=== PATIENT | male | born 1955 | race Caucasian/White ===

== ENCOUNTER 2021-03-01 14:49 | Inpatient (IN) | payer OTHER, SELFPAY ==
[2021-03-01] VITALS (26 sets, daily range): BP systolic 95–153; BP diastolic 60–108; PULSE 39–61; RESP 12–21; TEMP 36.4–37.1; O2SAT 93–100
--- NOTE | ~2021-03-01 | XR_ITS ---
EXAMINATION: XR chest 2V DATE: 03/05/2021 11:14 INDICATION: Pacemaker insertion TECHNIQUE: AP and lateral views of the chest are obtained. COMPARISON: 03/04/2021 FINDINGS: The lungs are free of acute opacities. There is no pleural effusion or pneumothorax. The ca rdiomediastinal silhouette is normal. There is exaggerated kyphosis of the lower thoracic spine. A du al-lead cardiac pacemaker of the left chest wall ends with leads in expected locations. Shunt cathete r tubing courses over the right hemithorax anteriorly and coils in the right upper quadrant. IMPRESSION: 1. No acute cardiopulmonary abnormality. Reviewed, dictated and finalized at location A.
--- NOTE | ~2021-03-01 | XR_ITS ---
EXAMINATION: XR ankle LT min 3V EXAM DATE: 03/01/2021 16:19 INDICATION: Initial encounter following injury, with pain of the left ankle. TECHNIQUE: Left ankle frontal, lateral and oblique projections obtained and reviewed. There is no pr ior study for comparison. FINDINGS: Acute closed posttraumatic transverse fracture through the lateral malleolus, about 2 cm from its tip. This potentially may require surgical fixation. There is overlying soft tissue swellin g. There is acute avulsion sliver-like fracture at the tip of the medial malleolus, which has about 5 mm of medial distraction. This has been indicated on the frontal examination. There is no other lucency overlying the talus, may or may not be a fracture (potentially could be shadow from os trigonum). Lateral projection also demonstrates suspicion of acute dorsal navicular fracture at its anterior asp ect. IMPRESSION: 1. Nondisplaced left lateral malleolar transverse fracture, may require orthopedic internal fixation . 2. Tiny medial malleolar avulsion fracture. 3. Probable tiny anterior talar process fracture dorsally. 4. Possible talar dome fracture or summation shadow. 5. Orthopedic consult recommended, further evaluation with MR or CT may be indicated if it would autumn nge management. Reviewed, dictated and finalized at location B. IMPRESSION: 1. Nondisplaced left lateral malleolar transverse fracture, may require orthop edic internal fixation. 2. Tiny medial malleolar avulsion fracture. 3. Probable tiny anterior talar process fracture dorsally. 4. Possible talar dome fracture or summation shadow. 5. Orthopedic consult recommended, further evaluation with MR or CT may be ind icated if it would change house attendant.
--- NOTE | ~2021-03-01 | XR_ITS ---
EXAMINATION: XR chest 1V portable 03/04/2021 11:24 INDICATION: Pacemaker insertion PROCEDURE: AP portable chest COMPARISON: 03/01/2021 FINDINGS: The lungs are clear. Interval placement of sequential pacemaker leads, tips in the right at rium and right ventricle respectively. There is a right-sided ventriculoperitoneal shunt. The cardiom ediastinal silhouette is within normal limits. There are no pleural effusions. There is no pneumoth orax suspected. IMPRESSION: 1: NO ACUTE CARDIOPULMONARY DISEASE. Reviewed, dictated and finalized at location A.
--- NOTE | ~2021-03-01 | XR_ITS ---
XR chest 1V portable DATE: 03/01/2021 18:36 INDICATION: Bradycardia TECHNIQUE: Portable upright AP views on 03/01/2021 at 1836 and 1837 hours COMPARISON: 04/08/2015 PA and lateral chest FINDINGS: Presumed right ventricular peritoneal shunt catheter overlying right neck and chest and abd omen. Mild elevation of the left leaf of diaphragm. The lungs appear clear of consolidation. No pleural effusion or pulmonary vascular congestion or pneumothorax. Heart size is likely within normal limits considering magnification associated with AP projection. Th ere is aortic ectasia and tortuosity. Diffuse osteopenia. Levoscoliosis of the thoracic spine. IMPRESSION: Right ventriculoperitoneal shunt catheter No active cardiopulmonary disease is evident Reviewed, dictated and finalized at location A.
--- NOTE | 2021-03-01 15:02 | ECG_ITS ---
Measurements Intervals [place] Rate: 41 P: [place]: 0 QRS: 82 QRSD: 135 T: -2 QT: 474 QTc: 396 Interpretive Statements JUNCTIONAL RHYTHM RIGHT BUNDLE BRANCH BLOCK BASELINE WANDER- V1-V2 ABNORMAL ECG Electronically Signed On 03-01-2021 17:07:20 CDT by Jl Kwan D.O.
--- NOTE | 2021-03-01 15:07 | PC.NURSE ---
Went to get pt a commode, pt had gotten up and self-ambulated to bathroom for BM. +bradycardic per EKG, pt denies hx same, denies CP/SOB, states only cardiac hx HTN.
[2021-03-01 16:00] LABS: Basophils Percent Auto 0.4 % (0.2-1.2); Eosinophils Absolute Auto 0.1 K/mm3 (0-0.3); Eosinophils Percent Auto 1.4 % (0-4.4); Hemoglobin 14.8 g/dL (14.0-18.0); Immature Granulocyte Absolute 0.04 K/mm3 (0.00-0.031); Immature Granulocyte Percent A 0.4 % (0-0.5); Lymphocytes Absolute Auto 1.12 K/mm3 (0.9-3.2); Lymphocytes Percent Auto 11.1 % (18.3-44.2); Mean Corpuscular HGB Conc 32.2 g/dl (32-36); Mean Corpuscular Volume 99.4 fl (80-100); Mean Platelet Volume 9.7 fl (7.4-10.4); Monocytes Absolute Auto 1.1 K/mm3 (0.1-0.6); Neutrophils Absolute Auto 7.7 K/mm3 (1.3-6.7); Neutrophils Percent Auto 75.7 % (45.5-73.1); Platelet Count Result 232 k/mm3 (150-375); Red Blood Count 4.63 M/mm3 (4.6-6.20); Red Cell Distribution Width 13.4 % (11.5-14.5); White Blood Count 10.1 K/mm3 (4.5-10.0)
[2021-03-01 16:03] LABS: Alanine Aminotransferase 13 U/L (4-50); Albumin Level 3.6 g/dL (3.5-5.1); Alkaline Phosphatase 106 U/L (38-126); Anion Gap 10 mmol/L (8-16); Aspartate Amino Transferase 29 U/L (17-59); Blood Urea Nitrogen 23 mg/dL (9-20); Calcium 8.9 mg/dL (8.4-10.2); Carbon Dioxide 27 mmol/L (22-30); Chloride 106 mmol/L (98-107); Estimated Glomerular Filt Rate 44; Glucose 89 mg/dL (75-110); Potassium 3.3 mmol/L (3.4-5.0); Sodium 143 mmol/L (137-145)
--- NOTE | 2021-03-01 16:05 | ED.GENADULT ---
HPI - General Adult General Chief complaint: Extremity Injury, Lower Stated complaint: FALL/FRACTURE Time Seen by Provider: 03/01/21 15:25 History of Present Illness HPI narrative: Patient is a 65 y/o male complaining of left ankle pain starting yesterday after a fall. He describes his pain as sharp and rates it as 3/10. He states that movement worsens his pain. There is no pain radiation. He did not hit his head or have any other injury. He has no headache, neck pain, back pain, chest pain or abdominal pain. He had xray done at [facility] and was sent here because xray showed a fracture. Related Data Home Medications Medication Instructions Recorded Confirmed acetaminophen 650 mg PO TID 03/01/21 03/01/21 amlodipine 10 mg PO DAILY 03/01/21 03/01/21 hydralazine 50 mg PO TID 03/01/21 03/01/21 hydrochlorothiazide 25 mg PO DAILY 03/01/21 03/01/21 metoprolol succinate 50 mg PO Q12H 03/01/21 03/01/21 polyethylene glycol 3350 17 g PO DAILY PRN 03/01/21 03/01/21 sertraline 50 mg PO DAILY 03/01/21 03/01/21 Allergies Allergy/AdvReac Type Severity Reaction Status Date / Time morphine AdvReac Hallucinati Verified 03/01/21 15:01 ng Review of Systems Constitutional: Constitutional: Denies chills, Denies fever(s), Denies headache(s) and Denies weakness Eyes: Eyes: Denies blurry vision ENT: Denies headache(s) and Denies neck pain Cardiovascular: Cardiovascular: Denies chest pain and Denies dyspnea Respiratory: Respiratory: Denies cough and Denies dyspnea Gastrointestinal: Gastrointestinal: Denies abdominal pain, Denies diarrhea, Denies nausea and Denies vomiting Genitourinary: Genitourinary: Denies hematuria and Denies dysuria Musculoskeletal: Musculoskeletal: Denies back pain, Reports arthralgias (left ankle pain) and Denies neck pain Neurologic: Denies headache(s) and Denies weakness [facility] Past Medical History Medical History Gastroesophageal reflux disease History of diverticulitis History of stroke Per patient he has a history of intracranial hemorrhage and ischemic stroke. Hypertension Nephrolithiasis Obstructive sleep apnea Intolerant to CPAP. Paroxysmal atrial fibrillation Short-term memory loss As result of previous intracranial hemorrhage. Surgical History Surgical History History of cholecystectomy History of colon resection Secondary to diverticulitis. History of gastric bypass Gastric sleeve procedure. History of ventriculoperitoneal shunting Family History Family History Other Cerebrovascular accident Hypertension Social History Social History Social History: Surrogate decision maker: Bhavani Holley, friend. Code status: Full code. He would not want to be on life support for any length of time, however. Smoking status: Never smoker Alcohol intake: current Drinks per week: 3 Substance use: never Additional living arrangements comments: Resides at [facility]. 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 Spiritual care concerns: No Exam Const: General: no acute distress and well developed Orientation/consciousness: oriented to person, oriented to place, oriented to time and patient oriented x3 HENMT: Head: normocephalic Ears: external ears normal General nose exam: Normal external nose present Eyes: General: appearance normal, both eyes and all related structures Conjunctivae: conjunctivae normal Neck: Neck: normal visual inspection and full ROM Chest: Chest palpation & inspection: normal inspection of the chest and no tenderness Resp: Effort & Inspection: normal respiratory effort Auscultation: clear to auscultation bilaterally Cardio: Rate: bradycardic Rhythm: regular rhythm GI: GI Palp: No abdominal ten
[2021-03-01 17:40] LABS: Troponin I 0.042 ng/mL (0.000-0.034)
[2021-03-01 18:30] LABS: Add Urine Microscopic? YES; Appearance Urine Clear (Clear); Bacteria Urine Trace /hpf; Bilirubin Urine Negative (Negative); Blood Urine Negative (Negative); Color Urine Yellow (Yellow); Glucose Urine UA Negative (Negative); Ketones Urine Negative (Negative); Leukocyte Esterase Ur Negative LEU/UL (Negative); Mucus Urine Rare /lpf; Nitrate Urine Negative (Negative); Protein Urine 1+ mg/dL (Negative); RBC Urine 0-2 /hpf (0-2); Specific Grav Ur 1.017 (1.001-1.035); Urobilinogen Urine Negative mg/dL (<2.0); WBC Urine 0-3 /hpf
[2021-03-01] MEDS: POTASSIUM CHLORIDE 20 MEQ TABLET PO (19:08)
[2021-03-01 19:59] LABS: Troponin I 0.043 ng/mL (0.000-0.034)
--- NOTE | 2021-03-01 21:17 | PC.NURSE ---
This patient, Fabio Nesbitt, was admitted to IMU Room 202-. Patient/family oriented to hospital policies and general routines including ID bracelet, bed and alarms, visiting hours, pain management, procedures, bathroom and other care routines, personal items, smoking policy, room service/diet, and visiting hours. Information on how to activate the Rapid Response Team has been discussed. Patient/Family are encouraged to report perceived risks to care and to ask questions if they do not understand what they are told or what they should do.
--- NOTE | 2021-03-01 21:50 | ECG_ITS ---
Measurements Intervals [place] Rate: 39 P: [place]: 0 QRS: 57 QRSD: 174 T: -4 QT: 491 QTc: 399 Interpretive Statements SLOW JUNCTIONAL RHYTHM RIGHT BUNDLE BRANCH BLOCK ABNORMAL ECG Electronically Signed On 03-02-2021 5:51:34 CDT by Jl Kwan D.O.
--- NOTE | 2021-03-01 22:00 | PM.IMHP ---
H&P: HPI History of Present Illness Date/Time: 03/01/21 22:00 Chief Complaint: Left ankle fracture after fall yesterday. Narrative: This is a 65-year-old male with history of stroke and left hemiplegia, paroxysmal atrial fibrillation, and hypertension who presented to the emergency department earlier today via EMS from [facility] for evaluation after he was found to have an ankle fracture on imaging done today. He is a pretty good historian however suffers from short-term memory loss due to previous intracranial hemorrhage. He believes it was either yesterday or the day before that he sustained a fall after stepping out of the car. He was on a car ride with his niece and when he got of the car his leg was weak like it had fallen asleep and it caused him to fall. He is not able to tell me exactly how he fell, if he rolled his ankle, or exactly how he landed. Per the patient he was able to get up with the help of his niece and a friend and spent the rest of the day limping on that left foot. He denies head trauma and loss of consciousness in the fall. Today he had an x-ray done at [facility] which showed an ankle fracture and he was sent here for further evaluation. In the emergency department he was found to be bradycardic with EKG showing a junctional rhythm although on a couple of telemetry strips it looks like he may have intermittently gone into third-degree heart block. He is asymptomatic with regards to the bradycardia and he specifically denies lightheadedness, syncope, near syncope, palpitations, nausea, vomiting, sweats, and shortness of breath. He does not believe that he was dizzy prior to the fall in which he broke his ankle. He has no known history of coronary artery disease he, sick sinus syndrome, or thyroid disease. Review of Systems Review of Systems: Narrative: Twelve systems were reviewed with pertinent positives and negatives as per HPI. He denies headache. No sinus congestion, rhinorrhea, otalgia, or odynophagia. No recent cold or flu symptoms. He received both shots in the COVID vaccination series. Denies orthopnea, PND, and significant lower extremity edema. No nausea, vomiting, or diarrhea. No dysuria. Except as documented, all other systems were reviewed and are negative. [facility] Past Medical History Medical History (Updated 03/01/21 @ 23:42 by Radha Funes PA-C) Gastroesophageal reflux disease History of diverticulitis History of stroke Per patient he has a history of intracranial hemorrhage and ischemic stroke. Hypertension Nephrolithiasis Obstructive sleep apnea Intolerant to CPAP. Paroxysmal atrial fibrillation Short-term memory loss As result of previous intracranial hemorrhage. Surgical History Surgical History (Updated 03/01/21 @ 23:38 by Radha Funes PA-C) History of cholecystectomy History of colon resection Secondary to diverticulitis. History of gastric bypass Gastric sleeve procedure. History of ventriculoperitoneal shunting Family History Family History (Updated 03/01/21 @ 23:38 by Radha Funes PA-C) Other Cerebrovascular accident Hypertension Social History Social History (Updated 03/01/21 @ 23:40 by Radha Funes PA-C) Social History: Surrogate decision maker: Bhavani Holley, friend. Code status: Full code. He would not want to be on life support for any length of time, however. Smoking status: Never smoker Alcohol intake: current Drinks per week: 3 Substance use: never Additional living arrangements comments: Resides at [facility]. 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 Spiritual care concerns: No Meds Home Medications and Allergies Home Medications Medication Instructions Recorded Confirmed Type acetaminophen 650 mg PO TID 03/01/21 03/01/21 History amlodipine 10 mg PO DAILY 03/01/21 03/01/21 History hydralazine 50 mg PO TID 03/01/21 03/01/21 History hydrochlorothiazide 25 mg
[2021-03-01 23:54] LABS: Troponin I 0.042 ng/mL (0.000-0.034)
[2021-03-02] VITALS (13 sets, daily range): BP systolic 120–151; BP diastolic 61–85; PULSE 45–94; RESP 16–20; TEMP 36–37.2; O2SAT 91–98
[2021-03-02] MEDS: SODIUM CHLORIDE 0.9% IV 1,000 ML 999 ML IV CONT (04:51)
[2021-03-02 05:08] LABS: Hematocrit 46.8 % (42.0-52.0); Hemoglobin 14.8 g/dL (14.0-18.0); Mean Corpuscular HGB Conc 31.6 g/dl (32-36); Mean Corpuscular Hemoglobin 32.2 pg (26-34); Mean Platelet Volume 9.8 fl (7.4-10.4); Platelet Count Result 209 k/mm3 (150-375); Red Blood Count 4.59 M/mm3 (4.6-6.20); Red Cell Distribution Width 13.3 % (11.5-14.5); White Blood Count 8.8 K/mm3 (4.5-10.0)
[2021-03-02 05:36] LABS: Anion Gap 9 mmol/L (8-16); Blood Urea Nitrogen 21 mg/dL (9-20); Calcium 8.8 mg/dL (8.4-10.2); Carbon Dioxide 30 mmol/L (22-30); Chloride 106 mmol/L (98-107); Estimated CRCL calculation 66 ml/min; Estimated Glomerular Filt Rate 51; Glucose 79 mg/dL (75-110); Potassium 3.3 mmol/L (3.4-5.0); Sodium 145 mmol/L (137-145)
--- NOTE | 2021-03-02 07:39 | PM.CNOR ---
Assessment and Plan Assessment and plan (1) Closed left ankle fracture: Qualifiers: Encounter type: initial encounter Qualified Code(s): S82.892A - Other fracture of left lower leg, initial encounter for closed fracture Code(s): S82.892A - Other fracture of left lower leg, initial encounter for closed fracture Status: Acute Assessment and Plan: 65-year-old male with left ankle fractures. He is fracture of the talar body as well as the lateral malleolus. These will be treated nonsurgically as they are nondisplaced. He will not be able to put any weight on this however for 6-8 weeks, depending on the healing. Like to get him into a removable cast boot in about 2-3 weeks. Thank you for the consultation. I will follow while he is in the hospital. History of Present Illness HPI Consult date: 03/02/21 Consult reason: fracture ( Left ankle fracture) Chief complaint: bradycardia, elevated troponin Narrative: 65-year-old male who slipped and fell while stepping out of a car in the last day or two. Was brought to the emergency room from [facility] where he resides. He was x-rayed and found to have a nondisplaced left ankle fracture. He was admitted because of need for a cardiac workup. [facility] Past Medical History Medical History Gastroesophageal reflux disease History of diverticulitis History of stroke Per patient he has a history of intracranial hemorrhage and ischemic stroke. Hypertension Nephrolithiasis Obstructive sleep apnea Intolerant to CPAP. Paroxysmal atrial fibrillation Short-term memory loss As result of previous intracranial hemorrhage. Surgical History Surgical History History of cholecystectomy History of colon resection Secondary to diverticulitis. History of gastric bypass Gastric sleeve procedure. History of ventriculoperitoneal shunting Family History Family History Other Cerebrovascular accident Hypertension Social History Social History Social History: Surrogate decision maker: Bhavani Holley, friend. Code status: Full code. He would not want to be on life support for any length of time, however. Smoking status: Never smoker Alcohol intake: current Drinks per week: 3 Substance use: never Additional living arrangements comments: Resides at [facility]. 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 Spiritual care concerns: No Meds Home Medications and Allergies Home Medications Medication Instructions Recorded Confirmed Type acetaminophen 650 mg PO TID 03/01/21 03/01/21 History amlodipine 10 mg PO DAILY 03/01/21 03/01/21 History hydralazine 50 mg PO TID 03/01/21 03/01/21 History hydrochlorothiazide 25 mg PO DAILY 03/01/21 03/01/21 History metoprolol succinate 50 mg PO Q12H 03/01/21 03/01/21 History polyethylene glycol 3350 17 g PO DAILY PRN 03/01/21 03/01/21 History sertraline 50 mg PO DAILY 03/01/21 03/01/21 History Allergies Allergy/AdvReac Type Severity Reaction Status Date / Time morphine AdvReac Hallucinati Verified 03/01/21 15:01 ng Vital Signs Vital Signs - 24 hr 03/01/21 14:54 03/01/21 15:32 03/01/21 15:33 Temperature 98.8 F Pulse Rate 41 L 40 L 41 L Respiratory Rate 20 12 13 Blood Pressure 105/74 97/60 L Pulse Oximetry 98 95 96 03/01/21 15:45 03/01/21 15:47 03/01/21 16:04 Temperature Pulse Rate 39 L 39 L 48 L Respiratory Rate 15 17 17 Blood Pressure 95/64 L Pulse Oximetry 95 96 96 03/01/21 16:15 03/01/21 16:17 03/01/21 16:30 Temperature Pulse Rate 55 L Respiratory Rate Blood Pressure 130/70 Pulse Oximetry 95 93 94 03/01/21 16:32 03/01/21 16:45 03/01/21 16:47 Temperature Pulse Rate Respiratory Rate Blood Pressu
--- NOTE | 2021-03-02 08:31 | PM.CNCAR ---
Assessment and Plan Assessment and plan (1) Bradycardia: Code(s): R00.1 - Bradycardia, unspecified Status: Acute Assessment and Plan: He has evidence of both sick sinus syndrome (suggested by junctional rhythm) as well as sick conduction system (suggested by marked first degree AV block and mobitz I second degree block). No third degree block noted on tele He has no acute indication for permanent pacemaker at this point although he may need one in the future As for now will d/c Metoprolol and follow HR off BB. Also need to correct hypokalemia TSH is normal Will check 2D echocardiogram to rule out structural heart disease Will continue to monitor on tele (2) Elevated troponin: Code(s): R77.8 - Other specified abnormalities of plasma proteins Status: Acute Assessment and Plan: peaked at 0.04 No chest pain. EKG with RBBB and no ischemic changes Check 2D echo as above Will need ischemic evaluation that can be arranged in outpatient settings History of Present Illness History of Present Illness Consult date/time: 03/02/21 08:31 65 y/o male with non known cardiac history, h/o HTN and intracranial hemorrhage s/p ventriculoperitoneal shunt in 2018 who [facility] who presented with fall and is seen in cardiac consultation for bradycardia He states that he went out with his niece yesterday and his leg fall asleep while in the car and he fell when he tried to step out of the car. He sustained ankle fracture. In ER he was noted to be bradycardiac hence cardiology consult was requested. Careful review of tele monitor reveals: Sinus bradycardia with marked first degree AV block, Episodes of second degree Mobitz I heart block Junctional rhythm with HR lowest of 39 He denies dizziness, lightheadedness or syncope. He was never told he had slow heart rate before. He is on metoprolol 25 mg BID at the [facility] Never smoker. Admits to prior heavy alcohol use but non in the last 3-4 years Reason For Visit: bradycardia, elevated troponin Review of Systems Review of Systems: All systems reviewed & are unremarkable except as noted in HPI and below Constitutional: Constitutional: Denies fatigue and Denies headache(s) Eyes: Eyes: Denies blurry vision ENT: Reports Normal hearing present and Denies headache(s) Cardiovascular: Cardiovascular: Denies chest pain, Denies diaphoresis, Denies pedal edema, Denies leg edema, Denies lightheadedness, Denies palpitations and Denies dyspnea Respiratory: Respiratory: Denies cough and Denies dyspnea Gastrointestinal: Gastrointestinal: Denies abdominal pain Musculoskeletal: Musculoskeletal: Denies back pain Neurologic: Reports Normal hearing present and Denies headache(s) Psychiatric: Psychiatric: Denies anxiety Endocrine: Endocrine: Denies fatigue and Denies palpitations PMFSH Past Medical History Medical History Gastroesophageal reflux disease History of diverticulitis History of stroke Per patient he has a history of intracranial hemorrhage and ischemic stroke. Hypertension Nephrolithiasis Obstructive sleep apnea Intolerant to CPAP. Paroxysmal atrial fibrillation Short-term memory loss As result of previous intracranial hemorrhage. Surgical History Surgical History History of cholecystectomy History of colon resection Secondary to diverticulitis. History of gastric bypass Gastric sleeve procedure. History of ventriculoperitoneal shunting Family History Family History Other Cerebrovascular accident Hypertension Social History Social History Social History: Surrogate decision maker: Bhavani Holley, friend. Code status: Full code. He would not want to be on life support for any length of
--- NOTE | 2021-03-02 08:34 | ECHO_ITS ---
Patient Info Name: Fabio Nesbitt Age: 65 years : 1955 Gender: Male Ht: 71 in Wt: 279 lbs BSA: 2.57 m2 HR: 65 bpm BP: 151 / 81 mmHg Technical Quality: Fair Exam Date: 03/02/2021 3:18 PM Exam Location: [facility] Exam Room: [facility] Patient Status: Outpatient Admit Date: 03/01/2021 Staff Ordering Physician: Taz Samano MD ([email or web address]/[email or web address]) Hammerer Helper: Nimisha Marshall RDCS Attending Provider: Елена Diaz MD Exam Type: CA echo doppler color flow Study Info Indications - bradycardia sss Complete two-dimensional, color flow and Doppler transthoracic echocardiogram is performed. Summary 1. Complete two-dimensional, color flow and Doppler transthoracic echocardiogram is performed. 2. There is mildly increased left ventricular wall thickness. 3. Left ventricular systolic function is normal to hyperdynamic, estimated EF 65-70%. 4. Left atrial chamber dimension is mildly enlarged. 5. Right atrial chamber dimension is mildly enlarged. 6. There is no aortic valve sclerosis. 7. There is trace mitral valve regurgitation. 8. There is trace tricuspid valve regurgitation. 9. No pulmonary hypertension, estimated pulmonary arterial systolic pressure is 30 mmHg. 10. There is no pericardial effusion. Left Ventricle Left ventricular chamber dimension is normal. Left ventricular systolic function is normal to hyperdynamic, estimated EF 65-70%. There is mildly increased left ventricular wall thickness. Left ventricular septal wall motion is normal. The left ventricular diastolic function is grade I diastolic dysfunction. Right Ventricle Right ventricular chamber dimension is normal. Right ventricular systolic function is normal. Left Atria Left atrial chamber dimension is mildly enlarged. Right Atria Right atrial chamber dimension is mildly enlarged. Aortic Valve The aortic valve is trileaflet. There is no aortic valve sclerosis. There is no aortic valve stenosis. There is no aortic valve regurgitation. Pulmonic Valve The pulmonic valve is normal. There is no pulmonic valve stenosis. There is no pulmonic regurgitation. Mitral Valve The mitral valve has normal leaflets. There is no mitral valve stenosis. There is trace mitral valve regurgitation. Tricuspid Valve The tricuspid valve leaflets are normal. There is no significant tricuspid valve stenosis. There is trace tricuspid valve regurgitation. No pulmonary hypertension, estimated pulmonary arterial systolic pressure is 30 mmHg. Pericardium/Pleural The pericardium appears normal. There is no pericardial effusion. Inferior Vena Cava IVC is not well visualized . Aorta The aortic root size at the sinus of Valsalva is normal. The prox ascending aorta size is normal. Left Ventricular Outflow Tract Name Value Normal LVOT 2D LVOT Diameter 2.2 cm LVOT Doppler LVOT Peak Gradient 4 mmHg LVOT Mean Gradient 2 mmHg LVOT VTI 24 cm LVOT VTI/AV VTI Ratio 0.7 LVOT Stroke Volum
[2021-03-02] MEDS: amLODIPine BESYLATE 5 MG TABLET 10 MG PO (09:20)
[2021-03-02] MEDS: SERTRALINE HCL 50 MG TABLET PO (09:21)
[2021-03-02] MEDS: ACETAMINOPHEN 325 MG TABLET 650 MG PO ×3 (09:21→17:27)
--- NOTE | 2021-03-02 12:26 | PM.IMPN ---
Progress Note: A&P Assessment and Plan (1) Bradycardia: Code(s): R00.1 - Bradycardia, unspecified Status: Acute (2) Elevated troponin: Code(s): R77.8 - Other specified abnormalities of plasma proteins Status: Acute (3) Closed left ankle fracture: Qualifiers: Encounter type: initial encounter Qualified Code(s): S82.892A - Other fracture of left lower leg, initial encounter for closed fracture Code(s): S82.892A - Other fracture of left lower leg, initial encounter for closed fracture Status: Acute (4) History of colon resection: Code(s): Z90.49 - Acquired absence of other specified parts of digestive tract Status: Chronic (5) Short-term memory loss: Code(s): R41.3 - Other amnesia Status: Acute (6) Renal failure: Code(s): N19 - Unspecified kidney failure Status: Acute (7) Hypokalemia: Code(s): E87.6 - Hypokalemia Status: Acute (8) Hypertension: Code(s): I10 - Essential (primary) hypertension Status: Acute (9) Paroxysmal atrial fibrillation: Code(s): I48.0 - Paroxysmal atrial fibrillation Status: Acute (10) History of ventriculoperitoneal shunting: Code(s): Z92.89 - Personal history of other medical treatment Status: Inactive (11) History of stroke: Code(s): Z86.73 - Personal history of transient ischemic attack (TIA), and cerebral infarction without residual deficits Status: Inactive (12) Gastroesophageal reflux disease: Code(s): K21.9 - Gastro-esophageal reflux disease without esophagitis Status: Inactive (13) History of diverticulitis: Code(s): Z87.19 - Personal history of other diseases of the digestive system Status: Inactive (14) Nephrolithiasis: Code(s): N20.0 - Calculus of kidney Status: Inactive (15) Obstructive sleep apnea: Code(s): G47.33 - Obstructive sleep apnea (adult) (pediatric) Status: Inactive (16) History of gastric bypass: Code(s): Z98.84 - Bariatric surgery status Status: Inactive Additional Plan This is a 65-year-old male with history of stroke and left hemiplegia, paroxysmal atrial fibrillation, and hypertension who presented to the emergency department via EMS from [facility] for evaluation after he was found to have an ankle fracture on imaging done today. He is a pretty good historian however suffers from short-term memory loss due to previous intracranial hemorrhage. He believes it was either yesterday or the day before that he sustained a fall after stepping out of the car. He was on a car ride with his niece and when he got of the car his leg was weak like it had fallen asleep and it caused him to fall. He is not able to tell me exactly how he fell, if he rolled his ankle, or exactly how he landed. Per the patient he was able to get up with the help of his niece and a friend and spent the rest of the day limping on that left foot. He denies head trauma and loss of consciousness in the fall. Today he had an x-ray done at [facility] which showed an ankle fracture and he was sent here for further evaluation. In the emergency department he was found to be bradycardic with EKG showing a junctional rhythm although on a couple of telemetry strips it looks like he may have intermittently gone into third-degree heart block. He is asymptomatic with regards to the bradycardia and he specifically denies lightheadedness, syncope, near syncope, palpitations, nausea, vomiting, sweats, and shortness of breath. He does not believe that he was dizzy prior to the fall in which he broke his ankle. He has no known history of coronary artery disease he, sick sinus syndrome, or thyroid disease. admitted 03/01/2021 # left ankle closed fracture: ortho consulted. on cast. planned for non operative mgmt 65-year-old male with left ankle fractures. He is fracture of the talar body as well as the lateral malleolus. T
[2021-03-02] MEDS: POTASSIUM CHLORIDE 20 MEQ TABLET 40 MEQ PO (12:51)
[2021-03-03] VITALS (15 sets, daily range): BP systolic 118–151; BP diastolic 50–88; PULSE 54–73; RESP 12–22; TEMP 36.7–37.2; O2SAT 64–99
[2021-03-03 05:11] LABS: Basophils Absolute Auto 0.1 K/mm3 (0.0-0.1); Basophils Percent Auto 0.5 % (0.2-1.2); Eosinophils Absolute Auto 0.1 K/mm3 (0-0.3); Eosinophils Percent Auto 1.5 % (0-4.4); Hematocrit 43.8 % (42.0-52.0); Hemoglobin 14.3 g/dL (14.0-18.0); Immature Granulocyte Absolute 0.03 K/mm3 (0.00-0.031); Immature Granulocyte Percent A 0.3 % (0-0.5); Lymphocytes Absolute Auto 1.37 K/mm3 (0.9-3.2); Lymphocytes Percent Auto 14.3 % (18.3-44.2); Mean Corpuscular HGB Conc 32.6 g/dl (32-36); Mean Corpuscular Hemoglobin 32.3 pg (26-34); Mean Corpuscular Volume 98.9 fl (80-100); Mean Platelet Volume 9.9 fl (7.4-10.4); Monocytes Percent Auto 10.2 % (2.6-8.5); Neutrophils Percent Auto 73.2 % (45.5-73.1); Platelet Count Result 215 k/mm3 (150-375); Red Blood Count 4.43 M/mm3 (4.6-6.20); Red Cell Distribution Width 13.2 % (11.5-14.5); White Blood Count 9.6 K/mm3 (4.5-10.0)
[2021-03-03 05:27] LABS: Anion Gap 7 mmol/L (8-16); Blood Urea Nitrogen 29 mg/dL (9-20); Calcium 8.7 mg/dL (8.4-10.2); Carbon Dioxide 28 mmol/L (22-30); Chloride 108 mmol/L (98-107); Estimated CRCL calculation 66 ml/min; Estimated Glomerular Filt Rate 51; Glucose 86 mg/dL (75-110); Magnesium 1.9 mg/dL (1.6-2.3); Potassium 4.1 mmol/L (3.4-5.0); Sodium 143 mmol/L (137-145)
[2021-03-03] MEDS: SERTRALINE HCL 50 MG TABLET PO (08:30)
[2021-03-03] MEDS: amLODIPine BESYLATE 5 MG TABLET 10 MG PO (08:30)
[2021-03-03] MEDS: ACETAMINOPHEN 325 MG TABLET 650 MG PO ×3 (08:30→17:00)
--- NOTE | 2021-03-03 08:46 | PM.PNCARD ---
Progress Note: A&P Assessment and Plan (1) Bradycardia: Code(s): R00.1 - Bradycardia, unspecified Status: Acute Assessment and Plan: He has evidence of sick sinus syndrome (suggested by junctional rhythm) as well as sick conduction system Heart rate somewhat better since Metoprolol stopped however he was noted to have Mobitz II Second degree heart block on tele overnight which is an indication for permanent pacemaker insertion TSH is normal. K was 3.3 but has been corrected today to 4.1 2D echo with normal LV function and no significant valve disease I contacted Dr Fernandez for pacemaker insertion I had long discussion with patient's niece (POA) over the phone. She would like to discuss that further with family and with Dr Abdi before consenting to procedure (2) Elevated troponin: Code(s): R77.8 - Other specified abnormalities of plasma proteins Status: Acute Assessment and Plan: Borderline elevation, peaked at 0.04 No chest pain. EKG with RBBB and no ischemic changes 2D echo with normal LV function Consider ischemic evaluation with stress test in outpatient settings Subjective Date/time seen: 03/03/21 08:46 He denies dizziness, lightheadedness or dyspnea. tele reviewed. HR better compared to yesterday but there is evidence of second degree heart block Mobitz II Review of Systems Review of Systems: All systems reviewed & are unremarkable except as noted in HPI and below Constitutional: Constitutional: Denies fatigue and Denies headache(s) Eyes: Eyes: Denies blurry vision ENT: Reports Normal hearing present and Denies headache(s) Cardiovascular: Cardiovascular: Denies chest pain, Denies diaphoresis, Denies pedal edema, Denies leg edema, Denies lightheadedness, Denies palpitations and Denies dyspnea Respiratory: Respiratory: Denies cough and Denies dyspnea Gastrointestinal: Gastrointestinal: Denies abdominal pain Musculoskeletal: Musculoskeletal: Denies back pain Neurologic: Reports Normal hearing present and Denies headache(s) Psychiatric: Psychiatric: Denies anxiety Endocrine: Endocrine: Denies fatigue and Denies palpitations Exam Const: General: no acute distress Eyes: Sclera: sclerae normal Neck: Neck: no JVD Carotids: no bruits Resp: Effort & Inspection: normal respiratory effort Auscultation: clear to auscultation bilaterally Cardio: Rate: regular rate and not tachycardic Rhythm: regular rhythm Heart sounds: no gallops, no murmurs and no rubs Skin: General skin exam: normal color Neuro: Cranial nerves: Yes Normal hearing present Speech: normal speech Extrem: General: normal to inspection and no edema Psych: Affect: normal affect Objective Data Vital Signs Vital Signs: Vital Signs - 24 hr 03/02/21 10:00 03/02/21 10:21 03/02/21 12:00 Temperature 36.6 C Pulse Rate 52 L 62 Respiratory Rate 20 Blood Pressure 131/81 Pulse Oximetry 91 92 03/02/21 14:00 03/02/21 16:00 03/02/21 18:00 Temperature 36.0 C L Pulse Rate 67 56 L 65 Respiratory Rate 18 Blood Pressure 138/85 Pulse Oximetry 98 03/02/21 20:00 03/02/21 22:00 03/03/21 00:00 Temperature 37.1 C 37.1 C Pulse Rate 56 L 45 L 73 Respiratory Rate 18 22 H Blood Pressure 120/61 148/85 H Pulse Oximetry 96 95 03/03/21 02:00 03/03/21 04:00 03/03/21 06:00 Temperature 36.9 C Pulse Rate 73 67 69 Respiratory Rate 16 Blood Pressure 126/81 Pulse Oximetry 98 03/03/21 08:00 Temperature 37.1 C Pulse Rate 72 Respiratory Rate 12 Blood Pressure 143/88 H Pulse Oximetry 97 Intake/Output Intake/Output: Intake & Output 02/28/21 03/01/21 03/02/21 03/03/21 23:59 23:59 23:59 23:59 Intake Total 1460 400 Output Total 1850 200 Balance -390 200 Meds/Results Medications: Active Medications Generic Name Dose Route Start Last Admin Trade Name Freq PRN Reason Stop Dose Admin Acetaminophen 650 mg 03/02/21 09:00 03/03/21 08:30 A
--- NOTE | 2021-03-03 10:42 | PM.CNCAR ---
Assessment and Plan Assessment and plan (1) Second degree AV block, Mobitz type II: Code(s): I44.1 - Atrioventricular block, second degree Status: Acute Assessment and Plan: Pleasant middle-age male with first-degree view block and underlying RBBB and intermittent second-degree AV block type 2, which persists even after being off metoprolol, suggestive of significant advanced conduction system disease. He has a class 1 indication for permanent pacemaker. I have discussed this with him and his fiancee Lorre ([phone]). I recommend permanent pacer implant. Since he has normal LV function, a dual-chamber pacemaker should be adequate. Without it he is at risk of progressive AV block which may be resultant dizziness, syncope, falls, etc.. I have reviewed the risks and benefits of permanent pacemaker implant (These include breathing problems, allergic reactions, bleeding, infection, pneumothorax, cardiac puncture, need for unanticipated surgery, lead dislodgement among others.). The family will discuss whether not to proceed with permanent pacer implant and let us know. (2) Bradycardia: Code(s): R00.1 - Bradycardia, unspecified Status: Acute Assessment and Plan: Junctional rhythm has resolved but patient still has intermittent second-degree AV block type 2. (3) Paroxysmal atrial fibrillation: Code(s): I48.0 - Paroxysmal atrial fibrillation Status: Acute Assessment and Plan: He carries a history of paroxysmal atrial fibrillation as well. Not noted on this stay. Off anticoagulation, I presume because of his history of intraparenchymal hemorrhage. (4) RBBB: Code(s): I45.10 - Unspecified right bundle-branch block Status: Acute Assessment and Plan: RBBB consistent with of infranodal disease Additional Plan Thank you for this consult. History of Present Illness History of Present Illness Consult date/time: 03/03/21 10:42 Requesting physician: Taz Samano MD Consult reason: Other (Second degree AV block type 2) Reason For Visit: bradycardia, elevated troponin Narrative: Pacemaker Service Fabio Nesbitt is a 65-year-old male we are asked to see at the request of Dr. Samano for our advice and opinion regarding advanced AV block and possible pacemaker implant. Patient has a history of paroxysmal atrial fibrillation previously on apixaban, hypertension, and intraparenchymal hemorrhage status post left craniotomy and TRUCKER shunt in 2017 with resultant short-term memory loss. He now resides in a [facility] due to his memory loss. The patient was admitted yesterday for ankle fracture which occurred when he got out of a car on a leg that had fallen sleep and fell. There is no dizziness per pt (who has some memory loss). On arrival he was found to have a junctional rhythm with a heart rate in the upper 30s-40 BPM. His metoprolol has been held and sinus rhythm has been restored but he has episodes of type 2 second-degree AV block with underlying RBBB./first degree AV block. Echo today shows normal LV function EF 60%. The patient has no history of dizziness syncope or falls. No chest pain shortness of breath or edema (other than the fractured left lower extremity). Not on anticoagulation. Right-handed, no history of clavicular fracture. Review of Systems Constitutional: Constitutional: Reports no additional constitutional complaints Eyes: Eyes: Reports no additional eye complaints ENT: Denies epistaxis Cardiovascular: Cardiovascular: Denies chest pain, Reports pedal edema (LLE swellign 2nd fx) and Denies palpitations Respiratory: Respiratory: Denies dyspnea and Denies dyspnea on exertion Gastrointestinal: Gastrointestinal: Denies abdominal pain Genitourinary: Genitourinary: Denies dysuria Musculoskeletal: Musculoskeletal:
[2021-03-03] MEDS: traMADol HCL (*CRX) 50 MG TABLET PO (12:08)
[2021-03-04] VITALS (21 sets, daily range): BP systolic 111–156; BP diastolic 61–90; PULSE 48–85; RESP 18–20; TEMP 36.2–37.1; O2SAT 90–97
[2021-03-04] MEDS: traMADol HCL (*CRX) 50 MG TABLET PO (05:48)
[2021-03-04 07:01] LABS: Basophils Absolute Auto 0.1 K/mm3 (0.0-0.1); Basophils Percent Auto 0.5 % (0.2-1.2); Eosinophils Absolute Auto 0.2 K/mm3 (0-0.3); Eosinophils Percent Auto 1.5 % (0-4.4); Hematocrit 45.1 % (42.0-52.0); Hemoglobin 14.4 g/dL (14.0-18.0); Immature Granulocyte Absolute 0.03 K/mm3 (0.00-0.031); Immature Granulocyte Percent A 0.3 % (0-0.5); Lymphocytes Absolute Auto 1.06 K/mm3 (0.9-3.2); Lymphocytes Percent Auto 9.7 % (18.3-44.2); Mean Corpuscular HGB Conc 31.9 g/dl (32-36); Mean Corpuscular Hemoglobin 32.1 pg (26-34); Mean Corpuscular Volume 100.7 fl (80-100); Mean Platelet Volume 9.8 fl (7.4-10.4); Monocytes Absolute Auto 1.1 K/mm3 (0.1-0.6); Monocytes Percent Auto 9.8 % (2.6-8.5); Neutrophils Absolute Auto 8.6 K/mm3 (1.3-6.7); Neutrophils Percent Auto 78.2 % (45.5-73.1); Platelet Count Result 200 k/mm3 (150-375); Red Blood Count 4.48 M/mm3 (4.6-6.20); Red Cell Distribution Width 13.4 % (11.5-14.5)
[2021-03-04 07:04] LABS: Prothrombin Time 14.2 Seconds (11.1-14.7)
[2021-03-04 07:11] LABS: Anion Gap 8 mmol/L (8-16); Blood Urea Nitrogen 19 mg/dL (9-20); Calcium 8.8 mg/dL (8.4-10.2); Carbon Dioxide 27 mmol/L (22-30); Chloride 107 mmol/L (98-107); Estimated CRCL calculation 86 ml/min; Estimated Glomerular Filt Rate > 60; Glucose 90 mg/dL (75-110); Potassium 3.4 mmol/L (3.4-5.0); Sodium 142 mmol/L (137-145)
--- NOTE | 2021-03-04 08:27 | WPDMODSED ---
Moderate Sedation Note-Pt Data Patient Data Diagnosis: Mobitz 2 second-degree AV block Present Complaint: No complaints Procedure to be performed/Plan: Permanent dual-chamber pacemaker implantation Allergies Allergy/AdvReac Type Severity Reaction Status Date / Time morphine AdvReac Hallucinati Verified 03/01/21 15:01 ng Home Medications Medication Instructions Recorded Confirmed Type acetaminophen 650 mg PO TID 03/01/21 03/01/21 History amlodipine 10 mg PO DAILY 03/01/21 03/01/21 History hydralazine 50 mg PO TID 03/01/21 03/01/21 History hydrochlorothiazide 25 mg PO DAILY 03/01/21 03/01/21 History metoprolol succinate 50 mg PO Q12H 03/01/21 03/01/21 History polyethylene glycol 3350 17 g PO DAILY PRN 03/01/21 03/01/21 History sertraline 50 mg PO DAILY 03/01/21 03/01/21 History Current Medications: Active Medications Acetaminophen (Acetaminophen 325 Mg Tablet) 650 mg PO TID [facility] Last Admin: 03/03/21 17:00 Dose: 650 mg Documented by: Amlodipine Besylate (Amlodipine Besylate 5 Mg Tablet) 10 mg PO DAILY [facility] Last Admin: 03/03/21 08:30 Dose: 10 mg Documented by: Polyethylene Glycol (Polyethylene Glycol 3350 17 Gm Powd.Pack) 17 gm PO DAILY PRN PRN Reason: Constipation Potassium Chloride (Potassium Chloride 20 Meq Packet (For Liquid)) 20 meq PO DAILY [facility] Sertraline HCl (Sertraline Hcl 50 Mg Tablet) 50 mg PO DAILY [facility] Last Admin: 03/03/21 08:30 Dose: 50 mg Documented by: Tramadol HCl (Tramadol Hcl (*Crx) 50 Mg Tablet) 50 mg PO Q6H PRN PRN Reason: Pain Rated 4-6 Last Admin: 03/04/21 05:48 Dose: 50 mg Documented by: Sedation/Anesthesia: No previous sedation/anesthesia problems (including family history). 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 Paroxysmal atrial fibrillation Previously on apixaban Short-term memory loss As result of previous intracranial hemorrhage. Surgical History Surgical History History of cholecystectomy History of colon resection Secondary to diverticulitis. History of gastric bypass Gastric sleeve procedure. History of ventriculoperitoneal shunting Family History Family History Other Cerebrovascular accident Hypertension Social History Social History (Updated 03/03/21 @ 11:18 by Beulah Murphy MD) Social History: Surrogate decision maker: Bhavani Holley, friend. Code status: Full code. He would not want to be on life support for any length of time, however. 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 Spiritual care concerns: No Mod Sed Physical Exam Physical Exam Pre Procedural Exam: Normal: Throat, Airway, Lungs, Heart Size, Heart Rate, Heart Rhythm, Neuro Exam and Extremities and Variation: Appearance (Obese white male otherwise no distress) Hours since solid foods: 12 Hours since liquid intake: 12 Internal Medicine - PN: Obj Da Vital Signs Vital Signs: Vital Signs - 24 hr 03/03/21 09:00 03/03/21 10:00 03/03/21 12:00 Temperature 36.9 C Pulse Rate 63 59 L Respiratory Rate 12 Blood Pressure 132/86 129/73 Pulse Oximetry 97 03/03/21 12:30 03/03/21 14:00 03/03/21 16:00 Temperature 37.1 C Pulse Rate 61 66 Respiratory Rate 12 Blood Pressure 122/50 L 134/75 Pulse Oximetry 99
--- NOTE | 2021-03-04 08:39 | PM.PNCARD ---
Progress Note: A&P Assessment and Plan (1) Bradycardia: Code(s): R00.1 - Bradycardia, unspecified Status: Acute Assessment and Plan: He has evidence of sick sinus syndrome (suggested by junctional rhythm) as well as sick conduction system marked first degree block, RBBB and also intermittent second degree Mobitz II Heart rate somewhat better since Metoprolol stopped however he was noted to have Mobitz II Second degree heart block on tele overnight TSH is normal. K was 3.3 but has been corrected today to 4.1 2D echo with normal LV function and no significant valve disease He is scheduled for pacemaker insertion later this morning with Dr Fernandez (2) Elevated troponin: Code(s): R77.8 - Other specified abnormalities of plasma proteins Status: Acute Assessment and Plan: Borderline elevation, peaked at 0.04 No chest pain. EKG with RBBB and no ischemic changes 2D echo with normal LV function Consider ischemic evaluation with stress test in outpatient settings Subjective Date/time seen: 03/04/21 08:39 He denies chest pain or dyspnea. Was in 2 to 1 block overnight. He is scheduled for pacemaker insertion later this morning Review of Systems Review of Systems: All systems reviewed & are unremarkable except as noted in HPI and below Constitutional: Constitutional: Denies fatigue and Denies headache(s) Eyes: Eyes: Denies blurry vision ENT: Reports Normal hearing present and Denies headache(s) Cardiovascular: Cardiovascular: Denies chest pain, Denies diaphoresis, Denies pedal edema, Denies leg edema, Denies lightheadedness, Denies palpitations and Denies dyspnea Respiratory: Respiratory: Denies cough and Denies dyspnea Gastrointestinal: Gastrointestinal: Denies abdominal pain Musculoskeletal: Musculoskeletal: Denies back pain Neurologic: Reports Normal hearing present and Denies headache(s) Psychiatric: Psychiatric: Denies anxiety Endocrine: Endocrine: Denies fatigue and Denies palpitations Exam Const: General: no acute distress Eyes: Sclera: sclerae normal Neck: Neck: no JVD Carotids: no bruits Resp: Effort & Inspection: normal respiratory effort Auscultation: clear to auscultation bilaterally Cardio: Rate: regular rate and not tachycardic Rhythm: regular rhythm Heart sounds: no gallops, no murmurs and no rubs Skin: General skin exam: normal color Neuro: Cranial nerves: Yes Normal hearing present Speech: normal speech Extrem: General: normal to inspection and no edema Psych: Affect: normal affect Objective Data Vital Signs Vital Signs: Vital Signs - 24 hr 03/03/21 09:00 03/03/21 10:00 03/03/21 12:00 Temperature 36.9 C Pulse Rate 63 59 L Respiratory Rate 12 Blood Pressure 132/86 129/73 Pulse Oximetry 97 03/03/21 12:30 03/03/21 14:00 03/03/21 16:00 Temperature 37.1 C Pulse Rate 61 66 Respiratory Rate 12 Blood Pressure 122/50 L 134/75 Pulse Oximetry 99 03/03/21 18:00 03/03/21 20:00 03/03/21 22:00 Temperature 36.7 C Pulse Rate 65 55 L 60 Respiratory Rate 20 Blood Pressure 118/71 Pulse Oximetry 96 03/03/21 23:51 03/04/21 00:00 03/04/21 02:00 Temperature 37.2 C Pulse Rate 54 L 48 L 64 Respiratory Rate 16 Blood Pressure 151/80 H Pulse Oximetry 64 L 03/04/21 04:00 03/04/21 06:00 03/04/21 08:00 Temperature 36.8 C Pulse Rate 52 L 55 L 66 Respiratory Rate 20 Blood Pressure 134/61 Pulse Oximetry 95 Intake/Output Intake/Output: Intake & Output 03/01/21 03/02/21 03/03/21 03/04/21 23:59 23:59 23:59 23:59 Intake Total 1460 880 250 Output Total 1850 500 800 Balance -390 380 -550 Meds/Results Medications: Active Medications Generic Name Dose Route Start Last Admin Trade Name Simón PRN Reason Stop Dose Admin Acetaminophen 650 mg 03/02/21 09:00 03/03/21 17:00 Acetaminophen 325 Mg Tablet PO 650 mg TID ROCHELLE Administration Amlodipine Besylate 10 mg
[2021-03-04] MEDS: ACETAMINOPHEN 325 MG TABLET 650 MG PO ×2 (08:56→17:42)
[2021-03-04] MEDS: POTASSIUM CHLORIDE 20 MEQ PACKET (FOR LIQUID) PO (08:56)
[2021-03-04] MEDS: amLODIPine BESYLATE 5 MG TABLET 10 MG PO (08:56)
[2021-03-04] MEDS: SERTRALINE HCL 50 MG TABLET PO (08:56)
--- NOTE | 2021-03-04 10:48 | ECG_ITS ---
Measurements Intervals [place] Rate: 73 P: 23 MN: 160 QRS: -70 QRSD: 174 T: 91 QT: 465 QTc: 516 Interpretive Statements ATRIAL SENSE- ELECTRONIC VENTRICULAR PACEMAKER NO FURTHER INTERPRETATION IS POSSIBLE ATYPICAL ECG Electronically Signed On 03-04-2021 11:13:16 CDT by Jl Kwan D.O.
--- NOTE | 2021-03-04 10:51 | WPDCARDPROC ---
Cardiac Cath Procedure Note Date of procedure:: 03/04/21 Performing physician:: Edgar Fountain MD Indication:: symptomatic bradycardia with Mobitz 2 second-degree AV block Brief clinical history:: this is a 65-year-old man hospitalized after a fall. He was significantly bradycardic on admission and a junctional rhythm. Following withdrawal of the beta-ignacio treatment he remains in sinus rhythm with Mobitz 2 second-degree AV block Procedure Procedure performed:: implantation of permanent dual-chamber pacemaker Sedation/Medication given:: fentanyl 50 mg Versed 2 mg case start time 10:04 a.m. case end time 10:45 a.m. sedation provided by Kasia Nguyen RN, trained observer Access site:: left subclavian vein Estimated blood loss:: 10-15 cc Procedure note:: patient was brought to the cardiac catheterization lab in the postabsorptive state. The left anterior chest wall was prepped and draped in the usual sterile fashion. Anesthesia was provided with 1% lidocaine infiltrated locally. An incision was then made about 1 in below the clavicle from the midclavicular line to the deltopectoral groove. Sharp and blunt dissection was used to separate the subcutaneous tissue to the level of the prepectoral fascia. Electrocautery was used to provide cutaneous hemostasis. Following this blunt dissection was used to create a pacemaker pocket along the fascial plane inferior to the incision. Following this a antibiotic soaked 4 x 4 was placed into the pocket. Attention was then turned to venous access. Using the 2 pacemaker safe sheath kit provided the subclavian vein was punctured twice and the J tipped guidewires were placed into the venous circulation under fluoroscopic visualization to the level of the right atrium. Using the 2 6 Italian SafeSheath introducers the pacemaker leads detailed below were placed into the venous circulation and and to the level of the right atrium. Attention was then turned to the ventricular lead. I withdrew the stylet and used a 3 cc syringe to form a J-tip stylet which was used to negotiate the lead across the tricuspid valve through the RV and out into the pulmonary artery. the stylet was then changed for a straight stylet. This was then withdrawn carefully and placed into the right ventricular apical position. The fixation screw was deployed and appropriate pacing and sensing performance was demonstrated using the analyzer. A 10 volt stimulation showed no evidence of extracardiac stimulation. Following this attention was turned to the atrial lead this test insertions stylet was withdrawn and a preformed J stylet was placed the lead was easily positioned into the right atrial appendage. The fixation screw was deployed upon withdrawal of the stylet the lead tip was fixed into position. The lead was tested using the analyzer with good pacing and sensing performance. Once again a 10 volts stimulation shows no evidence of extracardiac stimulation. After this the leads were secured to the base of the pocket using the suture sleeves and 2 0 silk ties. The retained sponge was removed from the pocket and the pocket was irrigated with antibiotic infused saline. The pacemaker device detailed below was then connected to the leads and secured using the torque wrench. The entire assembly was placed into the newly created pocket uneventfully which was then closed in layers using 3-0 Vicryl in interrupted fashion for the subcutaneous tissue in 4 0 Vicryl in a running subcuticular fashion for the skin. The wound was cleaned and dressed with an Aquacel dressing. The left arm was placed in an immobilizer patient was taken to the holding area for post pacemaker implant recovery. There was no evidence of any complication procedure was well tolerated. Postop antibiotics were ordered. Postop chest x-ray and ECGs were ordered. Findings:: The patient received a [employer] dual-chamber pacemaker model Edora DR-T serial number [id number].
--- NOTE | 2021-03-04 11:45 | SUR.PHASEII ---
S/P INSERTION OF BIOTRONIK A/V PPM L. UPPER CHEST. EKG AND PCXR COMPLETED. ARM IMMOBILIZER IN PLACE SUPPORTING L. ARM. REVIEWED ACTIVITY RESTRICTIONS POST PROCEDURE W/ PT. VOICED UNDERSTANDING. RENEE FROM BIOTRONIK TO BEDSIDE TO REVIEW BEDSIDE MONITOR W/ PT. VSS.
--- NOTE | 2021-03-04 12:20 | SUR.PHASEII ---
REPORT HAS BEEN CALLED TO LYLA DON IN IMU. PT. TRANSFERRED BACK TO IMU 202 VIA BED ON TELE MONITOR W/ L. ARM IMMOBILIZER IN PLACE. DRESSING TO L. UPPER CHEST C/D/I. NO REDNESS OR SWELLING TO AREA NOTED. NO DRAINAGE PRESENT. L. RADIAL PULSE STRONG. CAP REFILL WNL L. NAILBEDS. BEDREST AND IMMOBILIZER ON X 24 HOURS. PT. AWARE. VOICES NO C/O.
[2021-03-04] MEDS: SODIUM CHLORIDE 0.9% IV 1,000 ML 50 ML IV CONT (12:50)
[2021-03-05] VITALS (13 sets, daily range): BP systolic 126–157; BP diastolic 81–100; PULSE 68–99; RESP 15–20; TEMP 36.1–36.7; O2SAT 92–97
[2021-03-05 05:27] LABS: Basophils Percent Auto 0.3 % (0.2-1.2); Eosinophils Absolute Auto 0.1 K/mm3 (0-0.3); Eosinophils Percent Auto 1.4 % (0-4.4); Hematocrit 47.3 % (42.0-52.0); Hemoglobin 15.2 g/dL (14.0-18.0); Immature Granulocyte Absolute 0.04 K/mm3 (0.00-0.031); Immature Granulocyte Percent A 0.4 % (0-0.5); Lymphocytes Percent Auto 9.2 % (18.3-44.2); Mean Corpuscular HGB Conc 32.1 g/dl (32-36); Mean Corpuscular Hemoglobin 32.2 pg (26-34); Mean Corpuscular Volume 100.2 fl (80-100); Mean Platelet Volume 9.8 fl (7.4-10.4); Monocytes Absolute Auto 0.9 K/mm3 (0.1-0.6); Monocytes Percent Auto 9.2 % (2.6-8.5); Neutrophils Absolute Auto 7.8 K/mm3 (1.3-6.7); Neutrophils Percent Auto 79.5 % (45.5-73.1); Platelet Count Result 208 k/mm3 (150-375); Red Blood Count 4.72 M/mm3 (4.6-6.20); Red Cell Distribution Width 13.2 % (11.5-14.5); White Blood Count 9.8 K/mm3 (4.5-10.0)
[2021-03-05 05:40] LABS: Anion Gap 8 mmol/L (8-16); Blood Urea Nitrogen 16 mg/dL (9-20); Calcium 8.8 mg/dL (8.4-10.2); Carbon Dioxide 28 mmol/L (22-30); Chloride 106 mmol/L (98-107); Estimated CRCL calculation 91 ml/min; Estimated Glomerular Filt Rate > 60; Glucose 85 mg/dL (75-110); Potassium 3.7 mmol/L (3.4-5.0); Sodium 142 mmol/L (137-145)
[2021-03-05] MEDS: amLODIPine BESYLATE 5 MG TABLET 10 MG PO (09:16)
[2021-03-05] MEDS: ACETAMINOPHEN 325 MG TABLET 650 MG PO ×2 (09:16→16:31)
[2021-03-05] MEDS: POTASSIUM CHLORIDE 20 MEQ PACKET (FOR LIQUID) PO (09:16)
[2021-03-05] MEDS: SERTRALINE HCL 50 MG TABLET PO (09:16)
--- NOTE | 2021-03-05 10:38 | PM.PNCARD ---
Progress Note: A&P Additional Plan 65-year-old man with acquired high-grade AV block doing well following implantation of to permanent dual-chamber pacing system yesterday. From this perspective he can be discharged today. He was instructed not to lift his left arm above 90? for the next month. He will be given appointment to come to my office on Sunday for a wound check/dressing removal appointment. Between now and then he is to keep the dressing clean and dry and undisturbed. Long-[facility] with [facility]TI[facility] Subjective Date/time seen: Date of service: 03/05/21 10:38 Interval history: 65-year-old man with: Acquired high-grade AV block implantation of permanent dual-chamber pacing system yesterday. Follow-up visit in the room today. Patient has no cardiovascular complaints. Pacemaker device was checked by the [employer] rep earlier this morning and is functioning normally. Exam Const: General: comfortable and no acute distress Other: Obese white male no distress HENMT: Mouth: Yes moist mucous membranes Eyes: Sclera: sclerae normal Pupils: Equal, round and reactive pupils present Neck: Neck: supple and no JVD Resp: Effort & Inspection: normal respiratory effort Auscultation: clear to auscultation bilaterally Cardio: Rate: regular rate Rhythm: regular rhythm Other: Pacemaker dressing is clean and dry GI: GI Palp: Yes Soft to palpation Auscultation: normal bowel sounds Neuro: Cognition (Neuro): normal cognition Objective Data Vital Signs Vital Signs: Vital Signs - 24 hr 03/04/21 11:10 03/04/21 11:25 03/04/21 11:40 Temperature 36.4 C Pulse Rate 74 69 69 Respiratory Rate 18 20 18 Blood Pressure 139/86 141/85 H 137/89 Pulse Oximetry 93 93 92 03/04/21 11:55 03/04/21 12:25 03/04/21 12:30 Temperature 36.3 C L Pulse Rate 69 69 68 Respiratory Rate 18 18 Blood Pressure 124/79 140/85 Pulse Oximetry 92 96 03/04/21 12:55 03/04/21 13:55 03/04/21 14:00 Temperature 36.8 C 36.9 C Pulse Rate 65 65 65 Respiratory Rate 18 20 Blood Pressure 138/83 131/81 Pulse Oximetry 93 95 03/04/21 16:00 03/04/21 16:33 03/04/21 18:00 Temperature 36.2 C L Pulse Rate 66 77 64 Respiratory Rate 20 Blood Pressure 156/88 H Pulse Oximetry 96 03/04/21 20:00 03/04/21 20:08 03/04/21 22:00 Temperature 36.5 C Pulse Rate 83 85 78 Respiratory Rate 18 Blood Pressure 132/79 132/79 Pulse Oximetry 96 96 90 03/04/21 23:34 03/05/21 00:00 03/05/21 02:00 Temperature 36.5 C Pulse Rate 78 71 68 Respiratory Rate 18 Blood Pressure 155/90 H Pulse Oximetry 97 97 03/05/21 04:00 03/05/21 05:58 03/05/21 06:00 Temperature 36.5 C Pulse Rate 86 78 Respiratory Rate 20 Blood Pressure 152/97 H Pulse Oximetry 92 94 03/05/21 07:52 Temperature 36.6 C Pulse Rate 90 Respiratory Rate 17 Blood Pressure 154/100 H Pulse Oximetry 96 Intake/Output Intake/Output: Intake & Output 03/02/21 03/03/21 03/04/21 03/05/21 23:59 23:59 23:59 23:59 Intake Total 0849 141 8477 240 Output Total 9531 075 7000 900 Balance -390 380 490 -660 Meds/Results Medications: Active Medications Generic Name Dose Route Start Last Admin Trade Name Freq PRN Reason Stop Dose Admin Acetaminophen 650 mg 03/02/21 09:00 03/05/21 09:16 Acetaminophen 325 Mg Tablet PO 650 mg TID ROCHELLE Administration Amlodipine Besylate 10 mg 03/02/21 09:00 03/05/21 09:16 Amlodipine Besylate 5 Mg Tablet PO 10 mg DAILY ROCHELLE Administration Polyethylene Glycol 17 gm 03/01/21 23:44 Polyethylene Glycol 3350 17 Gm Powd.Pack PO DAILY PRN Constipation Potassium Chloride 20 meq 03/04/21 09:00 03/05/21 09:16 Potassium Chloride 20 Meq Packet (For Liquid) PO 20 meq DAILY ROCHELLE Administration Sertraline HCl 50 mg 03/02/21 09:00 03/05/21 09:16 Sertraline Hcl 50 Mg Tablet PO 50 mg DAILY ROCHELLE Administration Tramadol HCl 50 mg 03/03/21 11:5
--- NOTE | 2021-03-05 11:57 | PCPTNOTE ---
per nurseMasood, pacemaker precautions of no lifting, pulling, or pushing > 5# from left UE. No left shoulder flex over 90 dg.
--- NOTE | 2021-03-05 13:20 | PM.PNCARD ---
Progress Note: A&P Assessment and Plan (1) Bradycardia: Code(s): R00.1 - Bradycardia, unspecified Status: Acute Assessment and Plan: He has evidence of sick sinus syndrome (suggested by junctional rhythm) as well as sick conduction system marked first degree block, RBBB and also intermittent second degree Mobitz II. Heart rate somewhat better since Metoprolol stopped however he was noted to have Mobitz II Second degree heart block on tele overnight. He is status post permanent pacemaker on 03/04/2021 with [facility]. TSH is normal. K was 3.3 but has been corrected. Continue to monitor potassium and magnesium. 2D echo with normal LV function and no significant valve disease (2) Elevated troponin: Code(s): R77.8 - Other specified abnormalities of plasma proteins Status: Acute Assessment and Plan: Borderline elevation, peaked at 0.04 No chest pain. EKG with RBBB and no ischemic changes 2D echo with normal LV function Consider ischemic evaluation with stress test in outpatient settings Subjective Date/time seen: 03/05/21 13:20 Interval history: 65-year-old man with: Acquired high-grade AV block implantation of permanent dual-chamber pacing system 03/04/2021. Follow-up visit in the room today. Patient has no cardiovascular complaints. Pacemaker device was checked by the [employer] rep 03/05/2021 and is functioning normally. Patient denies chest pain, dyspnea, or dizziness. Patient was seen and examined, chart reviewed, and case discussed with nurse. Exam Const: General: no acute distress Eyes: Sclera: sclerae normal Neck: Neck: no JVD Carotids: no bruits Resp: Effort & Inspection: normal respiratory effort Auscultation: clear to auscultation bilaterally Cardio: Rate: regular rate and not tachycardic Rhythm: regular rhythm Heart sounds: no gallops, no murmurs and no rubs Other: Left chest permanent pacemaker site dressing intact. Skin: General skin exam: normal color Neuro: Cranial nerves: Yes Normal hearing present Speech: normal speech Extrem: General: normal to inspection and no edema Psych: Affect: normal affect Objective Data Vital Signs Vital Signs: Vital Signs - 24 hr 03/04/21 13:55 03/04/21 14:00 03/04/21 16:00 Temperature 36.9 C Pulse Rate 65 65 66 Respiratory Rate 20 Blood Pressure 131/81 Pulse Oximetry 95 03/04/21 16:33 03/04/21 18:00 03/04/21 20:00 Temperature 36.2 C L Pulse Rate 77 64 83 Respiratory Rate 20 Blood Pressure 156/88 H 132/79 Pulse Oximetry 96 96 03/04/21 20:08 03/04/21 22:00 03/04/21 23:34 Temperature 36.5 C 36.5 C Pulse Rate 85 78 78 Respiratory Rate 18 18 Blood Pressure 132/79 155/90 H Pulse Oximetry 96 90 97 03/05/21 00:00 03/05/21 02:00 03/05/21 04:00 Temperature 36.5 C Pulse Rate 71 68 86 Respiratory Rate 20 Blood Pressure 152/97 H Pulse Oximetry 97 92 03/05/21 05:58 03/05/21 06:00 03/05/21 07:52 Temperature 36.6 C Pulse Rate 78 90 Respiratory Rate 17 Blood Pressure 154/100 H Pulse Oximetry 94 96 03/05/21 08:00 03/05/21 10:00 03/05/21 11:47 Temperature 36.4 C Pulse Rate 99 77 77 Respiratory Rate 15 Blood Pressure 150/89 H Pulse Oximetry 97 Intake/Output Intake/Output: Intake & Output 03/02/21 03/03/21 03/04/21 03/05/21 23:59 23:59 23:59 23:59 Intake Total 0529 135 9707 480 Output Total 6672 376 0375 1250 Balance -390 380 490 -770 Meds/Results Medications: Active Medications Generic Name Dose Route Start Last Admin Trade Name Justoq PRN Reason Stop Dose Admin Acetaminophen 650 mg 03/02/21 09:00 03/05/21 09:16 Acetaminophen 325 Mg Tablet PO 650 mg TID ROCHELLE Administration Amlodipine Besylate 10 mg 03/02/21 09:00 03/05/21 09:16 Amlodipine Besylate 5 Mg Tablet PO 10 mg DAILY ROCHELLE Administration Polyethylene Glycol 17 gm 03/01/21 23:44 Polyethylene Glycol 3350 17 Gm Powd.Pack PO
--- NOTE | 2021-03-05 14:26 | P.PNIM_ITS ---
Progress Note: A&P Assessment and Plan (1) Bradycardia: Code(s): R00.1 - Bradycardia, unspecified Status: Acute (2) Elevated troponin: Code(s): R77.8 - Other specified abnormalities of plasma proteins Status: Acute (3) Closed left ankle fracture: Qualifiers: Encounter type: initial encounter Qualified Code(s): S82.892A - Other fracture of left lower leg, initial encounter for closed fracture Code(s): S82.892A - Other fracture of left lower leg, initial encounter for closed fracture Status: Acute (4) History of colon resection: Code(s): Z90.49 - Acquired absence of other specified parts of digestive tract Status: Chronic (5) Short-term memory loss: Code(s): R41.3 - Other amnesia Status: Acute (6) Renal failure: Code(s): N19 - Unspecified kidney failure Status: Acute (7) Hypokalemia: Code(s): E87.6 - Hypokalemia Status: Acute (8) Hypertension: Code(s): I10 - Essential (primary) hypertension Status: Acute (9) Paroxysmal atrial fibrillation: Code(s): I48.0 - Paroxysmal atrial fibrillation Status: Acute (10) History of ventriculoperitoneal shunting: Code(s): Z92.89 - Personal history of other medical treatment Status: Inactive (11) History of stroke: Code(s): Z86.73 - Personal history of transient ischemic attack (TIA), and cerebral infarction without residual deficits Status: Inactive (12) Gastroesophageal reflux disease: Code(s): K21.9 - Gastro-esophageal reflux disease without esophagitis Status: Inactive (13) History of diverticulitis: Code(s): Z87.19 - Personal history of other diseases of the digestive system Status: Inactive (14) Nephrolithiasis: Code(s): N20.0 - Calculus of kidney Status: Inactive (15) Obstructive sleep apnea: Code(s): G47.33 - Obstructive sleep apnea (adult) (pediatric) Status: Inactive (16) History of gastric bypass: Code(s): Z98.84 - Bariatric surgery status Status: Inactive Additional Plan This is a 65-year-old male with history of stroke and left hemiplegia, paroxysmal atrial fibrillation, and hypertension who presented to the emergency department via EMS from [facility] for evaluation after he was found to have an ankle fracture on imaging done today. He is a pretty good historian however suffers from short-term memory loss due to previous intracranial hemorrhage. He believes it was either yesterday or the day before that he sustained a fall after stepping out of the car. He was on a car ride with his niece and when he got of the car his leg was weak like it had fallen asleep and it caused him to fall. He is not able to tell me exactly how he fell, if he rolled his ankle, or exactly how he landed. Per the patient he was able to get up with the help of his niece and a friend and spent the rest of the day limping on that left foot. He denies head trauma and loss of consciousness in the fall. Today he had an x- ray done at [facility] which showed an ankle fracture and he was sent here for further evaluation. In the emergency department he was found to be bradycardic with EKG showing a junctional rhythm although on a couple of telemetry strips it looks like he may have intermittently gone into third-degree heart block. He is asymptomatic with regards to the bradycardia and he specifically denies lightheadedness, syncope, near syncope, palpitations, nausea, vomiting, sweats, and shortness of breath. He does not believe that he was dizzy prior to the fall in
[2021-03-05] MEDS: hydrALAZINE HCL 50 MG TABLET PO (16:31)
--- NOTE | 2021-03-05 18:29 | PC.NURSE ---
This patient, Fabio Nesbitt, was transferred to [facility] on 03/05/21 at 1825. Personal belongings sent with patient. Report given to ARIAN Caal. Appropriate documentation sent with patient.
--- NOTE | 2021-03-05 18:52 | PC.NURSE ---
This patient, Fabio Nesbitt, was received from [ imu] on 03/05/21 at 1830. Patient/family oriented to unit policies and routines
[2021-03-06] VITALS (9 sets, daily range): BP systolic 119–157; BP diastolic 70–92; PULSE 74–106; RESP 16–18; TEMP 35.9–36.3; O2SAT 93–99
[2021-03-06 06:02] LABS: Magnesium 1.8 mg/dL (1.6-2.3)
[2021-03-06 06:03] LABS: Anion Gap 9 mmol/L (8-16); Blood Urea Nitrogen 18 mg/dL (9-20); Calcium 8.7 mg/dL (8.4-10.2); Carbon Dioxide 26 mmol/L (22-30); Chloride 106 mmol/L (98-107); Estimated CRCL calculation 91 ml/min; Estimated Glomerular Filt Rate > 60; Glucose 85 mg/dL (75-110); Potassium 3.8 mmol/L (3.4-5.0); Sodium 141 mmol/L (137-145)
[2021-03-06] MEDS: hydrALAZINE HCL 50 MG TABLET PO ×3 (09:47→17:34)
[2021-03-06] MEDS: POTASSIUM CHLORIDE 20 MEQ PACKET (FOR LIQUID) PO (09:47)
[2021-03-06] MEDS: SERTRALINE HCL 50 MG TABLET PO (09:47)
[2021-03-06] MEDS: amLODIPine BESYLATE 5 MG TABLET 10 MG PO (09:47)
[2021-03-06] MEDS: ACETAMINOPHEN 325 MG TABLET 650 MG PO ×3 (09:47→17:33)
--- NOTE | 2021-03-06 11:42 | PM.PNCARD ---
Progress Note: A&P Assessment and Plan (1) Bradycardia: Code(s): R00.1 - Bradycardia, unspecified Status: Acute Assessment and Plan: He has evidence of sick sinus syndrome (suggested by junctional rhythm) as well as sick conduction system marked first degree block, RBBB and also intermittent second degree Mobitz II. Heart rate somewhat better since Metoprolol stopped however he was noted to have Mobitz II Second degree heart block on tele overnight. He is status post permanent pacemaker on 03/04/2021 with [facility]. TSH is normal. K was 3.3 but has been corrected. Continue to monitor potassium and magnesium. 2D echo with normal LV function and no significant valve disease Patient appears stable for transfer to rehab for his traumatic left leg injury, from a cardiac perspective, with follow-up with [facility] in the Cardiology Clinic in 1 week. He also needs [facility] with [facility] later this month for his postoperative permanent pacemaker assessment. (2) Elevated troponin: Code(s): R77.8 - Other specified abnormalities of plasma proteins Status: Acute Assessment and Plan: Borderline elevation, peaked at 0.04 No chest pain. EKG with RBBB and no ischemic changes 2D echo with normal LV function Consider ischemic evaluation with stress test in outpatient settings Subjective Date/time seen: 03/06/21 11:42 Interval history: 65-year-old man with: Acquired high-grade AV block implantation of permanent dual-chamber pacing system 03/04/2021. Follow-up visit in the room today. Patient has no cardiovascular complaints. Pacemaker device was checked by the [employer] rep 03/05/2021 and is functioning normally. Patient denies chest pain, dyspnea, or dizziness. Patient was seen and examined, chart reviewed, and case discussed with nurse. Exam Const: General: no acute distress Eyes: Sclera: sclerae normal Neck: Neck: no JVD Carotids: no bruits Resp: Effort & Inspection: normal respiratory effort Auscultation: clear to auscultation bilaterally Cardio: Rate: regular rate and not tachycardic Rhythm: regular rhythm Heart sounds: no gallops, no murmurs and no rubs Other: Left chest permanent pacemaker site dressing intact. Skin: General skin exam: normal color Neuro: Cranial nerves: Yes Normal hearing present Speech: normal speech Extrem: General: normal to inspection and no edema Psych: Affect: normal affect Objective Data Vital Signs Vital Signs: Vital Signs - 24 hr 03/05/21 11:47 03/05/21 15:50 03/05/21 18:30 Temperature 36.4 C 36.6 C 36.1 C L Pulse Rate 77 79 72 Respiratory Rate 15 15 18 Blood Pressure 150/89 H 137/81 126/81 Pulse Oximetry 97 97 96 03/05/21 19:39 03/05/21 20:00 03/06/21 00:00 Temperature 36.7 C 36.1 C L Pulse Rate 75 75 80 Respiratory Rate 18 18 16 Blood Pressure 157/93 H 157/92 H Pulse Oximetry 97 97 96 03/06/21 04:00 03/06/21 07:17 03/06/21 08:00 Temperature 35.9 C L 36.1 C L Pulse Rate 77 106 H Respiratory Rate 16 16 Blood Pressure 152/90 H 139/87 Pulse Oximetry 94 97 95 Intake/Output Intake/Output: Intake & Output 03/03/21 03/04/21 03/05/21 03/06/21 23:59 23:59 23:59 23:59 Intake Total 880 2190 1270 640 Output Total 500 1700 1850 750 Balance 380 490 -580 -110 Meds/Results Medications: Active Medications Generic Name Dose Route Start Last Admin Trade Name Simón PRN Reason Stop Dose Admin Acetaminophen 650 mg 03/02/21 09:00 03/06/21 09:47 Acetaminophen 325 Mg Tablet PO 650 mg TID ROCHELLE Administration Amlodipine Besylate 10 mg 03/02/21 09:00 03/06/21 09:47 Amlodipine Besylate 5 Mg Tablet PO 10 mg DAILY ROCHELLE Administration Hydralazine HCl 50 mg 03/05/21 17:00 03/06/21 09:47 Hydralazine Hcl 50 Mg Tablet PO 50 mg TID ROCHELLE Administration Polyethylene Glycol 17 gm 03/01/21 23:44 Polyethylene Glycol 3350 17 Gm Powd.Pack PO DAILY PRN
--- NOTE | 2021-03-06 11:45 | PM.IMPN ---
Progress Note: A&P Assessment and Plan (1) Bradycardia: Code(s): R00.1 - Bradycardia, unspecified Status: Acute Assessment and Plan: Stable at present (2) Elevated troponin: Code(s): R77.8 - Other specified abnormalities of plasma proteins Status: Acute Assessment and Plan: No shortness of breath or chest pain, stable at present. (3) Closed left ankle fracture: Qualifiers: Encounter type: initial encounter Qualified Code(s): S82.892A - Other fracture of left lower leg, initial encounter for closed fracture Code(s): S82.892A - Other fracture of left lower leg, initial encounter for closed fracture Status: Acute Assessment and Plan: Getting physical therapy. (4) History of colon resection: Code(s): Z90.49 - Acquired absence of other specified parts of digestive tract Status: Chronic Assessment and Plan: Stable (5) Short-term memory loss: Code(s): R41.3 - Other amnesia Status: Acute Assessment and Plan: Stable at present (6) Renal failure: Code(s): N19 - Unspecified kidney failure Status: Acute Assessment and Plan: Monitor closely. (7) Hypokalemia: Code(s): E87.6 - Hypokalemia Status: Acute Assessment and Plan: Resolved (8) Hypertension: Code(s): I10 - Essential (primary) hypertension Status: Acute Assessment and Plan: Stable medical (9) Paroxysmal atrial fibrillation: Code(s): I48.0 - Paroxysmal atrial fibrillation Status: Acute (10) History of ventriculoperitoneal shunting: Code(s): Z92.89 - Personal history of other medical treatment Status: Inactive Assessment and Plan: Stable on med (11) History of stroke: Code(s): Z86.73 - Personal history of transient ischemic attack (TIA), and cerebral infarction without residual deficits Status: Inactive Assessment and Plan: Stable at (12) Gastroesophageal reflux disease: Code(s): K21.9 - Gastro-esophageal reflux disease without esophagitis Status: Inactive Assessment and Plan: Stable on meds (13) History of diverticulitis: Code(s): Z87.19 - Personal history of other diseases of the digestive system Status: Inactive Assessment and Plan: Stable (14) Nephrolithiasis: Code(s): N20.0 - Calculus of kidney Status: Inactive (15) Obstructive sleep apnea: Code(s): G47.33 - Obstructive sleep apnea (adult) (pediatric) Status: Inactive Assessment and Plan: Stable at present (16) History of gastric bypass: Code(s): Z98.84 - Bariatric surgery status Status: Inactive Assessment and Plan: No acute issues will continue current treatment Additional Plan This is a 65-year-old male with history of stroke and left hemiplegia, paroxysmal atrial fibrillation, and hypertension who presented to the emergency department via EMS from [facility] for evaluation after he was found to have an ankle fracture on imaging done today. He is a pretty good historian however suffers from short-term memory loss due to previous intracranial hemorrhage. He believes it was either yesterday or the day before that he sustained a fall after stepping out of the car. He was on a car ride with his niece and when he got of the car his leg was weak like it had fallen asleep and it caused him to fall. He is not able to tell me exactly how he fell, if he rolled his ankle, or exactly how he landed. Per the patient he was able to get up with the help of his niece and a friend and spent the rest of the day limping on that left foot. He denies head trauma and loss of consciousness in the fall. Today he had an x-ray done at [facility] which showed an ankle fracture and he was sent here for further evaluation. In the emergency department he was found to be bradycardic with EKG showing a junctional rhythm although on a c
[2021-03-06] MEDS: HEPARIN SODIUM 5,000 UNITS/ML VIAL 5000 UNITS SUB-Q (20:57)
[2021-03-07] VITALS: BP 143/81; PULSE 79; RESP 16; TEMP 35.8; O2SAT 94
[2021-03-07 03:50] VITALS: BP 151/88; PULSE 80; RESP 16; TEMP 36.1; O2SAT 97
[2021-03-07 08:00] VITALS: BP 152/89; PULSE 74; RESP 16; TEMP 35.8; O2SAT 94
--- NOTE | 2021-03-07 08:41 | PM.PNCARD ---
Progress Note: A&P Assessment and Plan (1) Bradycardia: Code(s): R00.1 - Bradycardia, unspecified Status: Acute Assessment and Plan: He is status post permanent pacemaker on 03/04/2021 with the [facility] for SSS and Mobitz II second degree heart block TSH is normal. K was 3.3 but has been corrected. 2D echo with normal LV function and no significant valve disease Patient appears stable for transfer to rehab for his traumatic left leg injury, from a cardiac perspective, with follow-up with [facility] in the Cardiology Clinic in 1 week. He also needs [facility]-up with [facility] later this month for his postoperative permanent pacemaker assessment. (2) Elevated troponin: Code(s): R77.8 - Other specified abnormalities of plasma proteins Status: Acute Assessment and Plan: Borderline elevation, peaked at 0.04 No chest pain. EKG with RBBB and no ischemic changes 2D echo with normal LV function Consider ischemic evaluation with stress test in outpatient settings Subjective Date/time seen: 03/07/21 08:41 No events over the weekend. He tolerated Pacemaker insertion with no complications. Waiting rehab Review of Systems Review of Systems: All systems reviewed & are unremarkable except as noted in HPI and below Constitutional: Constitutional: Denies fatigue and Denies headache(s) Eyes: Eyes: Denies blurry vision ENT: Reports Normal hearing present and Denies headache(s) Cardiovascular: Cardiovascular: Denies chest pain, Denies diaphoresis, Denies pedal edema, Denies leg edema, Denies lightheadedness, Denies palpitations and Denies dyspnea Respiratory: Respiratory: Denies cough and Denies dyspnea Gastrointestinal: Gastrointestinal: Denies abdominal pain Musculoskeletal: Musculoskeletal: Denies back pain Neurologic: Reports Normal hearing present and Denies headache(s) Psychiatric: Psychiatric: Denies anxiety Endocrine: Endocrine: Denies fatigue and Denies palpitations Exam Const: General: no acute distress Eyes: Sclera: sclerae normal Neck: Neck: no JVD Carotids: no bruits Resp: Effort & Inspection: normal respiratory effort Auscultation: clear to auscultation bilaterally Cardio: Rate: regular rate and not tachycardic Rhythm: regular rhythm Heart sounds: no gallops, no murmurs and no rubs Other: Left chest permanent pacemaker site dressing intact. Skin: General skin exam: normal color Neuro: Cranial nerves: Yes Normal hearing present Speech: normal speech Extrem: General: normal to inspection and no edema Psych: Affect: normal affect Objective Data Vital Signs Vital Signs: Vital Signs - 24 hr 03/06/21 12:00 03/06/21 12:26 03/06/21 16:00 Temperature 36.3 C L 36.3 C L Pulse Rate 93 74 Respiratory Rate 18 17 Blood Pressure 123/83 119/70 132/71 Pulse Oximetry 94 99 03/06/21 17:36 03/06/21 20:00 03/07/21 00:00 Temperature 35.9 C L 35.8 C L Pulse Rate 90 79 Respiratory Rate 16 16 Blood Pressure 138/84 129/84 143/81 H Pulse Oximetry 93 94 03/07/21 03:50 03/07/21 08:00 Temperature 36.1 C L 35.8 C L Pulse Rate 80 74 Respiratory Rate 16 16 Blood Pressure 151/88 H 152/89 H Pulse Oximetry 97 94 Intake/Output Intake/Output: Intake & Output 03/04/21 03/05/21 03/06/21 03/07/21 23:59 23:59 23:59 23:59 Intake Total 2190 1270 1600 400 Output Total 1700 1850 1150 750 Balance 490 -580 450 -350 Meds/Results Medications: Active Medications Generic Name Dose Route Start Last Admin Trade Name Simón PRN Reason Stop Dose Admin Acetaminophen 650 mg 03/02/21 09:00 03/06/21 17:33 Acetaminophen 325 Mg Tablet PO 650 mg TID ROCHELLE Administration Amlodipine Besylate 10 mg 03/02/21 09:00 03/06/21 09:47 Amlodipine Besylate 5 Mg Tablet PO 10 mg DAILY ROCHELLE Administration Heparin Sodium (Porcine) 5,000 units 03/06/21 21:00 03/06/21 20:57 Heparin Sodium 5,000 Units/Ml Vial SUB-Q 5,000 units
[2021-03-07] MEDS: amLODIPine BESYLATE 5 MG TABLET 10 MG PO (08:49)
[2021-03-07] MEDS: POTASSIUM CHLORIDE 20 MEQ PACKET (FOR LIQUID) PO (08:50)
[2021-03-07] MEDS: SERTRALINE HCL 50 MG TABLET PO (08:50)
[2021-03-07] MEDS: HEPARIN SODIUM 5,000 UNITS/ML VIAL 5000 UNITS SUB-Q ×2 (08:50→20:53)
[2021-03-07] MEDS: hydrALAZINE HCL 50 MG TABLET PO ×3 (08:50→16:53)
[2021-03-07] MEDS: ACETAMINOPHEN 325 MG TABLET 650 MG PO ×3 (08:56→16:52)
--- NOTE | 2021-03-07 11:48 | PCOTNOTE ---
Attempted to see Patient for A.M. treatment session. Patient was unavailable had just received lunch. Will try back at a later time.
[2021-03-07 12:00] VITALS: BP 135/85; PULSE 89; RESP 18; TEMP 36.5; O2SAT 97
--- NOTE | 2021-03-07 12:02 | P.PNIM_ITS ---
Progress Note: A&P Assessment and Plan (1) Bradycardia: Code(s): R00.1 - Bradycardia, unspecified Status: Acute Assessment and Plan: Stable at present (2) Elevated troponin: Code(s): R77.8 - Other specified abnormalities of plasma proteins Status: Acute Assessment and Plan: No shortness of breath or chest pain, stable at present. (3) Closed left ankle fracture: Qualifiers: Encounter type: initial encounter Qualified Code(s): S82.892A - Other fracture of left lower leg, initial encounter for closed fracture Code(s): S82.892A - Other fracture of left lower leg, initial encounter for closed fracture Status: Acute Assessment and Plan: Getting physical therapy. (4) History of colon resection: Code(s): Z90.49 - Acquired absence of other specified parts of digestive tract Status: Chronic Assessment and Plan: Stable (5) Short-term memory loss: Code(s): R41.3 - Other amnesia Status: Acute Assessment and Plan: Stable at present (6) Renal failure: Code(s): N19 - Unspecified kidney failure Status: Acute Assessment and Plan: Monitor closely. (7) Hypokalemia: Code(s): E87.6 - Hypokalemia Status: Acute Assessment and Plan: Resolved (8) Hypertension: Code(s): I10 - Essential (primary) hypertension Status: Acute Assessment and Plan: Stable medical (9) Paroxysmal atrial fibrillation: Code(s): I48.0 - Paroxysmal atrial fibrillation Status: Acute (10) History of ventriculoperitoneal shunting: Code(s): Z92.89 - Personal history of other medical treatment Status: Inactive Assessment and Plan: Stable on med (11) History of stroke: Code(s): Z86.73 - Personal history of transient ischemic attack (TIA), and cerebral infarction without residual deficits Status: Inactive Assessment and Plan: Stable at (12) Gastroesophageal reflux disease: Code(s): K21.9 - Gastro-esophageal reflux disease without esophagitis Status: Inactive Assessment and Plan: Stable on meds (13) History of diverticulitis: Code(s): Z87.19 - Personal history of other diseases of the digestive system Status: Inactive Assessment and Plan: Stable (14) Nephrolithiasis: Code(s): N20.0 - Calculus of kidney Status: Inactive (15) Obstructive sleep apnea: Code(s): G47.33 - Obstructive sleep apnea (adult) (pediatric) Status: Inactive Assessment and Plan: Stable at present (16) History of gastric bypass: Code(s): Z98.84 - Bariatric surgery status Status: Inactive Assessment and Plan: No acute issues will continue current treatment Additional Plan This is a 65-year-old male with history of stroke and left hemiplegia, paroxysmal atrial fibrillation, and hypertension who presented to the emergency department via EMS from [facility] for evaluation after he was found to have an ankle fracture on imaging done today. He is a pretty good historian however suffers from short-term memory loss due to previous intracranial hemorrhage. He believes it was either yesterday or the day before that he sustained a fall after stepping out of the car. He was on a car ride with his niece and when he got of the car his leg was weak like it had fallen asleep and it caused him to fall. He is not able to tell me exactly how he fell, if he rolled his ankle, or exactly how he landed. Pe
[2021-03-07 16:00] VITALS: BP 133/83; PULSE 70; RESP 16; TEMP 36.3; O2SAT 95
[2021-03-07 20:45] VITALS: BP 155/88; PULSE 72; RESP 18; TEMP 36.7; O2SAT 94
[2021-03-08 01:25] VITALS: BP 158/78; PULSE 87; RESP 18; TEMP 36.7; O2SAT 98
[2021-03-08 07:55] VITALS: BP 123/68; PULSE 67; RESP 18; TEMP 36.4; O2SAT 99
[2021-03-08] MEDS: SERTRALINE HCL 50 MG TABLET PO (09:50)
[2021-03-08] MEDS: hydrALAZINE HCL 50 MG TABLET PO ×3 (09:51→17:05)
[2021-03-08] MEDS: POTASSIUM CHLORIDE 20 MEQ PACKET (FOR LIQUID) PO (09:51)
[2021-03-08] MEDS: HEPARIN SODIUM 5,000 UNITS/ML VIAL 5000 UNITS SUB-Q ×2 (09:51→20:25)
[2021-03-08] MEDS: amLODIPine BESYLATE 5 MG TABLET 10 MG PO (09:51)
[2021-03-08] MEDS: ACETAMINOPHEN 325 MG TABLET 650 MG PO ×3 (09:54→17:07)
[2021-03-08 11:25] VITALS: BP 135/72; PULSE 93; RESP 18; TEMP 36.3; O2SAT 97
--- NOTE | 2021-03-08 12:40 | PM.IMPN ---
Progress Note: A&P Assessment and Plan (1) RBBB (right bundle branch block with left anterior fascicular block): Code(s): I45.2 - Bifascicular block Status: Acute Assessment and Plan: Monitor clinically (2) Second degree AV block, Mobitz type II: Code(s): I44.1 - Atrioventricular block, second degree Status: Acute Assessment and Plan: Status post pacemaker placement in March 03, 2021 (3) Bradycardia: Code(s): R00.1 - Bradycardia, unspecified Status: Acute (4) Elevated troponin: Code(s): R77.8 - Other specified abnormalities of plasma proteins Status: Acute Assessment and Plan: No chest pain Monitor clinical improvement (5) Renal failure: Code(s): N19 - Unspecified kidney failure Status: Acute Assessment and Plan: Monitor renal function and electrolytes (6) Hypertension: Code(s): I10 - Essential (primary) hypertension Status: Acute Assessment and Plan: Monitor vital signs (7) Closed left ankle fracture: Qualifiers: Encounter type: initial encounter Qualified Code(s): S82.892A - Other fracture of left lower leg, initial encounter for closed fracture Code(s): S82.892A - Other fracture of left lower leg, initial encounter for closed fracture Status: Acute Assessment and Plan: Patient will be discharged to [facility] (8) Paroxysmal atrial fibrillation: Code(s): I48.0 - Paroxysmal atrial fibrillation Status: Acute Assessment and Plan: Rate control, cardiology are following, will discuss the cardiology team about the need for anticoagulation, patient obviously high risk for falls. Additional Plan Plan to discharge patient to [facility] when bed is available Subjective Date/time seen: 03/08/21 12:40 Patient is resting comfortably no active complaints at this time. Exam Const: General: cooperative and no acute distress HENMT: Head: normal to inspection Eyes: General: appearance normal, both eyes and all related structures Neck: Neck: normal visual inspection Chest: Chest palpation & inspection: normal inspection of the chest Resp: Effort & Inspection: normal respiratory effort Cardio: Jugular venous distension: no JVD Rate: regular rate GI: Inspection: normal to inspection and non-distended Objective Data Vital Signs Vital Signs: Vital Signs - 24 hr 03/07/21 16:00 03/07/21 20:45 03/08/21 01:25 Temperature 97.4 F L 98.1 F 98.1 F Pulse Rate 70 72 87 Respiratory Rate 16 18 18 Blood Pressure 133/83 155/88 H 158/78 H Pulse Oximetry 95 94 98 03/08/21 07:55 03/08/21 11:25 Temperature 97.6 F 97.4 F L Pulse Rate 67 93 Respiratory Rate 18 18 Blood Pressure 123/68 135/72 Pulse Oximetry 99 97 Intake/Output Intake/Output: Intake & Output 03/05/21 03/06/21 03/07/21 03/08/21 23:59 23:59 23:59 23:59 Intake Total 1270 1600 1360 640 Output Total 1850 1150 1400 900 Balance -580 450 -40 -260 Meds/Results Medications: Active Medications Generic Name Dose Route Start Last Admin Trade Name Freq PRN Reason Stop Dose Admin Acetaminophen 650 mg 03/02/21 09:00 03/08/21 09:54 Acetaminophen 325 Mg Tablet PO 650 mg TID ROCHELLE Administration Amlodipine Besylate 10 mg 03/02/21 09:00 03/08/21 09:51 Amlodipine Besylate 5 Mg Tablet PO 10 mg DAILY ROCHELLE Administration Heparin Sodium (Porcine) 5,000 units 03/06/21 21:00 03/08/21 09:51 Heparin Sodium 5,000 Units/Ml Vial SUB-Q 5,000 units Q12HR ROCHELLE Administration Hydralazine HCl 50 mg 03/05/21 17:00 03/08/21 09:51 Hydralazine Hcl 50 Mg Tablet PO 50 mg TID ROCHELLE Administration Polyethylene Glycol 17 gm 03/01/21 23:44 Polyethylene Glycol 3350 17 Gm Powd.Pack PO DAILY PRN Constipation Potassium Chloride 20 meq 03/04/21 09:00 03/08/21 09:51 Potassium Chloride 20 Meq Packet (For Liquid) PO 2
--- NOTE | 2021-03-08 14:49 | PM.PNCARD ---
Progress Note: A&P Assessment and Plan (1) Bradycardia: Code(s): R00.1 - Bradycardia, unspecified Status: Acute Assessment and Plan: He is status post permanent pacemaker on 03/04/2021 with the [facility] for SSS and Mobitz II second degree heart block 2D echo with normal LV function and no significant valve disease Patient appears stable for transfer to rehab for his traumatic left leg injury There is no evidence of A fib on tele. Also pt denies history of A fib. No indication for AC from cardiac standpoint although may consider short term AC given leg fracture and immobility with cast. Will defer that decision to orthopedic team and internal medicine (2) Elevated troponin: Code(s): R77.8 - Other specified abnormalities of plasma proteins Status: Acute Assessment and Plan: Borderline elevation, peaked at 0.04 No chest pain. EKG with RBBB and no ischemic changes 2D echo with normal LV function Consider ischemic evaluation with stress test in outpatient settings Subjective Date/time seen: 03/08/21 14:49 No overnight events. Pacemaker insertion site still little sore but is getting better. Denied dyspnea Review of Systems Review of Systems: All systems reviewed & are unremarkable except as noted in HPI and below Constitutional: Constitutional: Denies fatigue and Denies headache(s) Eyes: Eyes: Denies blurry vision ENT: Reports Normal hearing present and Denies headache(s) Cardiovascular: Cardiovascular: Denies chest pain, Denies diaphoresis, Denies pedal edema, Denies leg edema, Denies lightheadedness, Denies palpitations and Denies dyspnea Respiratory: Respiratory: Denies cough and Denies dyspnea Gastrointestinal: Gastrointestinal: Denies abdominal pain Musculoskeletal: Musculoskeletal: Denies back pain Neurologic: Reports Normal hearing present and Denies headache(s) Psychiatric: Psychiatric: Denies anxiety Endocrine: Endocrine: Denies fatigue and Denies palpitations Exam Const: General: no acute distress Eyes: Sclera: sclerae normal Neck: Neck: no JVD Carotids: no bruits Resp: Effort & Inspection: normal respiratory effort Auscultation: clear to auscultation bilaterally Cardio: Rate: regular rate and not tachycardic Rhythm: regular rhythm Heart sounds: no gallops, no murmurs and no rubs Other: Left chest permanent pacemaker site dressing intact. Skin: General skin exam: normal color Neuro: Cranial nerves: Yes Normal hearing present Speech: normal speech Extrem: General: normal to inspection and no edema Psych: Affect: normal affect Objective Data Vital Signs Vital Signs: Vital Signs - 24 hr 03/07/21 16:00 03/07/21 20:45 03/08/21 01:25 Temperature 36.3 C L 36.7 C 36.7 C Pulse Rate 70 72 87 Respiratory Rate 16 18 18 Blood Pressure 133/83 155/88 H 158/78 H Pulse Oximetry 95 94 98 03/08/21 07:55 03/08/21 11:25 Temperature 36.4 C 36.3 C L Pulse Rate 67 93 Respiratory Rate 18 18 Blood Pressure 123/68 135/72 Pulse Oximetry 99 97 Intake/Output Intake/Output: Intake & Output 03/05/21 03/06/21 03/07/21 03/08/21 23:59 23:59 23:59 23:59 Intake Total 1270 1600 1360 1000 Output Total 1850 1150 1400 900 Balance -580 450 -40 100 Meds/Results Medications: Active Medications Generic Name Dose Route Start Last Admin Trade Name Simón PRN Reason Stop Dose Admin Acetaminophen 650 mg 03/02/21 09:00 03/08/21 13:28 Acetaminophen 325 Mg Tablet PO 650 mg TID ROCHELLE Administration Amlodipine Besylate 10 mg 03/02/21 09:00 03/08/21 09:51 Amlodipine Besylate 5 Mg Tablet PO 10 mg DAILY ROCHELLE Administration Heparin Sodium (Porcine) 5,000 units 03/06/21 21:00 03/08/21 09:51 Heparin Sodium 5,000 Units/Ml Vial SUB-Q 5,000 units Q12HR ROCHELLE Administration Hydralazine HCl 50 mg 03/05/21 17:00 03/08/21 13:29 Hydralazine Hcl 50 Mg Tablet PO 50 mg TID ROCHELLE Administration Polyethylene Glycol 17 gm
[2021-03-08 15:26] VITALS: BP 108/72; PULSE 66; RESP 20; TEMP 36; O2SAT 97
[2021-03-08 20:29] VITALS: BP 149/89; PULSE 76; RESP 18; TEMP 36.4; O2SAT 98
[2021-03-09 04:00] VITALS: BP 145/84; PULSE 72; RESP 18; TEMP 35.7; O2SAT 97
[2021-03-09 05:49] LABS: Basophils Percent Auto 0.5 % (0.2-1.2); Eosinophils Absolute Auto 0.2 K/mm3 (0-0.3); Eosinophils Percent Auto 2.7 % (0-4.4); Hematocrit 45.3 % (42.0-52.0); Hemoglobin 14.7 g/dL (14.0-18.0); Immature Granulocyte Absolute 0.03 K/mm3 (0.00-0.031); Immature Granulocyte Percent A 0.4 % (0-0.5); Lymphocytes Absolute Auto 1.03 K/mm3 (0.9-3.2); Lymphocytes Percent Auto 13.3 % (18.3-44.2); Mean Corpuscular HGB Conc 32.5 g/dl (32-36); Mean Corpuscular Hemoglobin 32.1 pg (26-34); Mean Corpuscular Volume 98.9 fl (80-100); Mean Platelet Volume 9.4 fl (7.4-10.4); Monocytes Absolute Auto 0.8 K/mm3 (0.1-0.6); Monocytes Percent Auto 9.9 % (2.6-8.5); Neutrophils Absolute Auto 5.7 K/mm3 (1.3-6.7); Neutrophils Percent Auto 73.2 % (45.5-73.1); Platelet Count Result 217 k/mm3 (150-375); Red Blood Count 4.58 M/mm3 (4.6-6.20); Red Cell Distribution Width 13.4 % (11.5-14.5); White Blood Count 7.7 K/mm3 (4.5-10.0)
[2021-03-09 06:05] LABS: Anion Gap 8 mmol/L (8-16); Blood Urea Nitrogen 19 mg/dL (9-20); Calcium 8.9 mg/dL (8.4-10.2); Carbon Dioxide 24 mmol/L (22-30); Chloride 109 mmol/L (98-107); Estimated CRCL calculation 91 ml/min; Estimated Glomerular Filt Rate > 60; Glucose 92 mg/dL (75-110); Potassium 4.2 mmol/L (3.4-5.0); Sodium 141 mmol/L (137-145)
[2021-03-09 09:07] VITALS: BP 151/93; PULSE 71; RESP 18; TEMP 36.3; O2SAT 97
[2021-03-09] MEDS: hydrALAZINE HCL 50 MG TABLET PO ×2 (09:18→12:18)
[2021-03-09] MEDS: SERTRALINE HCL 50 MG TABLET PO (09:18)
[2021-03-09] MEDS: amLODIPine BESYLATE 5 MG TABLET 10 MG PO (09:18)
[2021-03-09] MEDS: HEPARIN SODIUM 5,000 UNITS/ML VIAL 5000 UNITS SUB-Q (09:18)
[2021-03-09] MEDS: POTASSIUM CHLORIDE 20 MEQ PACKET (FOR LIQUID) PO (09:19)
[2021-03-09] MEDS: ACETAMINOPHEN 325 MG TABLET 650 MG PO ×2 (09:25→12:19)
--- NOTE | 2021-03-09 10:49 | PCNWS ---
Weekly nutritional screen. Patient is tolerating current diet with adequate intake. No weight loss reported. No nutritional needs at this time.
--- NOTE | 2021-03-09 11:34 | PM.DS ---
DS: Admitting Diagnosis Admitting Diagnosis Admitting Diagnosis: Left ankle fracture Bradycardia DS: Discharge Diagnosis Discharge Diagnosis (1) Second degree AV block, Mobitz type II: Code(s): I44.1 - Atrioventricular block, second degree Status: Acute (2) Bradycardia: Code(s): R00.1 - Bradycardia, unspecified Status: Acute (3) Closed left ankle fracture: Qualifiers: Encounter type: initial encounter Qualified Code(s): S82.892A - Other fracture of left lower leg, initial encounter for closed fracture Code(s): S82.892A - Other fracture of left lower leg, initial encounter for closed fracture Status: Acute DS: Summary Hospital Course Reason for hospitalization: Left ankle fracture Bradycardia Hospital Course: Chief Complaint: Left ankle fracture after fall yesterday. Narrative: This is a 65-year-old male with history of stroke, questionable paroxysmal atrial fibrillation that was excluded by the cardiology team, and hypertension who presented to the emergency department earlier today via EMS from [facility] for evaluation after he was found to have an ankle fracture on imaging done today. He is a pretty good historian however suffers from short-term memory loss due to previous intracranial hemorrhage. He believes it was either yesterday or the day before that he sustained a fall after stepping out of the car. He was on a car ride with his niece and when he got of the car his leg was weak like it had fallen asleep and it caused him to fall. He is not able to tell me exactly how he fell, if he rolled his ankle, or exactly how he landed. Per the patient he was able to get up with the help of his niece and a friend and spent the rest of the day limping on that left foot. He denies head trauma and loss of consciousness in the fall. x-ray done at [facility] which showed an ankle fracture and he was sent here for further evaluation. In the emergency department he was found to be bradycardic with EKG showing a junctional rhythm although on a couple of telemetry strips it looks like he may have intermittently gone into third-degree heart block. He is asymptomatic with regards to the bradycardia and he specifically denies lightheadedness, syncope, near syncope, palpitations, nausea, vomiting, sweats, and shortness of breath. Orthopedic consulted They recommended conservative management with cast Not weight-bearing for 6 weeks Followed up with them as an outpatient Okay for prophylactic antibiotics Cardiology saw the patient Pacemaker was placed No confirmed evidence of AFib No commitment with long-term anticoagulation Okay for prophylactic DVT anticoagulation Patient will be discharged in stable condition to alf facility Time Spent with Patient Time attestation: Total time spent providing and/or coordinating discharge services: Time spent: Greater than 30 minutes Exam Const: General: cooperative and no acute distress HENMT: Head: normal to inspection Eyes: General: appearance normal, both eyes and all related structures Neck: Neck: normal visual inspection Chest: Chest palpation & inspection: normal inspection of the chest Resp: Effort & Inspection: normal respiratory effort Cardio: Jugular venous distension: no JVD Rate: regular rate GI: Inspection: normal to inspection and non-distended Extrem: Other: Left lower extremity is cervical cast, normal color and sensation, no swelling DS: Data Data Completed and Pending Labs on day of discharge: Labs from last 24 hours 03/09/21 03/09/21 05:40 05:40 WBC 7.7 RBC 4.58 L Hgb 14.7 Hct 45.3 MCV 98.9 MCH 32.1 MCHC 32.5 RDW 13.4 Plt Count 217 MPV 9.4 Immature Gran % (Auto) 0.4 Neut % (Auto) 73.2 H Lymph % (Auto) 13.3 L [place] % (Auto) 9.9 H Eos % (Auto) 2.7 Baso % (Auto) 0.5 Lymph # (Auto) 1.03 [place] # (Auto) 0.8 H Eos # (Auto) 0.2 Baso # (Auto) 0.0 Abs Imm
== END 2021-03-09 12:50 | DRG 243 ==
LOC: ANHED 15:30 → ANHIMU 20:03 → ANH3MED 03-07 01:07 → ANHIMU 03-10 10:03
PROVIDERS: Emergency Medicine; Internal Medicine; Internal Medicine Cardiovascular Disease; Nurse Practitioner; Specialist; Admitting Provider Family Medicine; Emergency Provider Emergency Medicine; PCP Internal Medicine; Visit Provider Physician Assistant
PROC: 0JH606Z Insertion of Pacemaker, Dual Chamber into Chest Subcutaneous Tissue and Fascia, Open Approach (ICD-10-PCS; CPT 33208; principal; 2021-03-04 09:30)
DX: I44.1 Atrioventricular block, second degree (principal); I69.354 Hemiplegia and hemiparesis following cerebral infarction affecting left non-dominant side; S82.62XA Displaced fracture of lateral malleolus of left fibula, initial encounter for closed fracture; W19.XXXA Unspecified fall, initial encounter; I48.0 Paroxysmal atrial fibrillation; I10 Essential (primary) hypertension; G47.33 Obstructive sleep apnea (adult) (pediatric); K21.9 Gastro-esophageal reflux disease without esophagitis; E87.6 Hypokalemia; I12.9 Hypertensive chronic kidney disease with stage 1 through stage 4 chronic kidney disease, or unspecified chronic kidney disease; N18.30 Chronic kidney disease, stage 3 unspecified; I45.10 Unspecified right bundle-branch block; F03.90 Unspecified dementia, unspecified severity, without behavioral disturbance, psychotic disturbance, mood disturbance, and anxiety; Z98.84 Bariatric surgery status
CPT/HCPCS: 33208; 36415; 71045; 71046; 73610; 80048; 80053; 81001; 83735; 84443; 84484; 85025; 85027; 85610; 93005; 93306; 97110; 97116; 97161; 97165; 97530; 97535; 99285; A9270; C1779; C1785; G0378; J0690; J1644; J2250; J3010; J7030; J7040

== ENCOUNTER 2024-10-19 08:32 | Inpatient (IN) | payer MEDICARE, SELFPAY ==
[2024-10-19] VITALS (61 sets, daily range): BP systolic 80–128; BP diastolic 34–83; PULSE 50–58; RESP 12–34; TEMP 36.7–37.3; O2SAT 78–98; BMI 40.7
--- NOTE | ~2024-10-19 | XR_ITS ---
EXAMINATION: XR chest 1V portable DATE: 10/22/2024 14:01 INDICATION: Shortness of breath with new oxygen requirement. TECHNIQUE: A single frontal view of the chest was obtained. COMPARISON: Chest single view 10/19/2024, CT abdomen and pelvis 10/19/2024 FINDINGS: There are airspace opacities in right perihilar region. No pleural effusion or pneumothorax . Cardiomegaly is noted. Calcified left hilar lymph nodes are consistent with old granulomatous disea se. There is a left chest wall pacer with leads in the right atrium and right ventricle. A right-side d ventriculoperitoneal shunt is noted. IMPRESSION: 1. Airspace opacities in right perihilar region, consistent with atelectasis versus pneumonia. 2. Cardiomegaly. Reviewed, dictated and finalized at location A. LOADER IMPRESSION: 1. Airspace opacities in right perihilar region, consistent with atelectasis ve rsus pneumonia. 2. Cardiomegaly.
--- NOTE | ~2024-10-19 | CT_ITS ---
EXAMINATION: CT abdomen pelvis w con DATE: 10/19/2024 11:58 INDICATION: Right lower quadrant firmness/mass. TECHNIQUE: Computed tomography (CT) of the abdomen and pelvis was performed with 100 mL Omnipaque-350 intravenous contrast. Automated exposure control and iterative reconstruction technique were employe d. The dose-length product was 1519.38 mGy-cm. COMPARISON: 02/15/2019 FINDINGS: Mild discoid atelectasis in the left lower lobe. Calcified bilateral lower lobe nodules consistent wi th old granulomatous disease. Heart size is normal. Atherosclerotic coronary artery catheter is fusio n. No pericardial effusion. Cardiac pacemaker lead tips at the right atrial appendage and near the ap ex of the right ventricle. Small sliding-type hiatal hernia. Likely ventriculoperitoneal shunt catheter extends caudally along the anterior right chest wall and c oils within the peritoneal cavity with distal tip posterior to the right hepatic lobe. Cholecystectom y clips the gallbladder fossa. Liver, pancreas and bilateral adrenal glands are normal. Multiple sple idania calcific lesions consistent with old granulomatous disease. There is mild bilateral renal atrophy along with low-attenuation bilateral renal cysts measuring up to 1.7 cm in the right kidney. Bilater al nonobstructing nephrolithiasis with 7 mm stone at the lower pole the left kidney and 4 mm stone at the lower pole the right kidney. Postoperative changes of the bowels with masslike suture line at the sigmoid colon. There is some flu id in the colon consistent with nonspecific diarrhea. No bowel obstruction. The appendix is not visua lized and likely surgically absent. There is midline scarring along the anterior lower abdominal and pelvic wall with associated ventral diastases and widemouthed infraumbilical ventral hernia. There is 11.6 x 8.0 cm x 13.0 ovoid cystic lesion in the subcutaneous fat of the right lower quadrant pannus which is without significant interval change since the prior study most likely a seroma relat ed to either prior trauma or surgery. Tiny focus of gas within the partially decompressed bladder. No free intraperitoneal gas or fluid. No pathologically enlarged abdominal or pelvic lymphadenopathy. C hronic 2.2 x 1.4 cm partially calcified nodule in the anterior pelvis likely sequela of chronic fat n ecrosis. Lower thoracic kyphosis with severe thoracic and upper lumbar spondylosis. 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 IMPRESSION: 1. Chronic 13 cm ovoid cystic lesion in the subcutaneous fat at the right lower quadrant pannus most likely related to prior trauma or surgery. 2. Nonobstructing bilateral nephrolithiasis. 3. Fluid in the colon consistent with nonspecific diarrhea. No other acute intra-abdominal/pelvic pro cess. Reviewed, dictated and finalized at location A. HER WHITENER IMPRESSION: 1. Chronic 13 cm ovoid cystic lesion in the subcutaneous fat at the right lower quadrant pannus most likely related to prior trauma or surgery. 2. Nonobstructing bilateral nephrolithiasis. 3. Fluid in the colon consistent with nonspecific diarrhea. No other acute intr a-abdominal/pelvic process.
--- NOTE | ~2024-10-19 | XR_ITS ---
EXAMINATION: XR chest 1V DATE: 10/19/2024 09:38 INDICATION: Generalized weakness TECHNIQUE: frontal view of the chest was obtained. COMPARISON: Chest radiograph dated 03/05/2021 FINDINGS: Mild linear discoid atelectasis at the medial left lung base. No other airspace opacities, pulmonary edema, pleural effusion or pneumothorax. The cardiomediastinal silhouette is normal. Dual lead pacema ker seen with leads projecting over the expected locations of the right atrium and right ventricle. Calcified left hilar lymph nodes consistent with old granulomatous disease. Ventriculoperitoneal sh unt coursing base of the right neck across the right chest and coiled in the right abdomen. Cholecyst ectomy clips in right upper quadrant. IMPRESSION: 1. Mild discoid atelectasis at the left lung base. No other acute cardiopulmonary disease. Reviewed, dictated and finalized at location A. PRESIDENT QUALITY ASSURANCE IMPRESSION: 1. Mild discoid atelectasis at the left lung base. No other acute cardiopulmona ry disease.
--- NOTE | 2024-10-19 08:42 | ECG_ITS ---
Test Date: 2024-10-19 08:45:10 Measurements Intervals [place] Rate: 49 P: 180 NE: 132 QRS: -66 QRSD: 185 T: 102 QT: 462 QTc: 421 Interpretive Statements ELECTRONIC ATRIAL PACEMAKER ELECTRONIC VENTRICULAR PACEMAKER NO FURTHER INTERPRETATION IS POSSIBLE ATYPICAL ECG No previous ECG available for comparison Electronically Signed On 10-19-2024 15:06:59 [employer] by Jl Kwan D.O.
[2024-10-19 08:53] LABS: Hematocrit 47.5 % (42.0-52.0); Hemoglobin 14.7 g/dL (14.0-18.0); Mean Corpuscular HGB Conc 30.9 g/dl (32-36); Mean Corpuscular Volume 103.3 fl (80-100); Mean Platelet Volume 10.1 fl (7.4-10.4); Platelet Count Result 187 k/mm3 (150-375); White Blood Count 26.2 K/mm3 (4.5-10.0)
--- NOTE | 2024-10-19 09:01 | ED_ITS ---
HPI - Weakness General Chief complaint: Weakness Stated complaint: weakness Time Seen by Provider: 10/19/24 08:42 Source: patient and RN notes reviewed Mode of arrival: EMS Limitations: no limitations History of Present Illness HPI Narrative: Patient presents with generalized weakness and AR staff had concerns for UTI based on this and reported malodorous urine. No unilateral symptoms. AR staff had reported that he had a hard time sitting up and standing today which he can normally do. He is A&O x4 at baseline and today. He states he normally uses a walking stick cane but even that has been more difficult. He denies any pain including no headache, chest pain, abdominal pain, extremity pain. Denies myalgias, shortness of breath, cough, nausea/vomiting or fever. Related Data Home Medications ?Medication ?Instructions ?Recorded ?Confirmed ?Last Taken ?Type acetaminophen 325 mg tablet 650 mg PO TID PRN fever or pain 03/01/21 10/19/24 Unknown History amlodipine 10 mg tablet 10 mg PO DAILY 03/01/21 10/19/24 Unknown History hydralazine 50 mg tablet 50 mg PO TID 03/01/21 10/19/24 Unknown History polyethylene glycol 3350 17 gram 17 g PO DAILY PRN Constipation 03/01/21 10/19/24 Unknown History oral powder packet sertraline 50 mg tablet 50 mg PO DAILY 03/01/21 10/19/24 Unknown History metoprolol succinate 50 mg 50 mg PO Q12H 10/19/24 10/19/24 Unknown History tablet,extended release 24 hr Allergies Allergy/AdvReac Type Severity Reaction Status Date / Time morphine AdvReac Hallucinati Verified 10/19/24 15:39 ng [facility] Past Medical History Medical History Dementia Short-term memory loss As result of previous intracranial hemorrhage. Heart block Depression History of diverticulitis Gastroesophageal reflux disease Obstructive sleep apnea Intolerant to CPAP. 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 History of cholecystectomy History of gastric bypass Gastric sleeve procedure. History of ventriculoperitoneal shunting Family History Family History Other Cerebrovascular accident Hypertension Social History Social History Social History: Surrogate decision maker: Bhavani Holley, friend. Ambulates with cane/ walking stick Code status: Full code per AR documentation. He would not want to be on life support for any length of time, however. Smoking status: Never smoker Second hand tobacco smoke exposure: No Alcohol intake: former Drinks per week: 3 Substance use: never Substance use type: does not use Do You Feel Safe in your Home?: Yes Lack of Transportation: No Lack of Food: Never True Current Housing: I Have Housing Concerned About Future Housing: No Difficulty Paying Gas/Electric Bills: No Difficulty Paying for Meds: No Currently Unemployed: No Education: High School Diploma/GED Difficulty w/ Childcare or Family Care: No Living arrangements: [facility]p Additional living arrangements comments: Resides at [facility] 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 HEAD: Normocephalic, atraumatic. EYES: Non injected, non icteric ENT: Nares clear, no rhinorrhea or epistaxis. NECK: Supple. CHEST: Speaking in full sentences. No respiratory distress. HEART: Regular rate and rhythm. . ABDOMEN: Obese. Nondistended. Generally soft throughout with the exception of a firm mass in the RLQ. Non tender to palpation throughout. No rigidity/guarding. Not peritoneal. EXTREMITIES: Normal range of motion. No lower extremity edema. SKIN: Warm, dry. Very erythematous ulcerated rash along pannus, particularly on the right. NEURO: No focal deficits. Alert and oriented ; able to answer questions. PSYCH: Congruent mood and affect. Pleasant Course Vital Signs Vital signs: Vital Signs Temperature 98.0 F 10/19/24 08:36 Pulse Rate 55 L 10/19/24 08:36 Respiratory Rate 16 10/19/24 08:36 Blood Pressure 104/52 L 10/19/24 08:36 Pulse Oximetry 94 10/19/24 08:36 Oxygen Delivery Room Air 10/19/24 08:36 Temperature 99.1 F 10/19/24 19:29 Pulse Rate 50 L 10/19/24 22:00 Respiratory Rate 14 10/19/24 19:29 Blood Pressure 88/53 L 10/19/24 19:29 Pulse Oximetry 97 10/19/24 19:29 Oxygen Delivery Room Air 10/19/24 20:00 Oxygen Flow Rate 2 10/19/24 16:00 MDM - Weakness MDM Narrative Medical decision making narrative: Patient presents with generalized weakness and NH staff had concerns for UTI based on this and reported malodorous urine. In the emergency department he is afebrile with vital signs notable for bradycardia as well as hypotension; MAP 69mmHg. 1L IV fluids ordered. Baseline creatinine is 1.0-1.4 per review of the EMR but it is greater than 2.2 today, reflecting an KERI. Patient will receive the IV fluids that have been ordered as above but will also require additional fluids/continued hydration. Another 1L ordered. He has a significant leukocytosis of greater than 26. Elevated CPK, not enough to suggest rhabdomyolysis. He does have evidence of urinary tract infection. No prior culture for review but no allergies to any antibiotics. Will give 1st dose of ceftriaxone. Patient has an elevated troponin but without ST segment elevation, consistent with an NSTEMI. Per review of the EMR, his troponin is always slightly elevated like this. Patient denies any chest pain or shortness of breath. Aspirin as well as 3 hour troponin is ordered. Patient has significant skin breakdown along the pannus particularly along the right. His right lower quadrant there is also an appreciable lump/palpable mass that is firm. Will proceed with CT imaging for this even despite creatinine/renal function. Patient is receiving his 2 L IV fluid bolus at that time and has received about 200 cc of this. His blood pressure is somewhat low at that time but with a mean arterial pressure of 74mmHg. Nystatin cream for the rash ordered. Second troponin flat/stable. Imaging as below. Differential Diagnosis Differential diagnosis: Likely acute myocardial infarction, anemia, hypoglycemia, hypothyroidism, rhabdomyolysis, sepsis, dehydration and other (acute viral syndrome, UTI, pneumonia, cellulitis) Lab Data Attestation: I reviewed the patient's lab results. Lab results narrative: Viral swab and TSH are negative/normal 10/19/24 08:45 10/19/24 08:45 Labs: Lab Results 10/19/24 10/19/24 10/19/24 Range/Units 08:45 09:56 10:15 WBC 26.2 H (4.5-10.0) K/mm3 RBC 4.60 (4.6-6.20) M/mm3 Hgb 14.7 (14.0-18.0) g/dL Hct 47.5 (42.0-52.0) % MCV 103.3 H (80-100) fl MCH 32.0 (26-34) pg MCHC 30.9 L (32-36) g/dl RDW 14.0 (11.5-14.5) % Plt Count 187 (150-375) k/mm3 MPV 10.1 (7.4-10.4) fl Immature Gran % (Auto) Not Reportable Neut % (Auto) Not Reportable Lymph % (Auto) Not Reportable [place] % (Auto) Not Reportable Eos % (Auto) Not Reportable Baso % (Auto) Not Reportable Lymph # (Auto) Not Reportable [place] # (Auto) Not Reportable Eos # (Auto) Not Reportable Baso # (Auto) Not Reportable Abs Immat Gran (auto) Not Reportable Absolute Neuts (auto) Not Reportable Absolute Nucleated RBC Not Reportable Total Counted 100 Neutrophils % (Manual) 83 H (46-73) % Band Neutrophils % 16 H (0-6) % Lymphocytes % (Manual) 0 L (18-44) % Monocytes % (Manual) 1 L (3-9) % Nucleated RBC % Not Reportable Abs Neuts (Manual) 25.93 H (1.3-6.7) K/mm3 Abs Lymphs (Manual) 0.00 L (1.1-4.5) K/mm3 Abs Monocytes (Manual) 0.26 (0.1-0.90) K/mm3 Platelet Estimate Adequate (Adequate) Schistocytes None seen Sodium 143 (137-145) mmol/L Potassium 4.1 (3.4-5.0) mmol/L Chloride 107 (98-107) mmol/L Carbon Dioxide 24 (22-30) mmol/L Anion Gap 12 (4-12) mmol/L BUN 32 H D (9-20) mg/dL Creatinine 2.23 H (0.7-1.3) mg/dL Estim Creat Clear Calc 41 ml/min Estimated GFR 30 L (59 - ) Glucose 77 (65-110) mg/dL Calcium 9.1 (8.4-10.2) mg/dL Magnesium 1.9 (1.6-2.3) mg/dL Total Bilirubin 1.4 H (0.2-1.3) mg/dL AST 64 H (17-59) U/L ALT 41 (6-50) U/L Alkaline Phosphatase 164 H (38-126) U/L Total Creatine Kinase 323 H (55-170) U/L Troponin I 0.058 H* (0.000-0.034) ng/mL Total Protein 6.0 L (6.3-8.2) g/dL Albumin 3.6 (3.5-5.1) g/dL TSH 2.330 (0.465-4.680) uIU/mL Urine Color Dark yellow (Yellow) Urine Appearance Cloudy H (Clear) Urine pH 8.5 (5.0-9.0) Ur Specific [place] 1.016 (1.001-1.035) Urine Protein 2+ H (Negative) mg/dL Urine Glucose (UA) Negative (Negative) mg/dL Urine Ketones Trace H (Negative) mg/dL Ur Blood (Man) Trace (Negative) Urine Nitrate Negative (Negative) Urine Bilirubin Negative (Negative) Urine Urobilinogen 1.0 (<2.0) mg/dL Add Ur Microanalysis Reviewed Leukocyte Esterase Rfl 3+ H (Negative) JANIYA/UL Urine RBC 21-50 H (0-2) /hpf Urine WBC 6-10 H (0-3) /hpf Ur Squamous Epith Cells Occasional (Few) /hpf Urine Bacteria 4+ H /hpf Urine Casts >20 U Random Total Protein 68 mg/dL Ur Random Sodium 28 meq/L Ur Random Urea 339 MG/DL Urine Creatinine 176.7 mg/dL Protein/Creat Ratio 2 0.38 H (0-0.20) mg/mg Influenza A (RT-PCR) Negative (Negative) Influenza B (RT-PCR) Negative (Negative) RSV (RT-PCR) Negative (Negative) SARS-CoV-2 RNA (RT-PCR) Negative (Negative) 10/19/24 Range/Units 11:33 WBC (4.5-10.0) K/mm3 RBC (4.6-6.20) M/mm3 Hgb (14.0-18.0) g/dL Hct (42.0-52.0) % MCV (80-100) fl MCH (26-34) pg MCHC (32-36) g/dl RDW (11.5-14.5) % Plt Count (150-375) k/mm3 MPV (7.4-10.4) fl Immature Gran % (Auto) Neut % (Auto) Lymph % (Auto) [place] % (Auto) Eos % (Auto) Baso % (Auto) Lymph # (Auto) [place] # (Auto) Eos # (Auto) Baso # (Auto) Abs Immat Gran (auto) Absolute Neuts (auto) Absolute Nucleated RBC Total Counted Neutrophils % (Manual) (46-73) % Band Neutrophils % (0-6) % Lymphocytes % (Manual) (18-44) % Monocytes % (Manual) (3-9) % Nucleated RBC % Abs Neuts (Manual) (1.3-6.7) K/mm3 Abs Lymphs (Manual) (1.1-4.5) K/mm3 Abs Monocytes (Manual) (0.1-0.90) K/mm3 Platelet Estimate (Adequate) Schistocytes Sodium (137-145) mmol/L Potassium (3.4-5.0) mmol/L Chloride (98-107) mmol/L Carbon Dioxide (22-30) mmol/L Anion Gap (4-12) mmol/L BUN (9-20) mg/dL Creatinine (0.7-1.3) mg/dL Estim Creat Clear Calc ml/min Estimated GFR (59 - ) Glucose (65-110) mg/dL Calcium (8.4-10.2) mg/dL Magnesium (1.6-2.3) mg/dL Total Bilirubin (0.2-1.3) mg/dL AST (17-59) U/L ALT (6-50) U/L Alkaline Phosphatase (38-126) U/L Total Creatine Kinase (55-170) U/L Troponin I 0.056 H* (0.000-0.034) ng/mL Total Protein (6.3-8.2) g/dL Albumin (3.5-5.1) g/dL TSH (0.465-4.680) uIU/mL Urine Color (Yellow) Urine Appearance (Clear) Urine pH (5.0-9.0) Ur Specific [place] (1.001-1.035) Urine Protein (Negative) mg/dL Urine Glucose (UA) (Negative) mg/dL Urine Ketones (Negative) mg/dL Ur Blood (Man) (Negative) Urine Nitrate (Negative) Urine Bilirubin (Negative) Urine Urobilinogen (<2.0) mg/dL Add Ur Microanalysis Leukocyte Esterase Rfl (Negative) JANIYA/UL Urine RBC (0-2) /hpf Urine WBC (0-3) /hpf Ur Squamous Epith Cells (Few) /hpf Urine Bacteria /hpf Urine Casts U Random Total Protein mg/dL Ur Random Sodium meq/L Ur Random Urea MG/DL Urine Creatinine mg/dL Protein/Creat Ratio 2 (0-0.20) mg/mg Influenza A (RT-PCR) (Negative) Influenza B (RT-PCR) (Negative) RSV (RT-PCR) (Negative) SARS-CoV-2 RNA (RT-PCR) (Negative) Imaging Data Radiologist's impression: Impressions Chest X-Ray 10/19/24 10:15 IMPRESSION: 1. Mild discoid atelectasis at the left lung base. No other acute cardiopulmonary disease. Abdomen/Pelvis CT 10/19/24 12:07 IMPRESSION: 1. Chronic 13 cm ovoid cystic lesion in the subcutaneous fat at the right lower quadrant pannus most likely related to prior trauma or surgery. 2. Nonobstructing bilateral nephrolithiasis. 3. Fluid in the colon consistent with nonspecific diarrhea. No other acute intra-abdominal/pelvic process. ECG Data EKG #1: Attestation: I personally reviewed and interpreted this ECG as follows: ECG completion date: 10/19/24 ECG completion time: 08:45 Interpretation: Electronic atrial and ventricular pacemaker rhythm at a rate of 49 beats per minute, bradycardic. HI interval 132. QRS 185. QT/QTC 462/434. Poor R-wave progression across the precordial leads. No T-wave inversions. Discharge Plan Discharge Clinical Impression: KERI (acute kidney injury), Leukocytosis, Generalized weakness, Elevated CPK, Non-ST elevation CA (NSTEMI), Abdominal pannus, Cystic lesion of abdominal viscera, Bilateral nephrolithiasis UTI (urinary tract infection) Qualifiers: Urinary tract infection type: acute cystitis Hematuria presence: without hematuria Qualified Code(s): N30.00 - Acute cystitis without hematuria Patient Disposition: Still a Patient Condition: Stable
[2024-10-19 09:09] LABS: Albumin Level 3.6 g/dL (3.5-5.1); Alkaline Phosphatase 164 U/L (38-126); Anion Gap 12 mmol/L (4-12); Aspartate Amino Transferase 64 U/L (17-59); Bilirubin,Total 1.4 mg/dL (0.2-1.3); Blood Urea Nitrogen 32 mg/dL (9-20); Calcium 9.1 mg/dL (8.4-10.2); Carbon Dioxide 24 mmol/L (22-30); Chloride 107 mmol/L (98-107); Estimated CRCL calculation 41 ml/min; Estimated Glomerular Filt Rate 30; Glucose 77 mg/dL (65-110); Potassium 4.1 mmol/L (3.4-5.0); Sodium 143 mmol/L (137-145)
--- OUTSIDE RECORDS SUMMARY | 2024-10-19 09:11 | XMS_ITS | Encounter Summary ---
Author Organization 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 Gender Identity Not on file Sexual Orientation Not on file documented as of this encounter Plan of Treatment Scheduled Procedures Name Priority Associated Diagnoses Date/Ti me COLONOSCOPY Open Access Screening for colon cancer COLONOSCOPY Encounter for screening colonoscopy COLONOSCOPY Encounter for screening colonoscopy COLONOSCOPY Encounter for screening colonoscopy documented as of this encounter Procedures Procedure Name Priority Date/Time Associated Diagnosis Comments SCAN - RADIOLOGY/IMAGING 11/20/2017 documented in this encounter Results * SCAN - RADIOLOGY/IMAGING (11/20/2017) Anatomical Region Laterality Modality Other us Provider Scanning Final Result documented in this encounter Visit Diagnoses Not on filedocumented in this encounter Additional Health Concerns Infection Onset Date Last Indicated Resolved 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
--- OUTSIDE RECORDS SUMMARY | 2024-10-19 09:11 | XMS_ITS | Encounter Summary ---
Author Organization [facility] Address [address] [place] [address] Phone Care Team Providers Care Clinical Nurse Specialist Name Role Phone Chris Perez PhD Primary Care Provider Vern Dover MD Primary Care Provider Encounter Details Date Type Department Care Team (Latest Contact Info) Description 11/01/2017 Orders Only [facility] CONVERSION Scanning, Provider Social History Tobacco Use Types Packs/Day Years Used Date Smoking Tobacco: Never Sex and Gender Information Value Date Recorded Sex Assigned at Not on file Legal 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 Gender Identity Not on file Sexual Orientation Not on file documented as of this encounter Plan of Treatment Scheduled Procedures Name Priority Associated Diagnoses Date/Ti me COLONOSCOPY Open Access Screening for colon cancer COLONOSCOPY Encounter for screening colonoscopy COLONOSCOPY Encounter for screening colonoscopy COLONOSCOPY Encounter for screening colonoscopy documented as of this encounter Procedures Procedure Name Priority Date/Time Associated Diagnosis Comments VASCULAR LABORATORY REPORT 11/01/2017 2:47 PM OPTICAL EFFECTS CAMERA OPERATOR documented in this encounter Results * VASCULAR LABORATORY REPORT (11/01/2017 2:47 PM OPTICAL EFFECTS CAMERA OPERATOR) Anatomical Region Laterality Modality Ultrasound us Provider Scanning CV VASCULAR PROCEDURES Final R esult documented in this encounter Visit Diagnoses Not on filedocumented in this encounter Additional Health Concerns Infection Onset Date Last Indicated Resolved Time 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
--- OUTSIDE RECORDS SUMMARY | 2024-10-19 09:11 | XMS_ITS | Encounter Summary ---
Author Organization [facility] Address [address] [place] [address] Care Team Providers Care Licensed Loan Officer Assistant Name Role Phone Vern Adams MD Primary Care Provider [phone] Reason for Visit * Reason Onset Date Comments lab test 10/17/2024 Encounter Details Date Type Department Care Team (Late st Contact Info) Description 10/17/2024 [facility] [address] [facility] [address] [facility] [place] [address] Vern Adams MD [address] [facility] [address] [place], [place] [id number] lab test Social History Tobacco Use Types Packs/Day Years Used Date Smoking Tobacco: Never Smokeless Tobacco: Never Alcohol Use Standard Drinks/Week Comments Yes 0 (1 standard drink = 0.6 oz pur e alcohol) Sex and Gender Information Value Date Recorded Sex Assigned at Not on file Legal Sex Male 10:45 PM WASTE OIL PUMPER Gender Identity Not on file Sexual Orientation Not on file 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 lab calling on a lab they were unable to perform. UA reflex to culture due to quantity insufficient. Said they did not have enough to perform test. Order is being cancelled. If need completed will need to reorder. Unable to tell me dx that was used for test. CB [phone] E OIL PUMPER documented in this encounter Plan of Treatment Scheduled Procedures Name Priority Associated Diagnoses Date/Ti me COLONOSCOPY Open Access Screening for colon cancer COLONOSCOPY Encounter for screening colonoscopy COLONOSCOPY Encounter for screening colonoscopy COLONOSCOPY Encounter for screening colonoscopy documented as of this encounter Visit Diagnoses Not on filedocumented in this encounter Care Teams Licensed Loan Officer Assistant Relationship Specialty Start Date End Date Vern Adams MD [address] [address] PCP - General Internal Medicine 12/02/18 documented as of this encounter
--- OUTSIDE RECORDS SUMMARY | 2024-10-19 09:12 | XMS_ITS | Encounter Summary ---
Author Organization [facility] Address [address] [place] [address] Care Team Providers Care Experimental Plastics Fabricator Name Role Phone Vern Adams MD Primary Care Provider [phone] Encounter Details Date Type Department Care Team (Late st Contact Info) Description 11/17/2019 Telephone [facility] Radiology [address] [place] [address] Percy Jefferson RN Social History Tobacco Use Types Packs/Day Years Used Date Smoking Tobacco: Never Smokeless Tobacco: Never Alcohol Use Standard Drinks/Week Comments Yes 0 (1 standard drink = 0.6 oz pur e alcohol) Sex and Gender Information Value Date Recorded Sex Assigned at Not on file Legal Sex Male 10:45 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
--- OUTSIDE RECORDS SUMMARY | 2024-10-19 09:12 | XMS_ITS | Clinical Summary ---
Author Organization [facility] Building B Address [address] [facility] [address] [place] [address] Care Team Providers Care Bilingual Speech Language Pathologist Name Role Phone Vern Adams MD Primary Care Provider [phone] Allergies Active Allergy Reactions Criticality Noted Date Comments Morphine Hallucinations Medium 12/02/2018 Medications acetaminophen (TYLENOL) 325 mg tablet Take 1 tablet (325 mg total) by mouth every 6 (six) hours as needed for pain 168 tablet 10 3 Active amLODIPine (NORVASC) 10 mg tablet TAKE 1 TABLET BY MOUTH DAILY 28 tablet 10 3 Active hydrALAZINE (APRESOLINE) 50 mg tablet TAKE ONE TABLET BY MOUTH THREE TIMES A DAY. 84 tablet 10 3 Active sertraline (ZOLOFT) 50 mg tablet TAKE 1 TABLET BY MOUTH DAILY 28 tablet 10 3 Active ampicillin (PRINCIPEN) 500 mg capsule TAKE 4 CAPSULES BY MOUTH 1 HOUR PRIOR TO APPOINTMENT 4 Active metoprolol XL (TOPROL-XL) 50 mg extended release tablet 4 Active polyethylene glycol 3350,bulk, powder 10/16/19 25 Discontin ued(Thera py completed ) traMADoL (ULTRAM) 50 mg tablet Take 1 tablet (50 mg total) by mouth every 6 (six) hours 10/16/19 25 Discontin ued(Thera py completed ) hydroCHLOROthi azide (HYDRODIURIL) 25 mg tablet TAKE 1 TABLET BY MOUTH EVERY DAY 28 tablet 10 3 10/16/19 25 Discontin ued(Thera py completed ) Active Problems Problem Noted Date Diagnosed Date Screening for colon cancer 04/09/2024 Chronic kidney disease (CKD) stage G3a/A1, moderately decreased glomerular filtration rate (GFR) between 45-59 mL/min/1.73 square meter and albuminuria creatinine ratio less than 30 mg/g 11/18/2022 Essential hypertension 11/15/2022 Memory loss 11/15/2022 Complete heart block (CMS/HCC) 05/30/2022 Cardiac pacemaker in situ 03/10/2021 Overview (03/17/2021): Biotronik Edora Dual Pacemaker. DX: Second Degree AVB Mobitz II, Junctional, Afib. DOI: 03-04-2021-Essie. Biotronik Remote monitoring. Abdominal wall fluid collections 06/27/2019 Lack of motivation 06/04/2019 Living in assisted living 06/04/2019 Vascular dementia without behavioral disturbance 12/02/2018 Assessment & Plan (12/02/2018 1:58 PM CDT): Need to review Head CT done in 05/2018 Consider decreasing metoprolol to allow for Aricept that is a josh ignacio and can reduce HR. Recommend Memory Care unit or else modifications to ASL to provide safe environment to pt. Starting Zoloft for mood, sleep. Encounters Date Type Department Care Team Description 10/17/2024 [facility] [address] [facility] [address] [facility] [place] [address] Vern Adams MD lab test 10/16/2024 4:30 PM HEALTH SCIENCE WRITER Lab [facility] [address] [place] [id number] Chronic kidney disease (CKD) stage G3a/A1, moderately decreased glomerular filtration rate (GFR) between 45-59 mL/min/1.73 square meter and albuminuria creatinine ratio less than 30 mg/g (HCC); Essential hypertension; Vascular dementia without behavioral disturbance (HCC) 10/16/2024 11:30 AM HEALTH SCIENCE WRITER Office Visit [facility] [address] [place] [address] Vern Adams MD Screening for colon cancer (Primary Dx); Chronic kidney disease (CKD) stage G3a/A1, moderately decreased glomerular filtration rate (GFR) between 45-59 mL/min/1.73 square meter and albuminuria creatinine ratio less than 30 mg/g (HCC); Essential hypertension; Vascular dementia without behavioral disturbance (HCC) 10/07/2024 Telephone [facility] [address] [phone] Vern Adams MD DME ORDER 09/23/2024 Telephone [facility] [address] [place] [phone] Edgar Fountain MD 08/12/2024 7:30 AM HEALTH SCIENCE WRITER Ancillary Procedure [facility] [address] [place] [phone] Cardiac pacemaker in situ [Z95.0] (Primary Dx); Second degree AV block; Paroxysmal atrial fibrillation (CMS/HCC) ([facility]) 08/12/2024 Orders Only [facility] [address] [place] [phone] Edgar Fountain MD Second degree AV block (Primary Dx); Paroxysmal atrial fibrillation (CMS/HCC) ([facility]) 07/29/2024 Telephone [facility] Services [address] [place] [phone] Carolina Enrique, RN 07/29/2024 Telephone [facility] [address] [place] [phone] Vern Adams MD paperwork from Last 3 Months Immunizations Name Administration Dates Next Due Influenza, Quadrivalent, Split, Intramuscular Influenza, Quadrivalent, Spl it, Preservative Free, Intramuscular 06/05/2019,07/13/2015 Influenza, Trivalent, Preservative Free, Intramu scular 08/10/2014 TD Preservative Free 11/17/2017 Surgical History Surgery Date Site/Laterality Comments GALLBLADDER SURGERY Gallbladder Surgery - (Added by TW Conv) HAND SURGERY Hand Surgery - Left thumb (Added by TW Conv) CRANIOTOMY Left TRADING MANAGER SHUNT INSERTION BARIATRIC SURGERY CHOLECYSTECTOMY HERNIA REPAIR US GUIDED ASPIRATION ABSCESS HEMATOMA CYST SOFT TISSUE 07/11/2019 N/A IR G TUBE PLACEMENT PERCUTANEOUS 03/26/2017 N/A Medical History Medical History Date Comments Personal history of other in fectious and parasitic diseases History of herpes zoster - ( Added by TW Conv) Personal history of urinary calculi History of urinary stone - (Added by TW Conv) Hypertension HLD (hyperlipidemia) Intraparenchymal hemorrhage of brain (CMS/HCC) (HCC) A-fib (CMS/HCC) (HCC) Chronic kidney disease (CKD) stage G3a/A1, moderately decreased glomerular filtration rate (GFR) between 45-59 mL/min/1.73 square meter and albuminuria creatinine ratio less than 30 mg/g (HCC) 11/18/2022 Family History Medical History Relation Name Comments Diabetes Brother Hypertension Father Family history of hypertension - (Added by TW Conv) Diabetes Mother Stroke Mother FHx: stroke - ( Added by TW Conv) Hypertension Other 1 Family history of hypertension - (Added by TW Conv) Obesity Other 2 Family history of obesity - (Added by TW Conv) Diabetes Other 3 Family history of diabetes mellitus - (Added by TW Conv) Diabetes Sister 1 Hypertension Sister 1 Diabetes Sister 2 Stroke Sister 2 Relation Name Status Comments Brother Father Mother Other 1 Other 2 Other 3 Sister 1 Sister 2 Social History Tobacco Use Types Packs/Day Years Used Date Smoking Tobacco: Never Smokeless Tobacco: Never Tobacco Cessation:Counseling Given: Not Answered Alcohol Use Standard Drinks/Week Comments Yes 0 (1 standard drink = 0.6 oz pur e alcohol) Sex and Gender Information Value Date Recorded Sex Assigned at Not on file Legal Sex Male 10:45 PM HEALTH SCIENCE WRITER Gender Identity Not on file Sexual Orientation Not on file 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 End Date 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 Not on file Not on file Not on f ile Obstetrics History Last Filed Vital Signs Vital Sign Reading Time Taken Comments Blood Pressure 103/66 10/16/2024 11:35 AM HEALTH SCIENCE WRITER Pulse 50 10/16/2024 11:35 AM HEALTH SCIENCE WRITER Temperature 36.5 ??C (97.7 ??F) 06/27/2019 10:28 AM C DT Respiratory Rate - - Oxygen Saturation 99% 10/11/2023 2:40 PM HEALTH SCIENCE WRITER Inhaled Oxygen Concentration - - Weight 132.5 kg (292 lb) 10/16/2024 11:35 AM HEALTH SCIENCE WRITER Height 180.3 cm (5' 11 ) 10/16/2024 11:35 AM HEALTH SCIENCE WRITER Body Mass Index 40.73 10/16/2024 11:35 AM HEALTH SCIENCE WRITER Plan of Treatment Scheduled Procedures Name Priority Associated Diagnoses Date/Ti me COLONOSCOPY Open Access Screening for colon cancer COLONOSCOPY Encounter for screening colonoscopy COLONOSCOPY Encounter for screening colonoscopy COLONOSCOPY Encounter for screening colonoscopy Health Maintenance Due Date Last Done Comments Colon Cancer Screening-Colonoscopy 1955 Depression Screening 1957 Fall Risk Assessment 1955 Hepatitis B Screening 1975 Zoster Vaccine (1 of 2) 2007 DTaP/Tdap/Td Vaccine (1 - Tdap) 11/18/2017 8 Pneumococcal vaccine 65+ (1 of 1 - PCV) 2022 Well Visit 65+ 11/09/2022 11/09/2021 Covid-19 Vaccine (4 - 2023-2 5 season) 2024 07/29/2021, 11/08/2020, 10/18/2020 Influenza Vaccine (#1) 2024 9, 06/05/2019, 07/13/2015, Additional history exists Prostate Cancer Screening-PSA 04/09/2026, 11/15/2022, 11/09/2021 Hepatitis C Screening Completed 04/09/2024 Procedures Procedure Name Priority Date/Time Associated Diagnosis Comments EGFR Routine 10/16/2024 1:11 PM HEALTH SCIENCE WRITER Chronic kidney disease (CKD) stage G3a/A1, moderately decreased glomerular filtration rate (GFR) between 45-59 mL/min/1.73 square meter and albuminuria creatinine ratio less than 30 mg/g (HCC) Essential hypertension Vascular dementia without behavioral disturbance (HCC) BASIC METABOLIC PANEL Routine 10/16/2024 1:11 PM HEALTH SCIENCE WRITER Chronic kidney disease (CKD) stage G3a/A1, moderately decreased glomerular filtration rate (GFR) between 45-59 mL/min/1.73 square meter and albuminuria creatinine ratio less than 30 mg/g (HCC) Essential hypertension Vascular dementia without behavioral disturbance (HCC) DEVICE CHECK - REMOTE Routine 08/12/2024 1:49 PM HEALTH SCIENCE WRITER Second degree AV block Paroxysmal atrial fibrillation (CMS/HCC) (HCC) HEPATITIS C ANTIBODY Routine 04/09/2024 12:41 PM CDT Vascular dementia without behavioral disturbance (HCC) Cardiac pacemaker in situ Essential hypertension Screening for prostate cancer Encounter for hepatitis C screening test for low risk patient PSA SCREEN Routine 04/09/2024 12:40 PM CDT Vascular dementia without behavioral disturbance (HCC) Cardiac pacemaker in situ Essential hypertension Screening for prostate cancer Encounter for hepatitis C screening test for low risk patient from Last 3 Months or Most Recently Relevant to Health Maintenance Results * (ABNORMAL) eGFR (10/16/2024 1:11 PM HEALTH SCIENCE WRITER) eGFR 46(L) >=60 mL/min/1. 73 m2 Comment: Interpretive Data Reference Interval Normal ?>/= 90 mL/min/1.73m2 Mildly decreased* ? 60 - 89 mL/min/1.73m2 Mildly to moderately decreased ?45 - 59 mL/min/1.73m2 Moderately to severely decreased ??30 - 44 mL/min/1.73m2 Severely decreased ?15 - 29 mL/min/1.73m2 Kidney Failure ?< 15 ??mL/min/1.73m2 *Relative to young adult level Estimated glomerular filtration rate is determined by the 2020 CKD-EPI equation recommended by the National Kidney Foundation (A Unifying Approach to GFR Estimation: Recommendations of the NKF-ASK Task Force on Reassessing the Inclusion of Race in Diagnosing Kidney Disease, JASN 2020). The CKD-EPI equation should not be used for patients with unstable renal function and has not been validated in children and those over 70. Current interpretive data was last reviewed 2021. Blood 10/16/2024 1:11 PM HEALTH SCIENCE WRITER 10/16/2024 1:33 PM HEALTH SCIENCE WRITER Vern Adams MD LAB BLOOD ORDERABLES Final Re sult Performing Organization Address [facility]/ZIP Co de Phone Number [facility] [place] [address] * (ABNORMAL) Basic metabolic panel (10/16/2024 1:11 PM HEALTH SCIENCE WRITER) Sodium 146(H) 135 - 145 mmol/L Potassium, pl 5.3(H) 3.3 - 4.9 mmol/L [facility] Chloride 108 97 - 110 mmol/L [facility] CO2 28 22 - 32 mmol/L [facility] Anion gap 10 2 - 15 mmol/L [facility] BUN 22 6 - 25 mg/dL [facility] Creatinine 1.62(H) 0.80 - 1.30 mg/dL [facility] Glucose 94 70 - 199 mg/dL [facility] Comment: Interpretive Data Fasting glucose >/= 126 mg/dl is diagnostic for diabetes. ?? Fasting is defined as no caloric intake for at least 8 hours. Fasting glucose between 100 mg/dl to 125 mg/dl is diagnostic of prediabetes. In a patient with classic symptoms of hyperglycemia or hyperglycemic crisis, a random glucose >/= 200 mg/dl is diagnostic for diabetes. In the absence of unequivocal hyperglycemia, results should be confirmed by repeat testing. The classification and Diagnosis of Diabetes Diabetes Care 202; 46: S19-S40. Current interpretive data was last revised 2022. Calcium 9.3 8.5 - 10.3 mg/dL [facility] Blood 10/16/2024 1:11 PM HEALTH SCIENCE WRITER 10/16/2024 1:27 PM HEALTH SCIENCE WRITER Vern Adams MD LAB BLOOD ORDERABLES Final Re sult Performing Organization Address [facility]/ZIP Co de Phone Number [facility] [place] [address] * DEVICE CHECK - REMOTE (08/12/2024 1:49 PM HEALTH SCIENCE WRITER) Anatomical Region Laterality Modality Other Narrative 10/09/2024 2:42 PM HEALTH SCIENCE WRITER Biotronik Edora Dual Pacemaker. ??DX: Second Degree AVB Mobitz II, Junctional, Afib. DOI: 03-04-2021-Essie. Biotronik Remote monitoring. 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 Routine DDD Pacemaker Remote. Transmission attached. Battery status: Ok, 70% remaining battery life to CHLOE. Stable lead impedances, pacing and sensing thresholds. Presenting rhythm: AT/AF Vpaced. AP- 1%, TRADING MANAGER- 100%. AT/AF episodes noted. AF [place] 100% since 06/2023. Average ventricular rate during AT/AF is 62 bpm. No Ventricular high rate episodes detected. ?? Medications: Toprol XL. See scanned report. Office pacemaker follow up: 10/22/2024. BioTronik remote f/u due in 6 months. Shannan Reardon, RN us Edgar Fountain MD CV CARDIAC SERVICES PROC EDURES Final Result * Hepatitis C antibody Blood (04/09/2024 12:41 PM CDT) Hep C Ab Non Reactive Non Reactive [facility] - 01 Comment: HCV antibody alone does not differentiate between previously resolved infection and active infection. Equivocal and Reactive HCV antibody results should be followed up with an HCV RNA test to support the diagnosis of active HCV infection. Blood 04/09/2024 12:4 1 PM CDT 04/09/2024 Narrative [facility] - 04/10/2024 8:19 AM CDT Performed at: ??01 - [facility] [address] ??[id number] Back Shoe Worker: Wolfgang Hallman PhD, Phone: ??[phone] us Vern Adams MD LAB MICROBIOLOGY - GENERAL OR DERABLES Final Result [facility] - 01 * PSA screen (04/09/2024 12:40 PM CDT) PSA 0.3 0.0 - 4.0 ng/mL [facility] - Comment: Felix ECLIA methodology. According to the [employer], Serum PSA should decrease and remain at undetectable levels after radical prostatectomy. The AUA defines biochemical recurrence as an initial PSA value 0.2 ng/mL or greater followed by a subsequent confirmatory PSA value 0.2 ng/mL or greater. Values obtained with different assay methods or kits cannot be used interchangeably. Results cannot be interpreted as absolute evidence of the presence or absence of malignant disease. Blood 04/09/2024 12:4 0 PM CDT 04/09/2024 Narrative [facility] - 04/10/2024 10:12 AM CDT Performed at: ??01 - [facility] ??[id number] Back Shoe Worker: Wolfgang Hallman PhD, Phone: ??[phone] Vern Adams MD LAB BLOOD ORDERABLES Final Re sult Performing Organization Address [facility] Co de Phone Number [facility] - 01 from Last 3 Months or Most Recently Relevant to Health Maintenance Insurance tado [facility] [place] [id number] [employer] MEDICARE Advance Directives For more information, please contact: [phone] Documents on File Type Date Recorded Patient Record Label Intern Expl anation ADVANCE DIRECTIVE 01/06/2013 12:00 AM BERNABE Dunlap OF [employer]AL[employer] INSPECTOR FINANCIAL/MEDICAL Care Teams Bilingual Speech Language Pathologist Relationship Specialty Start Date End Date Vern Adams MD [address] [facility] [address] [place] [address] PCP - General Internal Medicine 12/02/18
--- OUTSIDE RECORDS SUMMARY | 2024-10-19 09:12 | XMS_ITS | Referral Summary ---
[facility] Address [address] [place] [address] Care Team Providers Care Sawmill Moulder Operator Name Role Phone Vern Adams MD Primary Care Provider [phone] Encounters Date Type Department Care Team Description 10/17/2024 Telephone [facility] [address] [place] [phone] Vern Adams MD lab test 10/16/2024 4:30 PM AMMONIA NITRATE OPERATOR Lab [facility] [address] [place] [phone] Chronic kidney disease (CKD) stage G3a/A1, moderately decreased glomerular filtration rate (GFR) between 45-59 mL/min/1.73 square meter and albuminuria creatinine ratio less than 30 mg/g (HCC); Essential hypertension; Vascular dementia without behavioral disturbance (HCC) 10/16/2024 11:30 AM AMMONIA NITRATE OPERATOR Office Visit [facility] [address] [place] [phone] Vern Adams MD Screening for colon cancer (Primary Dx); Chronic kidney disease (CKD) stage G3a/A1, moderately decreased glomerular filtration rate (GFR) between 45-59 mL/min/1.73 square meter and albuminuria creatinine ratio less than 30 mg/g (HCC); Essential hypertension; Vascular dementia without behavioral disturbance ([facility]) 10/07/2024 Telephone [facility] [address] [phone] Vern Adams MD DME ORDER 09/23/2024 Telephone [facility] [address] [place] [phone] Edgar Fountain MD 08/12/2024 Orders Only [facility] [address] [place] [phone] Edgar Fountain MD Second degree AV block (Primary Dx); Paroxysmal atrial fibrillation (CMS/HCC) ([facility]) 08/12/2024 7:30 AM AMMONIA NITRATE OPERATOR Ancillary Procedure [facility] [address] [place] [phone] Cardiac pacemaker in situ [Z95.0] (Primary Dx); Second degree AV block; Paroxysmal atrial fibrillation (CMS/HCC) ([facility]) 07/29/2024 Telephone [facility] Specialty Services [address] [place] [phone] Carolina Enrique, RN 07/29/2024 Telephone [facility] [address] [place] [phone] Vern Adams MD paperwork from Last 3 Months Allergies Active Allergy Reactions Criticality Noted Date Comments Morphine Hallucinations Medium 12/02/2018 Medications acetaminophen (TYLENOL) 325 mg tablet Take 1 tablet (325 mg total) by mouth every 6 (six) hours as needed for pain 168 tablet 10 3 Active amLODIPine (NORVASC) 10 mg tablet TAKE 1 TABLET BY MOUTH DAILY 28 tablet 3 Active hydrALAZINE (APRESOLINE) 50 mg tablet TAKE ONE TABLET BY MOUTH THREE TIMES A DAY. 84 tablet 10 3 Active sertraline (ZOLOFT) 50 mg tablet TAKE 1 TABLET BY MOUTH DAILY 28 tablet 3 Active ampicillin (PRINCIPEN) 500 mg capsule [...] to pt. Starting Zoloft for mood, sleep. Immunizations Name Administration Dates Next Due Influenza, Quadrivalent, Split, Intramuscular Influenza, Quadrivalent, Spl it, Preservative Free, Intramuscular 06/05/2019,07/13/2015 Influenza, Trivalent, Preservative Free, Intramu scular 08/10/2014 TD Preservative Free 11/17/2017 Social History Tobacco Use Types Packs/Day Years Used Date Smoking Tobacco: Never Smokeless Tobacco: Never Tobacco Cessation:Counseling Given: Not Answered Alcohol Use Standard Drinks/Week Comments Yes 0 (1 standard drink = 0.6 oz pur e alcohol) Sex and Gender Information Value Date Recorded Sex Assigned at Not on file Legal Sex Male 10:45 PM AMMONIA NITRATE OPERATOR Gender Identity Not on file Sexual Orientation Not on file 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 Not on file Not on file Not on f ile Last Filed Vital Signs Vital Sign Reading Time Taken Comments Blood Pressure 103/66 10/16/2024 11:35 AM AMMONIA NITRATE OPERATOR Pulse 50 10/16/2024 11:35 AM AMMONIA NITRATE OPERATOR Temperature 36.5 ??C (97.7 ??F) 06/27/2019 10:28 AM C DT Respiratory Rate - - Oxygen Saturation 99% 10/11/2023 2:40 PM AMMONIA NITRATE OPERATOR Inhaled Oxygen Concentration - - Weight 132.5 kg (292 lb) 10/16/2024 11:35 AM AMMONIA NITRATE OPERATOR Height 180.3 cm (5' 11 ) 10/16/2024 11:35 AM AMMONIA NITRATE OPERATOR Body Mass Index 40.73 10/16/2024 11:35 AM AMMONIA NITRATE OPERATOR Plan of Treatment Scheduled Procedures Name Priority Associated Diagnoses Date/Ti me COLONOSCOPY Open Access Screening for colon cancer COLONOSCOPY Encounter for screening colonoscopy COLONOSCOPY Encounter for screening colonoscopy COLONOSCOPY Encounter for screening colonoscopy Procedures Procedure Name Priority Date/Time Associated Diagnosis Comments EGFR Routine 10/16/2024 1:11 PM AMMONIA NITRATE OPERATOR Chronic kidney disease (CKD) stage G3a/A1, moderately decreased glomerular filtration rate (GFR) between 45-59 mL/min/1.73 square meter and albuminuria creatinine ratio less than 30 mg/g (HCC) Essential hypertension Vascular dementia without behavioral disturbance (HCC) BASIC METABOLIC PANEL Routine 10/16/2024 1:11 PM AMMONIA NITRATE OPERATOR Chronic kidney disease (CKD) stage G3a/A1, moderately decreased glomerular filtration rate (GFR) between 45-59 mL/min/1.73 square meter and albuminuria creatinine ratio less than 30 mg/g (HCC) Essential hypertension Vascular dementia without behavioral disturbance (HCC) DEVICE CHECK - REMOTE Routine 08/12/2024 1:49 PM AMMONIA NITRATE OPERATOR Second degree AV block Paroxysmal atrial fibrillation [...] Results * (ABNORMAL) eGFR (10/16/2024 1:11 PM AMMONIA NITRATE OPERATOR) eGFR 46(L) >=60 mL/min/1. 73 m2 Comment: [...] last reviewed 2021. Blood 10/16/2024 1:11 PM AMMONIA NITRATE OPERATOR 10/16/2024 1:33 PM AMMONIA NITRATE OPERATOR Vern Adams MD LAB BLOOD ORDERABLES Final Re sult Performing Organization Address City/[facility]/ZIP Co de Phone Number [facility] [place] [facility] [place] [address] * (ABNORMAL) Basic metabolic panel (10/16/2024 1:11 PM AMMONIA NITRATE OPERATOR) [facility] Sodium 146(H) 135 - 145 mmol/L Potassium, pl 5.3(H) 3.3 - 4.9 mmol/L [facility] Chloride 108 97 - 110 mmol/L [facility] CO2 28 22 - 32 mmol/L [facility] Anion gap 10 2 - 15 mmol/L [facility] BUN 22 6 - 25 mg/dL [facility] Creatinine 1.62(H) 0.80 - 1.30 mg/dL [facility] Glucose 94 70 - 199 mg/dL [facility] Comment: Interpretive Data Fasting glucose >/= 126 [...] classification and Diagnosis of Diabetes Diabetes Care 2021; 46: S19-S40. Current interpretive data was last revised 2022. Calcium 9.3 8.5 - 10.3 mg/dL [facility] Blood 10/16/2024 1:11 PM AMMONIA NITRATE OPERATOR 10/16/2024 1:27 PM AMMONIA NITRATE OPERATOR Vern Adams MD LAB BLOOD ORDERABLES Final Re sult Performing Organization Address [facility] Co de Phone Number [facility] [place] [facility] [place] [address] * DEVICE CHECK - REMOTE (08/12/2024 1:49 PM AMMONIA NITRATE OPERATOR) Anatomical Region Laterality Modality Other Narrative 10/09/2024 2:42 PM AMMONIA NITRATE OPERATOR Biotronik Edora Dual Pacemaker. ??DX: Second Degree AVB Mobitz II, Junctional, Afib. DOI: 03-04-2021-Essie. Biotronik Remote monitoring. 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 Routine DDD Pacemaker Remote. Transmission attached. Battery status: Ok, 70% remaining battery life to CHLOE. Stable lead impedances, pacing and sensing thresholds. Presenting rhythm: AT/AF Vpaced. AP- 1%, IT SENIOR SOFTWARE ENGINEER JAVA- 100%. AT/AF episodes noted. AF Durand 100% since 06/2023. Average ventricular rate during AT/AF is 62 bpm. No Ventricular high rate episodes detected. ?? Medications: Toprol XL. See scanned report. Office pacemaker follow up: 10/22/2024. BioTronik remote f/u due in 6 months. Shannan Reardon RN us Edgar Fountain MD CV CARDIAC [...] AM CDT Performed at: ??01 - [facility] [address], [place], [place] ??[id number] Solutions Developer: Wolfgang Hallman PhD, Phone: ??[phone] us Vern Adams MD LAB MICROBIOLOGY - GENERAL OR DERABLES Final Result [facility] * PSA screen (04/09/2024 12:40 PM CDT) PSA 0.3 0.0 - 4.0 ng/mL [facility] 01 Comment: Felix ECLIA methodology. According to the [place] [employer], Serum PSA should decrease and [...] 10:12 AM CDT Performed at: ??01 - [facility] ??[id number] Solutions Developer: Wolfgang Hallman PhD, Phone: ??[phone] us Vern Adams MD LAB BLOOD ORDERABLES Final Re sult [facility] - 01 from Last 3 Months or Most Recently Relevant to Health Maintenance Insurance [employer] [facility] Member Subscriber Plan / Payer (Ef fective 2019-Present) Name:Fabio Nesbitt Member ID:[id number] Relation to Subscriber:Self Name:Fabio Nesbitt Subscriber ID:[id number] Payer ID:[id number] Type:[employer] HMO/PPO Address: [facility] [id number] [place] [id number] [employer] MEDICARE T MEDICARE Advance Directives For more information, please contact: [phone] Documents on File Type Date Recorded Patient Motor Transport Inspector Expl anation ADVANCE DIRECTIVE 01/06/2013 12:00 AM BERNABE Dunlap OF WASHING MACHINE INSTALLER FINANCIAL/MEDICAL Care Teams Sawmill Moulder Operator Relationship Specialty Start Date End Date Vern Adams MD [address] [facility] [address] [place] [address] PCP - General Internal Medicine 12/02/18
--- OUTSIDE RECORDS SUMMARY | 2024-10-19 09:12 | XMS_ITS | Encounter Summary ---
Author Organization [facility] Address [address] [facility] [address] Phone Care Team Providers Care Range Conservationist Name Role Phone Chris Perez PhD Primary Care Provider Vern Dover MD Primary Care Provider [phone] Encounter Details Date Type Department Care Team (Latest Contact Info) Description 05/28/2018 Orders Only [facility] Scanning, Provider Social History Tobacco Use Types Packs/Day Years Used Date Smoking Tobacco: Never Sex and Gender Information Value Date Recorded Sex Assigned at Not on file 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 Gender Identity Not on file Sexual Orientation [...] Date/Time Associated Diagnosis Comments SCAN - RADIOLOGY/IMAGING 05/28/2018 documented in this encounter Results * SCAN - RADIOLOGY/IMAGING (05/28/2018) Anatomical Region Laterality Modality Other us Provider Scanning Final Result documented in this encounter Visit Diagnoses Not on filedocumented in this encounter Additional Health Concerns 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
--- OUTSIDE RECORDS SUMMARY | 2024-10-19 09:12 | XMS_ITS | Referral Summary ---
Author Organization [facility] Address [address] [facility] [place] [address] Care Team Providers Care Hoof Trimmer Name Role Phone Vern Adams MD Primary Care Provider Source Comments [facility],non-owned Affiliates and Associated Physician Practices is amultiple site organization consisting of ambulatory clinics and hospital sitesin [place], [place], [place] and [place]. This disclosure is being madepursuant to the Care Everywhere program and may not contain all information available regarding this patient. Last updated 18.[email or web address] Allergies Active Allergy Reactions Criticality Noted Date Comments Morphine Headache 02/17/2019 Medications * Be aware that medications may not be up to date on this document. Alwaysverify current medications with the patient. Medication Sig Dispensed Refills Start Date End Date Status lansoprazole (PREVACID) 30 MG capsule Take 30 mg by mouth DAILY. 11/18/2017 Active aspirin (ASPIRIN) 81 MG chew tablet Take 81 mg by mouth once daily Active sertraline (ZOLOFT) 50 MG tablet Take 50 mg by mouth once daily Active hydrALAZINE (APRESOLINE) 50 MG tablet Take 1 tablet by mouth 3 times daily 90 tablet 02/25/2019 Active amLODIPine (NORVASC) 10 MG tablet Take 1 tablet by mouth once daily 30 tablet 02/25/2019 Active Additional Information Patient not taking.Reported on 03/27/2019 lidocaine (LIDODERM) 5 % patch Apply 1 patch to skin once daily 02/26/2019 Active metoprolol tartrate (LOPRESSOR) 50 MG tablet Take 25 mg by mouth 2 times daily Active Acetaminophen (TYLENOL 8 HOUR PO) Activ e Sennosides-Docusate Sodium (SENNA PLUS PO) Active POLYETHYLENE GLYCOL 3350 PO Active Active Problems Problem Noted Date Diagnosed Date Proximal muscle weakness 02/18/2019 COMMUNICATIONS COORDINATOR (ventriculoperitoneal) shunt status 8 Overview (05/28/2018): 05/28/18 @ 0.5 jw Chronic atrial fibrillation 11/18/2017 Weakness 11/18/2017 Other specified disorders of brain 11/18/2017 Tachycardia 04/01/2017 Hypoxemia 04/01/2017 Dysphagia 03/23/2017 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 (12/17/2017): 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/10/2017 Encephalopathy 03/08/2017 Feeding difficulties 03/04/2017 Obstructive hydrocephalus 02/23/2017 Essential (primary) hypertension 02/23/2017 Resolved Problems Problem Noted Date Diagnosed Date Resolved Date Urinary tract infection 11/18/201712/16 Immunizations Name Administration Dates Next Due TD (ADULT), 5 LF TETANUS TOXOID, ADSORBED, PF Social History Tobacco Use Types Packs/Day Years Used Date Smoking Tobacco: Never Smokeless Tobacco: Never Alcohol Use Standard Drinks/Week Comments Yes 0 (1 standard drink = 0.6 oz pur e alcohol) Sex and Gender Information Value Date Recorded Sex Assigned at Not on file Gender Identity Not on file Sexual Orientation Not on file Last Filed Vital Signs Vital Sign Reading Time Taken Comments Blood Pressure 131/78 02/25/2019 12:30 PM CDT Pulse 82 02/25/2019 12:30 PM CDT Temperature 37 ??C (98.6 ??F) 02/25/2019 12:30 PM CDT Respiratory Rate 18 02/25/2019 12:30 PM CDT Oxygen Saturation 98% 02/25/2019 12:30 PM CDT Inhaled Oxygen Concentration - - Weight 105.7 kg (233 lb) 03/27/2019 11:40 AM CDT Height 180.3 cm (5' 11 ) 03/27/2019 11:40 AM CDT Body Mass Index 32.5 03/27/2019 11:40 AM CDT Functional Status Functional Status Response Date of Assess ment Is person deaf or have serious hearing difficult y? No 02/25/2019 Is person blind or have serious difficulty seein g? No 02/25/2019 Does person have serious dif ficulty walking/climbing stairs? Yes 02/25/2019 Does person have difficulty dressing/bathing? Ye s 02/25/2019 Does person have difficulty doing errands alone? No 02/25/2019 Cognitive Status Response Date of Assessm ent Does person have difficulty concentrating/remembering/making decisions? No 02/25/2019 Plan of Treatment Not on file Medical Devices Implanted Type Area Personal Support Worker Device Identifier Shelf Expiration Date Model / Serial / Lot Shunt Description:STRATTA SHUNT [employer] L[employer] Procedures Procedure Name Priority Date/Time Associated Diagnosis Comments BASIC METABOLIC PANEL (CALCIUM TOTAL) AM Draw 02/23/2019 5:38 AM CDT from Last 3 Months or Most Recently Relevant to Health Maintenance Results * BASIC METABOLIC PANEL (CALCIUM TOTAL) (02/23/2019 5:38 AM CDT) BUN 18 7 - 26 mg/dL 02/23/2019 6:10 AM [facility] Creatinine 1.2 0.6 - 1.2 mg/dL 02/23/2019 6:10 AM [facility] Sodium 141 136 - 145 mmol/L 02/23/2019 6:10 AM [facility] Potassium 4.1 3.5 - 4.5 mmol/L 02/23/2019 6:10 AM [facility] Chloride 104 98 - 107 mmol/L 02/23/2019 6:10 AM [facility] CO2 28 22 - 29 mmol/L 02/23/2019 6:10 AM [facility] Glucose 84 70 - 115 mg/dL 02/23/2019 6:10 AM [facility] Calcium 9.6 8.4 - 10.2 mg/dL 02/23/2019 6:10 AM [facility] Anion Gap 13 8 - 18 02/23/2019 6:10 AM [facility] BUN/Creatinine Ratio 15 7 - 23 02/23/2019 6:10 AM [facility] Osmolality Calculated 293 270 - 300 mOsm/kg 02/23/2019 6:10 AM CDT [facility] eGFR >60 >60 mL/min/1.7 3 m2 02/23/2019 6:10 AM CDT [facility] Blood BLOOD SPECIMEN / Unknown 02/23/2019 5:38 AM CDT 02/23/2019 5:44 AM CDT Anam Mccord MD LAB - CHEMISTRY OR DERABLES [facility] [address] [phone] from Last 3 Months or Most Recently Relevant to Health Maintenance Advance Directives * Full Code (Latest Code Status on File) Date Activated Date Inactivated Comments 02/18/2019 8:17 PM 02/25/2019 3:51 PM * Full Code Date Activated Date Inactivated Comments 02/18/2019 7:02 AM 02/18/2019 8:17 PM Care Teams Hoof Trimmer Relationship Specialty Start Date End Date Vern Adams MD PCP - General 05/28/18
--- OUTSIDE RECORDS SUMMARY | 2024-10-19 09:12 | XMS_ITS | Clinical Summary ---
Author Organization [facility] Address [address] [facility] [place] [address] Care Team Providers Care Corporate Investigator Name Role Phone Vern Adams MD Primary Care Provider [phone] Source Comments [facility],non-owned Affiliates and Associated Physician Practices is amultiple site organization consisting of ambulatory clinics and hospital sitesin [place], [place], [place] and [place]. This disclosure is being madepursuant to the Care Everywhere program and may not contain all information available regarding this patient. 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) shunt status 8 Overview (05/28/2018): 05/28/18 [...] (ADULT), 5 LF TETANUS TOXOID, ADSORBED, PF Family History Medical History Relation Name Comments Diabetes - Type 2 Brother CVA Mother Diabetes - Type 2 Mother Hypertension Mother CVA Other Grandmother (unspecifie) CVA Sister 1 Hypertension Sister 2 Relation Name Status Comments Brother Mother Other Grandmother (unspecifie) Sister 1 Sister 2 Social History Tobacco [...] Mass Index 32.5 03/27/2019 11:40 AM CDT Plan of Treatment Health Maintenance Due Date Last Done Comments COLOGUARD (AGES 45-75) - COLON CA SCREENING 1957 COLON MONITORING 1957 COLONOSCOPY - COLON CA SCREENING 1957 CT COLONOGRAPHY - COLON CA SCREENING 1957 Colorectal Cancer Screening 1957 FIT - COLON CA SCREENING 1957 FLEX SIG - COLON CA SCREENING 1957 LIPID TESTING 1957 HEPATITIS C SCREENING 05/18/1975 PNEUMOCOCCAL VACCINE 50+ (1 of 2 - PCV) 1976 ZOSTER VACCINE (1 of 2) 2007 Respiratory Syncytial Virus (RSV) Vaccine Pt: or over 60 yrs (1 - Risk 60-74 years 1-dose series) 2017 SCREENING FOR DIABETES 02/23/2022 9, 02/22/2019, 02/19/2019, Additional history exists COVID-19 VACCINE ( - 2023- season) 2024 INFLUENZA VACCINE (#1) 2024 DEPRESSION SCREENING 09/17/2024 DTAP/TDAP/TD VACCINES (2 - Td or Tdap) 11/18/2027 11/17/2017 HEPATITIS B VACCINE Aged Out No longe r eligible based on patient's age to complete this topic HIB VACCINE Aged Out No longer eligi ble based on patient's age to complete this topic HPV VACCINE Aged Out No longer eligi ble based on patient's age to complete this topic MENINGOCOCCAL (Group B) VACCINE Aged Out No longer eligible based on patient's age to complete this topic MENINGOCOCCAL VACCINE Aged Out No huy marcela eligible based on patient's age to complete this topic Medical Devices Implanted Type Area Director Of Revenue Device Identifier Shelf Expiration Date Model / [...] 7 - 26 mg/dL 02/23/2019 6:10 AM [facility] Creatinine 1.2 0.6 - 1.2 mg/dL 02/23/2019 6:10 AM [facility] Sodium 141 136 - 145 mmol/L 02/23/2019 6:10 AM [facility] Potassium 4.1 3.5 - 4.5 mmol/L 02/23/2019 6:10 AM [facility] Chloride 104 98 - 107 mmol/L 02/23/2019 6:10 AM [facility] CO2 28 22 - 29 mmol/L 02/23/2019 6:10 AM [facility] Glucose 84 70 - 115 mg/dL 02/23/2019 6:10 AM [facility] Calcium 9.6 8.4 - 10.2 mg/dL 02/23/2019 6:10 AM [facility] Anion Gap 13 8 - 18 02/23/2019 6:10 AM [facility] BUN/Creatinine Ratio 15 7 - 23 02/23/2019 6:10 AM [facility] Osmolality Calculated 293 270 - 300 mOsm/kg 02/23/2019 6:10 AM [facility] eGFR >60 >60 mL/min/1.7 3 m2 02/23/2019 6:10 AM [facility] Blood BLOOD SPECIMEN / Unknown 02/23/2019 5:38 AM CDT 02/23/2019 5:44 AM T Anam Mccord MD LAB - CHEMISTRY OR DERABLES [facility] [address] [place], [place] [id number] [place] [address] from Last 3 Months or Most Recently Relevant to Health Maintenance Advance Directives * Full Code (Latest Code Status on File) Date Activated Date Inactivated Comments 02/18/2019 8:17 PM 02/25/2019 3:51 PM * Full Code Date Activated Date Inactivated Comments 02/18/2019 7:02 AM 02/18/2019 8:17 PM Care Teams Corporate Investigator Relationship Specialty Start Date End Date Vern Adams MD PCP - General 05/28/18
--- OUTSIDE RECORDS SUMMARY | 2024-10-19 09:12 | XMS_ITS | Encounter Summary ---
Author Organization [facility] Address [address] [place] [address] Care Team Providers Care Bed Setter Name Role Phone Vern Adams MD Primary Care Provider [phone] Encounter Details Date Type Department Care Team (Late st Contact Info) Description 11/13/2019 Telephone [facility] Radiology [address] [place] [address] Rocio Dumont RN Social History Tobacco Use Types Packs/Day Years Used Date Smoking Tobacco: Never Smokeless Tobacco: Never Alcohol Use Standard Drinks/Week Comments Yes 0 (1 standard drink = 0.6 oz pur e alcohol) Sex and Gender Information Value Date Recorded Sex Assigned at Not on file 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
--- OUTSIDE RECORDS SUMMARY | 2024-10-19 09:12 | XMS_ITS | CONTINUITY OF CARE DOCUMENT ---
Author Name gordon leyva Address Unknown Organization [facility] Address [address] [facility] [address] [place] [address] Phone [phone] Care Team Providers Care Clearing Hand Name Role Phone Flakita ORTIZ, Slim Unavailable [phone] ROEL SWEENEY MD Unavailable [phone] ROEL SWEENEY MD Unavailable [phone] INSURANCE PROVIDERS Payer name Policy type / Coverage type [place] red democrat ID [id number] OPEN ACCESS Other [id number]
--- OUTSIDE RECORDS SUMMARY | 2024-10-19 09:12 | XMS_ITS | Clinical Summary ---
Author Organization [facility] Address [address] [place] [address]. [place], [place] [id number] [place] [id number] Care Team Providers Care Guest Experience Manager Name Role Phone Unavailable Primary Care Provider Unavailabl e Social History Tobacco Use Types Packs/Day Years Used Date Smoking Tobacco: Never Assessed Sex and Gender Information Value Date Recorded Sex Assigned at Not on file Legal Sex Male 5:41 PM CDT Gender Identity Not on file Sexual Orientation Not on file Plan of Treatment Health Maintenance Due Date Last Done Comments Colorectal Cancer Screening Colonoscopy (10 Years) 1957 Hepatitis C 1975 DTaP, Tdap and Td Vaccines ( 1 - Tdap) 1976 Zoster Vaccines (1 of 2) 2007 Pneumococcal Vaccine: 65+ Ye ars (1 of 1 - PCV) 2022 COVID-19 Vaccine ( - 2023-2 5 season) 2024 Influenza Adult (#1) 2024 RSV Immunization or 60+ Years (1 - 1-dose 75+ series) 2032 Meningococcal B Vaccine Aged Out No l onger eligible based on patient's age to complete this topic Meningococcal Vaccine Aged Out No huy marcela eligible based on patient's age to complete this topic RSV Immunizations Under 20 Months Aged Out No longer eligible based on patient's age to complete this topic
[2024-10-19 09:13] LABS: Alanine Aminotransferase 41 U/L (6-50)
--- OUTSIDE RECORDS SUMMARY | 2024-10-19 09:13 | XMS_ITS | Patient Health Summary ---
Author Organization [facility] Address [address] [place] [address] Care Team Providers Care Drum Stock Clerk Name Role Phone Vern Adams MD Primary Care Provider [phone] Note from [facility],non-owned Affiliates and Associated Physician Practices is amultiple site organization consisting of ambulatory clinics and hospital sitesin [place], [place], [place] and [place]. This disclosure is being madepursuant to the Care Everywhere program and may not contain all information available regarding this patient. Last updated 18.[facility] Allergies * Morphine(Headache) Medications * Be aware that medications may not be up to date on this document. Alwaysverify current medications with the patient. * lansoprazole (PREVACID) 30 MG capsule(Started 11/18/2017) Take 30 mg by mouth DAILY. * aspirin (ASPIRIN) 81 MG chew tablet Take 81 mg by mouth once daily * sertraline (ZOLOFT) 50 MG tablet Take 50 mg by mouth once daily * hydrALAZINE (APRESOLINE) 50 MG tablet(Started 02/25/2019) Take 1 tablet by mouth 3 times daily * amLODIPine (NORVASC) 10 MG tablet(Started 02/25/2019) Take 1 tablet by mouth once daily * lidocaine (LIDODERM) 5 % patch(Started 02/26/2019) Apply 1 patch to skin once daily * metoprolol tartrate (LOPRESSOR) 50 MG tablet Take 25 mg by mouth 2 times daily * Acetaminophen (TYLENOL 8 HOUR PO) * Sennosides-Docusate Sodium (SENNA PLUS PO) * POLYETHYLENE GLYCOL 3350 PO Active Problems Problem Noted Date Diagnosed Date Proximal muscle weakness 02/18/2019 MOLD STRIPPER (ventriculoperitoneal) shunt status 8 Chronic atrial fibrillation 11/18/2017 Weakness 11/18/2017 Other specified disorders of brain 11/18/2017 Tachycardia 04/01/2017 Hypoxemia 04/01/2017 Dysphagia 03/23/2017 Presence of cerebrospinal fluid drainage device 03/19/2017 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/10/2017 Encephalopathy 03/08/2017 Feeding difficulties 03/04/2017 Obstructive hydrocephalus 02/23/2017 Essential (primary) hypertension 02/23/2017 Resolved Problems Problem Noted Date Diagnosed Date Resolved Date Urinary tract infection 11/18/201712/16 Immunizations * TD (ADULT), 5 LF TETANUS TOXOID, ADSORBED, PF(Given 11/17/2017) Social History Tobacco Use Types Packs/Day Years [...] Mass Index 32.5 03/27/2019 11:40 AM CDT Medical Devices Implanted Type Area History Instructor Device Identifier Shelf Expiration Date Model / Serial / Lot Shunt Description:STRATTA SHUNT [employer] LVE Procedures * XR LUMBAR SPINE 2 OR 3VW(Performed 03/27/2019) Performed for Low back pain, unspecified back pain laterality, unspecified chronicity, with sciatica presence unspecified * XR CERVICAL SPINE 2 OR 3VW(Performed 03/27/2019) Performed for Neck pain * MAGNESIUM BLOOD(Performed 02/23/2019) * BASIC METABOLIC PANEL (CALCIUM TOTAL)(Performed 02/23/2019) * MAGNESIUM BLOOD(Performed 02/22/2019) Performed for Proximal muscle weakness * RENAL FUNCTION PANEL(Performed 02/22/2019) Performed for Proximal muscle weakness * CBC W/O DIFFERENTIAL(Performed 02/22/2019) Performed for Proximal muscle weakness * BASIC METABOLIC PANEL (CALCIUM TOTAL)(Performed 02/19/2019) * CBC W AUTO DIFFERENTIAL(Performed 02/19/2019) * CULTURE BLOOD(Performed 02/18/2019) * CULTURE BLOOD(Performed 02/18/2019) * VITAMIN B12(Performed 02/18/2019) * CORTISOL BLOOD AM(Performed 02/18/2019) * MRI LUMBAR SPINE WO CONTRAST(Performed 02/18/2019) Performed for Proximal muscle weakness * MRI THORACIC SPINE WO CONTRAST(Performed 02/18/2019) Performed for Proximal muscle weakness * MRI CERVICAL SPINE WO CONTRAST(Performed 02/18/2019) Performed for Proximal muscle weakness * XR THORACIC SPINE 2VW(Performed 02/18/2019) Performed for Proximal muscle weakness * XR LUMBAR SPINE 2 OR 3VW(Performed 02/18/2019) Performed for Proximal muscle weakness * BASIC METABOLIC PANEL (CALCIUM TOTAL)(Performed 02/18/2019) Performed for Acute kidney injury (HCC) * URINALYSIS W/MICROSCOPIC NO CULTURE(Performed 02/18/2019) * CARROL BLOOD SCREEN W/REFLEX TITER(Performed 02/18/2019) * T4 FREE(Performed 02/18/2019) * C-REACTIVE PROTEIN(Performed 02/18/2019) Performed for Proximal muscle weakness * ERYTHROCYTE SEDIMENTATION RATE(Performed 02/18/2019) Performed for Proximal muscle weakness * CT HEAD WO CONTRAST(Performed 02/18/2019) Performed for Confusion * CK BLOOD(Performed 02/17/2019) * TSH(Performed 02/17/2019) * COMPREHENSIVE METABOLIC PANEL(Performed 02/17/2019) * XR SHUNT SERIES(Performed 02/17/2019) Performed for Confusion * COMPREHENSIVE METABOLIC PANEL(Performed 02/17/2019) * CBC W AUTO DIFFERENTIAL(Performed 02/17/2019) * CT HEAD WO CONTRAST(Performed 05/28/2018) Performed for MOLD STRIPPER (ventriculoperitoneal) shunt status * CT HEAD WO CONTRAST(Performed 11/20/2017) * CBC W/O DIFFERENTIAL(Performed 11/18/2017) * BASIC METABOLIC PANEL (CALCIUM TOTAL)(Performed 11/18/2017) * PTT SLH(Performed 11/18/2017) * PT-INR SLH(Performed 11/18/2017) * CT CERVICAL SPINE WO CONTRAST(Performed 11/17/2017) * CULTURE URINE(Performed 11/17/2017) * URINALYSIS W/MICROSCOPIC NO CULTURE(Performed 11/17/2017) * PT-INR SLH(Performed 11/17/2017) * XR FEMUR LEFT 2VW(Performed 11/17/2017) * XR SHUNT SERIES(Performed 11/17/2017) * XR KNEE LEFT 3VW(Performed 11/17/2017) * CULTURE CSF+GRAM STAIN(Performed 11/17/2017) * DIFFERENTIAL MANUAL FLUID(Performed 11/17/2017) * CELL COUNT CSF(Performed 11/17/2017) * GLUCOSE CSF(Performed 11/17/2017) * PROTEIN CSF(Performed 11/17/2017) * CELL COUNT W DIFF CSF(Performed 11/17/2017) * CBC W AUTO DIFFERENTIAL(Performed 11/17/2017) * CK + CKMB PANEL(Performed 11/17/2017) * TROPONIN I(Performed 11/17/2017) * COMPREHENSIVE METABOLIC PANEL(Performed 11/17/2017) * CBC W AUTO DIFFERENTIAL(Performed 11/17/2017) * EKG 12-LEAD(Performed 11/16/2017) * CBC W AUTO DIFFERENTIAL(Performed 04/09/2017) * BASIC METABOLIC PANEL (CALCIUM TOTAL)(Performed 04/09/2017) * PHOSPHORUS BLOOD(Performed 04/09/2017) * MAGNESIUM BLOOD(Performed 04/09/2017) * CBC W AUTO DIFFERENTIAL(Performed 04/09/2017) * GLUCOSE ACCUCHECK(Performed 04/08/2017) * DIFFERENTIAL MANUAL(Performed 04/08/2017) * BASIC METABOLIC PANEL (CALCIUM TOTAL)(Performed 04/08/2017) * PHOSPHORUS BLOOD(Performed 04/08/2017) * MAGNESIUM BLOOD(Performed 04/08/2017) * CBC W AUTO DIFFERENTIAL(Performed 04/08/2017) * CBC W AUTO DIFFERENTIAL(Performed 04/08/2017) * DIFFERENTIAL MANUAL(Performed 04/07/2017) * BASIC METABOLIC PANEL (CALCIUM TOTAL)(Performed 04/07/2017) * PHOSPHORUS BLOOD(Performed 04/07/2017) * MAGNESIUM BLOOD(Performed 04/07/2017) * CBC W AUTO DIFFERENTIAL(Performed 04/07/2017) * CBC W AUTO DIFFERENTIAL(Performed 04/07/2017) * CBC W AUTO DIFFERENTIAL(Performed 04/06/2017) * BASIC METABOLIC PANEL (CALCIUM TOTAL)(Performed 04/06/2017) * PHOSPHORUS BLOOD(Performed 04/06/2017) * MAGNESIUM BLOOD(Performed 04/06/2017) * CBC W AUTO DIFFERENTIAL(Performed 04/06/2017) * XR THORACIC SPINE 1VW(Performed 04/05/2017) * XR CERVICAL SPINE 2 OR 3VW(Performed 04/05/2017) * DIFFERENTIAL MANUAL(Performed 04/05/2017) * BASIC METABOLIC PANEL (CALCIUM TOTAL)(Performed 04/05/2017) * PHOSPHORUS BLOOD(Performed 04/05/2017) * MAGNESIUM BLOOD(Performed 04/05/2017) * CBC W AUTO DIFFERENTIAL(Performed 04/05/2017) * CBC W AUTO DIFFERENTIAL(Performed 04/05/2017) * PHOSPHORUS BLOOD(Performed 04/04/2017) * MAGNESIUM BLOOD(Performed 04/04/2017) * DIFFERENTIAL MANUAL(Performed 04/04/2017) * CBC W AUTO DIFFERENTIAL(Performed 04/04/2017) * CBC W AUTO DIFFERENTIAL(Performed 04/04/2017) * BASIC METABOLIC PANEL (CALCIUM TOTAL)(Performed 04/03/2017) * CT HEAD WO CONTRAST(Performed 04/03/2017) * FL SWALLOWING FUNCTION STUDY(Performed 04/03/2017) * BASIC METABOLIC PANEL (CALCIUM TOTAL)(Performed 04/03/2017) * ALBUMIN BLOOD(Performed 04/03/2017) * MAGNESIUM BLOOD(Performed 04/03/2017) * PHOSPHORUS BLOOD(Performed 04/03/2017) * CBC W AUTO DIFFERENTIAL(Performed 04/03/2017) * CBC W AUTO DIFFERENTIAL(Performed 04/03/2017) * BASIC METABOLIC PANEL (CALCIUM TOTAL)(Performed 04/02/2017) * BASIC METABOLIC PANEL (CALCIUM TOTAL)(Performed 04/02/2017) * PHOSPHORUS BLOOD(Performed 04/02/2017) * MAGNESIUM BLOOD(Performed 04/02/2017) * CBC W AUTO DIFFERENTIAL(Performed 04/02/2017) * CBC W AUTO DIFFERENTIAL(Performed 04/02/2017) * T3 TOTAL(Performed 04/01/2017) * BASIC METABOLIC PANEL (CALCIUM TOTAL)(Performed 04/01/2017) * T4 TOTAL(Performed 04/01/2017) * TSH(Performed 04/01/2017) * BASIC METABOLIC PANEL (CALCIUM TOTAL)(Performed 04/01/2017) * PHOSPHORUS BLOOD(Performed 04/01/2017) * MAGNESIUM BLOOD(Performed 04/01/2017) * CBC W AUTO DIFFERENTIAL(Performed 04/01/2017) * CBC W AUTO DIFFERENTIAL(Performed 04/01/2017) * TROPONIN I(Performed 03/31/2017) * BASIC METABOLIC PANEL (CALCIUM TOTAL)(Performed 03/31/2017) * DIFFERENTIAL MANUAL(Performed 03/31/2017) * CBC W AUTO DIFFERENTIAL(Performed 03/31/2017) * CBC W AUTO DIFFERENTIAL(Performed 03/31/2017) * BASIC METABOLIC PANEL (CALCIUM TOTAL)(Performed 03/31/2017) * BLOOD GASES ARTERIAL(Performed 03/31/2017) * XR CHEST 1VW PORTABLE(Performed 03/31/2017) * GLUCOSE ACCUCHECK(Performed 03/31/2017) * DIFFERENTIAL MANUAL(Performed 03/31/2017) * CBC W AUTO DIFFERENTIAL(Performed 03/31/2017) * PHOSPHORUS BLOOD(Performed 03/31/2017) * MAGNESIUM BLOOD(Performed 03/31/2017) * CBC W AUTO DIFFERENTIAL(Performed 03/31/2017) * VANCOMYCIN LEVEL TROUGH(Performed 03/31/2017) * BASIC METABOLIC PANEL (CALCIUM TOTAL)(Performed 03/31/2017) * EKG 12-LEAD(Performed 03/31/2017) * EKG 12-LEAD(Performed 03/31/2017) * PTT SLH(Performed 03/30/2017) * PT-INR SLH(Performed 03/30/2017) * VANCOMYCIN LEVEL TROUGH(Performed 03/30/2017) * BASIC METABOLIC PANEL (CALCIUM TOTAL)(Performed 03/30/2017) * PHOSPHORUS BLOOD(Performed 03/30/2017) * MAGNESIUM BLOOD(Performed 03/30/2017) * CBC W AUTO DIFFERENTIAL(Performed 03/30/2017) * CBC W AUTO DIFFERENTIAL(Performed 03/30/2017) * TYPE + SCREEN PANEL(Performed 03/30/2017) * EKG 12-LEAD(Performed 03/30/2017) * TROPONIN I(Performed 03/29/2017) * BASIC METABOLIC PANEL (CALCIUM TOTAL)(Performed 03/29/2017) * ALBUMIN BLOOD(Performed 03/29/2017) * MAGNESIUM BLOOD(Performed 03/29/2017) * BASIC METABOLIC PANEL (CALCIUM TOTAL)(Performed 03/29/2017) * BASIC METABOLIC PANEL (CALCIUM TOTAL)(Performed 03/29/2017) * VANCOMYCIN LEVEL RANDOM(Performed 03/29/2017) * BASIC METABOLIC PANEL (CALCIUM TOTAL)(Performed 03/29/2017) * DIFFERENTIAL MANUAL(Performed 03/29/2017) * MAGNESIUM BLOOD(Performed 03/29/2017) * PHOSPHORUS BLOOD(Performed 03/29/2017) * CBC W AUTO DIFFERENTIAL(Performed 03/29/2017) * CBC W AUTO DIFFERENTIAL(Performed 03/29/2017) * EKG 12-LEAD(Performed 03/29/2017) * EKG 12-LEAD(Performed 03/29/2017) * BASIC METABOLIC PANEL (CALCIUM TOTAL)(Performed 03/28/2017) * BASIC METABOLIC PANEL (CALCIUM TOTAL)(Performed 03/28/2017) * CBC W AUTO DIFFERENTIAL(Performed 03/28/2017) * BASIC METABOLIC PANEL (CALCIUM TOTAL)(Performed 03/28/2017) * PHOSPHORUS BLOOD(Performed 03/28/2017) * MAGNESIUM BLOOD(Performed 03/28/2017) * CBC W AUTO DIFFERENTIAL(Performed 03/28/2017) * GLUCOSE ACCUCHECK(Performed 03/28/2017) * VANCOMYCIN LEVEL TROUGH(Performed 03/27/2017) * OSMOLALITY BLOOD(Performed 03/27/2017) * BASIC METABOLIC PANEL (CALCIUM TOTAL)(Performed 03/27/2017) * OSMOLALITY URINE(Performed 03/27/2017) * SODIUM URINE RANDOM(Performed 03/27/2017) * GLUCOSE ACCUCHECK(Performed 03/27/2017) * BASIC METABOLIC PANEL (CALCIUM TOTAL)(Performed 03/27/2017) * GLUCOSE ACCUCHECK(Performed 03/27/2017) * GLUCOSE ACCUCHECK(Performed 03/27/2017) * GLUCOSE ACCUCHECK(Performed 03/27/2017) * PT-INR SLH(Performed 03/27/2017) * DIFFERENTIAL MANUAL(Performed 03/27/2017) * CBC W AUTO DIFFERENTIAL(Performed 03/27/2017) * BASIC METABOLIC PANEL (CALCIUM TOTAL)(Performed 03/27/2017) * PHOSPHORUS BLOOD(Performed 03/27/2017) * MAGNESIUM BLOOD(Performed 03/27/2017) * CBC W AUTO DIFFERENTIAL(Performed 03/27/2017) * XR ABDOMEN KUB PORTABLE(Performed 03/27/2017) * CULTURE SPUTUM+GRAM STAIN(Performed 03/26/2017) * IR PERC G TUBE PLACEMENT(Performed 03/26/2017) * BASIC METABOLIC PANEL (CALCIUM TOTAL)(Performed 03/26/2017) * PHOSPHORUS BLOOD(Performed 03/26/2017) * MAGNESIUM BLOOD(Performed 03/26/2017) * DIFFERENTIAL MANUAL(Performed 03/26/2017) * CBC W AUTO DIFFERENTIAL(Performed 03/26/2017) * CULTURE BLOOD(Performed 03/26/2017) * CBC W AUTO DIFFERENTIAL(Performed 03/26/2017) * EKG 12-LEAD(Performed 03/26/2017) * CULTURE SPUTUM+GRAM STAIN(Performed 03/25/2017) * URINALYSIS W/MICROSCOPIC NO CULTURE(Performed 03/25/2017) * CULTURE URINE(Performed 03/25/2017) * DIFFERENTIAL MANUAL(Performed 03/25/2017) * BASIC METABOLIC PANEL (CALCIUM TOTAL)(Performed 03/25/2017) * CBC W AUTO DIFFERENTIAL(Performed 03/25/2017) * PHOSPHORUS BLOOD(Performed 03/25/2017) * MAGNESIUM BLOOD(Performed 03/25/2017) * CULTURE BLOOD(Performed 03/25/2017) * CBC W AUTO DIFFERENTIAL(Performed 03/25/2017) * XR CHEST 1VW PORTABLE(Performed 03/25/2017) * DIFFERENTIAL MANUAL(Performed 03/24/2017) * CBC W AUTO DIFFERENTIAL(Performed 03/24/2017) * FOLATE(Performed 03/24/2017) * VITAMIN B12(Performed 03/24/2017) * BASIC METABOLIC PANEL (CALCIUM TOTAL)(Performed 03/24/2017) * MAGNESIUM BLOOD(Performed 03/24/2017) * CBC W AUTO DIFFERENTIAL(Performed 03/24/2017) * PHOSPHORUS BLOOD(Performed 03/24/2017) * XR ABDOMEN KUB PORTABLE(Performed 03/23/2017) * PATHOLOGY TISSUE(Performed 03/23/2017) * XR ABDOMEN KUB PORTABLE(Performed 03/23/2017) * PT-INR SLH(Performed 03/23/2017) * XR ABDOMEN KUB PORTABLE(Performed 03/23/2017) * PHOSPHORUS BLOOD(Performed 03/23/2017) * MAGNESIUM BLOOD(Performed 03/23/2017) * BASIC METABOLIC PANEL (CALCIUM TOTAL)(Performed 03/23/2017) * CBC W AUTO DIFFERENTIAL(Performed 03/23/2017) * CBC W AUTO DIFFERENTIAL(Performed 03/23/2017) * BASIC METABOLIC PANEL (CALCIUM TOTAL)(Performed 03/21/2017) * PHOSPHORUS BLOOD(Performed 03/21/2017) * MAGNESIUM BLOOD(Performed 03/21/2017) * CBC W AUTO DIFFERENTIAL(Performed 03/21/2017) * CBC W AUTO DIFFERENTIAL(Performed 03/21/2017) * XR ABDOMEN KUB PORTABLE(Performed 03/21/2017) * BASIC METABOLIC PANEL (CALCIUM TOTAL)(Performed 03/20/2017) * PHOSPHORUS BLOOD(Performed 03/20/2017) * MAGNESIUM BLOOD(Performed 03/20/2017) * DIFFERENTIAL MANUAL(Performed 03/20/2017) * CBC W AUTO DIFFERENTIAL(Performed 03/20/2017) * CBC W AUTO DIFFERENTIAL(Performed 03/20/2017) * CT HEAD WO CONTRAST(Performed 03/20/2017) * CBC W AUTO DIFFERENTIAL(Performed 03/20/2017) * BASIC METABOLIC PANEL (CALCIUM TOTAL)(Performed 03/20/2017) * PHOSPHORUS BLOOD(Performed 03/20/2017) * MAGNESIUM BLOOD(Performed 03/20/2017) * CBC W AUTO DIFFERENTIAL(Performed 03/20/2017) * XR SHUNT SERIES(Performed 03/19/2017) * CULTURE CSF+GRAM STAIN(Performed 03/19/2017) * DIFFERENTIAL MANUAL FLUID(Performed 03/19/2017) * CELL COUNT CSF(Performed 03/19/2017) * PROTEIN CSF(Performed 03/19/2017) * GLUCOSE CSF(Performed 03/19/2017) * CELL COUNT W DIFF CSF(Performed 03/19/2017) * CT GUIDED STEREO LOCALIZATION(Performed 03/19/2017) * BASIC METABOLIC PANEL (CALCIUM TOTAL)(Performed 03/18/2017) * PHOSPHORUS BLOOD(Performed 03/18/2017) * MAGNESIUM BLOOD(Performed 03/18/2017) * DIFFERENTIAL MANUAL(Performed 03/18/2017) * CBC W AUTO DIFFERENTIAL(Performed 03/18/2017) * CBC W AUTO DIFFERENTIAL(Performed 03/18/2017) * DIFFERENTIAL MANUAL FLUID(Performed 03/18/2017) * CELL COUNT CSF(Performed 03/18/2017) * CELL COUNT W DIFF CSF(Performed 03/18/2017) * GLUCOSE CSF(Performed 03/18/2017) * PROTEIN CSF(Performed 03/18/2017) * CULTURE CSF+GRAM STAIN(Performed 03/18/2017) * BASIC METABOLIC PANEL (CALCIUM TOTAL)(Performed 03/17/2017) * PHOSPHORUS BLOOD(Performed 03/17/2017) * MAGNESIUM BLOOD(Performed 03/17/2017) * DIFFERENTIAL MANUAL(Performed 03/17/2017) * CBC W AUTO DIFFERENTIAL(Performed 03/17/2017) * CBC W AUTO DIFFERENTIAL(Performed 03/17/2017) * DIFFERENTIAL MANUAL FLUID(Performed 03/17/2017) * CELL COUNT CSF(Performed 03/17/2017) * CULTURE CSF+GRAM STAIN(Performed 03/17/2017) * CELL COUNT W DIFF CSF(Performed 03/17/2017) * GLUCOSE CSF(Performed 03/17/2017) * PROTEIN CSF(Performed 03/17/2017) * CT HEAD WO CONTRAST(Performed 03/17/2017) * CBC W AUTO DIFFERENTIAL(Performed 03/16/2017) * BASIC METABOLIC PANEL (CALCIUM TOTAL)(Performed 03/16/2017) * PHOSPHORUS BLOOD(Performed 03/16/2017) * MAGNESIUM BLOOD(Performed 03/16/2017) * CBC W AUTO DIFFERENTIAL(Performed 03/16/2017) * CULTURE CSF+GRAM STAIN(Performed 03/16/2017) * POTASSIUM WHOLE BLD(Performed 03/16/2017) * PT-INR SLH(Performed 03/16/2017) * DIFFERENTIAL MANUAL FLUID(Performed 03/16/2017) * CELL COUNT CSF(Performed 03/16/2017) * CELL COUNT W DIFF CSF(Performed 03/16/2017) * GLUCOSE CSF(Performed 03/16/2017) * PROTEIN CSF(Performed 03/16/2017) * BASIC METABOLIC PANEL (CALCIUM TOTAL)(Performed 03/15/2017) * PHOSPHORUS BLOOD(Performed 03/15/2017) * MAGNESIUM BLOOD(Performed 03/15/2017) * DIFFERENTIAL MANUAL(Performed 03/15/2017) * CBC W AUTO DIFFERENTIAL(Performed 03/15/2017) * CBC W AUTO DIFFERENTIAL(Performed 03/15/2017) * DIFFERENTIAL MANUAL FLUID(Performed 03/15/2017) * CELL COUNT W DIFF CSF(Performed 03/15/2017) * CELL COUNT CSF(Performed 03/15/2017) * GLUCOSE CSF(Performed 03/15/2017) * PROTEIN CSF(Performed 03/15/2017) * CULTURE CSF+GRAM STAIN(Performed 03/15/2017) * BASIC METABOLIC PANEL (CALCIUM TOTAL)(Performed 03/15/2017) * PHOSPHORUS BLOOD(Performed 03/15/2017) * MAGNESIUM BLOOD(Performed 03/15/2017) * DIFFERENTIAL MANUAL(Performed 03/15/2017) * CBC W AUTO DIFFERENTIAL(Performed 03/15/2017) * CBC W AUTO DIFFERENTIAL(Performed 03/15/2017) * DIFFERENTIAL MANUAL FLUID(Performed 03/14/2017) * CELL COUNT CSF(Performed 03/14/2017) * CULTURE CSF+GRAM STAIN(Performed 03/14/2017) * GLUCOSE CSF(Performed 03/14/2017) * PROTEIN CSF(Performed 03/14/2017) * CELL COUNT W DIFF CSF(Performed 03/14/2017) * BASIC METABOLIC PANEL (CALCIUM TOTAL)(Performed 03/14/2017) * PHOSPHORUS BLOOD(Performed 03/14/2017) * MAGNESIUM BLOOD(Performed 03/14/2017) * CBC W AUTO DIFFERENTIAL(Performed 03/14/2017) * CBC W AUTO DIFFERENTIAL(Performed 03/14/2017) * DIFFERENTIAL MANUAL FLUID(Performed 03/13/2017) * CELL COUNT CSF(Performed 03/13/2017) * CULTURE CSF+GRAM STAIN(Performed 03/13/2017) * GLUCOSE CSF(Performed 03/13/2017) * PROTEIN CSF(Performed 03/13/2017) * CELL COUNT W DIFF CSF(Performed 03/13/2017) * BASIC METABOLIC PANEL (CALCIUM TOTAL)(Performed 03/13/2017) * PHOSPHORUS BLOOD(Performed 03/13/2017) * MAGNESIUM BLOOD(Performed 03/13/2017) * CBC W AUTO DIFFERENTIAL(Performed 03/13/2017) * CBC W AUTO DIFFERENTIAL(Performed 03/13/2017) * DIFFERENTIAL MANUAL FLUID(Performed 03/12/2017) * CELL COUNT CSF(Performed 03/12/2017) * CULTURE CSF+GRAM STAIN(Performed 03/12/2017) * GLUCOSE CSF(Performed 03/12/2017) * PROTEIN CSF(Performed 03/12/2017) * CELL COUNT W DIFF CSF(Performed 03/12/2017) * BASIC METABOLIC PANEL (CALCIUM TOTAL)(Performed 03/12/2017) * PHOSPHORUS BLOOD(Performed 03/12/2017) * MAGNESIUM BLOOD(Performed 03/12/2017) * CBC W AUTO DIFFERENTIAL(Performed 03/12/2017) * VANCOMYCIN LEVEL TROUGH(Performed 03/12/2017) * CBC W AUTO DIFFERENTIAL(Performed 03/12/2017) * CULTURE CSF+GRAM STAIN(Performed 03/11/2017) * DIFFERENTIAL MANUAL FLUID(Performed 03/11/2017) * CELL COUNT CSF(Performed 03/11/2017) * CELL COUNT W DIFF CSF(Performed 03/11/2017) * GLUCOSE CSF(Performed 03/11/2017) * PROTEIN CSF(Performed 03/11/2017) * XR CHEST 1VW PORTABLE(Performed 03/11/2017) * BASIC METABOLIC PANEL (CALCIUM TOTAL)(Performed 03/11/2017) * PHOSPHORUS BLOOD(Performed 03/11/2017) * MAGNESIUM BLOOD(Performed 03/11/2017) * CBC W AUTO DIFFERENTIAL(Performed 03/11/2017) * CBC W AUTO DIFFERENTIAL(Performed 03/11/2017) * VANCOMYCIN LEVEL TROUGH(Performed 03/10/2017) * CULTURE CSF+GRAM STAIN(Performed 03/10/2017) * DIFFERENTIAL MANUAL FLUID(Performed 03/10/2017) * CELL COUNT CSF(Performed 03/10/2017) * PROTEIN CSF(Performed 03/10/2017) * GLUCOSE CSF(Performed 03/10/2017) * CELL COUNT W DIFF CSF(Performed 03/10/2017) * DIFFERENTIAL MANUAL(Performed 03/09/2017) * CBC W AUTO DIFFERENTIAL(Performed 03/09/2017) * VANCOMYCIN LEVEL TROUGH(Performed 03/09/2017) * BASIC METABOLIC PANEL (CALCIUM TOTAL)(Performed 03/09/2017) * PHOSPHORUS BLOOD(Performed 03/09/2017) * MAGNESIUM BLOOD(Performed 03/09/2017) * CBC W AUTO DIFFERENTIAL(Performed 03/09/2017) * BASIC METABOLIC PANEL (CALCIUM TOTAL)(Performed 03/09/2017) * CT CHEST ABDOMEN PELVIS W CONT(Performed 03/09/2017) * EKG 12-LEAD(Performed 03/09/2017) * DIFFERENTIAL MANUAL FLUID(Performed 03/09/2017) * CELL COUNT CSF(Performed 03/09/2017) * CELL COUNT W DIFF CSF(Performed 03/09/2017) * GLUCOSE CSF(Performed 03/09/2017) * PROTEIN CSF(Performed 03/09/2017) * CULTURE CSF+GRAM STAIN(Performed 03/09/2017) * BLOOD GASES ARTERIAL(Performed 03/09/2017) * VANCOMYCIN LEVEL TROUGH(Performed 03/09/2017) * TROPONIN I(Performed 03/09/2017) * BASIC METABOLIC PANEL (CALCIUM TOTAL)(Performed 03/09/2017) * CULTURE SPUTUM+GRAM STAIN(Performed 03/09/2017) * CULTURE URINE(Performed 03/09/2017) * URINALYSIS W/MICROSCOPIC NO CULTURE(Performed 03/09/2017) * DIFFERENTIAL MANUAL(Performed 03/09/2017) * CBC W AUTO DIFFERENTIAL(Performed 03/09/2017) * BASIC METABOLIC PANEL (CALCIUM TOTAL)(Performed 03/09/2017) * PHOSPHORUS BLOOD(Performed 03/09/2017) * MAGNESIUM BLOOD(Performed 03/09/2017) * CBC W AUTO DIFFERENTIAL(Performed 03/09/2017) * ECHO COMPLETE(Performed 03/09/2017) * XR CHEST 1VW PORTABLE(Performed 03/08/2017) * BLOOD GASES ARTERIAL(Performed 03/08/2017) * TROPONIN I(Performed 03/08/2017) * CK + CKMB PANEL(Performed 03/08/2017) * BASIC METABOLIC PANEL (CALCIUM TOTAL)(Performed 03/08/2017) * XR CHEST 1VW PORTABLE(Performed 03/08/2017) * CULTURE CSF+GRAM STAIN(Performed 03/08/2017) * DIFFERENTIAL MANUAL FLUID(Performed 03/08/2017) * CELL COUNT CSF(Performed 03/08/2017) * GLUCOSE CSF(Performed 03/08/2017) * PROTEIN CSF(Performed 03/08/2017) * CELL COUNT W DIFF CSF(Performed 03/08/2017) * CT HEAD WO CONTRAST(Performed 03/08/2017) * TROPONIN I(Performed 03/08/2017) * CK + CKMB PANEL(Performed 03/08/2017) * CULTURE BLOOD(Performed 03/08/2017) * CULTURE BLOOD(Performed 03/08/2017) * BLOOD GASES ARTERIAL(Performed 03/08/2017) * CT HEAD WO CONTRAST(Performed 03/08/2017) * DIFFERENTIAL MANUAL(Performed 03/08/2017) * BASIC METABOLIC PANEL (CALCIUM TOTAL)(Performed 03/08/2017) * PHOSPHORUS BLOOD(Performed 03/08/2017) * MAGNESIUM BLOOD(Performed 03/08/2017) * CBC W AUTO DIFFERENTIAL(Performed 03/08/2017) * CBC W AUTO DIFFERENTIAL(Performed 03/08/2017) * XR CHEST 1VW PORTABLE(Performed 03/07/2017) * BASIC METABOLIC PANEL (CALCIUM TOTAL)(Performed 03/07/2017) * CULTURE CSF+GRAM STAIN(Performed 03/07/2017) * GLUCOSE CSF(Performed 03/07/2017) * PROTEIN CSF(Performed 03/07/2017) * DIFFERENTIAL MANUAL FLUID(Performed 03/07/2017) * CELL COUNT CSF(Performed 03/07/2017) * CELL COUNT W DIFF CSF(Performed 03/07/2017) * BASIC METABOLIC PANEL (CALCIUM TOTAL)(Performed 03/07/2017) * DIFFERENTIAL MANUAL(Performed 03/06/2017) * CBC W AUTO DIFFERENTIAL(Performed 03/06/2017) * BASIC METABOLIC PANEL (CALCIUM TOTAL)(Performed 03/06/2017) * PHOSPHORUS BLOOD(Performed 03/06/2017) * MAGNESIUM BLOOD(Performed 03/06/2017) * CBC W AUTO DIFFERENTIAL(Performed 03/06/2017) * BASIC METABOLIC PANEL (CALCIUM TOTAL)(Performed 03/06/2017) * DIFFERENTIAL MANUAL FLUID(Performed 03/06/2017) * CELL COUNT CSF(Performed 03/06/2017) * CULTURE CSF+GRAM STAIN(Performed 03/06/2017) * GLUCOSE CSF(Performed 03/06/2017) * PROTEIN CSF(Performed 03/06/2017) * CELL COUNT W DIFF CSF(Performed 03/06/2017) * BASIC METABOLIC PANEL (CALCIUM TOTAL)(Performed 03/06/2017) * CT HEAD WO CONTRAST(Performed 03/06/2017) * DIFFERENTIAL MANUAL(Performed 03/05/2017) * CBC W AUTO DIFFERENTIAL(Performed 03/05/2017) * BASIC METABOLIC PANEL (CALCIUM TOTAL)(Performed 03/05/2017) * PHOSPHORUS BLOOD(Performed 03/05/2017) * MAGNESIUM BLOOD(Performed 03/05/2017) * CBC W AUTO DIFFERENTIAL(Performed 03/05/2017) * SODIUM BLOOD(Performed 03/05/2017) * XR ABDOMEN KUB PORTABLE(Performed 03/05/2017) * CULTURE CSF+GRAM STAIN(Performed 03/05/2017) * DIFFERENTIAL MANUAL FLUID(Performed 03/05/2017) * CELL COUNT CSF(Performed 03/05/2017) * CELL COUNT W DIFF CSF(Performed 03/05/2017) * GLUCOSE CSF(Performed 03/05/2017) * PROTEIN CSF(Performed 03/05/2017) * BASIC METABOLIC PANEL (CALCIUM TOTAL)(Performed 03/05/2017) * PHOSPHORUS BLOOD(Performed 03/05/2017) * MAGNESIUM BLOOD(Performed 03/05/2017) * DIFFERENTIAL MANUAL(Performed 03/05/2017) * CBC W AUTO DIFFERENTIAL(Performed 03/05/2017) * CULTURE BLOOD(Performed 03/05/2017) * CULTURE BLOOD(Performed 03/05/2017) * CBC W AUTO DIFFERENTIAL(Performed 03/05/2017) * XR CHEST 1VW PORTABLE(Performed 03/04/2017) * DIFFERENTIAL MANUAL FLUID(Performed 03/04/2017) * CELL COUNT CSF(Performed 03/04/2017) * CULTURE CSF+GRAM STAIN(Performed 03/04/2017) * PROTEIN CSF(Performed 03/04/2017) * GLUCOSE CSF(Performed 03/04/2017) * CELL COUNT W DIFF CSF(Performed 03/04/2017) * OSMOLALITY BLOOD(Performed 03/04/2017) * BASIC METABOLIC PANEL (CALCIUM TOTAL)(Performed 03/04/2017) * OSMOLALITY URINE(Performed 03/04/2017) * URINALYSIS W/MICROSCOPIC NO CULTURE(Performed 03/04/2017) * DIFFERENTIAL MANUAL(Performed 03/03/2017) * CBC W AUTO DIFFERENTIAL(Performed 03/03/2017) * BASIC METABOLIC PANEL (CALCIUM TOTAL)(Performed 03/03/2017) * PHOSPHORUS BLOOD(Performed 03/03/2017) * MAGNESIUM BLOOD(Performed 03/03/2017) * CBC W AUTO DIFFERENTIAL(Performed 03/03/2017) * DIFFERENTIAL MANUAL FLUID(Performed 03/03/2017) * CELL COUNT CSF(Performed 03/03/2017) * CULTURE CSF+GRAM STAIN(Performed 03/03/2017) * GLUCOSE CSF(Performed 03/03/2017) * PROTEIN CSF(Performed 03/03/2017) * CELL COUNT W DIFF CSF(Performed 03/03/2017) * DIFFERENTIAL MANUAL(Performed 03/02/2017) * CBC W AUTO DIFFERENTIAL(Performed 03/02/2017) * BASIC METABOLIC PANEL (CALCIUM TOTAL)(Performed 03/02/2017) * PHOSPHORUS BLOOD(Performed 03/02/2017) * MAGNESIUM BLOOD(Performed 03/02/2017) * CBC W AUTO DIFFERENTIAL(Performed 03/02/2017) * XR CHEST 1VW PORTABLE(Performed 03/02/2017) * XR CHEST 1VW PORTABLE(Performed 03/02/2017) * XR ABDOMEN KUB PORTABLE(Performed 03/02/2017) * DIFFERENTIAL MANUAL FLUID(Performed 03/02/2017) * CELL COUNT CSF(Performed 03/02/2017) * CULTURE CSF+GRAM STAIN(Performed 03/02/2017) * GLUCOSE CSF(Performed 03/02/2017) * PROTEIN CSF(Performed 03/02/2017) * CELL COUNT W DIFF CSF(Performed 03/02/2017) * BASIC METABOLIC PANEL (CALCIUM TOTAL)(Performed 03/01/2017) * PHOSPHORUS BLOOD(Performed 03/01/2017) * MAGNESIUM BLOOD(Performed 03/01/2017) * CBC W AUTO DIFFERENTIAL(Performed 03/01/2017) * CBC W AUTO DIFFERENTIAL(Performed 03/01/2017) * VANCOMYCIN LEVEL TROUGH(Performed 03/01/2017) * DIFFERENTIAL MANUAL FLUID(Performed 03/01/2017) * CELL COUNT CSF(Performed 03/01/2017) * CULTURE CSF+GRAM STAIN(Performed 03/01/2017) * GLUCOSE CSF(Performed 03/01/2017) * PROTEIN CSF(Performed 03/01/2017) * CELL COUNT W DIFF CSF(Performed 03/01/2017) * CBC W AUTO DIFFERENTIAL(Performed 03/01/2017) * PHOSPHORUS BLOOD(Performed 03/01/2017) * BASIC METABOLIC PANEL (CALCIUM TOTAL)(Performed 03/01/2017) * MAGNESIUM BLOOD(Performed 03/01/2017) * CBC W AUTO DIFFERENTIAL(Performed 03/01/2017) * DIFFERENTIAL MANUAL FLUID(Performed 02/28/2017) * CELL COUNT CSF(Performed 02/28/2017) * CULTURE CSF+GRAM STAIN(Performed 02/28/2017) * GLUCOSE CSF(Performed 02/28/2017) * PROTEIN CSF(Performed 02/28/2017) * CELL COUNT W DIFF CSF(Performed 02/28/2017) * BASIC METABOLIC PANEL (CALCIUM TOTAL)(Performed 02/27/2017) * HEPATIC FUNCTION PANEL(Performed 02/27/2017) * PHOSPHORUS BLOOD(Performed 02/27/2017) * MAGNESIUM BLOOD(Performed 02/27/2017) * CBC W AUTO DIFFERENTIAL(Performed 02/27/2017) * CBC W AUTO DIFFERENTIAL(Performed 02/27/2017) * CELL COUNT CSF(Performed 02/27/2017) * DIFFERENTIAL MANUAL FLUID(Performed 02/27/2017) * CULTURE CSF+GRAM STAIN(Performed 02/27/2017) * CELL COUNT W DIFF CSF(Performed 02/27/2017) * GLUCOSE CSF(Performed 02/27/2017) * PROTEIN CSF(Performed 02/27/2017) * XR CHEST 1VW PORTABLE(Performed 02/27/2017) * CULTURE SPUTUM+GRAM STAIN(Performed 02/27/2017) * CULTURE BLOOD(Performed 02/27/2017) * CULTURE BLOOD(Performed 02/27/2017) * URINALYSIS W/MICROSCOPIC NO CULTURE(Performed 02/27/2017) * DIFFERENTIAL MANUAL(Performed 02/27/2017) * CBC W AUTO DIFFERENTIAL(Performed 02/27/2017) * BASIC METABOLIC PANEL (CALCIUM TOTAL)(Performed 02/27/2017) * PHOSPHORUS BLOOD(Performed 02/27/2017) * MAGNESIUM BLOOD(Performed 02/27/2017) * CBC W AUTO DIFFERENTIAL(Performed 02/27/2017) * CT HEAD WO CONTRAST(Performed 02/26/2017) * CT HEAD WO CONTRAST(Performed 02/26/2017) * DIFFERENTIAL MANUAL FLUID(Performed 02/26/2017) * CELL COUNT CSF(Performed 02/26/2017) * CULTURE CSF+GRAM STAIN(Performed 02/26/2017) * GLUCOSE CSF(Performed 02/26/2017) * PROTEIN CSF(Performed 02/26/2017) * CELL COUNT W DIFF CSF(Performed 02/26/2017) * BASIC METABOLIC PANEL (CALCIUM TOTAL)(Performed 02/25/2017) * PHOSPHORUS BLOOD(Performed 02/25/2017) * MAGNESIUM BLOOD(Performed 02/25/2017) * CBC W AUTO DIFFERENTIAL(Performed 02/25/2017) * BLOOD GASES ARTERIAL(Performed 02/25/2017) * CBC W AUTO DIFFERENTIAL(Performed 02/25/2017) * CT HEAD WO CONTRAST(Performed 02/25/2017) * BLOOD GASES ART COMPLETE [facility] OR(Performed 02/25/2017) * CT GUIDED STEREO LOCALIZATION(Performed 02/25/2017) * TYPE + SCREEN PANEL(Performed 02/25/2017) * OSMOLALITY BLOOD(Performed 02/25/2017) * BASIC METABOLIC PANEL (CALCIUM TOTAL)(Performed 02/25/2017) * BLOOD GASES ARTERIAL(Performed 02/25/2017) * CT HEAD WO CONTRAST(Performed 02/25/2017) * CK + CKMB PANEL(Performed 02/25/2017) * TROPONIN I(Performed 02/25/2017) * PT-INR [facility](Performed 02/25/2017) * CT HEAD WO CONTRAST(Performed 02/25/2017) * CBC W/O DIFFERENTIAL(Performed 02/25/2017) * MAGNESIUM BLOOD(Performed 02/25/2017) * PHOSPHORUS BLOOD(Performed 02/25/2017) * BASIC METABOLIC PANEL (CALCIUM TOTAL)(Performed 02/25/2017) * EKG 12-LEAD(Performed 02/25/2017) * GLUCOSE ACCUCHECK(Performed 02/24/2017) * CULTURE CSF+GRAM STAIN(Performed 02/24/2017) * GLUCOSE CSF(Performed 02/24/2017) * PROTEIN CSF(Performed 02/24/2017) * DIFFERENTIAL MANUAL FLUID(Performed 02/24/2017) * CELL COUNT CSF(Performed 02/24/2017) * CELL COUNT W DIFF CSF(Performed 02/24/2017) * GLUCOSE ACCUCHECK(Performed 02/24/2017) * XR ABDOMEN KUB PORTABLE(Performed 02/24/2017) * XR ABDOMEN KUB PORTABLE(Performed 02/24/2017) * GLUCOSE ACCUCHECK(Performed 02/24/2017) * TROPONIN I(Performed 02/24/2017) * CK + CKMB PANEL(Performed 02/24/2017) * BASIC METABOLIC PANEL (CALCIUM TOTAL)(Performed 02/24/2017) * CBC W/O DIFFERENTIAL(Performed 02/24/2017) * GLUCOSE ACCUCHECK(Performed 02/23/2017) * GLUCOSE ACCUCHECK(Performed 02/23/2017) * CULTURE CSF+GRAM STAIN(Performed 02/23/2017) * MANUAL DIFFERENTIAL REVIEWED(Performed 02/23/2017) * DIFFERENTIAL MANUAL FLUID(Performed 02/23/2017) * CELL COUNT CSF(Performed 02/23/2017) * CELL COUNT W DIFF CSF(Performed 02/23/2017) * GLUCOSE CSF(Performed 02/23/2017) * PROTEIN CSF(Performed 02/23/2017) * TROPONIN I(Performed 02/23/2017) * CK + CKMB PANEL(Performed 02/23/2017) * XR ABDOMEN KUB PORTABLE(Performed 02/23/2017) * GLUCOSE ACCUCHECK(Performed 02/23/2017) * CT ANGIO BRAIN(Performed 02/23/2017) * CULTURE URINE(Performed 02/23/2017) * TROPONIN I(Performed 02/23/2017) * CK + CKMB PANEL(Performed 02/23/2017) * GLUCOSE ACCUCHECK(Performed 02/23/2017) * CT HEAD WO CONTRAST(Performed 02/23/2017) * TEG PLATELET MAPPING(Performed 02/23/2017) * HEMOGLOBIN A1C(Performed 02/23/2017) * BASIC METABOLIC PANEL (CALCIUM TOTAL)(Performed 02/23/2017) * CBC W/O DIFFERENTIAL(Performed 02/23/2017) * EKG 12-LEAD(Performed 02/23/2017) * URINALYSIS REFLEX TO MICROSCOPIC NO CULTURE(Performed 02/22/2017) * DRUG ABUSE PANEL 10-20+ETHANOL URINE NO CONFIRM(Performed 02/22/2017) * BLOOD GASES ARTERIAL(Performed 02/22/2017) * PHOSPHORUS BLOOD(Performed 02/22/2017) * MAGNESIUM BLOOD(Performed 02/22/2017) * DIFFERENTIAL MANUAL(Performed 02/22/2017) * TROPONIN I(Performed 02/22/2017) * COMPREHENSIVE METABOLIC PANEL(Performed 02/22/2017) * ALCOHOL ETHYL BLOOD(Performed 02/22/2017) * CBC W AUTO DIFFERENTIAL(Performed 02/22/2017) * PT-INR [facility](Performed 02/22/2017) * CBC W AUTO DIFFERENTIAL(Performed 02/22/2017) Results * XR LUMBAR SPINE 2 OR 3VW (03/27/2019 1:00 PM CDT) Only the most recent of2 resultswithin the time period is included. Anatomical Region Laterality Modality Spine Radiographic Destiney ging 03/27/2019 2:26 PM CDT Impressions 03/27/2019 2:30 PM CDT IMPRESSION: Moderate spondylosis. This report was electronically signed by RYAN HEREDIA MD ??on 03/27/2019 2:30 PM . Narrative 03/27/2019 2:30 PM CDT Exam: ??XR LUMBAR SPINE 2 view History: ??pain Comparison: 02/18/2019. Findings: There is grade 1 retrolisthesis at L1-2 and L2-3. There is grade 1 anterolisthesis at L5-S1 with L5 pars defects. There is chronic deformity of the anterior inferior endplate of L1. No acute fracture is seen. There is [id number] degenerative disc and joint disease, with the greatest disc space narrowing at L5-S1. Right upper quadrant clips and right abdominal catheter are visible. Procedure Note Ryan Heredia MD - 03/27/2019 Exam: XR LUMBAR SPINE 2 view History: pain Comparison: 02/18/2019. Findings: There is grade 1 retrolisthesis at L1-2 and L2-3. There is grade 1 anterolisthesis at L5-S1 with L5 pars defects. There is chronicdeformity of the anterior inferior endplate of L1. No acute fracture is seen.There is [id number] degenerative disc and joint disease, with thegreatest disc space narrowing at L5-S1. Right upper quadrant clips and right abdominal catheter are visible. IMPRESSION: Moderate spondylosis. This report was electronically signed by RYAN HEREDIA MD on03/27/2019 2:30 PM . Bulmaro Gomes MD DIAGNOSTIC IMAGING O RDERABLES * XR CERVICAL SPINE 2 OR 3VW (03/27/2019 11:01 AM CDT) Only the most recent of2 resultswithin the time period is included. Anatomical Region Laterality Modality Spine Radiographic Destiney ging 03/27/2019 1:38 PM CDT Impressions 03/27/2019 1:39 PM CDT IMPRESSION: Moderate spondylosis. This report was electronically signed by RYAN HEREDIA MD ??on 03/27/2019 1:39 PM . Narrative 03/27/2019 1:39 PM CDT Exam: ??XR CERVICAL SPINE 2 view History: ??neck pain Comparison: 04/05/2017. Findings: C7 is partly obscured by the shoulders on the lateral projection. There is moderate multilevel degenerative disc and joint disease. No fracture or subluxation is seen. A shunt catheter is seen in the right side of the neck. Procedure Note Ryan Heredia MD - 03/27/2019 Exam: XR CERVICAL SPINE 2 view History: neck pain Comparison: 04/05/2017. Findings: C7 is partly obscured by the shoulders on the lateral projection. Thereis moderate multilevel degenerative disc and joint disease. No fracture or subluxation is seen. A shunt catheter is seen in the right side of the neck. IMPRESSION: Moderate spondylosis. This report was electronically signed by RYAN HEREDIA MD on03/27/2019 1:39 PM . Javier Hunter MD DIAGNOSTIC IMAGING O RDERABLES * BASIC METABOLIC PANEL (CALCIUM TOTAL) (02/23/2019 5:38 AM CDT) Only the most recent of70 resultswithin the time period is included. BUN 18 7 - 26 mg/dL 02/23/2019 6:10 AM CDT [facility] Creatinine 1.2 0.6 - 1.2 mg/dL 02/23/2019 6:10 AM CDT [facility] Sodium 141 136 - 145 mmol/L 02/23/2019 6:10 AM CDT [facility] Potassium 4.1 3.5 - 4.5 mmol/L 02/23/2019 6:10 AM [facility] Chloride 104 98 - 107 mmol/L 02/23/2019 6:10 AM [facility] CO2 28 22 - 29 mmol/L 02/23/2019 6:10 AM [facility] Glucose 84 70 - 115 mg/dL 02/23/2019 6:10 AM [facility] Calcium 9.6 8.4 - 10.2 mg/dL 02/23/2019 6:10 AM [facility] Anion Gap 13 8 - 18 02/23/2019 6:10 AM [facility] BUN/Creatinine Ratio 15 7 - 23 02/23/2019 6:10 AM [facility] Osmolality Calculated 293 270 - 300 mOsm/kg 02/23/2019 6:10 AM [facility] eGFR >60 >60 mL/min/1.7 3 m2 02/23/2019 6:10 AM [facility] Blood BLOOD SPECIMEN / Unknown 02/23/2019 5:38 AM CDT 02/23/2019 5:44 AM CDT Anam Mccord MD LAB - CHEMISTRY OR DERABLES [address] [phone] * MAGNESIUM BLOOD (02/23/2019 5:38 AM CDT) Only the most recent of48 resultswithin the time period is included. Magnesium 2.0 1.6 - 2.6 mg/dL 02/23/2019 6:10 AM [facility] Blood BLOOD SPECIMEN / Unknown 02/23/2019 5:38 AM CDT 02/23/2019 5:44 AM CDT Anam Mccord MD LAB - CHEMISTRY OR DERABLES [address] [phone] * CBC W/O DIFFERENTIAL (02/22/2019 4:15 AM CDT) Only the most recent of5 resultswithin the time period is included. WBC 7.2 3.5 - 10.5 10? 3 /uL 02/22/2019 5:04 AM [facility] RBC 4.62 4.30 - 5.70 10? 6 /uL 02/22/2019 5:04 AM [facility] Hemoglobin 14.3 13.5 - 17.5 g/dL 02/22/2019 5:04 AM [facility] Hematocrit 43.9 39.0 - 50.0 % 02/22/2019 5:04 AM [facility] MCV 95.0 81.0 - 97.0 fL 02/22/2019 5:04 AM [facility] MCH 31.0 28.0 - 34.0 pg 02/22/2019 5:04 AM [facility] MCHC 32.6 32.0 - 36.0 g/dL 02/22/2019 5:04 AM [facility] Platelet Count 254 150 - 400 10? 3 /uL 02/22/2019 5:04 AM [facility] RDW-SD 47.0 36.0 - 50.0 fL 02/22/2019 5:04 AM [facility] RDW-CV 13.4 11.2 - 14.8 % 02/22/2019 5:04 AM [facility] MPV 9.9 9.3 - 12.8 fL 02/22/2019 5:04 AM [facility] nRBC Absolute 0.00 0 10? 3 /uL 02/22/2019 5:04 AM [facility] nRBC Auto 0.0 0 /100 WBC 02/22/2019 5:04 AM [facility] Blood BLOOD SPECIMEN / Unknown Lab Venipuncture / Unknown 02/22/2019 4:15 AM CDT 02/22/2019 4:58 AM CDT Anam Mccord MD LAB - HEMATOLOGY O RDERABLES [address] [phone] * (ABNORMAL) RENAL FUNCTION PANEL (02/22/2019 4:15 AM CDT) BUN 19 7 - 26 mg/dL 02/22/2019 5:20 AM [facility] Creatinine 1.3(H) 0.6 - 1.2 mg/dL 02/22/2019 5:20 AM [facility] Sodium 140 136 - 145 mmol/L 02/22/2019 5:20 AM [facility] Potassium 3.7 3.5 - 4.5 mmol/L 02/22/2019 5:20 AM [facility] Chloride 104 98 - 107 mmol/L 02/22/2019 5:20 AM [facility] CO2 29 22 - 29 mmol/L 02/22/2019 5:20 AM [facility] Glucose 78 70 - 115 mg/dL 02/22/2019 5:20 AM [facility] Albumin 3.0(L) 3.4 - 5.0 g/dL 02/22/2019 5:20 AM [facility] Calcium 9.1 8.4 - 10.2 mg/dL 02/22/2019 5:20 AM [facility] Phosphorus 2.8 2.3 - 4.7 mg/dL 02/22/2019 5:20 AM [facility] Anion Gap 11 8 - 18 02/22/2019 5:20 AM [facility] BUN/Creatinine Ratio 15 7 - 23 02/22/2019 5:20 AM [facility] Osmolality Calculated 291 270 - 300 mOsm/kg 02/22/2019 5:20 AM [facility] eGFR 56(L) >60 mL/min/1.7 3 m2 02/22/2019 5:20 AM [facility] Blood BLOOD SPECIMEN / Unknown Lab Venipuncture / Unknown 02/22/2019 4:15 AM CDT 02/22/2019 4:58 AM CDT Anam Mccord MD LAB - CHEMISTRY OR DERABLES [address] [phone] * (ABNORMAL) CBC W AUTO DIFFERENTIAL (02/19/2019 3:06 AM CDT) Only the most recent of94 resultswithin the time period is included. WBC 10.3 3.5 - 10.5 10? 3 /uL 02/19/2019 3:17 AM [facility] RBC 5.06 4.30 - 5.70 10? 6 /uL 02/19/2019 3:17 AM [facility] Hemoglobin 15.4 13.5 - 17.5 g/dL 02/19/2019 3:17 AM [facility] Hematocrit 47.0 39.0 - 50.0 % 02/19/2019 3:17 AM [facility] MCV 92.9 81.0 - 97.0 fL 02/19/2019 3:17 AM [facility] MCH 30.4 28.0 - 34.0 pg 02/19/2019 3:17 AM [facility] MCHC 32.8 32.0 - 36.0 g/dL 02/19/2019 3:17 AM [facility] Platelet Count 245 150 - 400 10? 3 /uL 02/19/2019 3:17 AM [facility] RDW-SD 44.2 36.0 - 50.0 fL 02/19/2019 3:17 AM [facility] RDW-CV 13.0 11.2 - 14.8 % 02/19/2019 3:17 AM [facility] MPV 9.4 9.3 - 12.8 fL 02/19/2019 3:17 AM [facility] nRBC Absolute 0.00 0 10? 3 /uL 02/19/2019 3:17 AM [facility] nRBC Auto 0.0 0 /100 WBC 02/19/2019 3:17 AM [facility] Neutrophils % 78.3(H) 35.0 - 70.0 % 02/19/2019 3:17 AM [facility] Lymphocytes % 10.4(L) 19.7 - 55.1 % 02/19/2019 3:17 AM [facility] Monocytes % 9.4 3.0 - 15.0 % 02/19/2019 3:17 AM [facility] Eosinophils % 1.2 0.0 - 6.0 % 02/19/2019 3:17 AM CDT [facility] Basophil % 0.3 0.0 - 1.5 % 02/19/2019 3:17 AM [facility] Neutrophils Absolute 8.1(H) 1.6 - 7.0 10? 3 /uL 02/19/2019 3:17 AM [facility] Lymphocyte Absolute 1.1 0.8 - 2.9 10? 3 /uL 02/19/2019 3:17 AM [facility] Monocytes Absolute 0.97(H) 0.14 - 0.66 10? 3 /uL 02/19/2019 3:17 AM T [facility] Eosinophils Absolute 0.12 0.00 - 0.45 10? 3 /uL 02/19/2019 3:17 AM [facility] Basophils Absolute 0.03 0.00 - 0.06 10? 3 /uL 02/19/2019 3:17 AM [facility] Immature Granulocytes % 0.4 0.0 - 1.0 % 02/19/2019 3:17 AM [facility] Blood BLOOD SPECIMEN / Unknown Lab Venipuncture / Unknown 02/19/2019 3:06 AM CDT 02/19/2019 3:11 AM CDT Francois Mckinnon MD LAB - HEMATOLOGY OR DERABLES [facility] [address] [phone] * CULTURE BLOOD (02/18/2019 8:54 PM CDT) Only the most recent of10 resultswithin the time period is included. Culture No growth day 5 AMINATA 02/23/2019 11:30 PM CDT [facility] MICROBIOLOGY Blood PERIPHERAL BLOOD / Unknown Lab Venipuncture / Unknown 02/18/2019 8:54 PM CDT 02/18/2019 8:57 PM CDT Francois Mckinnon MD LAB - MICROBIOLOGY ORDERABLES [facility] MICROBIOLOGY [address] [phone] * VITAMIN B12 (02/18/2019 5:02 PM CDT) Only the most recent of2 resultswithin the time period is included. Vitamin B12 408 213 - 816 pg/mL 02/18/2019 7:29 PM CDT [facility] Blood BLOOD SPECIMEN / Unknown Venipuncture / Unknown 02/18/2019 5:02 PM CDT 02/18/2019 5:03 PM CDT Edgar Valdez MD LAB - CHEMISTRY ORDE KIMBERLEE Performing Organization Address City/[facility]/ZIP Co de Phone Number [address] [phone] * CORTISOL BLOOD AM (02/18/2019 10:02 AM CDT) Cortisol AM 16.5 3.7 - 19.4 mcg/dL 02/18/2019 10:49 AM CDT [facility] Blood BLOOD SPECIMEN / Unknown Venipuncture / Unknown 02/18/2019 10:02 AM CDT 02/18/2019 10:10 AM CDT Enrico Tony MD LAB - CHEMISTRY ORD CHANDRA Performing Organization Address City/[facility]/ZIP Co de Phone Number [address] [phone] * MRI LUMBAR SPINE WO CONTRAST (02/18/2019 8:57 AM CDT) Anatomical Region Laterality Modality Spine Magnetic Resonan ce 02/18/2019 9:00 AM CDT Impressions 02/18/2019 10:03 AM CDT IMPRESSION: Spinal cord: No cord compression or cord edema. Cord impingement at C3-4 due to degenerative changes. Cervical spine - Degenerative changes. Moderate spinal canal stenosis at C3-4. Varying degrees of neural foraminal stenosis, moderate to severe at right C5-6 level. Thoracic spine: Exaggerated kyphosis and S-shaped scoliosis. Disc and endplate degenerative changes without spinal canal or foraminal stenosis. Lumbar spine: Diffuse disc edema at L5-S1 with edema in the adjacent endplates and prevertebral soft tissues. The findings are likely due to degenerative changes. However, osteomyelitis/discitis cannot be excluded and clinical correlation is recommended.. No spinal canal or significant foraminal stenosis. I, Dr. MARY HUANG have personally reviewed and interpreted this examination/study. This report was electronically signed by MARY HUANG ??on 02/18/2019 10:03 AM . Narrative 02/18/2019 10:03 AM CDT EXAMINATION: Magnetic resonance imaging (MRI) of the cervical, thoracic, and lumbar spine without contrast HISTORY: Proximal LE weakness TECHNIQUE: MRI of the cervical, thoracic, and lumbar spine was performed without contrast according to standard protocol. FINDINGS: Correlation is made with spine radiographs dated 02/18/2019. Cervical spine: The alignment is normal. Vertebral bodies are normal in height without evidence of compression fractures.The craniocervical junction and visualized portions of the posterior fossa appear normal. No aggressive appearing osseous lesions are seen. The spinal cord signal appears normal.Normal flow voids are identified in the vertebral arteries. Multilevel degenerative changes of the discs and endplates, uncovertebral joints and facet joints are seen, as described below: C2-3: There is no disc bulge. There is no central canal stenosis. There is mild left facet osteoarthritis. There is no uncovertebral joint osteoarthritis. There is no neural foraminal stenosis. C3-4: There is mild broad-based posterior disc bulge with prominent bilateral uncovertebral hypertrophy. There is moderate spinal canal stenosis with spinal cord impingement. No cord edema is noted. There is moderate right neural foraminal stenosis. C4-5: Mild loss of disc space height and disc and endplate edema. There is minimal broad-based posterior disc bulge. Right greater than left uncovertebral hypertrophy. Mild bilateral facet hypertrophy. Mild spinal canal stenosis. Mild bilateral foraminal stenosis. C5-6: Moderate loss of disc space height. Circumferential disc bulge. Severe right and mild left uncovertebral hypertrophy. Mild bilateral facet hypertrophy. No spinal canal stenosis. Moderate to severe right and mild left foraminal stenosis. C6-7: Mild loss of disc space height. Disc ridge complex. Mild bilateral uncovertebral hypertrophy. No spinal canal stenosis. There is mild bilateral facet osteoarthritis. Moderate left foraminal stenosis. C7-T1: There is mild disc bulge. There is no central canal stenosis. There is no facet osteoarthritis. There is no uncovertebral joint osteoarthritis. There is no neural foraminal stenosis. Thoracic spine: Axial images are significantly limited due to motion artifact. There is levocurvature of the upper thoracic spine and dextrocurvature of the lower cervical spine. There is significantly exaggerated kyphosis, centered at kyphosis centered at T9-10. No AP or lateral listhesis is identified. Vertebral bodies are normal in height without evidence of compression fractures. No aggressive appearing osseous lesions are seen. The spinal cord appears normal. . There is no epidural fluid collection. There are multilevel degenerative disc and endplate changes. No central canal stenosis is seen. There is mild facet osteoarthritis at multiple levels. No neural foraminal stenosis is seen. No soft tissue abnormality is identified. Lumbar spine: There is exaggeration of the lumbar lordosis without significant subluxation. The bone marrow signal is heterogeneous with several focal hemangiomas. No aggressive appearing osseous lesions are seen. There is no epidural fluid collection. Multilevel degenerative changes are seen without disc desiccation and facet hypertrophy at all levels. L1-L2: There is no disc bulge. There is no central canal stenosis. There is mild bilateral facet osteoarthritis. There is no neural foraminal stenosis. L2-L3: There is no disc bulge. There is no central canal stenosis. There is mild bilateral facet osteoarthritis. There is no significant neural foraminal stenosis. L3-L4: There is no disc bulge. There is no central canal stenosis. There is mild bilateral facet osteoarthritis. There is no neural foraminal stenosis. L4-L5: There is no disc bulge. There is no central canal stenosis. There is mild bilateral facet osteoarthritis. There is no neural foraminal stenosis. L5-S1: Diffuse edema of the disc is noted with edema in the adjacent endplates with subchondral cystic changes. There is unroofing of the dorsal disc. There is mild infiltration of the prevertebral fat. There is no focal disc herniation, spinal canal stenosis. There is mild bilateral foraminal stenosis. Moderate presacral edema is noted. Procedure Note Mary Huang MD - 02/18/2019 EXAMINATION: Magnetic resonance imaging (MRI) of the cervical, thoracic, and lumbar spine without contrast HISTORY: Proximal LE weakness TECHNIQUE: MRI of the cervical, thoracic, and lumbar spine was performed without contrast according to standard protocol. FINDINGS: Correlation is made with spine radiographs dated 02/18/2019. Cervical spine: The alignment is normal. Vertebral bodies are normal in height without evidence of compression fractures.The craniocervical junction and visualized portions of the posterior fossa appear normal. No aggressive appearing osseous lesions are seen. The spinal cord signal appears normal.Normal flow voids are identified in the vertebral arteries. Multilevel degenerative changes of the discs and endplates,uncovertebral joints and facet joints are seen, as described below: C2-3: There is no disc bulge. There is no central canal stenosis. Thereis mild left facet osteoarthritis. There is no uncovertebral joint osteoarthritis. There is no neural foraminal stenosis. C3-4: There is mild broad-based posterior disc bulge with prominent bilateral uncovertebral hypertrophy. There is moderate spinal canal stenosis with spinal cord impingement. No cord edema is noted. There is moderate right neural foraminal stenosis. C4-5: Mild loss of disc space height and disc and endplate edema. Thereis minimal broad-based posterior disc bulge. Right greater than left uncovertebral hypertrophy. Mild bilateral facet hypertrophy. Mild spinal canal stenosis. Mild bilateral foraminal stenosis. C5-6: Moderate loss of disc space height. Circumferential disc bulge. Severe right and mild left uncovertebral hypertrophy. Mild bilateralfacet hypertrophy. No spinal canal stenosis. Moderate to severe right and mild left foraminal stenosis. C6-7: Mild loss of disc space height. Disc ridge complex. Mild bilateral uncovertebral hypertrophy. No spinal canal stenosis. There is mild bilateral facet osteoarthritis. Moderate left foraminal stenosis. C7-T1: There is mild disc bulge. There is no central canal stenosis.There is no facet osteoarthritis. There is no uncovertebral joint osteoarthritis. There is no neural foraminal stenosis. Thoracic spine: Axial images are significantly limited due to motion artifact. There is levocurvature of the upper thoracic spine and dextrocurvatureof the lower cervical spine. There is significantly exaggerated kyphosis, centered at kyphosis centered at T9-10. No AP or lateral listhesis is identified. Vertebral bodies are normal in height without evidence of compression fractures. No aggressive appearing osseous lesions are seen. The spinal cord appears normal. . There is no epidural fluid collection. There are multilevel degenerative disc and endplate changes. No central canal stenosis is seen. There is mild facet osteoarthritis at multiple levels. No neural foraminal stenosis is seen. No soft tissue abnormality is identified. Lumbar spine: There is exaggeration of the lumbar lordosis without significant subluxation. The bone marrow signal is heterogeneous with several focal hemangiomas. No aggressive appearing osseous lesions are seen. There is no epidural fluid collection. Multilevel degenerative changes are seen without disc desiccation and facet hypertrophy at all levels. L1-L2: There is no disc bulge. There is no central canal stenosis. There is mild bilateral facet osteoarthritis. There is no neural foraminal stenosis. L2-L3: There is no disc bulge. There is no central canal stenosis. There is mild bilateral facet osteoarthritis. There is no significant neural foraminal stenosis. L3-L4: There is no disc bulge. There is no central canal stenosis. There is mild bilateral facet osteoarthritis. There is no neural foraminal stenosis. L4-L5: There is no disc bulge. There is no central canal stenosis. There is mild bilateral facet osteoarthritis. There is no neural foraminal stenosis. L5-S1: Diffuse edema of the disc is noted with edema in the adjacent endplates with subchondral cystic changes. There is unroofing of the dorsal disc. There is mild infiltration of the prevertebral fat. Thereis no focal disc herniation, spinal canal stenosis. There is mild bilateral foraminal stenosis. Moderate presacral edema is noted. IMPRESSION: Spinal cord: No cord compression or cord edema. Cord impingement at C3-4 due to degenerative changes. Cervical spine - Degenerative changes. Moderate spinal canal stenosis at C3-4. Varying degrees of neural foraminal stenosis, moderate to severeat right C5-6 level. Thoracic spine: Exaggerated kyphosis and S-shaped scoliosis. Disc and endplate degenerative changes without spinal canal or foraminalstenosis. Lumbar spine: Diffuse disc edema at L5-S1 with edema in the adjacent endplates and prevertebral soft tissues. The findings are likely due to degenerative changes. However, osteomyelitis/discitis cannot be excluded and clinical correlation is recommended.. No spinal canal or significant foraminal stenosis. I, Dr. MARY HUANG have personally reviewed and interpreted this examination/study. This report was electronically signed by MARY HUANG on 02/18/2019 10:03AM . Lynne Felix MD MR ORDERABLES * MRI THORACIC SPINE WO CONTRAST (02/18/2019 8:57 AM CDT) Anatomical Region Laterality Modality Chest Magnetic Resonan ce 02/18/2019 9:00 AM CDT Impressions 02/18/2019 10:03 AM CDT IMPRESSION: Spinal cord: No cord compression or cord edema. Cord impingement at C3-4 due to degenerative changes. Cervical spine - Degenerative changes. Moderate spinal canal stenosis at C3-4. Varying degrees of neural foraminal stenosis, moderate to severe at right C5-6 level. Thoracic spine: Exaggerated kyphosis and S-shaped scoliosis. Disc and endplate degenerative changes without spinal canal or foraminal stenosis. Lumbar spine: Diffuse disc edema at L5-S1 with edema in the adjacent endplates and prevertebral soft tissues. The findings are likely due to degenerative changes. However, osteomyelitis/discitis cannot be excluded and clinical correlation is recommended.. No spinal canal or significant foraminal stenosis. I, Dr. MARY HUANG have personally reviewed and interpreted this examination/study. This report was electronically signed by MARY HUANG ??on 02/18/2019 10:03 AM . Narrative 02/18/2019 10:03 AM CDT EXAMINATION: Magnetic resonance imaging (MRI) of the cervical, thoracic, and lumbar spine without contrast HISTORY: Proximal LE weakness TECHNIQUE: MRI of the cervical, thoracic, and lumbar spine was performed without contrast according to standard protocol. FINDINGS: Correlation is made with spine radiographs dated 02/18/2019. Cervical spine: The alignment is normal. Vertebral bodies are normal in height without evidence of compression fractures.The craniocervical junction and visualized portions of the posterior fossa appear normal. No aggressive appearing osseous lesions are seen. The spinal cord signal appears normal.Normal flow voids are identified in the vertebral arteries. Multilevel degenerative changes of the discs and endplates, uncovertebral joints and facet joints are seen, as described below: C2-3: There is no disc bulge. There is no central canal stenosis. There is mild left facet osteoarthritis. There is no uncovertebral joint osteoarthritis. There is no neural foraminal stenosis. C3-4: There is mild broad-based posterior disc bulge with prominent bilateral uncovertebral hypertrophy. There is moderate spinal canal stenosis with spinal cord impingement. No cord edema is noted. There is moderate right neural foraminal stenosis. C4-5: Mild loss of disc space height and disc and endplate edema. There is minimal broad-based posterior disc bulge. Right greater than left uncovertebral hypertrophy. Mild bilateral facet hypertrophy. Mild spinal canal stenosis. Mild bilateral foraminal stenosis. C5-6: Moderate loss of disc space height. Circumferential disc bulge. Severe right and mild left uncovertebral hypertrophy. Mild bilateral facet hypertrophy. No spinal canal stenosis. Moderate to severe right and mild left foraminal stenosis. C6-7: Mild loss of disc space height. Disc ridge complex. Mild bilateral uncovertebral hypertrophy. No spinal canal stenosis. There is mild bilateral facet osteoarthritis. Moderate left foraminal stenosis. C7-T1: There is mild disc bulge. There is no central canal stenosis. There is no facet osteoarthritis. There is no uncovertebral joint osteoarthritis. There is no neural foraminal stenosis. Thoracic spine: Axial images are significantly limited due to motion artifact. There is levocurvature of the upper thoracic spine and dextrocurvature of the lower cervical spine. There is significantly exaggerated kyphosis, centered at kyphosis centered at T9-10. No AP or lateral listhesis is identified. Vertebral bodies are normal in height without evidence of compression fractures. No aggressive appearing osseous lesions are seen. The spinal cord appears normal. . There is no epidural fluid collection. There are multilevel degenerative disc and endplate changes. No central canal stenosis is seen. There is mild facet osteoarthritis at multiple levels. No neural foraminal stenosis is seen. No soft tissue abnormality is identified. Lumbar spine: There is exaggeration of the lumbar lordosis without significant subluxation. The bone marrow signal is heterogeneous with several focal hemangiomas. No aggressive appearing osseous lesions are seen. There is no epidural fluid collection. Multilevel degenerative changes are seen without disc desiccation and facet hypertrophy at all levels. L1-L2: There is no disc bulge. There is no central canal stenosis. There is mild bilateral facet osteoarthritis. There is no neural foraminal stenosis. L2-L3: There is no disc bulge. There is no central canal stenosis. There is mild bilateral facet osteoarthritis. There is no significant neural foraminal stenosis. L3-L4: There is no disc bulge. There is no central canal stenosis. There is mild bilateral facet osteoarthritis. There is no neural foraminal stenosis. L4-L5: There is no disc bulge. There is no central canal stenosis. There is mild bilateral facet osteoarthritis. There is no neural foraminal stenosis. L5-S1: Diffuse edema of the disc is noted with edema in the adjacent endplates with subchondral cystic changes. There is unroofing of the dorsal disc. There is mild infiltration of the prevertebral fat. There is no focal disc herniation, spinal canal stenosis. There is mild bilateral foraminal stenosis. Moderate presacral edema is noted. Procedure Note Mary Huang MD - 02/18/2019 EXAMINATION: Magnetic resonance imaging (MRI) of the cervical, thoracic, and lumbar spine without contrast HISTORY: Proximal LE weakness TECHNIQUE: MRI of the cervical, thoracic, and lumbar spine was performed without contrast according to standard protocol. FINDINGS: Correlation is made with spine radiographs dated 02/18/2019. Cervical spine: The alignment is normal. Vertebral bodies are normal in height without evidence of compression fractures.The craniocervical junction and visualized portions of the posterior fossa appear normal. No aggressive appearing osseous lesions are seen. The spinal cord signal appears normal.Normal flow voids are identified in the vertebral arteries. Multilevel degenerative changes of the discs and endplates,uncovertebral joints and facet joints are seen, as described below: C2-3: There is no disc bulge. There is no central canal stenosis. Thereis mild left facet osteoarthritis. There is no uncovertebral joint osteoarthritis. There is no neural foraminal stenosis. C3-4: There is mild broad-based posterior disc bulge with prominent bilateral uncovertebral hypertrophy. There is moderate spinal canal stenosis with spinal cord impingement. No cord edema is noted. There is moderate right neural foraminal stenosis. C4-5: Mild loss of disc space height and disc and endplate edema. Thereis minimal broad-based posterior disc bulge. Right greater than left uncovertebral hypertrophy. Mild bilateral facet hypertrophy. Mild spinal canal stenosis. Mild bilateral foraminal stenosis. C5-6: Moderate loss of disc space height. Circumferential disc bulge. Severe right and mild left uncovertebral hypertrophy. Mild bilateralfacet hypertrophy. No spinal canal stenosis. Moderate to severe right and mild left foraminal stenosis. C6-7: Mild loss of disc space height. Disc ridge complex. Mild bilateral uncovertebral hypertrophy. No spinal canal stenosis. There is mild bilateral facet osteoarthritis. Moderate left foraminal stenosis. C7-T1: There is mild disc bulge. There is no central canal stenosis.There is no facet osteoarthritis. There is no uncovertebral joint osteoarthritis. There is no neural foraminal stenosis. Thoracic spine: Axial images are significantly limited due to motion artifact. There is levocurvature of the upper thoracic spine and dextrocurvatureof the lower cervical spine. There is significantly exaggerated kyphosis, centered at kyphosis centered at T9-10. No AP or lateral listhesis is identified. Vertebral bodies are normal in height without evidence of compression fractures. No aggressive appearing osseous lesions are seen. The spinal cord appears normal. . There is no epidural fluid collection. There are multilevel degenerative disc and endplate changes. No central canal stenosis is seen. There is mild facet osteoarthritis at multiple levels. No neural foraminal stenosis is seen. No soft tissue abnormality is identified. Lumbar spine: There is exaggeration of the lumbar lordosis without significant subluxation. The bone marrow signal is heterogeneous with several focal hemangiomas. No aggressive appearing osseous lesions are seen. There is no epidural fluid collection. Multilevel degenerative changes are seen without disc desiccation and facet hypertrophy at all levels. L1-L2: There is no disc bulge. There is no central canal stenosis. There is mild bilateral facet osteoarthritis. There is no neural foraminal stenosis. L2-L3: There is no disc bulge. There is no central canal stenosis. There is mild bilateral facet osteoarthritis. There is no significant neural foraminal stenosis. L3-L4: There is no disc bulge. There is no central canal stenosis. There is mild bilateral facet osteoarthritis. There is no neural foraminal stenosis. L4-L5: There is no disc bulge. There is no central canal stenosis. There is mild bilateral facet osteoarthritis. There is no neural foraminal stenosis. L5-S1: Diffuse edema of the disc is noted with edema in the adjacent endplates with subchondral cystic changes. There is unroofing of the dorsal disc. There is mild infiltration of the prevertebral fat. Thereis no focal disc herniation, spinal canal stenosis. There is mild bilateral foraminal stenosis. Moderate presacral edema is noted. IMPRESSION: Spinal cord: No cord compression or cord edema. Cord impingement at C3-4 due to degenerative changes. Cervical spine - Degenerative changes. Moderate spinal canal stenosis at C3-4. Varying degrees of neural foraminal stenosis, moderate to severeat right C5-6 level. Thoracic spine: Exaggerated kyphosis and S-shaped scoliosis. Disc and endplate degenerative changes without spinal canal or foraminalstenosis. Lumbar spine: Diffuse disc edema at L5-S1 with edema in the adjacent endplates and prevertebral soft tissues. The findings are likely due to degenerative changes. However, osteomyelitis/discitis cannot be excluded and clinical correlation is recommended.. No spinal canal or significant foraminal stenosis. I, Dr. MARY HUANG have personally reviewed and interpreted this examination/study. This report was electronically signed by MARY HUANG on 02/18/2019 10:03AM . Lynne Felix MD MR ORDERABLES * MRI CERVICAL SPINE WO CONTRAST (02/18/2019 8:57 AM CDT) Anatomical Region Laterality Modality Pelvis Magnetic Resonan ce 02/18/2019 9:00 AM CDT Impressions 02/18/2019 10:03 AM CDT IMPRESSION: Spinal cord: No cord compression or cord edema. Cord impingement at C3-4 due to degenerative changes. Cervical spine - Degenerative changes. Moderate spinal canal stenosis at C3-4. Varying degrees of neural foraminal stenosis, moderate to severe at right C5-6 level. Thoracic spine: Exaggerated kyphosis and S-shaped scoliosis. Disc and endplate degenerative changes without spinal canal or foraminal stenosis. Lumbar spine: Diffuse disc edema at L5-S1 with edema in the adjacent endplates and prevertebral soft tissues. The findings are likely due to degenerative changes. However, osteomyelitis/discitis cannot be excluded and clinical correlation is recommended.. No spinal canal or significant foraminal stenosis. I, Dr. MARY HUANG have personally reviewed and interpreted this examination/study. This report was electronically signed by MARY HUANG ??on 02/18/2019 10:03 AM . Narrative 02/18/2019 10:03 AM CDT EXAMINATION: Magnetic resonance imaging (MRI) of the cervical, thoracic, and lumbar spine without contrast HISTORY: Proximal LE weakness TECHNIQUE: MRI of the cervical, thoracic, and lumbar spine was performed without contrast according to standard protocol. FINDINGS: Correlation is made with spine radiographs dated 02/18/2019. Cervical spine: The alignment is normal. Vertebral bodies are normal in height without evidence of compression fractures.The craniocervical junction and visualized portions of the posterior fossa appear normal. No aggressive appearing osseous lesions are seen. The spinal cord signal appears normal.Normal flow voids are identified in the vertebral arteries. Multilevel degenerative changes of the discs and endplates, uncovertebral joints and facet joints are seen, as described below: C2-3: There is no disc bulge. There is no central canal stenosis. There is mild left facet osteoarthritis. There is no uncovertebral joint osteoarthritis. There is no neural foraminal stenosis. C3-4: There is mild broad-based posterior disc bulge with prominent bilateral uncovertebral hypertrophy. There is moderate spinal canal stenosis with spinal cord impingement. No cord edema is noted. There is moderate right neural foraminal stenosis. C4-5: Mild loss of disc space height and disc and endplate edema. There is minimal broad-based posterior disc bulge. Right greater than left uncovertebral hypertrophy. Mild bilateral facet hypertrophy. Mild spinal canal stenosis. Mild bilateral foraminal stenosis. C5-6: Moderate loss of disc space height. Circumferential disc bulge. Severe right and mild left uncovertebral hypertrophy. Mild bilateral facet hypertrophy. No spinal canal stenosis. Moderate to severe right and mild left foraminal stenosis. C6-7: Mild loss of disc space height. Disc ridge complex. Mild bilateral uncovertebral hypertrophy. No spinal canal stenosis. There is mild bilateral facet osteoarthritis. Moderate left foraminal stenosis. C7-T1: There is mild disc bulge. There is no central canal stenosis. There is no facet osteoarthritis. There is no uncovertebral joint osteoarthritis. There is no neural foraminal stenosis. Thoracic spine: Axial images are significantly limited due to motion artifact. There is levocurvature of the upper thoracic spine and dextrocurvature of the lower cervical spine. There is significantly exaggerated kyphosis, centered at kyphosis centered at T9-10. No AP or lateral listhesis is identified. Vertebral bodies are normal in height without evidence of compression fractures. No aggressive appearing osseous lesions are seen. The spinal cord appears normal. . There is no epidural fluid collection. There are multilevel degenerative disc and endplate changes. No central canal stenosis is seen. There is mild facet osteoarthritis at multiple levels. No neural foraminal stenosis is seen. No soft tissue abnormality is identified. Lumbar spine: There is exaggeration of the lumbar lordosis without significant subluxation. The bone marrow signal is heterogeneous with several focal hemangiomas. No aggressive appearing osseous lesions are seen. There is no epidural fluid collection. Multilevel degenerative changes are seen without disc desiccation and facet hypertrophy at all levels. L1-L2: There is no disc bulge. There is no central canal stenosis. There is mild bilateral facet osteoarthritis. There is no neural foraminal stenosis. L2-L3: There is no disc bulge. There is no central canal stenosis. There is mild bilateral facet osteoarthritis. There is no significant neural foraminal stenosis. L3-L4: There is no disc bulge. There is no central canal stenosis. There is mild bilateral facet osteoarthritis. There is no neural foraminal stenosis. L4-L5: There is no disc bulge. There is no central canal stenosis. There is mild bilateral facet osteoarthritis. There is no neural foraminal stenosis. L5-S1: Diffuse edema of the disc is noted with edema in the adjacent endplates with subchondral cystic changes. There is unroofing of the dorsal disc. There is mild infiltration of the prevertebral fat. There is no focal disc herniation, spinal canal stenosis. There is mild bilateral foraminal stenosis. Moderate presacral edema is noted. Procedure Note Mary Huang MD - 02/18/2019 EXAMINATION: Magnetic resonance imaging (MRI) of the cervical, thoracic, and lumbar spine without contrast HISTORY: Proximal LE weakness TECHNIQUE: MRI of the cervical, thoracic, and lumbar spine was performed without contrast according to standard protocol. FINDINGS: Correlation is made with spine radiographs dated 02/18/2019. Cervical spine: The alignment is normal. Vertebral bodies are normal in height without evidence of compression fractures.The craniocervical junction and visualized portions of the posterior fossa appear normal. No aggressive appearing osseous lesions are seen. The spinal cord signal appears normal.Normal flow voids are identified in the vertebral arteries. Multilevel degenerative changes of the discs and endplates,uncovertebral joints and facet joints are seen, as described below: C2-3: There is no disc bulge. There is no central canal stenosis. Thereis mild left facet osteoarthritis. There is no uncovertebral joint osteoarthritis. There is no neural foraminal stenosis. C3-4: There is mild broad-based posterior disc bulge with prominent bilateral uncovertebral hypertrophy. There is moderate spinal canal stenosis with spinal cord impingement. No cord edema is noted. There is moderate right neural foraminal stenosis. C4-5: Mild loss of disc space height and disc and endplate edema. Thereis minimal broad-based posterior disc bulge. Right greater than left uncovertebral hypertrophy. Mild bilateral facet hypertrophy. Mild spinal canal stenosis. Mild bilateral foraminal stenosis. C5-6: Moderate loss of disc space height. Circumferential disc bulge. Severe right and mild left uncovertebral hypertrophy. Mild bilateralfacet hypertrophy. No spinal canal stenosis. Moderate to severe right and mild left foraminal stenosis. C6-7: Mild loss of disc space height. Disc ridge complex. Mild bilateral uncovertebral hypertrophy. No spinal canal stenosis. There is mild bilateral facet osteoarthritis. Moderate left foraminal stenosis. C7-T1: There is mild disc bulge. There is no central canal stenosis.There is no facet osteoarthritis. There is no uncovertebral joint osteoarthritis. There is no neural foraminal stenosis. Thoracic spine: Axial images are significantly limited due to motion artifact. There is levocurvature of the upper thoracic spine and dextrocurvatureof the lower cervical spine. There is significantly exaggerated kyphosis, centered at kyphosis centered at T9-10. No AP or lateral listhesis is identified. Vertebral bodies are normal in height without evidence of compression fractures. No aggressive appearing osseous lesions are seen. The spinal cord appears normal. . There is no epidural fluid collection. There are multilevel degenerative disc and endplate changes. No central canal stenosis is seen. There is mild facet osteoarthritis at multiple levels. No neural foraminal stenosis is seen. No soft tissue abnormality is identified. Lumbar spine: There is exaggeration of the lumbar lordosis without significant subluxation. The bone marrow signal is heterogeneous with several focal hemangiomas. No aggressive appearing osseous lesions are seen. There is no epidural fluid collection. Multilevel degenerative changes are seen without disc desiccation and facet hypertrophy at all levels. L1-L2: There is no disc bulge. There is no central canal stenosis. There is mild bilateral facet osteoarthritis. There is no neural foraminal stenosis. L2-L3: There is no disc bulge. There is no central canal stenosis. There is mild bilateral facet osteoarthritis. There is no significant neural foraminal stenosis. L3-L4: There is no disc bulge. There is no central canal stenosis. There is mild bilateral facet osteoarthritis. There is no neural foraminal stenosis. L4-L5: There is no disc bulge. There is no central canal stenosis. There is mild bilateral facet osteoarthritis. There is no neural foraminal stenosis. L5-S1: Diffuse edema of the disc is noted with edema in the adjacent endplates with subchondral cystic changes. There is unroofing of the dorsal disc. There is mild infiltration of the prevertebral fat. Thereis no focal disc herniation, spinal canal stenosis. There is mild bilateral foraminal stenosis. Moderate presacral edema is noted. IMPRESSION: Spinal cord: No cord compression or cord edema. Cord impingement at C3-4 due to degenerative changes. Cervical spine - Degenerative changes. Moderate spinal canal stenosis at C3-4. Varying degrees of neural foraminal stenosis, moderate to severeat right C5-6 level. Thoracic spine: Exaggerated kyphosis and S-shaped scoliosis. Disc and endplate degenerative changes without spinal canal or foraminalstenosis. Lumbar spine: Diffuse disc edema at L5-S1 with edema in the adjacent endplates and prevertebral soft tissues. The findings are likely due to degenerative changes. However, osteomyelitis/discitis cannot be excluded and clinical correlation is recommended.. No spinal canal or significant foraminal stenosis. Dr. MARY Reeves have personally reviewed and interpreted this examination/study. This report was electronically signed by MARY HUANG on 02/18/2019 10:03AM . Lynne Felix MD MR ORDERABLES * XR THORACIC SPINE 2VW (02/18/2019 6:06 AM CDT) Anatomical Region Laterality Modality Spine Radiographic Destiney ging 02/18/2019 7:29 AM CDT Impressions 02/18/2019 10:37 AM CDT IMPRESSION: Thoracic kyphosis with mild anterior wedging of mid to lower thoracic vertebral bodies. Multilevel degenerative changes with grade 1 retrolisthesis of L1 over L2 and grade 1 anterolisthesis of L5 over S1. Dictated by Ari Davis MD (radiology therapist). Dr. Hossein Reeves M.D. have personally reviewed and interpreted this examination/study. This report was electronically signed by Hossein SANDOVAL M.D. ??on 02/18/2019 10:37 AM . Narrative 02/18/2019 10:37 AM CDT EXAMINATION: XR THORACIC SPINE 2VW, XR LUMBAR SPINE 2 OR 3VW HISTORY: pain FINDINGS: Comparison is made with atherosclerotic radiograph from 04/05/2017 Thoracic spine: There is upper thoracic levocurvature with excessive thoracic kyphosis the lateral view. Mild anterior wedging of the mid to lower thoracic vertebral bodies is identified, likely degenerative in etiology, without evidence of acute fracture or traumatic compression deformities. There is mild multilevel degenerative disc disease. Lumbar spine: There is a 5 mm retrolisthesis of L1 over L2 and 5 mm anterolisthesis of L5 over S1. Multilevel degenerative changes of the vertebral bodies and intervertebral discs are identified. There is no acute fracture or compression deformity. The sacroiliac joints appear symmetric and normal. Procedure Note Tara Sandoval MD - 02/18/2019 EXAMINATION: XR THORACIC SPINE 2VW, XR LUMBAR SPINE 2 OR 3VW HISTORY: pain FINDINGS: Comparison is made with atherosclerotic radiograph from04/05/2017 Thoracic spine: There is upper thoracic levocurvature with excessive thoracic kyphosisthe lateral view. Mild anterior wedging of the mid to lower thoracicvertebral bodies is identified, likely degenerative in etiology, without evidenceof acute fracture or traumatic compression deformities. There is mild multilevel degenerative disc disease. Lumbar spine: There is a 5 mm retrolisthesis of L1 over L2 and 5 mm anterolisthesis of L5 over S1. Multilevel degenerative changes of the vertebral bodies and intervertebral discs are identified. There is no acute fracture or compression deformity. The sacroiliac joints appear symmetric andnormal. IMPRESSION: Thoracic kyphosis with mild anterior wedging of mid to lower thoracic vertebral bodies. Multilevel degenerative changes with grade 1 retrolisthesis of L1 overL2 and grade 1 anterolisthesis of L5 over S1. Dictated by Ari Davis MD (radiology therapist). Dr. Hossein Reeves M.D. have personally reviewed and interpretedthis examination/study. This report was electronically signed by Hossein SANDOVAL M.D. on 02/18/2019 10:37 AM . Noam Puri MD DIAGNOSTIC IMAGING O RDERABLES * (ABNORMAL) URINALYSIS W/MICROSCOPIC NO CULTURE (02/18/2019 3:11 AM CDT) Only the most recent of6 resultswithin the time period is included. Color UA Yellow Straw, Yellow, Colorless 02/18/2019 3:21 AM CDT [facility] Clarity UA Clear Clear, Slt Cloudy 02/18/2019 3:21 AM [facility] Specific Powers UA 1.011 1.005 - 1.030 02/18/2019 3:21 AM [facility] pH UA 6.0 5.0 - 8.0 pH 02/18/2019 3:21 AM [facility] Protein UA 1+(A) Negative mg/dL 02/18/2019 3:21 AM [facility] Glucose UA Negative Negative mg/dL 02/18/2019 3:21 AM [facility] Ketone UA Trace(A) Negative mg/dL 02/18/2019 3:21 AM [facility] Bilirubin UA Negative Negative mg/dL 02/18/2019 3:21 AM [facility] Blood UA Negative Negative 02/18/2019 3:21 AM [facility] Nitrite UA Negative Negative 02/18/2019 3:21 AM [facility] Leukocyte Esterase Negative Negative 02/18/2019 3:21 AM [facility] Urobilinogen UA Negative Negative mg/dL 02/18/2019 3:21 AM [facility] RBC UA 0-2 None Seen, 0-2, 3-5 /HPF 02/18/2019 3:21 AM [facility] WBC UA 0-5 None Seen, 0-5 /HPF 02/18/2019 3:21 AM [facility] Bacteria UA Trace None, Trace /HPF 02/18/2019 3:21 AM [facility] Squamous Epithelial Cells UA None Seen None Seen, 0-2 /HPF 02/18/2019 3:21 AM [facility] Mucus UA 1+ None, 1+ /LPF 02/18/2019 3:21 AM [facility] Urine URINE SPECIMEN OBTAINED BY CLEAN CATCH PROCEDURE / Unknown Collection / Unknown 02/18/2019 3:11 AM T 02/18/2019 3:11 AM [facility] Cinthia Meza PA-C LAB - URINALYSIS ORDERABLES [address] [phone] * [facility] BLOOD SCREEN W/REFLEX TITER (02/18/2019 2:59 AM CDT) [facility] Negative 02/19/2019 3:09 PM CDT [facility] ([facility]) Comment: ? Negative ?? <1:80 ? Borderline ??1:80 ? Positive ?? >1:80 Blood BLOOD SPECIMEN / Unknown Venipuncture / Unknown 02/18/2019 2:59 AM CDT 02/18/2019 2:59 AM CDT Narrative [facility] ([facility]) - 02/19/2019 3:09 PM CDT Performed at: ??[address] - [address] ??[id number] Concrete Building Assembler: Wolfgang Hallman PhD, Phone: ??[phone] Enrico Tony MD LAB - CHEMISTRY TIMOTHY ARTIS Performing Organization Address [facility] Co de Phone Number [facility] ([facility]) [address] [place] [address] * (ABNORMAL) C-REACTIVE PROTEIN (02/18/2019 2:36 AM CDT) Pathologist [facility] C-Reactive Protein 2.9(H) <=0.5 mg/dL 02/18/2019 2:56 AM CDT [facility] Blood BLOOD SPECIMEN / Unknown 02/18/2019 2:36 AM CDT 02/18/2019 2:39 AM CDT David Gonsalez MD LAB - CHEMISTRY RAMON MOHAN Performing Organization Address City/[facility]/ZIP Co de Phone Number [address] [phone] * (ABNORMAL) ERYTHROCYTE SEDIMENTATION RATE (02/18/2019 2:36 AM CDT) Erythrocyte Sedimentation Rate Westergren 21(H) 0 - 20 MM/HR 02/18/2019 2:46 AM CDT [facility] Blood BLOOD SPECIMEN / Unknown 02/18/2019 2:36 AM CDT 02/18/2019 2:39 AM CDT David Gonsalez MD LAB - HEMATOLOGY ORD ERABLES [address] [phone] * T4 FREE (02/18/2019 2:36 AM CDT) T4 Free 1.0 0.7 - 1.5 ng/dL 02/18/2019 3:55 AM CDT [facility] Blood BLOOD SPECIMEN / Unknown 02/18/2019 2:36 AM CDT 02/18/2019 2:39 AM CDT Enrico Tony MD LAB - CHEMISTRY ORD ERABLES Performing Organization Address [facility] Co de Phone Number [address] [phone] * CT HEAD WO CONTRAST (02/18/2019 12:05 AM CDT) Only the most recent of15 resultswithin the time period is included. Anatomical Region Laterality Modality Head Computed Tomogra phy 02/18/2019 8:47 AM CDT Impressions 02/18/2019 9:11 AM CDT IMPRESSION: 1. Stable position of the right posterior perirenal approach ventricular catheter unchanged in position. Interval decrease in the size of lateral ventricles which are small in size. Mild interval dilation of the third ventricle. 2. No acute intracranial abnormality. Report dictated by Fede Aguirre MD (radiology therapist). I, Dr. MARY HUANG have personally reviewed and interpreted this examination/study. This report was electronically signed by MARY HUANG ??on 02/18/2019 9:11 AM . Narrative 02/18/2019 9:11 AM CDT EXAMINATION: Computed tomography (CT) of the head without contrast HISTORY: confusion TECHNIQUE: CT of the head was performed without contrast according to standard protocol. COMPARISON: CT head dated 05/28/2018 FINDINGS: Right posterior parietal approach ventricular catheter traverses the right lateral ventricle and terminates in the region of left lateral ventricle. The lateral ventricles are small in size, decreased since the prior study. However, dilation of the third ventricle has mildly increased measuring 1.4 cm at the level of foramen of Monro, previously 1.2 cm. Linear encephalomalacia/gliosis is noted in the left frontal lobe subjacent to the left frontal craniotomy, from prior catheter placement. Otherwise the tarango-white matter differentiation is normal. Periventricular white matter hypoattenuation is indicative of chronic small vessel ischemic disease. There is vascular calcification of the carotid siphons. No acute intra- or extra-axial hemorrhage or fluid collections are identified. The basilar cisterns are patent. No mass effect or midline shift is seen. The visualized portions of the orbits, paranasal sinuses, and mastoids appear normal. No acute fracture is identified. Postoperative appearance of left frontal craniotomy is noted. Procedure Note Mary Huang MD - 02/18/2019 EXAMINATION: Computed tomography (CT) of the head without contrast HISTORY: confusion TECHNIQUE: CT of the head was performed without contrast according to standard protocol. COMPARISON: CT head dated 05/28/2018 FINDINGS: Right posterior parietal approach ventricular catheter traverses theright lateral ventricle and terminates in the region of left lateralventricle. The lateral ventricles are small in size, decreased since the priorstudy. However, dilation of the third ventricle has mildly increased measuring 1.4 cm at the level of foramen of Monro, previously 1.2 cm. Linear encephalomalacia/gliosis is noted in the left frontal lobe subjacent to the left frontal craniotomy, from prior catheter placement. Otherwise the tarango-white matter differentiation is normal.Periventricular white matter hypoattenuation is indicative of chronic small vessel ischemic disease. There is vascular calcification of the carotidsiphons. No acute intra- or extra-axial hemorrhage or fluid collections are identified. The basilar cisterns are patent. No mass effect or midline shift is seen. The visualized portions of the orbits, paranasal sinuses, and mastoids appear normal. No acute fracture is identified.Postoperative appearance of left frontal craniotomy is noted. IMPRESSION: 1. Stable position of the right posterior perirenal approach ventricular catheter unchanged in position. Interval decrease in the size of lateral ventricles which are small in size. Mild interval dilation of the third ventricle. 2. No acute intracranial abnormality. Report dictated by Fede Aguirre MD (radiology therapist). I, Dr. MARY HUANG have personally reviewed and interpreted this examination/study. This report was electronically signed by MARY HUANG on 02/18/2019 9:11 AM. Cinthia Meza PA-C CT ORDERABLES * CK BLOOD (02/17/2019 9:20 PM CDT) [facility] CK Total 70 30 - 200 Units/L 02/18/2019 3:08 AM T [facility] Blood BLOOD SPECIMEN / Unknown Venipuncture / Unknown 02/17/2019 9:20 PM CDT 02/18/2019 2:55 AM CDT Enrico Tony MD LAB - CHEMISTRY ORD ERABLES [address] [phone] * (ABNORMAL) COMPREHENSIVE METABOLIC PANEL (02/17/2019 9:15 PM CDT) Only the most recent of4 resultswithin the time period is included. [facility] BUN 29(H) 7 - 26 mg/dL 02/17/2019 9:43 PM [facility] Creatinine 1.5(H) 0.6 - 1.2 mg/dL 02/17/2019 9:43 PM [facility] Sodium 138 136 - 145 mmol/L 02/17/2019 9:43 PM [facility] Potassium 3.7 3.5 - 4.5 mmol/L 02/17/2019 9:43 PM [facility] Chloride 101 98 - 107 mmol/L 02/17/2019 9:43 PM [facility] CO2 24 22 - 29 mmol/L 02/17/2019 9:43 PM [facility] Glucose 84 70 - 115 mg/dL 02/17/2019 9:43 PM [facility] Calcium 8.8 8.4 - 10.2 mg/dL 02/17/2019 9:43 PM [facility] Protein Total 5.9(L) 6.0 - 8.3 g/dL 02/17/2019 9:43 PM [facility] Albumin 3.1(L) 3.4 - 5.0 g/dL 02/17/2019 9:43 PM [facility] Bilirubin Total 0.7 0.2 - 1.2 mg/dL 02/17/2019 9:43 PM [facility] Alkaline Phosphatase 158(H) 40 - 150 Units/L 02/17/2019 9:43 PM [facility] ALT 8 0 - 55 Units/L 02/17/2019 9:43 PM [facility] AST 12 5 - 34 Units/L 02/17/2019 9:43 PM [facility] Anion Gap 17 8 - 18 02/17/2019 9:43 PM [facility] BUN/Creatinine Ratio 19 7 - 23 02/17/2019 9:43 PM [facility] Osmolality Calculated 291 270 - 300 mOsm/kg 02/17/2019 9:43 PM [facility] Albumin/Globulin Ratio 1.1 1.1 - 2.3 02/17/2019 9:43 PM [facility] eGFR 48(L) >60 mL/min/1.7 3 m2 02/17/2019 9:43 PM [facility] Blood BLOOD SPECIMEN / Unknown 02/17/2019 9:15 PM CDT 02/17/2019 9:20 PM T Cinthia Meza PA-C LAB - CHEMISTRY ORDERABLES [facility] [address] [phone] * TSH (02/17/2019 9:15 PM CDT) Only the most recent of2 resultswithin the time period is included. Pathologist [facility] 1.661 0.350 - 4.940 uIU/mL 02/18/2019 3:36 AM CDT [facility] Blood BLOOD SPECIMEN / Unknown 02/17/2019 9:15 PM CDT 02/17/2019 9:20 PM CDT Enrico Tony MD LAB - CHEMISTRY ORD ERABLES [facility] [address] [place] [address] * XR SHUNT SERIES (02/17/2019 8:02 PM CDT) Only the most recent of3 resultswithin the time period is included. Anatomical Region Laterality Modality Radiographic Destiney ging 02/17/2019 8:03 PM CDT Impressions 02/18/2019 9:26 AM CDT IMPRESSION: Intact right parietal approach ventriculoperitoneal shunt. Dr. Hossein Reeves M.D. have personally reviewed and interpreted this examination/study. This report was electronically signed by Hossein SANDOVAL M.D. ??on 02/18/2019 9:26 AM . Narrative 02/18/2019 9:26 AM CDT Exam: XR SHUNT SERIES Date: 02/17/2019 8:03 PM History: ams COMPARISON: No prior Findings: A right parietal approach ventriculoperitoneal shunt has its intracranial tip terminating near the frontal horn of the right lateral ventricle. The shunt exits through a right parietal ghazal hole and courses through the right neck, right chest, right abdomen, and is coiled within the right upper quadrant. A radiolucent valve is noted at the proximal portion just external to the calvarium. There is no mass effect surrounding its termination. No shunt discontinuity is seen. A right upper quadrant surgical clips are noted. Procedure Note Tara Sandoval MD - 02/18/2019 Exam: XR SHUNT SERIES Date: 02/17/2019 8:03 PM History: ams COMPARISON: No prior Findings: A right parietal approach ventriculoperitoneal shunt has itsintracranial tip terminating near the frontal horn of the right lateral ventricle.The shunt exits through a right parietal ghazal hole and courses through the right neck, right chest, right abdomen, and is coiled within the right upper quadrant. A radiolucent valve is noted at the proximal portionjust external to the calvarium. There is no mass effect surrounding its termination. No shunt discontinuity is seen. A right upper quadrant surgical clips are noted. IMPRESSION: Intact right parietal approach ventriculoperitoneal shunt. I, Dr. Hossein SANDOVAL M.D. have personally reviewed and interpretedthis examination/study. This report was electronically signed by Hossein SANDOVAL M.D. on 02/18/2019 9:26 AM . Cinthia Meza PA-C DIAGNOSTIC IMAGI NG ORDERABLES * PTT [facility] (11/18/2017 5:16 AM SECURITY SYSTEM ANALYST) Only the most recent of2 resultswithin the time period is included. APTT 36.5 23.0 - 38.4 Seconds [facility] Comment:Suggested therapeuti c range for full dose I.V. heparin therapy for venous thromboembolism is 66.0-91.0 seconds. Blood specimen (specimen) BLOOD SPECIMEN / Unknown 11/18/2017 5:16 AM SECURITY SYSTEM ANALYST 11/18/2017 5:35 AM SECURITY SYSTEM ANALYST Narrative [facility] - 11/18/2017 5:48 AM SECURITY SYSTEM ANALYST Is patient on Heparin, Argatroban or Dabigatran?->N Jarad Gabriel MD LAB - COAGULATION ORDERABLES [address] [phone] * (ABNORMAL) PT-INR [facility] (11/18/2017 5:16 AM SECURITY SYSTEM ANALYST) Only the most recent of8 resultswithin the time period is included. PT 19.3(H) 12.1 - 14.8 Seconds [facility] INR 1.6 See Comment [facility] Comment: Suggested therapeutic range for low-intensity coumadin therapy for venous thromboembolism prophylaxis is an INR of 2.0-3.0. ??For high risk patients (Mitral Valve Prosthesis, Atrial Fibrillation, history of TIA/stroke), suggested prophylactic therapeutic range is an INR of 2.5-3.5. Blood specimen (specimen) BLOOD SPECIMEN / Unknown 11/18/2017 5:16 AM SECURITY SYSTEM ANALYST 11/18/2017 5:35 AM SECURITY SYSTEM ANALYST Narrative [facility] - 11/18/2017 5:48 AM SECURITY SYSTEM ANALYST Is patient on Heparin, Argatroban or Dabigatran?->N Jarad Gabriel MD LAB - COAGULATION ORDERABLES [address] [phone] * CT CERVICAL SPINE WO CONTRAST (11/17/2017 2:24 AM SECURITY SYSTEM ANALYST) Anatomical Region Laterality Modality Spine Other Impressions 11/17/2017 1:40 PM SECURITY SYSTEM ANALYST IMPRESSION: 1. No evidence of acute fracture in the cervical spine. I, Dr. HARSHIL VASQUES M.D. have personally reviewed and interpreted this examination/study. This report was electronically signed by HARSHIL VASQUES M.D. ??on 11/17/2017 1:40 PM . Narrative 11/17/2017 1:40 PM SECURITY SYSTEM ANALYST EXAMINATION: Computed tomography (CT) of the cervical spine without contrast HISTORY: Neck pain after injury TECHNIQUE: CT of the cervical spine was performed without contrast according to standard protocol. FINDINGS: No prior study is available for comparison at the time of this dictation. There is exaggerated lordosis. No listhesis is seen. The head is tilted to the left. Vertebral bodies are normal in height without evidence of acute fracture. Other than middle atlantoaxial joint osteoarthritis, the craniocervical junction appears normal. There is moderate degenerative disc disease at C5-6 and C6-7. Bnmy-bl-fesajmwb central canal stenosis is noted at these levels. There are varying degrees of mild facet osteoarthritis. There are varying degrees of advanced uncovertebral joint osteoarthritis with the same degree of neural foraminal stenosis at these levels. 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 There is a intraperitoneal shunt catheter combination on the right side of the neck to the anterior chest wall. No disruption is identified in the visualized portion of the tubing. Procedure Note Harshil Vasques MD - 12/19/2017 EXAMINATION: Computed tomography (CT) of the cervical spine withoutcontrast HISTORY: Neck pain after injury TECHNIQUE: CT of the cervical spine was performed without contrastaccording to standard protocol. FINDINGS: No prior study is available for comparison at the time of thisdictation. There is exaggerated lordosis. No listhesis is seen. The head is tilted tothe left. Vertebral bodies are normal in height without evidence of acutefracture. Other than middle atlantoaxial joint osteoarthritis, thecraniocervical junction appears normal. There is moderate degenerative disc disease at C5-6 and C6-7.Elor-eg-zzxiasyk central canal stenosis is noted at these levels. Thereare varying degrees of mild facet osteoarthritis. There are varyingdegrees of advanced uncovertebral joint osteoarthritis with the same degree of neural foraminal stenosis at theselevels. Partial visualization of the posterior fossa demonstrate moderateventricular megaly involving the occipital horns, incompletely imaged.There is a intraperitoneal shunt catheter combination on the right side ofthe neck to the anterior chest wall. No disruption is identified in the visualized portion of the tubing. IMPRESSION IMPRESSION: 1. No evidence of acute fracture in the cervical spine. I, Dr. HARSHIL VASQUES M.D. have personally reviewed and interpreted thisexamination/study. This report was electronically signed by HARSHIL VASQUES M.D. on 11/17/20171:40 PM . Lyssa Eckert MD CT ORDERABLES * CULTURE URINE (11/17/2017 1:58 AM SECURITY SYSTEM ANALYST) Only the most recent of4 resultswithin the time period is included. Culture Urine No growth (<1,000 CFU/mL) [facility] Urine specimen (specimen) URINE / Unknown 11/17/2017 1:58 AM SECURITY SYSTEM ANALYST 11/17/2017 2:04 AM SECURITY SYSTEM ANALYST Narrative [facility] - 11/18/2017 7:20 AM SECURITY SYSTEM ANALYST Specimen Type->Urine Resulting Lab: ?? [facility] [address] [place] [address] PH: [phone] Lyssa Eckert MD LAB - MICROBIOLOGY O RDERABLES [facility] [address] [place] [address] * XR FEMUR LEFT 2VW (11/17/2017 1:05 AM SECURITY SYSTEM ANALYST) Anatomical Region Laterality Modality Lower Extremity Other Impressions 11/17/2017 10:47 AM SECURITY SYSTEM ANALYST IMPRESSION: No acute femoral fracture identified. Dictated by Tg Hidalgo MD (radiology therapist). This report was approved ??by Tg Hidalgo M.D. ?? on 11/17/2017 9:[address] FABIOLA Reeves MD have personally reviewed and interpreted this examination/study. This report was electronically signed by Dr. FABIOLA WHITEHEAD MD ??on 11/17/2017 10:47 AM . Narrative 11/17/2017 10:47 AM SECURITY SYSTEM ANALYST EXAMINATION: XR FEMUR LEFT 2+ VW HISTORY: pain, fall COMPARISON: No prior study is available for comparison. FINDINGS: The femur is intact without acute fracture. The joint spaces are preserved. Bone density and texture are normal. Procedure Note Fabiola Whitehead MD - 12/19/2017 EXAMINATION: XR FEMUR LEFT 2+ VW HISTORY: pain, fall COMPARISON: No prior study is available for comparison. FINDINGS: The femur is intact without acute fracture. The joint spaces arepreserved. Bone density and texture are normal. IMPRESSION IMPRESSION: No acute femoral fracture identified. Dictated by Tg Hidalgo MD (radiology therapist). This report was approved by Tg Hidalgo M.D. on 11/17/2017 9:[address] FABIOLA Reeves MD have personally reviewed and interpreted thisexamination/study. This report was electronically signed by Dr. FABIOLA WHITEHEAD MD on 11/17/201710:47 AM . Lyssa Eckert MD DIAGNOSTIC IMAGING O RDERABLES * XR KNEE LEFT 3VW (11/17/2017 1:04 AM SECURITY SYSTEM ANALYST) Anatomical Region Laterality Modality Lower Extremity Other Impressions 11/17/2017 10:47 AM SECURITY SYSTEM ANALYST IMPRESSION: No acute fracture or dislocation identified. Joint effusion. Dictated by Tg Hidalgo MD (radiology therapist). This report was approved ??by Tg Hidalgo M.D. ?? on 11/17/2017 9:[address] FABIOLA Reeves MD have personally reviewed and interpreted this examination/study. This report was electronically signed by Dr. FABIOLA WHITEHEAD MD ??on 11/17/2017 10:47 AM . Narrative 11/17/2017 10:47 AM SECURITY SYSTEM ANALYST EXAMINATION: PX KNEE LEFT 3 VW HISTORY: pain COMPARISON: No prior study is available for comparison. FINDINGS: The osseous structures are intact and well aligned without acute fracture or dislocation. Medial joint space narrowing is present. A joint effusion is seen. Bone density and texture are normal. Procedure Note Fabiola Whitehead MD - 12/19/2017 EXAMINATION: PX KNEE LEFT 3 VW HISTORY: pain COMPARISON: No prior study is available for comparison. FINDINGS: The osseous structures are intact and well aligned without acute fractureor dislocation. Medial joint space narrowing is present. A joint effusionis seen. Bone density and texture are normal. IMPRESSION IMPRESSION: No acute fracture or dislocation identified. Joint effusion. Dictated by Tg Hidalgo MD (radiology therapist). This report was approved by Tg Hidalgo M.D. on 11/17/2017 9:[address] FABIOLA Reeves MD have personally reviewed and interpreted thisexamination/study. This report was electronically signed by Dr. FABIOLA WHITEHEAD MD on 11/17/201710:47 AM . Lyssa Eckert MD DIAGNOSTIC IMAGING O RDERABLES * CULTURE CSF+GRAM STAIN (11/17/2017 12:22 AM SECURITY SYSTEM ANALYST) Only the most recent of25 resultswithin the time period is included. Culture CSF No Growth [facility] Gram Stain No Organism Seen [facility] Spinal fluid (substance) CEREBROSPINAL FLUID SPECIMEN / Unknown 11/17/2017 12:22 AM SECURITY SYSTEM ANALYST 11/17/2017 12:36 AM SECURITY SYSTEM ANALYST Narrative [facility] - 11/24/2017 3:40 AM SECURITY SYSTEM ANALYST Specimen Type->Cerebrospinal Fluid Resulting Lab: ?? [facility] [address] [place] [address] PH: [phone] Lyssa Eckert MD LAB - MICROBIOLOGY O RDERABLES Performing Organization Address [facility]/[place] [address], [facility] [phone] * (ABNORMAL) CELL COUNT CSF (11/17/2017 12:21 AM SECURITY SYSTEM ANALYST) Only the most recent of25 resultswithin the time period is included. Color Fluid Colorless Colorless, Straw [facility] Clarity Fluid Clear Clear [facility] Volume Fluid 2.0 mL [facility] WBC Fluid 1 0 - 5 /uL [facility] RBC Fluid 1(H) 0 /uL [facility] Xanthochromia Fluid Negative Negative [facility] Differential Manual Differential to follow. [facility] Spinal fluid (substance) CEREBROSPINAL FLUID SPECIMEN / Unknown 11/17/2017 12:21 AM SECURITY SYSTEM ANALYST 11/17/2017 12:36 AM SECURITY SYSTEM ANALYST Lyssa Eckert MD LAB - BODY FLUID ORD ERABLES Performing Organization Address [facility] [place] [address], [facility] [phone] * DIFFERENTIAL MANUAL FLUID (11/17/2017 12:21 AM SECURITY SYSTEM ANALYST) Only the most recent of25 resultswithin the time period is included. Pathologist [facility] Lymphocytes % Fluid 40 - 80 % [facility] Comment:No cells seen Spinal fluid (substance) CEREBROSPINAL FLUID SPECIMEN / Unknown 11/17/2017 12:21 AM SECURITY SYSTEM ANALYST 11/17/2017 12:36 AM SECURITY SYSTEM ANALYST Narrative [facility] - 11/17/2017 2:51 AM SECURITY SYSTEM ANALYST No cells seen Lyssa Eckert MD LAB - BODY FLUID ORD ERABLES Performing Organization Address [facility] [place] [address], [facility] [phone] * (ABNORMAL) PROTEIN CSF (11/17/2017 12:21 AM SECURITY SYSTEM ANALYST) Only the most recent of25 resultswithin the time period is included. Protein CSF 10(L) 15 - 45 mg/dL [facility] Spinal fluid (substance) CEREBROSPINAL FLUID SPECIMEN / Unknown 11/17/2017 12:21 AM SECURITY SYSTEM ANALYST 11/17/2017 12:35 AM SECURITY SYSTEM ANALYST Lyssa Eckert MD LAB - BODY FLUID ORD ERABLES Performing Organization Address [facility] de Phone Number [address] [phone] * GLUCOSE CSF (11/17/2017 12:21 AM SECURITY SYSTEM ANALYST) Only the most recent of25 resultswithin the time period is included. Glucose CSF 66 40 - 70 mg/dL [facility] Spinal fluid (substance) CEREBROSPINAL FLUID SPECIMEN / Unknown 11/17/2017 12:21 AM SECURITY SYSTEM ANALYST 11/17/2017 12:35 AM SECURITY SYSTEM ANALYST Lyssa Eckert MD LAB - BODY FLUID ORD ERABLES Performing Organization Address [facility] de Phone Number [address] [phone] * CELL COUNT W DIFF CSF (11/17/2017 12:21 AM SECURITY SYSTEM ANALYST) Only the most recent of25 resultswithin the time period is included. Spinal fluid (substance) CEREBROSPINAL FLUID SPECIMEN / Unknown 11/17/2017 12:21 AM SECURITY SYSTEM ANALYST Narrative [facility] - 11/17/2017 2:51 AM SECURITY SYSTEM ANALYST The following orders were created for panel order Spinal fluid cell count. Procedure ? Abnormality ? Status ? --------- ? ------ ? SPINAL FLUID CELL COUNT[[id number]] ? Abnormal ?Final result ? MANUAL DIFFERENTIAL FLUID[[id number]] ? Final result ? Please view results for these tests on the individual orders. Lyssa Eckert MD LAB - BODY FLUID ORD ERAANNELISE Performing Organization Address [facility] Co de Phone Number [facility] [address] * TROPONIN I (11/17/2017 12:11 AM SECURITY SYSTEM ANALYST) Only the most recent of11 resultswithin the time period is included. Troponin I 0.029 <0.032 ng/mL [facility] Blood specimen (specimen) BLOOD SPECIMEN / Unknown 11/17/2017 12:11 AM SECURITY SYSTEM ANALYST 11/17/2017 12:15 AM SECURITY SYSTEM ANALYST Lyssa Eckert MD LAB - CHEMISTRY RAMON MOHAN Performing Organization Address [facility] de Phone Number [address] [phone] * CK + CKMB PANEL (11/17/2017 12:11 AM SECURITY SYSTEM ANALYST) Only the most recent of7 resultswithin the time period is included. CK Total 62 30 - 200 Units/L [facility] CK-MB 1.2 0.0 - 6.6 ng/mL [facility] Blood specimen (specimen) BLOOD SPECIMEN / Unknown 11/17/2017 12:11 AM SECURITY SYSTEM ANALYST 11/17/2017 12:15 AM SECURITY SYSTEM ANALYST Lyssa Eckert MD LAB - CHEMISTRY RAMON MOHAN Performing Organization Address [facility] de Phone Number [facility] [address] [phone] * EKG 12-LEAD (11/16/2017 12:00 AM SECURITY SYSTEM ANALYST) Only the most recent of10 resultswithin the time period is included. EKG [facility] Comment: Exam Date/Time: ?? Nov 16 2017 23:56:46 Test Reason : Blood Pressure : / mmHG Vent. Rate : 079 BPM ? Atrial Rate : 234 BPM ?? P-R Int : 000 ms ?QRS Dur : 132 ms ?QT Int : 422 ms ? P-R-T Axes : -57 001 010 degrees ?? QTc Int : 483 ms Atrial flutter with variable A-V block Right bundle branch block Abnormal ECG When compared with ECG of 31-MAR-2017 19:27, Minimal criteria for Inferior infarct are no longer Present , axis has changed Confirmed by MD Germain, Kendal ([id number]), newspaper photo editor Yaw Montoya ([id number]) on 11/21/2017 2:14:05 PM Referred By: REFERRING NO ? Confirmed By:Kendal Groves MD 11/16/2017 Lyssa Eckert MD ECG ORDERABLES Performing Organization Address City/[facility]/ZIP Co de Phone Number [facility] * PHOSPHORUS BLOOD (04/09/2017 4:06 AM CDT) Only the most recent of45 resultswithin the time period is included. Pathologist [facility] Phosphorus 3.1 2.3 - 4.7 mg/dL [facility] Blood specimen (specimen) BLOOD SPECIMEN / Unknown 04/09/2017 4:06 AM CDT 04/09/2017 4:18 AM CDT Chris Beauchamp MD LAB - CHEMISTRY RAMON MOHAN Performing Organization Address [facility]/[place] [address], [facility] [phone] * GLUCOSE ACCUCHECK (04/08/2017 4:14 PM CDT) Only the most recent of14 resultswithin the time period is included. Glucose, Fingerstick 110 70-115mg/d L mg/dL [facility] JORGE LUIS MCC[facility]END[facility]) Comment:Telephone Services Sales Representative: JJ MANCILLACHANELLMeredith 04/08/2017 4:14 PM CDT Chris Beauchamp MD LAB - CHEMISTRY ORDE [facility]) * (ABNORMAL) DIFFERENTIAL MANUAL (04/08/2017 3:34 AM CDT) Only the most recent of26 resultswithin the time period is included. WBC (corrected for NRBC) 11.5 10? 3 /uL [facility] Total Cell Count 100 [facility] Neutrophils Absolute Manual 9.89(H) 1.60 - 7.00 10? 3 /uL [facility] Comment:(BANDS+SEGS) x WBC = NEUT # (ANC) Lymphocyte Absolute Manual 1.15 0.80 - 2.90 10? 3 /uL [facility] Monocytes Absolute Manual 0.23 0.14 - 0.66 10? 3 /uL [facility] Eosinophils Absolute Manual 0.23(H) 0.00 - 0.22 10? 3 /uL [facility] Band % Manual 6 0 - 10 % [facility] Neutrophil % Manual 80(H) 30 - 60 % [facility] Lymphocyte % Manual 10(L) 20 - 45 % [facility] Monocytes % Manual 2 2 - 10 % [facility] Eosinophils % Manual 2 1 - 6 % [facility] Platelet Estimate Adequate Adequate [facility] Anisocytosis Few(A) None [facility] Poikilocytes Few(A) None [facility] Macrocytosis Rare(A) None [facility] Polychromasia Rare(A) None [facility] Blood specimen (specimen) BLOOD SPECIMEN / Unknown 04/08/2017 3:34 AM CDT 04/08/2017 3:55 AM CDT Chris Beauchamp MD LAB - HEMATOLOGY ORD ERABLES [address] [phone] * XR THORACIC SPINE 1VW (04/05/2017 9:31 PM CDT) Anatomical Region Laterality Modality Spine Other Impressions 04/06/2017 3:37 PM CDT IMPRESSION: Exam limited by lack of lateral view due to patient positioning Upper thoracic levoscoliosis. Dictated by Santi Tompkins DO (radiology therapist). Dr. FABIOLA Reeves M.D. have personally reviewed and interpreted this examination/study. This report was electronically signed by FABIOLA MOCTEZUMA M.D. ??on 04/06/2017 3:37 PM . Narrative 04/06/2017 3:37 PM CDT EXAMINATION: PX SPINE THORACIC 1 VIEW HISTORY: Torticollis COMPARISON: No prior study is available for comparison. FINDINGS: The examination is limited by AP only positioning. Upper thoracic levoscoliosis is noted. Evaluation for compression deformity is limited by lack of a lateral view. The intervertebral disc spaces are maintained. Previously administered contrast opacifies the transverse colon. Surgical clips are noted in the upper abdomen. Procedure Note Fabiola Moctezuma MD - 12/14/2017 EXAMINATION: PX SPINE THORACIC 1 VIEW HISTORY: Torticollis COMPARISON: No prior study is available for comparison. FINDINGS: The examination is limited by AP only positioning. Upper thoraciclevoscoliosis is noted. Evaluation for compression deformity is limited bylack of a lateral view. The intervertebral disc spaces are maintained.Previously administered contrast opacifies the transverse colon. Surgical clips are noted in the upper abdomen. IMPRESSION IMPRESSION: Exam limited by lack of lateral view due to patient positioning Upper thoracic levoscoliosis. Dictated by Santi Tompkins DO (radiology therapist). Dr. FABIOLA Reeves M.D. have personally reviewed and interpreted thisexamination/study. This report was electronically signed by FABIOLA MOCTEZUMA M.D. on04/06/2017 3:37 PM . Chris Beauchamp MD DIAGNOSTIC IMAGING O RDERABLES * FL SWALLOWING FUNCTION STUDY (04/03/2017 2:30 PM CDT) Anatomical Region Laterality Modality Chest Other Impressions 04/03/2017 3:54 PM CDT IMPRESSION: Fluoroscopic assistance was provided for a procedure performed by Speech Therapy. ??Please see the separate report by Speech Therapy for further details. Fluoroscopy Time: 260 seconds. Dictated by Wilfredo Stewart MD (Resident). This report was approved ??by Wilfredo Stewart Dr ?? on 04/03/2017 3:[address] GLO Reeves M.D. have personally reviewed and interpreted this examination/study. This report was electronically signed by GLO OSEGUERA M.D. ??on 04/03/2017 3:54 PM . Narrative 04/03/2017 3:54 PM CDT EXAMINATION: FL BARIUM SWALLOW MOD W SPEECH HISTORY: evaluate dysphagia COMPARISON: No prior study is available for comparison. FINDINGS/ Procedure Note Glo Oseguera MD - 12/14/2017 EXAMINATION: FL BARIUM SWALLOW MOD W SPEECH HISTORY: evaluate dysphagia COMPARISON: No prior study is available for comparison. FINDINGS/ IMPRESSION IMPRESSION: Fluoroscopic assistance was provided for a procedure performed by SpeechTherapy. Please see the separate report by Speech Therapy for furtherdetails. Fluoroscopy Time: 260 seconds. Dictated by Wilfredo Stewart MD (Resident). This report was approved by Wilfredo Stewart Dr on 04/03/2017 3:[address] GLO Reeves M.D. have personally reviewed and interpreted thisexamination/study. This report was electronically signed by GLO OSEGUERA M.D. on 04/03/20173:54 PM . Chris Beauchamp MD FLUOROSCOPY ORDERABL ES * (ABNORMAL) ALBUMIN BLOOD (04/03/2017 8:01 AM CDT) Only the most recent of2 resultswithin the time period is included. Albumin 1.8(L) 3.4 - 5.0 g/dL [facility] Blood specimen (specimen) BLOOD SPECIMEN / Unknown 04/03/2017 8:01 AM CDT 04/03/2017 8:16 AM CDT Chris Beauchamp MD LAB - CHEMISTRY RAMON MOHAN [address] [phone] * (ABNORMAL) T3 TOTAL (04/01/2017 8:35 PM CDT) T3 Total 36(L) 58 - 159 ng/dL [facility] Blood specimen (specimen) BLOOD SPECIMEN / Unknown 04/01/2017 8:35 PM CDT 04/01/2017 9:06 PM CDT Chris Beauchamp MD LAB - CHEMISTRY RAMON MOHAN Performing Organization Address [facility]/ZIP Co de Phone Number [address] [phone] * (ABNORMAL) T4 TOTAL (04/01/2017 8:03 AM CDT) Pathologist [facility] T4 Total 4.8(L) 4.9 - 11.7 mcg/dL [facility] Blood specimen (specimen) BLOOD SPECIMEN / Unknown 04/01/2017 8:03 AM CDT 04/01/2017 8:08 AM CDT Chris Beauchamp MD LAB - CHEMISTRY RAMON MOHAN Performing Organization Address [facility] Co de Phone Number [address] [phone] * (ABNORMAL) BLOOD GASES ART (03/31/2017 12:47 PM CDT) Only the most recent of7 resultswithin the time period is included. pH Arterial 7.42 7.35 - 7.45 [facility] pCO2 Arterial 42 35 - 45 mmHg [facility] pO2 Arterial 145(H) 71 - 95 mmHg [facility] HCO3 Arterial 26.4(H) 22.0 - 26.0 mmol/L [facility] TCO2 Arterial 27.7 25.0 - 29.0 mmol/L [facility] Base Excess Arterial 1.7 -2.0 - 2.0 mmol/L [facility] Hemoglobin Arterial 11.0(L) 13.5 - 17.5 g/dL [facility] Oxyhemoglobin Arterial 97.4 95.0 - 100.0 % [facility] Carboxyhemoglobin 0.5 0.0 - 3.0 % [facility] Methemoglobin 0.3 0.0 - 2.0 % [facility] FI O2 Arterial 28.0 % [facility] Blood specimen (specimen) BLOOD SPECIMEN / Unknown 03/31/2017 12:47 PM CDT 03/31/2017 12:52 PM CDT Chris Beauchamp MD LAB - BLOOD GASES OR DERABLES [address] [phone] * XR CHEST 1VW PORTABLE (03/31/2017 12:36 PM CDT) Only the most recent of10 resultswithin the time period is included. Anatomical Region Laterality Modality Chest Other Impressions 04/01/2017 9:42 AM CDT Impression: The previously seen feeding tube has been removed. A right-sided ventriculoperitoneal shunt catheter is partially imaged. The lung volumes remain small. Opacities in the left lower hemithorax have increased since the prior study and may represent a small to moderate left pleural effusion and/or atelectasis/airspace disease. Right basilar atelectasis and/or airspace disease grossly unchanged. No pneumothorax is identified. There is crescentic lucency under the right hemidiaphragm, consistent with pneumoperitoneum, and is likely related to the recent history of gastrostomy tube placement. The cardiomediastinal silhouette is unchanged. Dictated by Kendal Carrington M.D. (Fire Chief) This report was approved ??by Kendal Carrington M.D. ?? on 04/01/2017 9:18 AM . I, Dr. Dr. FABIOLA WHITEHEAD MD have personally reviewed and interpreted this examination/study. This report was electronically signed by Dr. FABIOLA WHITEHEAD MD ??on 04/01/2017 9:42 AM . Narrative 04/01/2017 9:42 AM CDT EXAMINATION: PX CHEST 1 VW DATE: 03/31/2017 12:36 PM HISTORY: Shortness of breath COMPARISON: Comparison is made with a study from 03/25/2017. Findings/ Procedure Note Fabiola Whitehead MD - 12/14/2017 EXAMINATION: PX CHEST 1 VW DATE: 03/31/2017 12:36 PM HISTORY: Shortness of breath COMPARISON: Comparison is made with a study from 03/25/2017. Findings/ IMPRESSION Impression: The previously seen feeding tube has been removed. A right- sidedventriculoperitoneal shunt catheter is partially imaged. The lung volumes remain small. Opacities in the left lower hemithorax haveincreased since the prior study and may represent a small to moderate leftpleural effusion and/or atelectasis/airspace disease. Right basilaratelectasis and/or airspace disease grossly unchanged. No pneumothorax is identified. There is crescenticlucency under the right hemidiaphragm, consistent with pneumoperitoneum,and is likely related to the recent history of gastrostomy tube placement.The cardiomediastinal silhouette is unchanged. Dictated by Kendal Carrington M.D. (Fire Chief) This report was approved by Kendal Carrington M.D. on 04/01/2017 9:18 AM . I, . Dr. FABIOLA WHITEHEAD MD have personally reviewed and interpreted thisexamination/study. This report was electronically signed by Dr. FABIOLA WHITEHEAD MD on04/01/2017 9:42 AM . Chris Beauchamp MD DIAGNOSTIC IMAGING O RDERABLES * VANCOMYCIN LEVEL TROUGH (03/31/2017 12:50 AM CDT) Only the most recent of8 resultswithin the time period is included. Vancomycin Trough 17.6 10.0 - 20.0 mcg/mL [facility] Blood specimen (specimen) BLOOD SPECIMEN / Unknown 03/31/2017 12:50 AM CDT 03/31/2017 12:55 AM CDT Chris Beauchamp MD LAB - CHEMISTRY RAMON Carrion Organization Address City/State/ZIP Co de Phone Number [facility] [address] [phone] * TYPE + SCREEN PANEL (03/30/2017 12:26 AM CDT) Only the most recent of2 resultswithin the time period is included. Typem O POS [facility] Antibody Screen NEG [facility] Blood specimen (specimen) 03/30/2017 12:26 AM CDT 03/30/2017 12:35 AM CDT Chris Beauchamp MD LAB - BLOOD BANK ORD ERAANNELISE [facility] [address] [place] [address] * VANCOMYCIN LEVEL RANDOM (03/29/2017 8:11 AM CDT) Vancomycin Random 20.6 Therapeutic Ranges not established for random specimens mcg/mL [facility] Blood specimen (specimen) BLOOD SPECIMEN / Unknown 03/29/2017 8:11 AM CDT 03/29/2017 8:17 AM CDT Chris Beauchamp MD LAB - CHEMISTRY RAMON MOHAN Performing Organization Address City/[facility]/ZIP Co de Phone Number [address] [phone] * (ABNORMAL) OSMOLALITY BLOOD (03/27/2017 11:53 PM CDT) Only the most recent of3 resultswithin the time period is included. Osmolality 337(H) 270 - 300 mOsm/kg [facility] Blood specimen (specimen) BLOOD SPECIMEN / Unknown 03/27/2017 11:53 PM CDT 03/27/2017 11:53 PM CDT Chris Beauchamp MD LAB - CHEMISTRY RAMON MOHAN [address] [phone] * SODIUM URINE RANDOM (03/27/2017 10:56 PM CDT) Sodium Urine 71 Not Established mmol/L [facility] Urine specimen (specimen) URINE / Unknown 03/27/2017 10:56 PM CDT 03/27/2017 10:56 PM CDT Chris Beauchamp MD LAB - URINE CHEMISTR Y ORDERABLES Performing Organization Address [facility]/ZIP Co de Phone Number [address] [phone] * OSMOLALITY URINE (03/27/2017 10:56 PM CDT) Only the most recent of2 resultswithin the time period is included. Osmolality Urine 504 500 - 800 mOsm/kg [facility] Urine specimen (specimen) URINE / Unknown 03/27/2017 10:56 PM CDT 03/27/2017 10:56 PM CDT Chris Beauchamp MD LAB - URINE CHEMISTR Y ORDERABLES Performing Organization Address [facility] Co de Phone Number [address] [phone] * XR ABDOMEN KUB PORTABLE (03/27/2017 2:23 AM CDT) Only the most recent of10 resultswithin the time period is included. Anatomical Region Laterality Modality Other Impressions 03/27/2017 12:38 PM CDT Impression: A feeding tube has been retracted with the tip in the third portion of the duodenum. Reported dictated by Giulia Dyson MD (vice president of software engineering). I, Dr. GLO OSEGUERA M.D. have personally reviewed and interpreted this examination/study. This report was electronically signed by GLO OSEGUERA M.D. ??on 03/27/2017 12:38 PM . Narrative 03/27/2017 12:38 PM CDT Portable abdomen, one view History: Tube placement Procedure Note Glo Oseguera MD - 12/14/2017 Portable abdomen, one view History: Tube placement IMPRESSION Impression: A feeding tube has been retracted with the tip in the thirdportion of the duodenum. Reported dictated by Giulia Dyson MD (vice president of software engineering). I, Dr. GLO OSEGUERA M.D. have personally reviewed and interpreted thisexamination/study. This report was electronically signed by GLO OSEGUERA M.D. on 03/27/201712:38 PM . Chris Beauchamp MD DIAGNOSTIC IMAGING O RDERABLES * CULTURE SPUTUM+GRAM STAIN (03/26/2017 6:18 PM CDT) Only the most recent of4 resultswithin the time period is included. Gram Stain Many Epithelial Cells [facility] Gram Stain Moderate Polymorphonuclear Cells [facility] Gram Stain Few Gram positive cocci in pairs [facility] Gram Stain Many Gram Positive bacilli [facility] Sputum specimen (specimen) SPUTUM / Unknown 03/26/2017 6:18 PM CDT 03/26/2017 6:23 PM CDT Narrative [facility] - 03/26/2017 9:05 PM CDT Reorder-last specimen not accepted Specimen Type->Sputum Gram Stains are routinely screened for the presence of Polymorphonuclear Cells. Testing has not been performed. Specimen is unacceptable for culture due to oropharyngeal contamination. The specimen will be held for three days before being discarded. Please repeat if clinically indicated. Cancellation called to and read back by Gita DON on 03/26/17 at 21:04. Chris Beauchamp MD LAB - MICROBIOLOGY O RDERABLES [address] [phone] * IR PERC G TUBE PLACEMENT (03/26/2017 9:11 AM CDT) Anatomical Region Laterality Modality Abdomen Other Impressions 03/28/2017 4:18 PM CDT IMPRESSION: Air insufflation of the stomach through the nasojejunal tube revealed that stomach is not accessible for percutaneous gastrostomy catheter placement. No percutaneous gastrostomy catheter was placed. This report was electronically signed by DENNY TALAMANTES M.D. ??on 03/28/2017 4:18 PM . Narrative 03/28/2017 4:18 PM CDT History: 61-year-old patient with dysphagia. Patient had gastric sleeve surgery done. Percutaneous gastrostomy catheter placement requested. INDICATION: Dysphagia. Procedure performed: Limited fluoroscopy of upper abdomen after inflating the stomach with air. Interventional urologist: Dr. Talamantes. Consent: Written and oral consent was obtained from the patient after explaining the procedure and its respective seen detail. Medications and monitoring: None. Monitoring of vital signs was provided by interventional radiology nurses. Procedure time: 5 minutes. Sedation time: None. Fluoroscopy time: Less than 1 minutes. FINDINGS: Patient was placed supine on the fluoroscopy table. Preprocedure fluoroscopy was done. It revealed presence of multiple air-filled bowel loops in the abdomen. A nasojejunal tube was seen across the mid and left upper abdomen. The nasojejunal tube was pulled back in the stomach. The stomach was insufflated with air. However, multiple small bowel loops as well as transverse colon george across the stomach. No safe access was found. No percutaneous gastrostomy catheter was placed. Patient left the procedure room and a preprocedure baseline condition. Procedure Note Denny Talamantes MD - 12/14/2017 History: 61-year-old patient with dysphagia. Patient had gastric sleevesurgery done. Percutaneous gastrostomy catheter placement requested. INDICATION: Dysphagia. Procedure performed: Limited fluoroscopy of upper abdomen after inflatingthe stomach with air. Interventional urologist: Dr. Talamantes. Consent: Written and oral consent was obtained from the patient afterexplaining the procedure and its respective seen detail. Medications and monitoring: None. Monitoring of vital signs was providedby interventional radiology nurses. Procedure time: 5 minutes. Sedation time: None. Fluoroscopy time: Less than 1 minutes. FINDINGS: Patient was placed supine on the fluoroscopy table. Preprocedurefluoroscopy was done. It revealed presence of multiple air-filled bowelloops in the abdomen. A nasojejunal tube was seen across the mid and leftupper abdomen. The nasojejunal tube was pulled back in the stomach. The stomach was insufflated with air. However,multiple small bowel loops as well as transverse colon george across thestomach. No safe access was found. No percutaneous gastrostomy catheterwas placed. Patient left the procedure room and a preprocedure baseline condition. IMPRESSION IMPRESSION: Air insufflation of the stomach through the nasojejunal tube revealed thatstomach is not accessible for percutaneous gastrostomy catheter placement.No percutaneous gastrostomy catheter was placed. This report was electronically signed by DENNY TALAMANTES M.D. on03/28/2017 4:18 PM . Chris Beauchamp MD IR ORDERABLES * FOLATE (03/24/2017 4:35 AM CDT) Folate 12.4 7.0 - 31.4 ng/mL [facility] Blood specimen (specimen) BLOOD SPECIMEN / Unknown 03/24/2017 4:35 AM CDT 03/24/2017 4:51 AM CDT Chris Beauchamp MD LAB - CHEMISTRY RAMON MOHAN [facility] Organization Address City/State/ZIP Co de Phone Number [address] [phone] * PATHOLOGY TISSUE (03/23/2017 6:12 PM CDT) Surgical Pathology Tissue ACCESSION No: [id number] CLINICAL HISTORY: Malnutrition; distal esophageal nodule. FINAL DIAGNOSIS: STOMACH, BIOPSY (A): - ??REACTIVE/CHEMICAL GASTROPATHY - ??NO ACTIVE INFLAMMATION OR H. PYLORI ORGANISMS (ROUTINE H&E EXAMINATION) DISTAL ESOPHAGUS, NODULE, BIOPSY (B): - ??SQUAMOCOLUMNAR MUCOSA WITH MILD CHRONIC INFLAMMATION - ??MILD FOVEOLAR HYPERPLASIA - ??NO INTESTINAL METAPLASIA GROSS DESCRIPTION: The specimen is received in formalin in two containers, each labeled with Fabio Nesbitt. Specimen A is additionally labeled gastric biopsies , and consists of two mcguire tissue fragments, each measuring 0.3 cm in greatest dimension. ??The tissue is submitted entirely in A1. Specimen B is additionally labeled distal esophageal nodule , and consists of three mcguire-white tissue fragments measuring from 0.2 to 0.3 cm, in greatest dimension. ??The tissue is submitted entirely in B1. NW/met MICROSCOPIC DESCRIPTION: Microscopic examination substantiates the final diagnosis. The performance characteristics of all immunohistochemical and indirect immunofluorescence stains (if any) cited in this report were determined by the [facility]opathology Laboratory of [facility].?? Some of these tests were developed by our own laboratory and have not been cleared or approved by the US Food and Drug Administration.?The FDA does not require this test to go through premarket FDA review.?These tests are used for clinical purposes. They should not be regarded as investigational or for research.?? This laboratory is certified under the Clinical Laboratory Improvement Amendments (CLIA) as qualified to perform high complexity clinical laboratory testing. This case has been personally reviewed and interpreted by the attending (teaching) pathologist. Final Diagnosis performed by Park Pat MD. Electronically signed 03/27/2017 [facility] Other (qualifier value) 03/23/2017 6:12 PM CDT 03/23/2017 6:16 PM CDT Narrative [facility] - 03/27/2017 7:33 PM CDT PROBLEM LIST: Patient Active Problem List: ?? Nontraumatic acute hemorrhage of basal ganglia ?? Acquired obstructive hydrocephalus ?? Essential hypertension ?? Feeding difficulties ?? Acute encephalopathy ?? MOLD STRIPPER (ventriculoperitoneal) shunt status ?? Dysphagia, unspecified type PRE-OP DIAGNOSIS: ??Malnutrition OPERATIVE PROCEDURE / FINDINGS: ??Procedure(s) with comments: EGD W/ NJ TUBE PLACEMENT - . 110 (L) nare EGD W/BIOPSY - Path A: Gastric biopsies Path B: Distal esophageal nodule biopsies Gastric sleeve history. POST-OP DIAGNOSIS: * No post-op diagnosis entered * Specimen A->Gastric random gastric biopsies Specimen B->Esophagus GEJ nodule Chris Beauchamp MD LAB - PATHOLOGY/CYTO LOGY ORDERABLES [facility] * CT GUIDED STEREO LOCALIZATION (03/19/2017 10:46 AM CDT) Only the most recent of2 resultswithin the time period is included. Anatomical Region Laterality Modality Breast Other Impressions 03/19/2017 11:20 AM CDT IMPRESSION: 1. Stereotactic CT of the head for preoperative planning. This report was approved ??by Virgen Duke M.D. ?? on 03/19/2017 11:11 AM . I, Dr. HARSHIL VASQUES M.D. have personally reviewed and interpreted this examination/study. This report was electronically signed by HARSHIL VASQUES M.D. ??on 03/19/2017 11:20 AM . Narrative 03/19/2017 11:20 AM CDT EXAMINATION: Computed tomography (CT) of the head without contrast HISTORY: 61-year-old male with hydrocephalus undergoing preoperative evaluation for ventricular shunt placement. TECHNIQUE: CT of the head was performed without contrast according to stereotactic protocol. FINDINGS: Comparison was made to the prior CT head dated 03/17/2017. Evolving intraventricular blood products are reidentified in the body of the right lateral ventricle. Trace hyperattenuating blood products layer in the occipital horn of the left lateral ventricle. A thin hypoattenuating subdural collection along the right frontal convexity is unchanged. Moderate lateral ventriculomegaly is unchanged. The third and fourth ventricles are nondilated. Effacement of the right aspect of the suprasellar cistern is unchanged and represents right uncal herniation. There is leftward midline shift measuring up to 7 mm, unchanged. Areas of hypoattenuation in the right basal ganglia and left frontal lobe represent evolving injury and appear similar to the prior study. Atherosclerotic calcification is seen in the left carotid siphon. There are bilateral mastoid effusions and a right middle ear effusion. There is minimal diffuse paranasal sinus disease. The visualized portions of the orbits appear normal. Postoperative changes of left frontal craniotomy are redemonstrated. Procedure Note Harshil Vasques MD - 12/14/2017 EXAMINATION: Computed tomography (CT) of the head without contrast HISTORY: 61-year-old male with hydrocephalus undergoing preoperativeevaluation for ventricular shunt placement. TECHNIQUE: CT of the head was performed without contrast according tostereotactic protocol. FINDINGS: Comparison was made to the prior CT head dated 03/17/2017. Evolving intraventricular blood products are reidentified in the body ofthe right lateral ventricle. Trace hyperattenuating blood products layerin the occipital horn of the left lateral ventricle. A thinhypoattenuating subdural collection along the right frontal convexity is unchanged. Moderate lateral ventriculomegaly isunchanged. The third and fourth ventricles are nondilated. Effacement ofthe right aspect of the suprasellar cistern is unchanged and representsright uncal herniation. There is leftward midline shift measuring up to 7 mm, unchanged. Areas ofhypoattenuation in the right basal ganglia and left frontal lobe representevolving injury and appear similar to the prior study. Atheroscleroticcalcification is seen in the left carotid siphon. There are bilateral mastoid effusions and a right middle eareffusion. There is minimal diffuse paranasal sinus disease. The visualizedportions of the orbits appear normal. Postoperative changes of leftfrontal craniotomy are redemonstrated. IMPRESSION IMPRESSION: 1. Stereotactic CT of the head for preoperative planning. This report was approved by Virgen Duke M.D. on 03/19/2017 11:11 AM . I, Dr. HARSHIL VASQUES M.D. have personally reviewed and interpreted thisexamination/study. This report was electronically signed by HARSHIL VASQUES M.D. on 03/19/201711:20 AM . Chris Beauchamp MD CT ORDERABLES * POTASSIUM WHOLE BLD (03/16/2017 1:38 PM CDT) Potassium Whole Blood 5.0 3.5 - 5.5 mmol/L [facility] Blood specimen (specimen) BLOOD SPECIMEN / Unknown 03/16/2017 1:38 PM CDT 03/16/2017 1:41 PM CDT Chris Beauchamp MD LAB - CHEMISTRY RAMON MOHAN [facility] Organization Address City/State/ZIP Co de Phone Number [address] [phone] * CT CHEST ABDOMEN PELVIS W CONT (03/09/2017 5:18 PM CDT) Anatomical Region Laterality Modality Chest, Abdomen, Pelvis Other Impressions 03/10/2017 7:18 AM CDT IMPRESSION: 1. Bilateral lower lobe predominant groundglass opacities and consolidation likely represent aspiration/pneumonia. 2. Small bowel loops in close proximity to the overlying skin of the lower anterior midline abdomen. No obstruction. Report dictated by Yasmani Eng MD (radiology therapist). I, Dr. ELGIN HIGUERA M.D. have personally reviewed and interpreted this examination/study. This report was electronically signed by ELGIN HIGUERA M.D. ??on 03/10/2017 7:18 AM . Narrative 03/10/2017 7:18 AM CDT EXAMINATION: Computed tomography (CT) of the chest, abdomen, and pelvis with contrast HISTORY: Elevated white count, sepsis and concern for infection. TECHNIQUE: CT of the chest, abdomen, and pelvis was performed following the uneventful administration of 150 mL Omnipaque 350 intravenous contrast according to standard protocol. FINDINGS: No prior study is available for comparison. Vascular: The left-sided aortic arch is normal in course and caliber. The pulmonary artery is normal in course and caliber. The abdominal aorta is mildly atherosclerotic, but normal in course and caliber. Chest: There are bilateral lower lobe predominant groundglass opacities and consolidation which likely represent aspiration/pneumonia. There is no pleural effusion or pneumothorax. There is no supraclavicular, axillary, mediastinal or hilar lymphadenopathy. Calcified left hilar and mediastinal lymph nodes as well as a calcified granuloma in the left lower lobe are sequela of prior granulomatous disease. An endotracheal tube terminates in the upper thoracic trachea. A right intralobular central venous catheter has its tip in the superior vena cava. The heart size is normal. There is no pericardial effusion. Abdomen and Pelvis: The liver is normal. No focal intrahepatic lesions are seen. The gallbladder is normal without evidence of gallstones or gallbladder wall thickening. No intrahepatic or extrahepatic biliary ductal dilatation is seen. The pancreas is normal. Punctate calcifications in the spleen are likely sequela of prior granulomatous disease. The right adrenal gland is normal. The left adrenal gland is mildly thickened. The kidneys appear normal without evidence of hydronephrosis or hydroureter. Right renal cysts measure up to 1.5 cm in diameter. An enteric tube terminates in the stomach. The small and large bowel are normal in caliber and without evidence of obstruction or bowel wall thickening. The appendix is not definitely identified, however there are no pericecal inflammatory changes to suggest appendicitis. Loops of small bowel are in close proximity to the overlying skin of the lower anterior midline abdomen. No free intraperitoneal air or free fluid is identified. Subcentimeter mesenteric and retroperitoneal lymph nodes are present. Surgical material is seen along the upper midline anterior abdominal wall. The urinary bladder is normal. The prostate is not enlarged. Bone windows demonstrate no suspicious lytic or blastic lesions. Multilevel degenerative changes are present in the spine including multilevel anterior wedge deformities in the thoracic spine resulting in a mid thoracic kyphosis. Procedure Note Luna Higuera MD - 12/14/2017 EXAMINATION: Computed tomography (CT) of the chest, abdomen, and pelviswith contrast HISTORY: Elevated white count, sepsis and concern for infection. TECHNIQUE: CT of the chest, abdomen, and pelvis was performed followingthe uneventful administration of 150 mL Omnipaque 350 intravenous contrastaccording to standard protocol. FINDINGS: No prior study is available for comparison. Vascular: The left-sided aortic arch is normal in course and caliber. The pulmonaryartery is normal in course and caliber. The abdominal aorta is mildlyatherosclerotic, but normal in course and caliber. Chest: There are bilateral lower lobe predominant groundglass opacities andconsolidation which likely represent aspiration/pneumonia. There is nopleural effusion or pneumothorax. There is no supraclavicular, axillary,mediastinal or hilar lymphadenopathy. Calcified left hilar and mediastinal lymph nodes as well as a calcifiedgranuloma in the left lower lobe are sequela of prior granulomatousdisease. An endotracheal tube terminates in the upper thoracic trachea. Aright intralobular central venous catheter has its tip in the superior vena cava. The heart size is normal. There is no pericardial effusion. Abdomen and Pelvis: The liver is normal. No focal intrahepatic lesions are seen. Thegallbladder is normal without evidence of gallstones or gallbladder wallthickening. No intrahepatic or extrahepatic biliary ductal dilatation isseen. The pancreas is normal. Punctate calcifications in the spleen are likely sequela of prior granulomatousdisease. The right adrenal gland is normal. The left adrenal gland ismildly thickened. The kidneys appear normal without evidence ofhydronephrosis or hydroureter. Right renal cysts measure up to 1.5 cm in diameter. An enteric tube terminates in the stomach. The small and large bowel arenormal in caliber and without evidence of obstruction or bowel wallthickening. The appendix is not definitely identified, however there areno pericecal inflammatory changes to suggest appendicitis. Loops of small bowel are in close proximity to theoverlying skin of the lower anterior midline abdomen. No freeintraperitoneal air or free fluid is identified. Subcentimeter mesentericand retroperitoneal lymph nodes are present. Surgical material is seen along the upper midline anterior abdominalwall. The urinary bladder is normal. The prostate is not enlarged. Bone windows demonstrate no suspicious lytic or blastic lesions.Multilevel degenerative changes are present in the spine includingmultilevel anterior wedge deformities in the thoracic spine resulting in amid thoracic kyphosis. IMPRESSION IMPRESSION: 1. Bilateral lower lobe predominant groundglass opacities andconsolidation likely represent aspiration/pneumonia. 2. Small bowel loops in close proximity to the overlying skin of the loweranterior midline abdomen. No obstruction. Report dictated by aYsmani Eng MD (radiology therapist). I, Dr. ELGIN HIGUERA M.D. have personally reviewed and interpreted thisexamination/study. This report was electronically signed by ELGIN HIGUERA M.D. on03/10/2017 7:18 AM . Chris Beauchamp MD CT ORDERABLES * ECHO W DOPPLER AND COLOR FLOW (03/09/2017 12:00 AM CDT) Anatomical Region Laterality Modality Other 03/09/2017 Chris Beauchamp MD ECHOCARDIOGRAPHY RAD IANT * (ABNORMAL) SODIUM BLOOD (03/05/2017 8:20 PM CDT) [facility] Sodium 162(HH) 136 - 145 mmol/L [facility] Comment:Critical value(s) gonzalez ve been verified and called to and read back by Rolando Gross RN at 2052 on 03/05/2017. Blood specimen (specimen) BLOOD SPECIMEN / Unknown 03/05/2017 8:20 PM CDT 03/05/2017 8:28 PM CDT Chris Beauchamp MD LAB - CHEMISTRY RAMON MOHAN [facility] [address] [place] [address] * (ABNORMAL) HEPATIC FUNCTION PANEL (02/27/2017 11:24 PM CDT) Protein Total 5.4(L) 6.0 - 8.3 g/dL [facility] Albumin 2.4(L) 3.4 - 5.0 g/dL [facility] Bilirubin Total 1.3(H) 0.2 - 1.2 mg/dL [facility] Bilirubin Conjugated 0.7(H) 0.0 - 0.5 mg/dL [facility] Bilirubin Unconjugated 0.6 Unconjugated Bilirubin is a calculated value: Reference ranges have not been established. mg/dL [facility] Alkaline Phosphatase 99 40 - 150 Units/L [facility] ALT 21 0 - 55 Units/L [facility] AST 21 5 - 34 Units/L [facility] Albumin/Globulin Ratio 0.8(L) 1.1 - 2.3 [facility] Blood specimen (specimen) BLOOD SPECIMEN / Unknown 02/27/2017 11:24 PM CDT 02/27/2017 11:39 PM CDT Chris Beauchamp MD [facility] Organization Address City/State/[facility] Co de Phone Number [address] [phone] * (ABNORMAL) BLOOD GASES ART COMPLETE [facility] OR (02/25/2017 1:58 PM CDT) pH Arterial 7.40 7.35 - 7.45 [facility] pCO2 Arterial 38 35 - 45 mmHg [facility] pO2 Arterial 93 71 - 95 mmHg [facility] HCO3 Arterial 23.0 22.0 - 26.0 mmol/L [facility] TCO2 Arterial 24.1(L) 25.0 - 29.0 mmol/L [facility] Base Excess Arterial -1.5 -2.0 - 2.0 mmol/L [facility] Hemoglobin Arterial 14.2 13.5 - 17.5 g/dL [facility] Oxyhemoglobin Arterial 96.6 95.0 - 100.0 % [facility] Carboxyhemoglobin 0.0 0.0 - 3.0 % [facility] Methemoglobin 0.2 0.0 - 2.0 % [facility] FI O2 Arterial 60.0 % [facility] Ionized Calcium Whole Blood 1.21 mmol/L [facility] Adjusted Ionized Calcium 1.21 1.19 - 1.34 mmol/L [facility] Sodium Whole Blood 146(H) 135 - 145 mmol/L [facility] Potassium Whole Blood 3.7 3.5 - 5.5 mmol/L [facility] Chloride Whole Blood 118(H) 101 - 111 mmol/L [facility] Glucose Whole Blood 112(H) 70 - 110 mg/dL [facility] Lactic Acid Whole Blood 1.7 0.5 - 3.4 mmol/L [facility] Blood specimen (specimen) 02/25/2017 1:58 PM CDT 02/25/2017 1:58 PM CDT Chris Beauchamp MD LAB - BLOOD GASES OR DERABLES [address] [phone] * MANUAL DIFFERENTIAL REVIEWED (02/23/2017 3:48 PM CDT) Manual Differential Reviewed DIFFERENTIAL REVIEW - CONFIRMED DIFFERENTIAL REVIEW - CONFIRMED [facility] Spinal fluid (substance) CEREBROSPINAL FLUID SPECIMEN / Unknown 02/23/2017 3:48 PM CDT 02/23/2017 3:52 PM CDT Nicole Manzano PA-C LAB - HEMATOLO GY ORDERABLES Performing Organization Address [facility] Co de Phone Number [address] [phone] * CT ANGIO BRAIN (02/23/2017 12:29 PM CDT) Anatomical Region Laterality Modality Head Other Impressions 02/23/2017 1:46 PM CDT IMPRESSION: 1. Unchanged small to medium volume right basal ganglia intraparenchymal hematoma with large volume intraventricular extension. The location is suggestive of hypertension as the underlying etiology. 2. No spot sign, signs of a high flow vascular malformation, or cerebral aneurysms identified. 2. Stable position of a left frontal approach external ventricular drain terminating in the left lateral ventricle with slightly decreased, but still moderate lateral and third ventriculomegaly. No internal brain herniation. This report was electronically signed by MARIJA AU M.D. ??on 02/23/2017 1:46 PM . Narrative 02/23/2017 1:46 PM CDT EXAMINATION: Computed tomography (CT) of the head without and with contrast HISTORY: Intraparenchymal hemorrhage TECHNIQUE: CT of the head was performed without contrast according to standard protocol. Then CT angiography of the head was obtained after the uneventful administration of 50 mL Omnipaque 350 intravenous contrast. Three dimensional postprocessing was performed by the technologist and sent to the workstation for review. FINDINGS: Comparison is made with a study from earlier today Non-angiographic findings: A small to medium volume right basal ganglia intraparenchymal hematoma with a thin rind of vasogenic edema an large volume intraventricular extension of hemorrhage throughout the ventricular system is unchanged. A left frontal approach external ventricular drains traversing the left lateral ventricle is unchanged in position. There is minimally decreased lateral and third ventriculomegaly, still moderate in degree. The basilar cisterns are patent. There is local mass effect but no significant midline shift. The tarango-white matter differentiation is normal. Pneumocephalus has resolved. The visualized portions of the orbits, paranasal sinuses, and mastoids appear normal. No acute fracture is identified. Angiographic findings: The distal internal carotid arteries appear normal. The anterior and middle cerebral arteries appear normal. The distal vertebral arteries appear normal. The basilar artery and posterior cerebral arteries appear normal. No cerebral aneurysms, large intracranial arterial occlusions, or signs of a high flow vascular malformation are identified. No spot sign is identified within the intracranial hemorrhage. Procedure Note Marija Au MD - 12/14/2017 EXAMINATION: Computed tomography (CT) of the head without and withcontrast HISTORY: Intraparenchymal hemorrhage TECHNIQUE: CT of the head was performed without contrast according tostandard protocol. Then CT angiography of the head was obtained after theuneventful administration of 50 mL Omnipaque 350 intravenous contrast.Three dimensional postprocessing was performed by the technologist and sent to the workstation for review. FINDINGS: Comparison is made with a study from earlier today Non-angiographic findings: A small to medium volume right basal ganglia intraparenchymal hematomawith a thin rind of vasogenic edema an large volume intraventricularextension of hemorrhage throughout the ventricular system is unchanged. Aleft frontal approach external ventricular drains traversing the left lateral ventricle is unchanged inposition. There is minimally decreased lateral and third ventriculomegaly,still moderate in degree. The basilar cisterns are patent. There is localmass effect but no significant midline shift. The tarango-white matter differentiation is normal.Pneumocephalus has resolved. The visualized portions of the orbits,paranasal sinuses, and mastoids appear normal. No acute fracture isidentified. Angiographic findings: The distal internal carotid arteries appear normal. The anterior andmiddle cerebral arteries appear normal. The distal vertebral arteriesappear normal. The basilar artery and posterior cerebral arteries appearnormal. No cerebral aneurysms, large intracranial arterial occlusions, or signs of a high flow vascularmalformation are identified. No spot sign is identified within theintracranial hemorrhage. IMPRESSION IMPRESSION: 1. Unchanged small to medium volume right basal ganglia intraparenchymalhematoma with large volume intraventricular extension. The location issuggestive of hypertension as the underlying etiology. 2. No spot sign, signs of a high flow vascular malformation, or cerebralaneurysms identified. 2. Stable position of a left frontal approach external ventricular drainterminating in the left lateral ventricle with slightly decreased, butstill moderate lateral and third ventriculomegaly. No internal brainherniation. This report was electronically signed by MARIJA AU M.D. on 02/23/20171:46 PM . Chris Beauchamp MD CT ORDERABLES * (ABNORMAL) TEG PLATELET MAPPING (02/23/2017 3:48 AM CDT) G-Clot Strength 9.2 4.5 - 11.0 d/sc [facility] Interpretation TEG See Comment [facility] React-Time 3.2(L) 5.0 - 10.0 MIN [facility] K-Time 1.4 1.0 - 3.0 MIN [facility] Angle A-BB 70.7 53.0 - 72.0 Degrees [facility] MA (CK) BB 64.9 50.0 - 70.0 mm [facility] LY30 0.3 0.0 - 8.0 % [facility] BL[facility] D [facility] LAB CI-Coagulation Index 2.9 -3.0 - 3.0 [facility] MA-ADP 19.5 Reference Range: None mm [facility] MA AA-BB 16.8 Reference Range: None mm [facility] % ADP Inhibition 91.2 Reference Range:None % [facility] % AA Inhibition 96.6 Reference Range: None % [facility] Blood specimen (specimen) BLOOD SPECIMEN / Unknown 02/23/2017 3:48 AM CDT 02/23/2017 4:00 AM CDT Narrative [facility] - 02/23/2017 6:33 AM CDT SEE BELOW ?TEG Kaolin Sample Type Interpretation TEG Value ?Hemostasis State R < than 4 min: ?Enzymatic Hypercoagulability R 11-14 min: ? Low Clotting Factors R > than 14 min: ?? Very low clotting factors MA 46-54 mm: ? Low Platelet function MA 41-45 mm: ? Very low platelet function MA 40 mm or less: ??Extremely low platelet function MA > 73 mm: ?Platelet hypercoagulability R < 4 min and ?Enzymatic and platelet hypercoagulability MA > 73 mm: Angle < 45 deg: ?Low fibrinogen level LY30 at 7.5% or >, Primary Fibrinolysis CI < than 1.0: ?? LY30 at 7.5% or >, Secondary fibrinolysis CI > than 3.0: LY30 < 7.5%, ? Prothrombotic state CI > 3.0: Chris Beauchamp MD LAB - BLOOD BANK ORD ERABLES [facility] [address] [place] [address], [facility] * HEMOGLOBIN A1C (02/23/2017 3:43 AM CDT) [facility] Hemoglobin A1c 5.0 4.4 - 6.3 % [facility] Estimated Average Glucose 97 mg/dL [facility] Comment: HbA1c Interpretation: Treatment target values recommended by ADA and other clinical organizations should be used to evaluate metabolic control in patients. Treatment Target Values: Normal : < 5.7% Pre-diabetes: 5.7-6.4% Diabetes: Equal to or greater than 6.5% Reference: [place] [employer] Standards of Care in Diabetes -2014 In patients 70 years and older consider HbA1c target range of 7.0-7.5% Reference: ??Diabetes Mellitus in Older People: Position Statement on behalf of the International Association of Gerontology and Geriatrics (IAGG), the Diabetes Working Republican for Older People (EDWPOP), and the International Task Force of Experts in Diabetes. ??Anant Harper et al. J [employer]. 2012 Test results diagnostic of diabetes should be repeated for confirmation. The Tosoh G8 assay for the measurement of HbA1c is a National Glycohemoglobin Standardization Program (NGSP)certified method. Results for patients with HbE disease should be interpreted with caution as this hemoglobinopathy has been shown to interfere with the Tosoh G8 assay. Blood specimen (specimen) BLOOD SPECIMEN / Unknown 02/23/2017 3:43 AM CDT 02/23/2017 3:52 AM CDT Erasmo Tejeda MD LAB - CHEMISTRY ORDE RABN[place]CH[place] [address] [phone] * (ABNORMAL) URINALYSIS REFLEX TO MICROSCOPIC NO CULTURE (02/22/2017 11:19 PM CDT) Color UA Yellow Straw, Yellow, Colorless, Light Yellow [facility] Clarity UA Clear Clear [facility] Specific Powers UA 1.011 1.001 - 1.030 [facility] pH UA 5.0 5.0 - 8.0 [facility] Protein UA 30(A) <=20 mg/dL [facility] Glucose UA Negative Negative mg/dL [facility] Ketone UA Negative Negative mg/dL [facility] Bilirubin UA Negative Negative mg/dL [facility] Blood UA Negative Negative [facility] Nitrite UA Negative Negative [facility] Leukocyte Esterase Negative Negative [facility] Urobilinogen UA <2.0 <2.0 mg/dL [facility] RBC UA 2 0 - 8 /HPF [facility] WBC UA 2 0 - 2 /HPF [facility] Squamous Epithelial Cells UA <1 0 - 1 /HPF [facility] Mucus UA Moderate(A) None /LPF [facility] Urine specimen (specimen) 02/22/2017 11:19 PM CDT 02/22/2017 11:22 PM CDT Erasmo Tejeda MD LAB - URINALYSIS ORD ERABLES Performing Organization Address City/[facility]/ZIP Co de Phone Number [address] [phone] * (ABNORMAL) DRUG ABUSE PANEL 10-20+ETHANOL URINE NO CONFIRM (02/22/2017 11:19 PM CDT) Amphetamines Screen Urine Negative Negative : < 1000 ng/mL [facility] Barbiturates Screen Urine Negative Negative : < 200 ng/mL [facility] Benzodiazepine Screen Urine Positive(A) Negative : < 200 ng/mL [facility] Comment: Positive urine benzodiazepine screening results should be confirmed by another generally accepted non-immunological method such as gas chromatography or mass spectrometry. ? Opiates Urine Negative Negative : < 300 ng/mL [facility] Cocaine Metabolites Urine Negative Negative : < 300 ng/mL [facility] Phencyclidine Screen Urine Negative Negative : < 25 ng/ml [facility] Cannabinoids Screen Urine Negative Negative : <50 ng/mL [facility] Methadone Screen Urine Negative Negative : < 300 ng/mL [facility] Urine specimen (specimen) URINE / Unknown 02/22/2017 11:19 PM CDT 02/22/2017 11:22 PM CDT Narrative [facility] - 02/22/2017 11:40 PM CDT The Urine Toxicology Screening Panel does not screen for Propoxyphene, Meprobamate, Carisoprodol, Trazodone, [id number] medications and/or volatiles (Acetone, Isopropanol, Methanol or Ethylene Glycol). Ethanol, Salicylate, Acetaminophen, Tricyclic Antidepressants and several therapeutic drugs may be individually assayed in serum or plasma specimen. Toxicology testing by the [facility] is an aid to medical diagnosis and treatment of patients. No documented chain of custody was maintained. Results are intended to be used for clinical purposes only. ? Erasmo Tejeda MD LAB - URINE CHEMISTR Y ORDERABLES Performing Organization Address [facility]/ZIP Co de Phone Number [address] [phone] * ALCOHOL ETHYL BLOOD (02/22/2017 11:18 PM CDT) Interpretation Ethanol None Detected None Detected mg/dL [facility] Comment:Ethanol levels less than 10 mg/dL are resulted as None detected . Blood specimen (specimen) BLOOD SPECIMEN / Unknown 02/22/2017 11:18 PM CDT 02/22/2017 11:22 PM CDT Erasmo Tejeda MD LAB - CHEMISTRY ORDE RABLES Performing Organization Address [facility] de Phone Number [address] [phone] Care Teams Drum Stock Clerk Relationship Specialty Start Date End Date Vern Adams MD PCP - General 05/28/18
--- OUTSIDE RECORDS SUMMARY | 2024-10-19 09:13 | XMS_ITS | Continuity of Care Document ---
Author Organization [facility] Address [address] [place] [address] Phone Care Team Providers Care Director Of Music Name Role Phone Gonzalez OD, Jose Unavailable Unavailable Advance Directives Directive Yes / No Effective Date File Name No Information Encounters Encounter Description Practice Location Reason(s) For Visit Diagnoses Date Provider Providers Copied on Encounter [facility], [address], [place], [place], [id number], [place] tel:[phone] [facility] No Information Dec-1 9-200 1 Gonzalez OD Jose. [address] , [address], [place], [address], [place]. tel:[phone] Family History Family Member Type Diagnosis Age At Onset No Information Payers Payer name Insurance type Covered constitution party ID Authoriza tion(s) No Information Social History Type Description Quantity Date Captured Comments Sex Male Smoking Status No Information Chief Complaint And Reason For Visit No Information Reason For Referral Reason For Referral No Information History Of Present Illness Encounter Date Complaint History Of Prese nt Illness No Information Functional Status Date Functional Assessmen t No Information Instructions Date Instruction Additional Infor mation No Information Assessments Type Assessment Date No Information Patient Care Teams Name Effective Dates (start - stop) Status Members No Information
[2024-10-19 09:33] LABS: Band Neutrophils Percent 16 % (0-6); Lymphocytes Percent Manual 0 % (18-44); Monocytes Absolute Manual 0.26 K/mm3 (0.1-0.90); Monocytes Percent Manual 1 % (3-9); Neutrophils Absolute Manual 25.93 K/mm3 (1.3-6.7); Neutrophils Percent Manual 83 % (46-73); Platelet Estimate Adequate (Adequate); Total Cells Counted 100
[2024-10-19 09:34] LABS: Schistocytes None Seen
[2024-10-19] MEDS: SODIUM CHLORIDE 0.9% IV 1,000 ML 999 ML IV CONT ×3 (09:45→12:42)
--- NOTE | 2024-10-19 09:51 | PC.NURSE ---
Pt is not able to urinate at this time.
[2024-10-19 10:09] LABS: Creatine Kinase 323 U/L (55-170)
[2024-10-19 10:28] LABS: Troponin I 0.058 ng/mL (0.000-0.034)
[2024-10-19 10:34] LABS: Magnesium 1.9 mg/dL (1.6-2.3)
[2024-10-19 10:36] LABS: Add Urine Microscopic? YES; Appearance Urine Cloudy (Clear); Bacteria Urine 4+ /hpf; Bilirubin Urine Negative (Negative); Blood Urine Trace (Negative); Color Urine Dark Yellow (Yellow); Glucose Urine UA Negative (Negative); Ketones Urine Trace mg/dL (Negative); Leukocyte Esterase Ur 3+ LEU/UL (Negative); Need Manual Microscopic Reviewed; Nitrate Urine Negative (Negative); Non Pathogenic Casts >20; Protein Urine 2+ mg/dL (Negative); RBC Urine 21-50 /hpf (0-2); Specific Grav Ur 1.016 (1.001-1.035); Squamous Epithelial Cell Urine Occasional /hpf (Few); pH Urine 8.5 (5.0-9.0)
[2024-10-19 10:44] LABS: Influenza A QL RT-PCR Negative (Negative); Influenza B QL RT-PCR Negative (Negative); RSV RNA, RT-PCR Negative (Negative); SARS-CoV-2 RNA PCR Negative (Negative)
[2024-10-19] MEDS: ASPIRIN 81 MG CHEWABLE TABLET 324 MG PO (10:52)
[2024-10-19] MEDS: NYSTATIN OINTMENT 15 GM TUBE 1 APPLIC TOPICAL (11:00)
[2024-10-19 12:08] LABS: Troponin I 0.056 ng/mL (0.000-0.034)
--- NOTE | 2024-10-19 12:44 | P.HP_ITS ---
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 The patient presents here from [facility] for further evaluation of generalized weakness and malodorous urine. Staff reported to EMS that they became concerned after the patient began having a hard time sitting up and standing up. The patient reports onset of symptoms a few days days ago. States the weakness was significantly worse today. Patient was seen by his PCP at [facility] on and UA at that time was normal. Has a history of regular UTIs, estimates he has 1-2 per year. He endorses urinary frequency and diarrhea (one episode prior to arrival, one post arrival). Has a history of intermittent diarrhea secondary to partial colectomy (secondary to diverticulitis). He denies dysuria, urinary frequency, abdominal pain, nausea, vomiting, diarrhea, fever, chills, body aches, or hematuria. Also denies chest pain, shortness of breath, diaphoretic, or GERD-like symptoms. Initial VS at presentation: 98? F, HR 55, RR 16, 104/52, and 94% on RA ED workup showed: WBC 26.2, no anemia, creatinine 2.23 and GFR 30 (previously 1.0 and GFR >60 in 2020), CK 323, initial troponin 0.056, and UA consistent with UTI. Viral PCR negative. Review of Systems Review of Systems: All systems reviewed & are unremarkable except as noted in HPI and below [facility] Past Medical History Medical History (Updated 10/19/24 @ 12:51 by Stephanie Woods, NICOLE) Dementia Short-term memory loss As result of previous intracranial hemorrhage. Heart block Depression History of diverticulitis Gastroesophageal reflux disease Obstructive sleep apnea Intolerant to CPAP. Closed left ankle fracture Lateral malleolus and talar body - nondisplaced Nephrolithiasis Hypertension Paroxysmal atrial fibrillation Previously on apixaban History of stroke Records from [place] show he had a intraparenchymal hemorrhage status post left craniotomy and DATA MANAGEMENT ASSOCIATE shunt in 2017; may have been on apixaban at the time Surgical History Surgical History (Updated 10/19/24 @ 12:47 by Stephanie Woods APRN) History of colon resection Secondary to diverticulitis. History of cholecystectomy History of gastric bypass Gastric sleeve procedure. History of ventriculoperitoneal shunting Family History Family History Other Cerebrovascular accident Hypertension Social History Social History Social History: Surrogate decision maker: Bhavani Jhagiovany, friend. Ambulates with cane/ walking stick Code status: Full code per [place] documentation. He would not want to be on life support for any length of time, however. 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 Spiritual care concerns: No Meds Home Medications and Allergies Home Medications ?Medication ?Instructions ?Recorded ?Confirmed ?Type acetaminophen 325 mg tablet 650 mg PO TID 03/01/21 04/20/21 History amlodipine 10 mg tablet 10 mg PO DAILY 03/01/21 04/20/21 History hydralazine 50 mg tablet 50 mg PO TID 03/01/21 04/20/21 History polyethylene glycol 3350 17 gram 17 g PO DAILY PRN Constipation 03/01/21 04/20/21 History oral powder packet sertraline 50 mg tablet 50 mg PO DAILY 03/01/21 04/20/21 History heparin (porcine) 5,000 unit/mL 5,000 unit subcut Q12HR 2 weeks 03/09/21 04/20/21 Rx injection solution #28 mL tramadol 50 mg tablet 50 mg PO Q6H PRN Pain Rated 4-6 03/09/21 04/20/21 Rx #20 tabs Allergies Allergy/AdvReac Type Severity Reaction Status Date / Time morphine AdvReac Hallucinati Verified 03/01/21 15:01 ng Vital Signs Vital Signs - 24 hr 10/19/24 08:36 10/19/24 08:46 10/19/24 11:04 Temperature 98.0 F Pulse Rate 55 L 52 L Respiratory Rate 16 18 Blood Pressure 104/52 L 96/63 L Pulse Oximetry 94 94 93 Oxygen Delivery Room Air Room Air 10/19/24 12:44 Temperature Pulse Rate 50 L Respiratory Rate 18 Blood Pressure 98/61 L Pulse Oximetry 94 Oxygen Delivery Exam Const: General: comfortable and no acute distress Other: , male, obese body habitus, nontoxic appearance HENMT: Face/Nose/Sinus: Normal nares present Mouth: Yes moist mucous membranes Eyes: General: appearance normal, both eyes and all related structures Sclera: sclerae normal Pupils: Equal, round and reactive pupils present EOM: EOMs intact bilaterally Resp: Effort & Inspection: normal respiratory effort Auscultation: clear to auscultation bilaterally Cardio: Rate: regular rate Rhythm: regular rhythm Other: S1-S2 present without murmur, rub, ectopy GI: Other: Small palpable lump to the right lower quadrant, otherwise abdomen is soft, nondistended, nontender. Normoactive bowel sounds in all quadrants. Skin: General skin exam: normal color Rashes: rashes noted (Pannus) Wounds: no wounds Neuro: Speech: normal speech Motor exam (neuro): 5/5 motor strength present throughout Sensory Exam: normal sensation Other: +generalized weakness, A&Ox4 Extrem: Other: Trace edema to bilateral ankles. Psych: Mental Status: mental status grossly normal Affect: normal affect Other: Good insight and judgment, pleasant H&P: Results Labs Labs: Short CBC 10/19/24 Range/Units 08:45 WBC 26.2 H (4.5-10.0) K/mm3 Hgb 14.7 (14.0-18.0) g/dL Hct 47.5 (42.0-52.0) % Plt Count 187 (150-375) k/mm3 BMP 10/19/24 08:45 Sodium 143 Potassium 4.1 Chloride 107 Carbon Dioxide 24 BUN 32 H D Creatinine 2.23 H Glucose 77 Calcium 9.1 Cardiac Enzymes 10/19/24 10/19/24 Range/Units 08:45 11:33 Total Creatine Kinase 323 H (55-170) U/L Troponin I 0.058 H* 0.056 H* (0.000-0.034) ng/mL Liver Function 10/19/24 Range/Units 08:45 Total Bilirubin 1.4 H (0.2-1.3) mg/dL AST 64 H (17-59) U/L ALT 41 (6-50) U/L Alkaline Phosphatase 164 H (38-126) U/L Albumin 3.6 (3.5-5.1) g/dL Urine 10/19/24 Range/Units 10:15 Urine Color Dark yellow (Yellow) Urine Appearance Cloudy H (Clear) Urine pH 8.5 (5.0-9.0) Ur Specific [place] 1.016 (1.001-1.035) Urine Protein 2+ H (Negative) mg/dL Urine Glucose (UA) Negative (Negative) mg/dL Assessment and Plan Assessment and plan (1) UTI (urinary tract infection): Qualifiers: Hematuria presence: without hematuria Urinary tract infection type: acute cystitis Qualified Code(s): N30.00 - Acute cystitis without hematuria Code(s): N39.0 - Urinary tract infection, site not specified Status: Acute Assessment and Plan: - did not meet SIRS critera. WBC only. - UA: Cloudy, 2+ protein, trace ketones, 3+ leuks, 21-50 RBC, 6-10 WBC, occasional epithelial cells, 4+ bacteria. - UC pending, follow - no previous micro available for review - started on Ceftriaxone on 10/19 (2) KERI (acute kidney injury): Code(s): N17.9 - Acute kidney failure, unspecified Status: Acute Assessment and Plan: - CT abd/pelvis: 1. Chronic 13 cm ovoid cystic lesion in the subcutaneous fat at the right lower quadrant pannus most likely related to prior trauma or surgery. 2. Nonobstructing bilateral nephrolithiasis. 3. Fluid in the colon consistent with nonspecific diarrhea. No other acute intra-abdominal/pelvic process. - CK 323 - add urine sodium, protein/creatinine, urea - UA showed 2+ protein - bladder scan for post void residual x1 - monitor I&Os - IV fluids: 3L bolus -> 125 mL/hr, d/c when appropriate - stop abdirashid inhibitors and diuretics as appropriate - will try 24 hours of fluids and abx for UTI, if no improvement, then consider Nephrology consultation (3) Elevated troponin: Code(s): R77.8 - Other specified abnormalities of plasma proteins Status: Acute Assessment and Plan: - EKG, initial: Electronic atrial pacemaker, electronic ventricular pacemaker, rate 49. - CXR: Mild discoid atelectasis at the left lung base. No other acute cardiopulmonary disease. - Troponin: 0.058 -> 0.056, 6 hour ordered. Previous range in 2020 was 0.042- 0.043. - ASA 324 given and SL nitro PRN - started on heparin gtt - statin or lipid panel - no previous echo or cardiac catheterization on file - telemetry monitoring Will hold cardiology consultation. Troponin thus far flat and near previous baseline in 2020. No active chest pain. (4) Elevated CPK: Code(s): R74.8 - Abnormal levels of other serum enzymes Status: Acute Assessment and Plan: - CK 323 - IV fluids: 3L bolus -> 125 mL/hr, d/c when appropriate - trend CK (5) Paroxysmal atrial fibrillation: Code(s): I48.0 - Paroxysmal atrial fibrillation Status: Chronic Assessment and Plan: - continue home medications (6) Hypertension: Qualifiers: Hypertension type: primary hypertension Qualified Code(s): I10 - Essential (primary) hypertension Code(s): I10 - Essential (primary) hypertension Status: Chronic Assessment and Plan: - chronic, currently 96/63 - hold home medications - monitor Plan Diet: Heart healthy GI Prophylaxis: Not currently indicated DVT Prophylaxis: Lines: Peripheral Code Status: Full code Quality VTE Prophylaxis VTE prophylaxis: mechanical ordered Hospitalist MIPS Advance Care Plan I have confirmed that the patient's Advanced Care Plan is present, code status is documented, or surrogate decision maker is listed in patient medical record.: Yes Medication Reconciliation I have utilized all available resources to obtain, update and review the patients current medications (includes all prescriptions, OTC, herbals, cannabis, and nutritional supplements).: Yes
[2024-10-19 13:32] LABS: Creatinine Urine 176.7 mg/dL; Total Protein Urine Random 68 mg/dL; Ur Ttl Prot Creatinine Ratio 0.38 mg/mg (0-0.20)
[2024-10-19 13:54] LABS: Urea Random Urine 339 MG/DL
[2024-10-19 14:00] LABS: Sodium Urine Random 28 meq/L
--- OUTSIDE RECORDS SUMMARY | 2024-10-19 14:22 | XMS_ITS | Encounter Summary ---
Author Organization [facility] Address [address] [place] [address] Care Team Providers Care Library Circulation Technician Name Role Phone Vern Adams MD Primary Care Provider [phone] Reason for Visit * Reason Onset Date Comments lab test 10/17/2024 Encounter Details Date Type Department Care Team (Late st Contact Info) Description 10/17/2024 [facility] [address] [facility] [address] [place] [facility] [place] [address] Vern Adams MD [address] [facility] [address] [place], [place] [id number] lab test Social History Tobacco Use Types Packs/Day Years Used Date Smoking Tobacco: Never Smokeless Tobacco: Never Alcohol Use Standard Drinks/Week Comments Yes 0 (1 standard drink = 0.6 oz pur e alcohol) Sex and Gender Information Value Date Recorded Sex Assigned at Not on file Legal Sex Male 10:45 PM RADIOLOGIC TECHNOLOGY TEACHER Gender Identity Not on file Sexual Orientation Not on file 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 UA reflex to culture due to quantity insufficient. Said they did not have enough to perform test. Order is being cancelled. If need completed will need to reorder. Unable to tell me dx that was used for test. CB [phone] OLOGIC TECHNOLOGY TEACHER documented in this encounter Plan of Treatment Scheduled Procedures Name Priority Associated Diagnoses Date/Ti me COLONOSCOPY Open Access Screening for colon cancer COLONOSCOPY Encounter for screening colonoscopy COLONOSCOPY Encounter for screening colonoscopy COLONOSCOPY Encounter for screening colonoscopy documented as of this encounter Visit Diagnoses Not on filedocumented in this encounter Care Teams Library Circulation Technician Relationship Specialty Start Date End Date Vern Adams MD [address] [address] PCP - General Internal Medicine 12/02/18 documented as of this encounter
--- OUTSIDE RECORDS SUMMARY | 2024-10-19 14:22 | XMS_ITS | Encounter Summary ---
Author Organization [facility] Address [address] [place] [address] Phone Care Team Providers Care Manager Rn Name Role Phone Chris Perez PhD Primary Care Provider Vern Dover MD Primary Care Provider [phone] Encounter Details Date Type Department Care Team (Latest Contact Info) Description 11/20/2017 Orders Only [facility] Scanning, Provider Social History Tobacco Use Types Packs/Day Years Used Date Smoking Tobacco: Never Sex and Gender Information Value Date Recorded Sex Assigned at Not on file Legal Sex Male 10:45 PM CLINICAL LABORATORY SERVICE 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
--- OUTSIDE RECORDS SUMMARY | 2024-10-19 14:23 | XMS_ITS | Clinical Summary ---
Author Organization [facility] Address [address] [place] [address] Care Team Providers Care Manager Country Name Role Phone Vern Adams MD Primary Care Provider [phone] Source Comments [facility],non-owned Affiliates and Associated Physician Practices is amultiple site organization consisting of ambulatory clinics and hospital sitesin [place], [place], [place] and [place]. This disclosure is being madepursuant to the Care Everywhere program and may not contain all information available regarding this patient. Last updated 18.[facility] [employer] Allergies Active Allergy Reactions Criticality Noted Date [...] Date Diagnosed Date Proximal muscle weakness 02/18/2019 COMMERCIAL ACCOUNT MANAGER (ventriculoperitoneal) shunt status 8 Overview (05/28/2018): 05/28/18 [...] this topic Medical Devices Implanted Type Area Motor Tester Device Identifier Shelf Expiration Date Model / [...] 7 - 26 mg/dL 02/23/2019 6:10 AM [facility] Creatinine 1.2 0.6 - 1.2 mg/dL 02/23/2019 6:10 AM [facility] Sodium 141 136 - 145 mmol/L 02/23/2019 6:10 AM [facility] Potassium 4.1 3.5 - 4.5 mmol/L 02/23/2019 6:10 AM [facility] Chloride 104 98 - 107 mmol/L 02/23/2019 6:10 AM [facility] CO2 28 22 - 29 mmol/L 02/23/2019 6:10 AM [facility] Glucose 84 70 - 115 mg/dL 02/23/2019 6:10 AM [facility] Calcium 9.6 8.4 - 10.2 mg/dL 02/23/2019 6:10 AM [facility] Anion Gap 13 8 - 18 02/23/2019 6:10 AM [facility] BUN/Creatinine Ratio 15 7 - 23 02/23/2019 6:10 AM [facility] Osmolality Calculated 293 270 - 300 mOsm/kg 02/23/2019 6:10 AM [facility] eGFR >60 >60 mL/min/1.7 3 m2 02/23/2019 6:10 AM [facility] Blood BLOOD SPECIMEN / Unknown 02/23/2019 5:38 AM CDT 02/23/2019 5:44 AM T Anam Mccord MD LAB - CHEMISTRY OR DERABLES [facility] [address] [place], [place] [id number] [place] [address] from Last 3 Months or Most Recently Relevant to Health Maintenance Advance Directives * Full Code (Latest Code Status on File) Date Activated Date Inactivated Comments 02/18/2019 8:17 PM 02/25/2019 3:51 PM * Full Code Date Activated Date Inactivated Comments 02/18/2019 7:02 AM 02/18/2019 8:17 PM Care Teams Manager Country Relationship Specialty Start Date End Date Vern Adams MD PCP - General 05/28/18
--- OUTSIDE RECORDS SUMMARY | 2024-10-19 14:23 | XMS_ITS | Referral Summary ---
Author Organization [facility] Address [address] [address] Care Team Providers Care Early Childhood Aide Classroom Name Role Phone Vern Adams MD Primary Care Provider [phone] Source Comments [facility],non-owned Affiliates and Associated Physician Practices is amultiple site organization consisting of ambulatory clinics and hospital sitesin [place], [place], [place] and [place]. This disclosure is being madepursuant to the Care Everywhere program and may not contain all information available regarding this patient. Last updated 18.[facility] 2 Minutes Allergies Active Allergy Reactions Criticality Noted Date [...] Date Diagnosed Date Proximal muscle weakness 02/18/2019 DISH WASHER (ventriculoperitoneal) shunt status 8 Overview (05/28/2018): 05/28/18 [...] on file Medical Devices Implanted Type Area Technical Services Representative Device Identifier Shelf Expiration Date Model / [...] 7 - 26 mg/dL 02/23/2019 6:10 AM [facility] Creatinine 1.2 0.6 - 1.2 mg/dL 02/23/2019 6:10 AM [facility] Sodium 141 136 - 145 mmol/L 02/23/2019 6:10 AM [facility] Potassium 4.1 3.5 - 4.5 mmol/L 02/23/2019 6:10 AM [facility] Chloride 104 98 - 107 mmol/L 02/23/2019 6:10 AM [facility] CO2 28 22 - 29 mmol/L 02/23/2019 6:10 AM [facility] Glucose 84 70 - 115 mg/dL 02/23/2019 6:10 AM [facility] Calcium 9.6 8.4 - 10.2 mg/dL 02/23/2019 6:10 AM [facility] Anion Gap 13 8 - 18 02/23/2019 6:10 AM [facility] BUN/Creatinine Ratio 15 7 - 23 02/23/2019 6:10 AM [facility] Osmolality Calculated 293 270 - 300 mOsm/kg 02/23/2019 6:10 AM CDT [facility] eGFR >60 >60 mL/min/1.7 3 m2 02/23/2019 6:10 AM CDT [facility] Blood BLOOD SPECIMEN / Unknown 02/23/2019 5:38 AM CDT 02/23/2019 5:44 AM CDT Anam Mccord MD LAB - CHEMISTRY OR DERABLES [facility] [address] [phone] from Last 3 Months or Most Recently Relevant to Health Maintenance Advance Directives * Full Code (Latest Code Status on File) Date Activated Date Inactivated Comments 02/18/2019 8:17 PM 02/25/2019 3:51 PM * Full Code Date Activated Date Inactivated Comments 02/18/2019 7:02 AM 02/18/2019 8:17 PM Care Teams Early Childhood Aide Classroom Relationship Specialty Start Date End Date Vern Adams MD PCP - General 05/28/18
--- OUTSIDE RECORDS SUMMARY | 2024-10-19 14:23 | XMS_ITS | Encounter Summary ---
Author Organization [facility] Address [address] [facility] [place] [place] [address] Phone Care Team Providers Care Senior Environmental Engineer Name Role Phone Chris Perez PhD Primary Care Provider Vern Dovre MD Primary Care Provider [phone] Encounter Details Date Type Department Care Team (Latest Contact Info) Description 11/01/2017 Orders Only [facility] CONVERSION Scanning, Provider Social History Tobacco Use Types Packs/Day Years Used Date Smoking Tobacco: Never Sex and Gender Information Value Date Recorded Sex Assigned at Not on file Legal Sex Male 10:45 PM 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 SOFTWARE 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 Gender Identity Not on file Sexual Orientation [...] Comments VASCULAR LABORATORY REPORT 11/01/2017 2:47 PM STAFF SOFTWARE ENGINEER documented in this encounter Results * VASCULAR LABORATORY REPORT (11/01/2017 2:47 PM STAFF SOFTWARE ENGINEER) Anatomical Region Laterality Modality Ultrasound us Provider Scanning CV VASCULAR PROCEDURES Final R esult documented in this encounter Visit Diagnoses Not on filedocumented in this encounter Additional Health Concerns Infection Onset Date Last Indicated Resolved 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
--- OUTSIDE RECORDS SUMMARY | 2024-10-19 14:23 | XMS_ITS | Encounter Summary ---
Author Organization [facility] Address [address] [place] [address] Care Team Providers Care Business Office Assistant Name Role Phone Vern Adams MD Primary Care Provider [phone] Encounter Details Date Type Department Care Team (Late st Contact Info) Description 11/17/2019 Telephone 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
--- OUTSIDE RECORDS SUMMARY | 2024-10-19 14:23 | XMS_ITS | Continuity of Care Document ---
Author Organization [facility] Address [address] [place] [address] Phone Care Team Providers Care Bow String Maker Name Role Phone Gonzalez OD, Jose Unavailable Unavailable Advance Directives Directive Yes / No Effective Date File Name No Information Encounters Encounter Description Practice Location Reason(s) For Visit Diagnoses Date Provider Providers Copied on Encounter [facility], [address], [place], [place], [id number], [place] tel:[phone] [facility] No Information Dec-1 9-200 1 Gonzalez OD Jose. [address], [place], [address], [place]. tel:[phone] Family History Family Member Type Diagnosis Age At Onset No Information Payers Payer name Insurance type Covered alliance party ID Authoriza tion(s) No Information Social [...]
--- OUTSIDE RECORDS SUMMARY | 2024-10-19 14:23 | XMS_ITS | Clinical Summary ---
Author Organization [facility] Address [address] [place] [address] Care Team Providers Care Electrical Assemblies Supervisor Name Role Phone Vern Adams MD Primary Care Provider [phone] Allergies Active Allergy Reactions Criticality Noted Date [...] Date Type Department Care Team Description 10/17/20[address] [facility] [address] [facility] [address] [facility] [address] Vern Adams MD lab test 10/16/2024 4:30 PM VP DIRECTOR OF CREATIVE STRATEGY Lab [facility] [address] [place] [phone] Chronic kidney disease (CKD) stage G3a/A1, moderately decreased glomerular filtration rate (GFR) between 45-59 mL/min/1.73 square meter and albuminuria creatinine ratio less than 30 mg/g (HCC); Essential hypertension; Vascular dementia without behavioral disturbance (HCC) 10/16/2024 11:30 AM VP DIRECTOR OF CREATIVE STRATEGY Office Visit [facility] [address] [place] [address] Vern Adams MD Screening for colon cancer (Primary Dx); Chronic kidney disease (CKD) stage G3a/A1, moderately decreased glomerular filtration rate (GFR) between 45-59 mL/min/1.73 square meter and albuminuria creatinine ratio less than 30 mg/g (HCC); Essential hypertension; Vascular dementia without behavioral disturbance (HCC) 10/07/2024 Telephone [facility] [address] [address] Vern Adams MD DME ORDER 09/23/2024 Telephone [facility] [address] [place] [phone] Edgar Fountain MD 08/12/2024 7:30 AM VP DIRECTOR OF CREATIVE STRATEGY Ancillary Procedure [facility] [address] [place] [phone] Cardiac pacemaker in situ [Z95.0] (Primary Dx); Second degree AV block; Paroxysmal atrial fibrillation (CMS/HCC) ([facility]) 08/12/2024 Orders Only [facility] [address] [place] [phone] Edgar Fountain MD Second degree AV block (Primary Dx); Paroxysmal atrial fibrillation (CMS/HCC) ([facility]) 07/29/2024 Telephone [facility] [address] [place] [phone] Carolina Enrique, RN 07/29/2024 Telephone [facility] [address] [place] [phone] Vern Adams MD paperwork from Last [...] thumb (Added by TW Conv) CRANIOTOMY Left TELECOMMUNICATOR SHUNT INSERTION BARIATRIC SURGERY CHOLECYSTECTOMY HERNIA REPAIR [...] on file Legal Sex Male 10:45 PM VP DIRECTOR OF CREATIVE STRATEGY Gender Identity Not on file Sexual Orientation Not on file 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 End Date 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 Not on file Not on file Not on f ile Obstetrics History Last Filed Vital Signs Vital Sign Reading Time Taken Comments Blood Pressure 103/66 10/16/2024 11:35 AM VP DIRECTOR OF CREATIVE STRATEGY Pulse 50 10/16/2024 11:35 AM VP DIRECTOR OF CREATIVE STRATEGY Temperature 36.5 ??C (97.7 ??F) 06/27/2019 10:28 AM C DT Respiratory Rate - - Oxygen Saturation 99% 10/11/2023 2:40 PM VP DIRECTOR OF CREATIVE STRATEGY Inhaled Oxygen Concentration - - Weight 132.5 kg (292 lb) 10/16/2024 11:35 AM VP DIRECTOR OF CREATIVE STRATEGY Height 180.3 cm (5' 11 ) 10/16/2024 11:35 AM VP DIRECTOR OF CREATIVE STRATEGY Body Mass Index 40.73 10/16/2024 11:35 AM VP DIRECTOR OF CREATIVE STRATEGY Plan of Treatment Scheduled Procedures Name Priority [...] Diagnosis Comments EGFR Routine 10/16/2024 1:11 PM VP DIRECTOR OF CREATIVE STRATEGY Chronic kidney disease (CKD) stage G3a/A1, moderately decreased glomerular filtration rate (GFR) between 45-59 mL/min/1.73 square meter and albuminuria creatinine ratio less than 30 mg/g (HCC) Essential hypertension Vascular dementia without behavioral disturbance (HCC) BASIC METABOLIC PANEL Routine 10/16/2024 1:11 PM VP DIRECTOR OF CREATIVE STRATEGY Chronic kidney disease (CKD) stage G3a/A1, moderately decreased glomerular filtration rate (GFR) between 45-59 mL/min/1.73 square meter and albuminuria creatinine ratio less than 30 mg/g (HCC) Essential hypertension Vascular dementia without behavioral disturbance (HCC) DEVICE CHECK - REMOTE Routine 08/12/2024 1:49 PM VP DIRECTOR OF CREATIVE STRATEGY Second degree AV block Paroxysmal atrial fibrillation [...] Results * (ABNORMAL) eGFR (10/16/2024 1:11 PM VP DIRECTOR OF CREATIVE STRATEGY) eGFR 46(L) >=60 mL/min/1. 73 m2 Comment: [...] last reviewed 2021. Blood 10/16/2024 1:11 PM VP DIRECTOR OF CREATIVE STRATEGY 10/16/2024 1:33 PM VP DIRECTOR OF CREATIVE STRATEGY Vern Adams MD LAB BLOOD ORDERABLES Final Re sult Performing Organization Address [facility]/ZIP Co de Phone Number [facility] Department [place] [address] * (ABNORMAL) Basic metabolic panel (10/16/2024 1:11 PM VP DIRECTOR OF CREATIVE STRATEGY) Sodium 146(H) 135 - 145 mmol/L Potassium, pl 5.3(H) 3.3 - 4.9 mmol/L [facility] Chloride 108 97 - 110 mmol/L [facility] CO2 28 22 - 32 mmol/L [facility] Anion gap 10 2 - 15 mmol/L [facility] BUN 22 6 - 25 mg/dL [facility] Creatinine 1.62(H) 0.80 - 1.30 mg/dL [facility] Glucose 94 70 - 199 mg/dL [facility] Comment: Interpretive Data Fasting glucose >/= 126 [...] 2022. Calcium 9.3 8.5 - 10.3 mg/dL [facility] Blood 10/16/2024 1:11 PM VP DIRECTOR OF CREATIVE STRATEGY 10/16/2024 1:27 PM VP DIRECTOR OF CREATIVE STRATEGY Vern Adams MD LAB BLOOD ORDERABLES Final Re sult Performing Organization Address [facility]/ZIP Co de Phone Number [facility] Department [place] [address] * DEVICE CHECK - REMOTE (08/12/2024 1:49 PM VP DIRECTOR OF CREATIVE STRATEGY) Anatomical Region Laterality Modality Other Narrative 10/09/2024 2:42 PM VP DIRECTOR OF CREATIVE STRATEGY Biotronik Edora Dual Pacemaker. ??DX: Second Degree AVB Mobitz II, Junctional, Afib. DOI: 03-04-2021-Essie. Biotronik Remote monitoring. 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 Routine DDD Pacemaker Remote. Transmission attached. Battery status: Ok, 70% remaining battery life to CHLOE. Stable lead impedances, pacing and sensing thresholds. Presenting rhythm: AT/AF Vpaced. AP- 1%, TELECOMMUNICATOR- 100%. AT/AF episodes noted. AF [place] 100% since 06/2023. Average ventricular rate during [...] AM CDT Performed at: ??01 - [facility] [address] ??[id number] Catering Associate: Wolfgang Hallman PhD, Phone: ??[phone] us Vern Adams MD LAB MICROBIOLOGY - GENERAL OR DERABLES Final Result [facility] - 01 * PSA screen (04/09/2024 12:40 PM CDT) PSA 0.3 0.0 - 4.0 ng/mL [facility] - Comment: Felix ECLIA methodology. According to the [employer], Serum PSA should decrease and [...] 10:12 AM CDT Performed at: ??01 - [facility] ??[id number] Catering Associate: Wolfgang Hallman PhD, Phone: ??[phone] Vern Adams MD LAB BLOOD ORDERABLES Final Re sult Performing Organization Address City/[facility] Co de Phone Number [facility] - 01 from Last 3 Months or Most Recently Relevant to Health Maintenance Insurance Alianza [facility][note 3] [place] [id number] [employer] MEDICARE Advance Directives For more information, please contact: [phone] Documents on File Type Date Recorded Patient Jboss Architect Expl anation ADVANCE DIRECTIVE 01/06/2013 12:00 AM BERNABE Dunlap OF ROTARY SLICING MACHINE OPERATOR FINANCIAL/MEDICAL Care Teams Electrical Assemblies Supervisor Relationship Specialty Start Date End Date Vern Adams MD [address] [facility] [address] [place] [address] PCP - General Internal Medicine 12/02/18
--- OUTSIDE RECORDS SUMMARY | 2024-10-19 14:23 | XMS_ITS | Referral Summary ---
[facility] Address [address] [place] [address] Care Team Providers Care Neurology Stroke Physician Name Role Phone Vern Adams MD Primary Care Provider [phone] Encounters Date Type Department Care Team Description 10/17/2024 Telephone [facility] [address] [place] [phone] Vern Adams MD lab test 10/16/2024 4:30 PM RESOURCE COORDINATOR Lab [facility] [address] [place] [phone] Chronic kidney disease (CKD) stage G3a/A1, moderately decreased glomerular filtration rate (GFR) between 45-59 mL/min/1.73 square meter and albuminuria creatinine ratio less than 30 mg/g (HCC); Essential hypertension; Vascular dementia without behavioral disturbance (HCC) 10/16/2024 11:30 AM RESOURCE COORDINATOR Office Visit [facility] [address] [place] [phone] Vern Adams MD Screening for colon cancer (Primary Dx); Chronic kidney disease (CKD) stage G3a/A1, moderately decreased glomerular filtration rate (GFR) between 45-59 mL/min/1.73 square meter and albuminuria creatinine ratio less than 30 mg/g (HCC); Essential hypertension; Vascular dementia without behavioral disturbance ([facility]) 10/07/2024 Telephone [facility] [address] [phone] Vern Adams MD DME ORDER 09/23/2024 Telephone [facility] Cardiology [address] [place] [phone] Edgar Fountain MD 08/12/2024 Orders Only [facility] Cardiology [address] [place] [phone] Edgar Fountain MD Second degree AV block (Primary Dx); Paroxysmal atrial fibrillation (CMS/HCC) ([facility]) 08/12/2024 7:30 AM RESOURCE COORDINATOR Ancillary Procedure [facility] Cardiology [address] [place] [phone] Cardiac pacemaker in situ [Z95.0] (Primary Dx); Second degree AV block; Paroxysmal atrial fibrillation (CMS/HCC) ([facility]) 07/29/2024 Telephone [facility] Specialty Services [address] [place] [phone] Carolina Enrique, RN 07/29/2024 Telephone [facility] [address] [place] [phone] Vern Adams MD paperwork from Last [...] on file Legal Sex Male 10:45 PM RESOURCE COORDINATOR Gender Identity Not on file Sexual Orientation Not on file 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 End Date 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 Not on file Not on file Not on f ile Last Filed Vital Signs Vital Sign Reading Time Taken Comments Blood Pressure 103/66 10/16/2024 11:35 AM RESOURCE COORDINATOR Pulse 50 10/16/2024 11:35 AM RESOURCE COORDINATOR Temperature 36.5 ??C (97.7 ??F) 06/27/2019 10:28 AM C DT Respiratory Rate - - Oxygen Saturation 99% 10/11/2023 2:40 PM RESOURCE COORDINATOR Inhaled Oxygen Concentration - - Weight 132.5 kg (292 lb) 10/16/2024 11:35 AM RESOURCE COORDINATOR Height 180.3 cm (5' 11 ) 10/16/2024 11:35 AM RESOURCE COORDINATOR Body Mass Index 40.73 10/16/2024 11:35 AM RESOURCE COORDINATOR Plan of Treatment Scheduled Procedures Name Priority Associated Diagnoses Date/Ti me COLONOSCOPY Open Access Screening for colon cancer COLONOSCOPY Encounter for screening colonoscopy COLONOSCOPY Encounter for screening colonoscopy COLONOSCOPY Encounter for screening colonoscopy Procedures Procedure Name Priority Date/Time Associated Diagnosis Comments EGFR Routine 10/16/2024 1:11 PM RESOURCE COORDINATOR Chronic kidney disease (CKD) stage G3a/A1, moderately decreased glomerular filtration rate (GFR) between 45-59 mL/min/1.73 square meter and albuminuria creatinine ratio less than 30 mg/g (HCC) Essential hypertension Vascular dementia without behavioral disturbance (HCC) BASIC METABOLIC PANEL Routine 10/16/2024 1:11 PM RESOURCE COORDINATOR Chronic kidney disease (CKD) stage G3a/A1, moderately decreased glomerular filtration rate (GFR) between 45-59 mL/min/1.73 square meter and albuminuria creatinine ratio less than 30 mg/g (HCC) Essential hypertension Vascular dementia without behavioral disturbance (HCC) DEVICE CHECK - REMOTE Routine 08/12/2024 1:49 PM RESOURCE COORDINATOR Second degree AV block Paroxysmal atrial fibrillation [...] Results * (ABNORMAL) eGFR (10/16/2024 1:11 PM RESOURCE COORDINATOR) eGFR 46(L) >=60 mL/min/1. 73 m2 Comment: [...] last reviewed 2021. Blood 10/16/2024 1:11 PM RESOURCE COORDINATOR 10/16/2024 1:33 PM RESOURCE COORDINATOR Vern Adams MD LAB BLOOD ORDERABLES Final Re sult Performing Organization Address City/[facility]/ZIP Co de Phone Number [facility] [address] [facility] [place] [address] * (ABNORMAL) Basic metabolic panel (10/16/2024 1:11 PM RESOURCE COORDINATOR) [facility] Sodium 146(H) 135 - 145 mmol/L Potassium, pl 5.3(H) 3.3 - 4.9 mmol/L [facility] Chloride 108 97 - 110 mmol/L [facility] CO2 28 22 - 32 mmol/L [facility] Anion gap 10 2 - 15 mmol/L [facility] BUN 22 6 - 25 mg/dL [facility] Creatinine 1.62(H) 0.80 - 1.30 mg/dL [facility] Glucose 94 70 - 199 mg/dL [facility] Comment: Interpretive Data Fasting glucose [...] 2022. Calcium 9.3 8.5 - 10.3 mg/dL [facility] Blood 10/16/2024 1:11 PM RESOURCE COORDINATOR 10/16/2024 1:27 PM RESOURCE COORDINATOR Vern Adams MD LAB BLOOD ORDERABLES Final Re sult Performing Organization Address [facility] Co de Phone Number [facility] [address] [facility] [place] [address] * DEVICE CHECK - REMOTE (08/12/2024 1:49 PM RESOURCE COORDINATOR) Anatomical Region Laterality Modality Other Narrative 10/09/2024 2:42 PM RESOURCE COORDINATOR [employer] Edora Dual Pacemaker. ??DX: Second Degree AVB Mobitz II, Junctional, Afib. DOI: 03-04-2021-Essie. [employer] Remote monitoring. 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 Routine DDD Pacemaker Remote. Transmission attached. Battery status: Ok, 70% remaining battery life to CHLOE. Stable lead impedances, pacing and sensing thresholds. Presenting rhythm: AT/AF Vpaced. AP- 1%, GOLD PLATER- 100%. AT/AF episodes noted. AF Donnellson 100% since 06/2023. Average ventricular rate during [...] AM CDT Performed at: ??01 - [facility] [address], [place], [place] ??[id number] Rn Integrity: Wolfgang Hallman PhD, Phone: ??[phone] us Vern Adams MD LAB MICROBIOLOGY - GENERAL OR DERABLES Final Result [facility] * PSA screen (04/09/2024 12:40 PM CDT) PSA 0.3 0.0 - 4.0 ng/mL [facility] - 01 Comment: Felix ECLIA methodology. According to the [employer] [employer], Serum PSA should decrease and [...] 10:12 AM CDT Performed at: ??01 - [facility] ??[id number] Rn Integrity: Wolfgang Hallman PhD, Phone: ??[phone] us Vern Adams MD LAB BLOOD ORDERABLES Final Re sult [facility] - 01 from Last 3 Months or Most Recently Relevant to Health Maintenance Insurance An[employer]™ [facility] AET[employer] MEDICARE T MEDICARE Advance Directives For more information, please contact: [phone] Documents on File Type Date Recorded Patient Crib Pad Maker Expl anation ADVANCE DIRECTIVE 01/06/2013 12:00 AM BERNABE Dunlap OF CLINICAL NEUROPSYCHOLOGIST FINANCIAL/MEDICAL Care Teams Neurology Stroke Physician Relationship Specialty Start Date End Date Vern Adams MD [address] [facility] [address] [place] [address] PCP - General Internal Medicine 12/02/18
--- OUTSIDE RECORDS SUMMARY | 2024-10-19 14:23 | XMS_ITS | Patient Health Summary ---
Author Organization [facility] Address [address] [place] [address] Care Team Providers Care Bridge Toll Collector Name Role Phone Vern Adams MD Primary Care Provider [phone] Note from [facility],non-owned Affiliates and Associated Physician Practices is amultiple site organization consisting of ambulatory clinics and hospital sitesin [place], [place], [place] and [place]. This disclosure is being madepursuant to the Care Everywhere program and may not contain all information available regarding this patient. 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 There is [id number] degenerative disc and joint disease, with the [...] L1. No acute fracture is seen.There is ykjr-wh-wtvsuspw degenerative disc and joint disease, with thegreatest [...] - 26 mg/dL 02/23/2019 6:10 AM CDT [facility] Creatinine 1.2 0.6 - 1.2 mg/dL 02/23/2019 6:10 AM CDT [facility] Sodium 141 136 - 145 mmol/L 02/23/2019 6:10 AM CDT [facility] Potassium 4.1 3.5 - 4.5 mmol/L 02/23/2019 6:10 AM [facility] Chloride 104 98 - 107 mmol/L 02/23/2019 6:10 AM [facility] CO2 28 22 - 29 mmol/L 02/23/2019 6:10 AM [facility] Glucose 84 70 - 115 mg/dL 02/23/2019 6:10 AM [facility] Calcium 9.6 8.4 - 10.2 mg/dL 02/23/2019 6:10 AM [facility] Anion Gap 13 8 - 18 02/23/2019 6:10 AM [facility] BUN/Creatinine Ratio 15 7 - 23 02/23/2019 6:10 AM [facility] Osmolality Calculated 293 270 - 300 mOsm/kg 02/23/2019 6:10 AM [facility] eGFR >60 >60 mL/min/1.7 3 m2 02/23/2019 6:10 AM [facility] Blood BLOOD SPECIMEN / Unknown 02/23/2019 5:38 AM CDT 02/23/2019 5:44 AM CDT Anam Mccord MD LAB - CHEMISTRY OR DERABLES [address] [phone] * MAGNESIUM BLOOD (02/23/2019 5:38 AM CDT) Only the most recent of48 resultswithin the time period is included. Magnesium 2.0 1.6 - 2.6 mg/dL 02/23/2019 6:10 AM [facility] Blood BLOOD SPECIMEN / Unknown 02/23/2019 5:38 AM CDT 02/23/2019 5:44 AM CDT Anam Mccord MD LAB - CHEMISTRY OR DERABLES [address] [phone] * CBC W/O DIFFERENTIAL (02/22/2019 4:15 AM CDT) Only the most recent of5 resultswithin the time period is included. WBC 7.2 3.5 - 10.5 10? 3 /uL 02/22/2019 5:04 AM [facility] RBC 4.62 4.30 - 5.70 10? 6 /uL 02/22/2019 5:04 AM [facility] Hemoglobin 14.3 13.5 - 17.5 g/dL 02/22/2019 5:04 AM [facility] Hematocrit 43.9 39.0 - 50.0 % 02/22/2019 5:04 AM [facility] MCV 95.0 81.0 - 97.0 fL 02/22/2019 5:04 AM [facility] MCH 31.0 28.0 - 34.0 pg 02/22/2019 5:04 AM [facility] MCHC 32.6 32.0 - 36.0 g/dL 02/22/2019 5:04 AM [facility] Platelet Count 254 150 - 400 10? 3 /uL 02/22/2019 5:04 AM [facility] RDW-SD 47.0 36.0 - 50.0 fL 02/22/2019 5:04 AM [facility] RDW-CV 13.4 11.2 - 14.8 % 02/22/2019 5:04 AM [facility] MPV 9.9 9.3 - 12.8 fL 02/22/2019 5:04 AM [facility] nRBC Absolute 0.00 0 10? 3 /uL 02/22/2019 5:04 AM [facility] nRBC Auto 0.0 0 /100 WBC 02/22/2019 5:04 AM [facility] Blood BLOOD SPECIMEN / Unknown Lab Venipuncture / Unknown 02/22/2019 4:15 AM CDT 02/22/2019 4:58 AM CDT Anam Mccord MD LAB - HEMATOLOGY O RDERABLES [address] [phone] * (ABNORMAL) RENAL FUNCTION PANEL (02/22/2019 4:15 AM CDT) BUN 19 7 - 26 mg/dL 02/22/2019 5:20 AM [facility] Creatinine 1.3(H) 0.6 - 1.2 mg/dL 02/22/2019 5:20 AM [facility] Sodium 140 136 - 145 mmol/L 02/22/2019 5:20 AM [facility] Potassium 3.7 3.5 - 4.5 mmol/L 02/22/2019 5:20 AM [facility] Chloride 104 98 - 107 mmol/L 02/22/2019 5:20 AM [facility] CO2 29 22 - 29 mmol/L 02/22/2019 5:20 AM [facility] Glucose 78 70 - 115 mg/dL 02/22/2019 5:20 AM [facility] Albumin 3.0(L) 3.4 - 5.0 g/dL 02/22/2019 5:20 AM [facility] Calcium 9.1 8.4 - 10.2 mg/dL 02/22/2019 5:20 AM [facility] Phosphorus 2.8 2.3 - 4.7 mg/dL 02/22/2019 5:20 AM [facility] Anion Gap 11 8 - 18 02/22/2019 5:20 AM [facility] BUN/Creatinine Ratio 15 7 - 23 02/22/2019 5:20 AM [facility] Osmolality Calculated 291 270 - 300 mOsm/kg 02/22/2019 5:20 AM [facility] eGFR 56(L) >60 mL/min/1.7 3 m2 02/22/2019 5:20 AM [facility] Blood BLOOD SPECIMEN / Unknown Lab Venipuncture / Unknown 02/22/2019 4:15 AM CDT 02/22/2019 4:58 AM CDT Anam Mccord MD LAB - CHEMISTRY OR DERABLES [address] [phone] * (ABNORMAL) CBC W AUTO DIFFERENTIAL (02/19/2019 3:06 AM CDT) Only the most recent of94 resultswithin the time period is included. WBC 10.3 3.5 - 10.5 10? 3 /uL 02/19/2019 3:17 AM [facility] RBC 5.06 4.30 - 5.70 10? 6 /uL 02/19/2019 3:17 AM [facility] Hemoglobin 15.4 13.5 - 17.5 g/dL 02/19/2019 3:17 AM [facility] Hematocrit 47.0 39.0 - 50.0 % 02/19/2019 3:17 AM [facility] MCV 92.9 81.0 - 97.0 fL 02/19/2019 3:17 AM [facility] MCH 30.4 28.0 - 34.0 pg 02/19/2019 3:17 AM [facility] MCHC 32.8 32.0 - 36.0 g/dL 02/19/2019 3:17 AM [facility] Platelet Count 245 150 - 400 10? 3 /uL 02/19/2019 3:17 AM [facility] RDW-SD 44.2 36.0 - 50.0 fL 02/19/2019 3:17 AM [facility] RDW-CV 13.0 11.2 - 14.8 % 02/19/2019 3:17 AM [facility] MPV 9.4 9.3 - 12.8 fL 02/19/2019 3:17 AM [facility] nRBC Absolute 0.00 0 10? 3 /uL 02/19/2019 3:17 AM [facility] nRBC Auto 0.0 0 /100 WBC 02/19/2019 3:17 AM [facility] Neutrophils % 78.3(H) 35.0 - 70.0 % 02/19/2019 3:17 AM [facility] Lymphocytes % 10.4(L) 19.7 - 55.1 % 02/19/2019 3:17 AM [facility] Monocytes % 9.4 3.0 - 15.0 % 02/19/2019 3:17 AM [facility] Eosinophils % 1.2 0.0 - 6.0 % 02/19/2019 3:17 AM CDT [facility] Basophil % 0.3 0.0 - 1.5 % 02/19/2019 3:17 AM [facility] Neutrophils Absolute 8.1(H) 1.6 - 7.0 10? 3 /uL 02/19/2019 3:17 AM [facility] Lymphocyte Absolute 1.1 0.8 - 2.9 10? 3 /uL 02/19/2019 3:17 AM [facility] Monocytes Absolute 0.97(H) 0.14 - 0.66 10? 3 /uL 02/19/2019 3:17 AM T [facility] Eosinophils Absolute 0.12 0.00 - 0.45 10? 3 /uL 02/19/2019 3:17 AM [facility] Basophils Absolute 0.03 0.00 - 0.06 10? 3 /uL 02/19/2019 3:17 AM [facility] Immature Granulocytes % 0.4 0.0 - 1.0 % 02/19/2019 3:17 AM [facility] Blood BLOOD SPECIMEN / Unknown Lab Venipuncture / Unknown 02/19/2019 3:06 AM CDT 02/19/2019 3:11 AM CDT Francois Mckinnon MD LAB - HEMATOLOGY OR DERABLES [facility] [address] [phone] * CULTURE BLOOD (02/18/2019 8:54 PM CDT) Only the most recent of10 resultswithin the time period is included. Culture No growth day 5 AMINAAT 02/23/2019 11:30 PM CDT [facility] Blood PERIPHERAL BLOOD / Unknown Lab Venipuncture / Unknown 02/18/2019 8:54 PM CDT 02/18/2019 8:57 PM CDT Francois Mckinnon MD LAB - MICROBIOLOGY ORDERABLES [facility] [address] [phone] * VITAMIN B12 (02/18/2019 5:02 PM CDT) Only the most recent of2 resultswithin the time period is included. Vitamin B12 408 213 - 816 pg/mL 02/18/2019 7:29 PM CDT [facility] Blood BLOOD SPECIMEN / Unknown Venipuncture / Unknown 02/18/2019 5:02 PM CDT 02/18/2019 5:03 PM CDT Edgar Valdez MD LAB - CHEMISTRY ORDE KIMBERLEE Performing Organization Address City/[facility]/ZIP Co de Phone Number [address] [phone] * CORTISOL BLOOD AM (02/18/2019 10:02 AM CDT) Cortisol AM 16.5 3.7 - 19.4 mcg/dL 02/18/2019 10:49 AM CDT [facility] Blood BLOOD SPECIMEN / Unknown Venipuncture / Unknown 02/18/2019 10:02 AM CDT 02/18/2019 10:10 AM CDT Enrico Tony MD LAB - CHEMISTRY ORD CHANDRA Performing Organization Address City/[facility]/ZIP Co de Phone Number [address] [phone] * MRI LUMBAR SPINE WO CONTRAST (02/18/2019 [...] over S1. Dictated by Ari Davis MD (cath lab radiology technician). Dr. Hossein Reeves M.D. have personally reviewed [...] over S1. Dictated by Ari Davis MD (cath lab radiology technician). Dr. Hossein Reeves M.D. have personally reviewed and interpretedthis examination/study. This report was electronically signed by Hossein SANDOVAL M.D. on 02/18/2019 10:37 AM . Noam Puri MD DIAGNOSTIC IMAGING O RDERABLES * (ABNORMAL) URINALYSIS W/MICROSCOPIC NO CULTURE (02/18/2019 3:11 AM CDT) Only the most recent of6 resultswithin the time period is included. Color UA Yellow Straw, Yellow, Colorless 02/18/2019 3:21 AM CDT [facility] Clarity UA Clear Clear, Slt Cloudy 02/18/2019 3:21 AM [facility] Specific [place] UA 1.011 1.005 - 1.030 02/18/2019 3:21 AM [facility] pH UA 6.0 5.0 - 8.0 pH 02/18/2019 3:21 AM [facility] Protein UA 1+(A) Negative mg/dL 02/18/2019 3:21 AM [facility] Glucose UA Negative Negative mg/dL 02/18/2019 3:21 AM [facility] Ketone UA Trace(A) Negative mg/dL 02/18/2019 3:21 AM [facility] Bilirubin UA Negative Negative mg/dL 02/18/2019 3:21 AM [facility] Blood UA Negative Negative 02/18/2019 3:21 AM [facility] Nitrite UA Negative Negative 02/18/2019 3:21 AM [facility] Leukocyte Esterase Negative Negative 02/18/2019 3:21 AM [facility] Urobilinogen UA Negative Negative mg/dL 02/18/2019 3:21 AM [facility] RBC UA 0-2 None Seen, 0-2, 3-5 /HPF 02/18/2019 3:21 AM [facility] WBC UA 0-5 None Seen, 0-5 /HPF 02/18/2019 3:21 AM [facility] Bacteria UA Trace None, Trace /HPF 02/18/2019 3:21 AM [facility] Squamous Epithelial Cells UA None Seen None Seen, 0-2 /HPF 02/18/2019 3:21 AM [facility] Mucus UA 1+ None, 1+ /LPF 02/18/2019 3:21 AM [facility] Urine URINE SPECIMEN OBTAINED BY CLEAN CATCH PROCEDURE / Unknown Collection / Unknown 02/18/2019 3:11 AM T 02/18/2019 3:11 AM [facility] Cinthia Meza PA-C LAB - URINALYSIS ORDERABLES [address] [phone] * CARROL BLOOD SCREEN W/REFLEX TITER (02/18/2019 2:59 AM CDT) CARROL Negative 02/19/2019 3:09 PM CDT [facility] ([facility]) Comment: ? Negative ?? <1:80 ? Borderline ??1:80 ? Positive ?? >1:80 Blood BLOOD SPECIMEN / Unknown Venipuncture / Unknown 02/18/2019 2:59 AM CDT 02/18/2019 2:59 AM CDT Narrative [facility] ([facility]) - 02/19/2019 3:09 PM CDT Performed at: ??01 - [address] ??[id number] Ward Nurse: Wolfgang Hallman PhD, Phone: ??[phone] Enrico Tony MD LAB - CHEMISTRY TIMOTHY ARTIS Performing Organization Address [facility] Co de Phone Number [facility] ([facility]) [address] [place] [phone] * (ABNORMAL) C-REACTIVE PROTEIN (02/18/2019 2:36 AM CDT) Pathologist [facility] C-Reactive Protein 2.9(H) <=0.5 mg/dL 02/18/2019 2:56 AM CDT [facility] Blood BLOOD SPECIMEN / Unknown 02/18/2019 2:36 AM CDT 02/18/2019 2:39 AM CDT David Gonsalez MD LAB - CHEMISTRY RAMON MOHAN Performing Organization Address City/[facility]/ZIP Co de Phone Number [address] [phone] * (ABNORMAL) ERYTHROCYTE SEDIMENTATION RATE (02/18/2019 2:36 AM CDT) Erythrocyte Sedimentation Rate Westergren 21(H) 0 - 20 MM/HR 02/18/2019 2:46 AM CDT [facility] Blood BLOOD SPECIMEN / Unknown 02/18/2019 2:36 AM CDT 02/18/2019 2:39 AM CDT David Gonsalez MD LAB - HEMATOLOGY ORD ERABLES [address] [phone] * T4 FREE (02/18/2019 2:36 AM CDT) T4 Free 1.0 0.7 - 1.5 ng/dL 02/18/2019 3:55 AM CDT [facility] Blood BLOOD SPECIMEN / Unknown 02/18/2019 2:36 AM CDT 02/18/2019 2:39 AM CDT Enrico Tony MD LAB - CHEMISTRY ORD ERABLES Performing Organization Address [facility] Co de Phone Number [address] [phone] * CT HEAD WO CONTRAST (02/18/2019 12:05 [...] abnormality. Report dictated by Fede Aguirre MD (cath lab radiology technician). I, Dr. MARY HUANG have personally reviewed [...] abnormality. Report dictated by Fede Aguirre MD (cath lab radiology technician). I, Dr. MARY HUANG have personally reviewed and interpreted this examination/study. This report was electronically signed by MARY HUANG on 02/18/2019 9:11 AM. Cinthia Meza PA-C CT ORDERABLES * CK BLOOD (02/17/2019 9:20 PM CDT) [facility] CK Total 70 30 - 200 Units/L 02/18/2019 3:08 AM T [facility] Blood BLOOD SPECIMEN / Unknown Venipuncture / Unknown 02/17/2019 9:20 PM CDT 02/18/2019 2:55 AM CDT Enrico Tony MD LAB - CHEMISTRY ORD ERABLES [address] [phone] * (ABNORMAL) COMPREHENSIVE METABOLIC PANEL (02/17/2019 9:15 PM CDT) Only the most recent of4 resultswithin the time period is included. [facility] BUN 29(H) 7 - 26 mg/dL 02/17/2019 9:43 PM [facility] Creatinine 1.5(H) 0.6 - 1.2 mg/dL 02/17/2019 9:43 PM [facility] Sodium 138 136 - 145 mmol/L 02/17/2019 9:43 PM [facility] Potassium 3.7 3.5 - 4.5 mmol/L 02/17/2019 9:43 PM [facility] Chloride 101 98 - 107 mmol/L 02/17/2019 9:43 PM [facility] CO2 24 22 - 29 mmol/L 02/17/2019 9:43 PM [facility] Glucose 84 70 - 115 mg/dL 02/17/2019 9:43 PM [facility] Calcium 8.8 8.4 - 10.2 mg/dL 02/17/2019 9:43 PM [facility] Protein Total 5.9(L) 6.0 - 8.3 g/dL 02/17/2019 9:43 PM [facility] Albumin 3.1(L) 3.4 - 5.0 g/dL 02/17/2019 9:43 PM [facility] Bilirubin Total 0.7 0.2 - 1.2 mg/dL 02/17/2019 9:43 PM [facility] Alkaline Phosphatase 158(H) 40 - 150 Units/L 02/17/2019 9:43 PM [facility] ALT 8 0 - 55 Units/L 02/17/2019 9:43 PM [facility] AST 12 5 - 34 Units/L 02/17/2019 9:43 PM [facility] Anion Gap 17 8 - 18 02/17/2019 9:43 PM [facility] BUN/Creatinine Ratio 19 7 - 23 02/17/2019 9:43 PM [facility] Osmolality Calculated 291 270 - 300 mOsm/kg 02/17/2019 9:43 PM [facility] Albumin/Globulin Ratio 1.1 1.1 - 2.3 02/17/2019 9:43 PM [facility] eGFR 48(L) >60 mL/min/1.7 3 m2 02/17/2019 9:43 PM [facility] Blood BLOOD SPECIMEN / Unknown 02/17/2019 9:15 PM CDT 02/17/2019 9:20 PM T Cinthia Meza PA-C LAB - CHEMISTRY ORDERABLES [facility] [address] [phone] * TSH (02/17/2019 9:15 PM CDT) Only the most recent of2 resultswithin the time period is included. Pathologist [facility] 1.661 0.350 - 4.940 uIU/mL 02/18/2019 3:36 AM CDT [facility] Blood BLOOD SPECIMEN / Unknown 02/17/2019 9:15 PM CDT 02/17/2019 9:20 PM CDT Enrico Tony MD LAB - CHEMISTRY ORD ERABLES [facility] [address] [place] [address] * XR SHUNT SERIES (02/17/2019 8:02 PM [...] PA-C DIAGNOSTIC IMAGI NG ORDERABLES * PTT [facility] (11/18/2017 5:16 AM LOCKSTITCHER) Only the most recent of2 resultswithin the time period is included. APTT 36.5 23.0 - 38.4 Seconds [facility] Comment:Suggested therapeuti c range for full dose I.V. heparin therapy for venous thromboembolism is 66.0-91.0 seconds. Blood specimen (specimen) BLOOD SPECIMEN / Unknown 11/18/2017 5:16 AM LOCKSTITCHER 11/18/2017 5:35 AM LOCKSTITCHER Narrative [facility] - 11/18/2017 5:48 AM LOCKSTITCHER Is patient on Heparin, Argatroban or Dabigatran?->N Jarad Gabriel MD LAB - COAGULATION ORDERABLES [address] [phone] * (ABNORMAL) PT-INR [facility] (11/18/2017 5:16 AM LOCKSTITCHER) Only the most recent of8 resultswithin the time period is included. PT 19.3(H) 12.1 - 14.8 Seconds [facility] INR 1.6 See Comment [facility] Comment: Suggested therapeutic range for low-intensity coumadin therapy for venous thromboembolism prophylaxis is an INR of 2.0-3.0. ??For high risk patients (Mitral Valve Prosthesis, Atrial Fibrillation, history of TIA/stroke), suggested prophylactic therapeutic range is an INR of 2.5-3.5. Blood specimen (specimen) BLOOD SPECIMEN / Unknown 11/18/2017 5:16 AM LOCKSTITCHER 11/18/2017 5:35 AM LOCKSTITCHER Narrative [facility] - 11/18/2017 5:48 AM LOCKSTITCHER Is patient on Heparin, Argatroban or Dabigatran?->N Jarad Gabriel MD LAB - COAGULATION ORDERABLES [address] [phone] * CT CERVICAL SPINE WO CONTRAST (11/17/2017 2:24 AM LOCKSTITCHER) Anatomical Region Laterality Modality Spine Other Impressions 11/17/2017 1:40 PM LOCKSTITCHER IMPRESSION: 1. No evidence of acute fracture in the cervical spine. I, Dr. HARSHIL VASQUES M.D. have personally reviewed and interpreted this examination/study. This report was electronically signed by HARSHIL VASQUES M.D. ??on 11/17/2017 1:40 PM . Narrative 11/17/2017 1:40 PM LOCKSTITCHER EXAMINATION: Computed tomography (CT) of the cervical [...] degenerative disc disease at C5-6 and C6-7. Iutn-di-cyzfpssp central canal stenosis is noted at these [...] moderate degenerative disc disease at C5-6 and C6-7.Tqod-qw-jwgztbni central canal stenosis is noted at these [...] ORDERABLES * CULTURE URINE (11/17/2017 1:58 AM LOCKSTITCHER) Only the most recent of4 resultswithin the time period is included. Culture Urine No growth (<1,000 CFU/mL) [facility] Urine specimen (specimen) URINE / Unknown 11/17/2017 1:58 AM LOCKSTITCHER 11/17/2017 2:04 AM LOCKSTITCHER Narrative [facility] - 11/18/2017 7:20 AM LOCKSTITCHER Specimen Type->Urine Resulting Lab: ?? [facility] [address] [place] [address] PH: [phone] Lyssa Eckert MD LAB - MICROBIOLOGY O RDERABLES [facility] [address] [place] [address] * XR FEMUR LEFT 2VW (11/17/2017 1:05 AM LOCKSTITCHER) Anatomical Region Laterality Modality Lower Extremity Other Impressions 11/17/2017 10:47 AM LOCKSTITCHER IMPRESSION: No acute femoral fracture identified. Dictated by Tg Hidalgo MD (cath lab radiology technician). This report was approved ??by Tg Hidalgo M.D. ?? on 11/17/2017 9:[address] FABIOLA Reeves MD have personally reviewed and interpreted this examination/study. This report was electronically signed by Dr. FABIOLA WHITEHEAD MD ??on 11/17/2017 10:47 AM . Narrative 11/17/2017 10:47 AM LOCKSTITCHER EXAMINATION: XR FEMUR LEFT 2+ VW HISTORY: [...] fracture identified. Dictated by Tg Hidalgo MD (cath lab radiology technician). This report was approved by Tg Hidalgo M.D. on 11/17/2017 9:[address] FABIOLA Reeves MD have personally reviewed and interpreted thisexamination/study. This report was electronically signed by Dr. FABIOLA WHITEHEAD MD on 11/17/201710:47 AM . Lyssa Eckert MD DIAGNOSTIC IMAGING O RDERABLES * XR KNEE LEFT 3VW (11/17/2017 1:04 AM LOCKSTITCHER) Anatomical Region Laterality Modality Lower Extremity Other Impressions 11/17/2017 10:47 AM LOCKSTITCHER IMPRESSION: No acute fracture or dislocation identified. Joint effusion. Dictated by Tg Hidalgo MD (cath lab radiology technician). This report was approved ??by Tg Hidalgo M.D. ?? on 11/17/2017 9:[address] FABIOLA Reeves MD have personally reviewed and interpreted this examination/study. This report was electronically signed by Dr. FABIOLA WHITEHEAD MD ??on 11/17/2017 10:47 AM . Narrative 11/17/2017 10:47 AM LOCKSTITCHER EXAMINATION: PX KNEE LEFT 3 VW HISTORY: [...] Joint effusion. Dictated by Tg Hidalgo MD (cath lab radiology technician). This report was approved by Tg Hidalgo M.D. on 11/17/2017 9:[address] FABIOLA Reeves MD have personally reviewed and interpreted thisexamination/study. This report was electronically signed by Dr. FABIOLA WHITEHEAD MD on 11/17/201710:47 AM . Lyssa Eckert MD DIAGNOSTIC IMAGING O RDERABLES * CULTURE CSF+GRAM STAIN (11/17/2017 12:22 AM LOCKSTITCHER) Only the most recent of25 resultswithin the time period is included. Culture CSF No Growth [facility] Gram Stain No Organism Seen [facility] Spinal fluid (substance) CEREBROSPINAL FLUID SPECIMEN / Unknown 11/17/2017 12:22 AM LOCKSTITCHER 11/17/2017 12:36 AM LOCKSTITCHER Narrative [facility] - 11/24/2017 3:40 AM LOCKSTITCHER Specimen Type->Cerebrospinal Fluid Resulting Lab: ?? [facility] [address] [place] [address] PH: [phone] Lyssa Eckert MD LAB - MICROBIOLOGY O RDERABLES Performing Organization Address [facility]/ZIP [place] [address], [facility] [phone] * (ABNORMAL) CELL COUNT CSF (11/17/2017 12:21 AM LOCKSTITCHER) Only the most recent of25 resultswithin the time period is included. Color Fluid Colorless Colorless, Straw [facility] Clarity Fluid Clear Clear [facility] Volume Fluid 2.0 mL [facility] WBC Fluid 1 0 - 5 /uL [facility] RBC Fluid 1(H) 0 /uL [facility] Xanthochromia Fluid Negative Negative [facility] Differential Manual Differential to follow. [facility] Spinal fluid (substance) CEREBROSPINAL FLUID SPECIMEN / Unknown 11/17/2017 12:21 AM LOCKSTITCHER 11/17/2017 12:36 AM LOCKSTITCHER Lyssa Eckert MD LAB - BODY FLUID ORD ERABLES Performing Organization Address [facility] [place] [address], [facility] [phone] * DIFFERENTIAL MANUAL FLUID (11/17/2017 12:21 AM LOCKSTITCHER) Only the most recent of25 resultswithin the time period is included. Pathologist [facility] Lymphocytes % Fluid 40 - 80 % [facility] Comment:No cells seen Spinal fluid (substance) CEREBROSPINAL FLUID SPECIMEN / Unknown 11/17/2017 12:21 AM LOCKSTITCHER 11/17/2017 12:36 AM LOCKSTITCHER Narrative [facility] - 11/17/2017 2:51 AM LOCKSTITCHER No cells seen Lyssa Eckert MD LAB - BODY FLUID ORD ERABLES Performing Organization Address [facility] [place] [address], [facility] [phone] * (ABNORMAL) PROTEIN CSF (11/17/2017 12:21 AM LOCKSTITCHER) Only the most recent of25 resultswithin the time period is included. Protein CSF 10(L) 15 - 45 mg/dL [facility] Spinal fluid (substance) CEREBROSPINAL FLUID SPECIMEN / Unknown 11/17/2017 12:21 AM LOCKSTITCHER 11/17/2017 12:35 AM LOCKSTITCHER Lyssa Eckert MD LAB - BODY FLUID ORD ERABLES Performing Organization Address [facility] de Phone Number [address] [phone] * GLUCOSE CSF (11/17/2017 12:21 AM LOCKSTITCHER) Only the most recent of25 resultswithin the time period is included. Glucose CSF 66 40 - 70 mg/dL [facility] Spinal fluid (substance) CEREBROSPINAL FLUID SPECIMEN / Unknown 11/17/2017 12:21 AM LOCKSTITCHER 11/17/2017 12:35 AM LOCKSTITCHER Lyssa Eckert MD LAB - BODY FLUID ORD ERABLES Performing Organization Address [facility] de Phone Number [address] [phone] * CELL COUNT W DIFF CSF (11/17/2017 12:21 AM LOCKSTITCHER) Only the most recent of25 resultswithin the time period is included. Spinal fluid (substance) CEREBROSPINAL FLUID SPECIMEN / Unknown 11/17/2017 12:21 AM LOCKSTITCHER Narrative [facility] - 11/17/2017 2:51 AM LOCKSTITCHER The following orders were created for panel order Spinal fluid cell count. Procedure ? Abnormality ? Status ? --------- ? ------ ? SPINAL FLUID CELL COUNT[[id number]] ? Abnormal ?Final result ? MANUAL DIFFERENTIAL FLUID[[id number]] ? Final result ? Please view results for these tests on the individual orders. Lyssa Eckert MD LAB - BODY FLUID ORD ERAANNELISE Performing Organization Address [facility] Co de Phone Number [facility] [address] * TROPONIN I (11/17/2017 12:11 AM LOCKSTITCHER) Only the most recent of11 resultswithin the time period is included. Troponin I 0.029 <0.032 ng/mL [facility] Blood specimen (specimen) BLOOD SPECIMEN / Unknown 11/17/2017 12:11 AM LOCKSTITCHER 11/17/2017 12:15 AM LOCKSTITCHER Lyssa Eckert MD LAB - CHEMISTRY RAMON MOHAN Performing Organization Address [facility] de Phone Number [address] [phone] * CK + CKMB PANEL (11/17/2017 12:11 AM LOCKSTITCHER) Only the most recent of7 resultswithin the time period is included. CK Total 62 30 - 200 Units/L [facility] CK-MB 1.2 0.0 - 6.6 ng/mL [facility] Blood specimen (specimen) BLOOD SPECIMEN / Unknown 11/17/2017 12:11 AM LOCKSTITCHER 11/17/2017 12:15 AM LOCKSTITCHER Lyssa Eckert MD LAB - CHEMISTRY RAMON MOHAN Performing Organization Address [facility] de Phone Number [facility] [address] [phone] * EKG 12-LEAD (11/16/2017 12:00 AM LOCKSTITCHER) Only the most recent of10 resultswithin the time period is included. EKG [facility] Comment: Exam Date/Time: ?? Nov 16 [...] changed Confirmed by MD Germain, Kendal ([id number]), publications editor Yaw Montoya ([id number]) on 11/21/2017 2:14:05 PM Referred By: REFERRING NO ? Confirmed By:Kendal Groves MD 11/16/2017 Lyssa Eckert MD ECG ORDERABLES Performing Organization Address City/[facility]/ZIP Co de Phone Number [facility] * PHOSPHORUS BLOOD (04/09/2017 4:06 AM CDT) Only the most recent of45 resultswithin the time period is included. Pathologist [facility] Phosphorus 3.1 2.3 - 4.7 mg/dL [facility] Blood specimen (specimen) BLOOD SPECIMEN / Unknown 04/09/2017 4:06 AM CDT 04/09/2017 4:18 AM CDT Chris Beauchamp MD LAB - CHEMISTRY RAMON MOHAN Performing Organization Address [facility]/ZIP [place] [address], [facility] [phone] * GLUCOSE ACCUCHECK (04/08/2017 4:14 PM CDT) Only the most recent of14 resultswithin the time period is included. Glucose, Fingerstick 110 70-115mg/d L mg/dL [facility] JORGE LUIS MCCLENDON) Comment:Head Of Mobile: JJ MANCILLACHANELLMeredith 04/08/2017 4:14 PM CDT Chris Beauchamp MD LAB - CHEMISTRY ORDE [facility]E [facility]) * (ABNORMAL) DIFFERENTIAL MANUAL (04/08/2017 3:34 AM CDT) Only the most recent of26 resultswithin the time period is included. WBC (corrected for NRBC) 11.5 10? 3 /uL [facility] Total Cell Count 100 [facility] Neutrophils Absolute Manual 9.89(H) 1.60 - 7.00 10? 3 /uL [facility] Comment:(BANDS+SEGS) x WBC = NEUT # (ANC) Lymphocyte Absolute Manual 1.15 0.80 - 2.90 10? 3 /uL [facility] Monocytes Absolute Manual 0.23 0.14 - 0.66 10? 3 /uL [facility] Eosinophils Absolute Manual 0.23(H) 0.00 - 0.22 10? 3 /uL [facility] Band % Manual 6 0 - 10 % [facility] Neutrophil % Manual 80(H) 30 - 60 % [facility] Lymphocyte % Manual 10(L) 20 - 45 % [facility] Monocytes % Manual 2 2 - 10 % [facility] Eosinophils % Manual 2 1 - 6 % [facility] Platelet Estimate Adequate Adequate [facility] Anisocytosis Few(A) None [facility] Poikilocytes Few(A) None [facility] Macrocytosis Rare(A) None [facility] Polychromasia Rare(A) None [facility] Blood specimen (specimen) BLOOD SPECIMEN / Unknown 04/08/2017 3:34 AM CDT 04/08/2017 3:55 AM CDT Chris Beauchamp MD LAB - HEMATOLOGY ORD ERABLES [address] [phone] * XR THORACIC SPINE 1VW (04/05/2017 9:31 PM CDT) Anatomical Region Laterality Modality Spine Other Impressions 04/06/2017 3:37 PM CDT IMPRESSION: Exam limited by lack of lateral view due to patient positioning Upper thoracic levoscoliosis. Dictated by Santi Tompkins DO (cath lab radiology technician). Dr. FABIOLA Reeves M.D. have personally reviewed [...] thoracic levoscoliosis. Dictated by Santi Tompkins DO (cath lab radiology technician). Dr. FABIOLA Reeves M.D. have personally reviewed [...] included. Albumin 1.8(L) 3.4 - 5.0 g/dL [facility] Blood specimen (specimen) BLOOD SPECIMEN / Unknown 04/03/2017 8:01 AM CDT 04/03/2017 8:16 AM CDT Chris Beauchamp MD LAB - CHEMISTRY RAMON MOHAN [address] [phone] * (ABNORMAL) T3 TOTAL (04/01/2017 8:35 PM CDT) T3 Total 36(L) 58 - 159 ng/dL [facility] Blood specimen (specimen) BLOOD SPECIMEN / Unknown 04/01/2017 8:35 PM CDT 04/01/2017 9:06 PM CDT Chris Beauchamp MD LAB - CHEMISTRY RAMON MOHAN Performing Organization Address [facility]/ZIP Co de Phone Number [address] [phone] * (ABNORMAL) T4 TOTAL (04/01/2017 8:03 AM CDT) Pathologist [facility] T4 Total 4.8(L) 4.9 - 11.7 mcg/dL [facility] Blood specimen (specimen) BLOOD SPECIMEN / Unknown 04/01/2017 8:03 AM CDT 04/01/2017 8:08 AM CDT Chris Beauchamp MD LAB - CHEMISTRY RAMON MOHAN Performing Organization Address [facility] Co de Phone Number [address] [phone] * (ABNORMAL) BLOOD GASES ART (03/31/2017 12:47 PM CDT) Only the most recent of7 resultswithin the time period is included. pH Arterial 7.42 7.35 - 7.45 [facility] pCO2 Arterial 42 35 - 45 mmHg [facility] pO2 Arterial 145(H) 71 - 95 mmHg [facility] HCO3 Arterial 26.4(H) 22.0 - 26.0 mmol/L [facility] TCO2 Arterial 27.7 25.0 - 29.0 mmol/L [facility] Base Excess Arterial 1.7 -2.0 - 2.0 mmol/L [facility] Hemoglobin Arterial 11.0(L) 13.5 - 17.5 g/dL [facility] Oxyhemoglobin Arterial 97.4 95.0 - 100.0 % [facility] Carboxyhemoglobin 0.5 0.0 - 3.0 % [facility] Methemoglobin 0.3 0.0 - 2.0 % [facility] FI O2 Arterial 28.0 % [facility] Blood specimen (specimen) BLOOD SPECIMEN / Unknown 03/31/2017 12:47 PM CDT 03/31/2017 12:52 PM CDT Chris Beauchamp MD LAB - BLOOD GASES OR DERABLES [address] [phone] * XR CHEST 1VW PORTABLE (03/31/2017 12:36 [...] is unchanged. Dictated by Kendal Carrington M.D. (Secretary Administrative Assistant) This report was approved ??by Kendal Carrington [...] is unchanged. Dictated by Kendal Carrington M.D. (Secretary Administrative Assistant) This report was approved by Kendal Carrington [...] Vancomycin Trough 17.6 10.0 - 20.0 mcg/mL [facility] Blood specimen (specimen) BLOOD SPECIMEN / Unknown 03/31/2017 12:50 AM CDT 03/31/2017 12:55 AM CDT Chris Beauchamp MD LAB - CHEMISTRY RAMON Carrion Organization Address City/State/ZIP Co de Phone Number [facility] [address] [phone] * TYPE + SCREEN PANEL (03/30/2017 12:26 AM CDT) Only the most recent of2 resultswithin the time period is included. Typem O POS [facility] Antibody Screen NEG [facility] Blood specimen (specimen) 03/30/2017 12:26 AM CDT 03/30/2017 12:35 AM CDT Chris Beauchamp MD LAB - BLOOD BANK ORD ERAANNELISE [facility] [address] [place] [address] * VANCOMYCIN LEVEL RANDOM (03/29/2017 8:11 AM CDT) Vancomycin Random 20.6 Therapeutic Ranges not established for random specimens mcg/mL [facility] Blood specimen (specimen) BLOOD SPECIMEN / Unknown 03/29/2017 8:11 AM CDT 03/29/2017 8:17 AM CDT Chris Beauchamp MD LAB - CHEMISTRY RAMON MOHAN Performing Organization Address City/[facility]/ZIP Co de Phone Number [address] [phone] * (ABNORMAL) OSMOLALITY BLOOD (03/27/2017 11:53 PM CDT) Only the most recent of3 resultswithin the time period is included. Osmolality 337(H) 270 - 300 mOsm/kg [facility] Blood specimen (specimen) BLOOD SPECIMEN / Unknown 03/27/2017 11:53 PM CDT 03/27/2017 11:53 PM CDT Chris Beauchamp MD LAB - CHEMISTRY RAMON MOHAN [address] [phone] * SODIUM URINE RANDOM (03/27/2017 10:56 PM CDT) Sodium Urine 71 Not Established mmol/L [facility] Urine specimen (specimen) URINE / Unknown 03/27/2017 10:56 PM CDT 03/27/2017 10:56 PM CDT Chris Beauchamp MD LAB - URINE CHEMISTR Y ORDERABLES Performing Organization Address [facility]/ZIP Co de Phone Number [address] [phone] * OSMOLALITY URINE (03/27/2017 10:56 PM CDT) Only the most recent of2 resultswithin the time period is included. Osmolality Urine 504 500 - 800 mOsm/kg [facility] Urine specimen (specimen) URINE / Unknown 03/27/2017 10:56 PM CDT 03/27/2017 10:56 PM CDT Chris Beauchamp MD LAB - URINE CHEMISTR Y ORDERABLES Performing Organization Address [facility] Co de Phone Number [address] [phone] * XR ABDOMEN KUB PORTABLE (03/27/2017 2:23 AM CDT) Only the most recent of10 resultswithin the time period is included. Anatomical Region Laterality Modality Other Impressions 03/27/2017 12:38 PM CDT Impression: A feeding tube has been retracted with the tip in the third portion of the duodenum. Reported dictated by Giulia Dyson MD (market president). I, Dr. GLO OSEGUERA M.D. have personally [...] duodenum. Reported dictated by Giulia Dyson MD (market president). I, Dr. GLO OSEGUERA M.D. have personally reviewed and interpreted thisexamination/study. This report was electronically signed by GLO OSEGUERA M.D. on 03/27/201712:38 PM . Chris Beauchamp MD DIAGNOSTIC IMAGING O RDERABLES * CULTURE SPUTUM+GRAM STAIN (03/26/2017 6:18 PM CDT) Only the most recent of4 resultswithin the time period is included. Gram Stain Many Epithelial Cells [facility] Gram Stain Moderate Polymorphonuclear Cells [facility] Gram Stain Few Gram positive cocci in pairs [facility] Gram Stain Many Gram Positive bacilli [facility] Sputum specimen (specimen) SPUTUM / Unknown 03/26/2017 6:18 PM CDT 03/26/2017 6:23 PM CDT Narrative [facility] - 03/26/2017 9:05 PM CDT Reorder-last [...] Beauchamp MD LAB - MICROBIOLOGY O RDERABLES [address] [phone] * IR PERC G TUBE PLACEMENT (03/26/2017 [...] CDT) Folate 12.4 7.0 - 31.4 ng/mL [facility] Blood specimen (specimen) BLOOD SPECIMEN / Unknown 03/24/2017 4:35 AM CDT 03/24/2017 4:51 AM CDT Chris Beauchamp MD LAB - CHEMISTRY RAMON MOHAN [facility] Organization Address City/State/ZIP Co de Phone Number [address] [phone] * PATHOLOGY TISSUE (03/23/2017 6:12 PM CDT) Surgical Pathology Tissue ACCESSION No: [id number] CLINICAL HISTORY: Malnutrition; distal esophageal nodule. FINAL [...] were determined by the Histopathology Laboratory of [facility].?? Some of these tests were developed [...] by Park Pat MD. Electronically signed 03/27/2017 [facility] ([place]) Other (qualifier value) 03/23/2017 6:12 PM CDT 03/23/2017 6:16 PM CDT Narrative [facility] ([place]) - 03/27/2017 7:33 PM CDT PROBLEM LIST: Patient Active Problem List: ?? Nontraumatic acute hemorrhage of basal ganglia ?? Acquired obstructive hydrocephalus ?? Essential hypertension ?? Feeding difficulties ?? Acute encephalopathy ?? RESEARCH PSYCHOLOGIST (ventriculoperitoneal) shunt status ?? Dysphagia, unspecified type [...] Beauchamp MD LAB - PATHOLOGY/CYTO LOGY ORDERABLES [facility] ([place]) * CT GUIDED STEREO [...] This report was electronically signed by HARSHIL VASQEUS M.D. ??on 03/19/2017 11:20 AM . Narrative [...] Whole Blood 5.0 3.5 - 5.5 mmol/L [facility] Blood specimen (specimen) BLOOD SPECIMEN / Unknown 03/16/2017 1:38 PM CDT 03/16/2017 1:41 PM CDT Chris Beauchamp MD LAB - CHEMISTRY RAMON MOHAN [facility] Organization Address City/State/ZIP Co de Phone Number [address] [phone] * CT CHEST ABDOMEN PELVIS W CONT (03/09/2017 5:18 PM CDT) Anatomical Region Laterality Modality Chest, Abdomen, Pelvis Other Impressions 03/10/2017 7:18 AM CDT IMPRESSION: 1. Bilateral lower lobe predominant groundglass opacities and consolidation likely represent aspiration/pneumonia. 2. Small bowel loops in close proximity to the overlying skin of the lower anterior midline abdomen. No obstruction. Report dictated by Yasmani Eng MD (cath lab radiology technician). I, Dr. ELGIN HIGUERA M.D. have personally [...] obstruction. Report dictated by Yasmani Eng MD (cath lab radiology technician). I, Dr. ELGIN HIGUERA M.D. have personally reviewed and interpreted thisexamination/study. This report was electronically signed by ELGIN HIGUERA M.D. on03/10/2017 7:18 AM . Chris Beauchamp MD CT ORDERABLES * ECHO W DOPPLER AND COLOR FLOW (03/09/2017 12:00 AM CDT) Anatomical Region Laterality Modality Other 03/09/2017 Chris Beauchamp MD ECHOCARDIOGRAPHY RAD IANT * (ABNORMAL) SODIUM BLOOD (03/05/2017 8:20 PM CDT) [facility] Sodium 162(HH) 136 - 145 mmol/L [facility] Comment:Critical value(s) gonzalez ve been verified and called to and read back by Rolando Gross RN at 2052 on 03/05/2017. Blood specimen (specimen) BLOOD SPECIMEN / Unknown 03/05/2017 8:20 PM CDT 03/05/2017 8:28 PM CDT Chris Beauchamp MD LAB - CHEMISTRY RAMON MOHAN [facility] [address] [place] [address] * (ABNORMAL) HEPATIC FUNCTION PANEL (02/27/2017 11:24 PM CDT) Protein Total 5.4(L) 6.0 - 8.3 g/dL [facility] Albumin 2.4(L) 3.4 - 5.0 g/dL [facility] Bilirubin Total 1.3(H) 0.2 - 1.2 mg/dL [facility] Bilirubin Conjugated 0.7(H) 0.0 - 0.5 mg/dL [facility] Bilirubin Unconjugated 0.6 Unconjugated Bilirubin is a calculated value: Reference ranges have not been established. mg/dL [facility] Alkaline Phosphatase 99 40 - 150 Units/L [facility] ALT 21 0 - 55 Units/L [facility] AST 21 5 - 34 Units/L [facility] Albumin/Globulin Ratio 0.8(L) 1.1 - 2.3 [facility] Blood specimen (specimen) BLOOD SPECIMEN / Unknown 02/27/2017 11:24 PM CDT 02/27/2017 11:39 PM CDT Chris Beauchamp MD LAB [facility] Organization Address City/State/[facility] Co de Phone Number [address] [phone] * (ABNORMAL) BLOOD GASES ART COMPLETE [facility] OR (02/25/2017 1:58 PM CDT) pH Arterial 7.40 7.35 - 7.45 [facility] pCO2 Arterial 38 35 - 45 mmHg [facility] pO2 Arterial 93 71 - 95 mmHg [facility] HCO3 Arterial 23.0 22.0 - 26.0 mmol/L [facility] TCO2 Arterial 24.1(L) 25.0 - 29.0 mmol/L [facility] Base Excess Arterial -1.5 -2.0 - 2.0 mmol/L [facility] Hemoglobin Arterial 14.2 13.5 - 17.5 g/dL [facility] Oxyhemoglobin Arterial 96.6 95.0 - 100.0 % [facility] Carboxyhemoglobin 0.0 0.0 - 3.0 % [facility] Methemoglobin 0.2 0.0 - 2.0 % [facility] FI O2 Arterial 60.0 % [facility] Ionized Calcium Whole Blood 1.21 mmol/L [facility] Adjusted Ionized Calcium 1.21 1.19 - 1.34 mmol/L [facility] Sodium Whole Blood 146(H) 135 - 145 mmol/L [facility] Potassium Whole Blood 3.7 3.5 - 5.5 mmol/L [facility] Chloride Whole Blood 118(H) 101 - 111 mmol/L [facility] Glucose Whole Blood 112(H) 70 - 110 mg/dL [facility] Lactic Acid Whole Blood 1.7 0.5 - 3.4 mmol/L [facility] Blood specimen (specimen) 02/25/2017 1:58 PM CDT 02/25/2017 1:58 PM CDT Chris Beauchamp MD LAB - BLOOD GASES OR DERABLES [address] [phone] * MANUAL DIFFERENTIAL REVIEWED (02/23/2017 3:48 PM CDT) Manual Differential Reviewed DIFFERENTIAL REVIEW - CONFIRMED DIFFERENTIAL REVIEW - CONFIRMED [facility] Spinal fluid (substance) CEREBROSPINAL FLUID SPECIMEN / Unknown 02/23/2017 3:48 PM CDT 02/23/2017 3:52 PM CDT Nicole Manzano PA-C LAB - HEMATOLO GY ORDERABLES Performing Organization Address [facility] Co de Phone Number [address] [phone] * CT ANGIO BRAIN (02/23/2017 12:29 PM [...] G-Clot Strength 9.2 4.5 - 11.0 d/sc [facility] Interpretation TEG See Comment [facility] React-Time 3.2(L) 5.0 - 10.0 MIN [facility] K-Time 1.4 1.0 - 3.0 MIN [facility] Angle A-BB 70.7 53.0 - 72.0 Degrees [facility] MA (CK) BB 64.9 50.0 - 70.0 mm [facility] LY30 0.3 0.0 - 8.0 % [facility] CI-Coagulation Index 2.9 -3.0 - 3.0 [facility] MA-ADP 19.5 Reference Range: None mm [facility] MA AA-BB 16.8 Reference Range: None mm [facility] % ADP Inhibition 91.2 Reference Range:None % [facility] % AA Inhibition 96.6 Reference Range: None % [facility] Blood specimen (specimen) BLOOD SPECIMEN / Unknown 02/23/2017 3:48 AM CDT 02/23/2017 4:00 AM CDT Narrative [facility] - 02/23/2017 6:33 AM [...] MD LAB - BLOOD BANK ORD ERABLES [facility] [address] [place] [address], [facility] * HEMOGLOBIN A1C (02/23/2017 3:43 AM CDT) [facility] Hemoglobin A1c 5.0 4.4 - 6.3 % [facility] Estimated Average Glucose 97 mg/dL [facility] Comment: HbA1c Interpretation: Treatment target values recommended by ADA and other clinical organizations should be used to evaluate metabolic control in patients. Treatment Target Values: Normal : < 5.7% Pre-diabetes: 5.7-6.4% Diabetes: Equal to or greater than 6.5% Reference: [place] [employer] Standards of Care in Diabetes -2014 In patients 70 years and older consider HbA1c target range of 7.0-7.5% Reference: ??Diabetes Mellitus in Older People: Position Statement on behalf of the International Association of Gerontology and Geriatrics (IAGG), the Diabetes Working [employer] for Older People (EDWPOP), and the International Task Force of Experts in Diabetes. ??Anant Harper et al. J [place] [employer]. 2012 Test results diagnostic [...] Tejeda MD LAB - CHEMISTRY ORDE RABNKECHI [address] [phone] * (ABNORMAL) URINALYSIS REFLEX TO MICROSCOPIC NO CULTURE (02/22/2017 11:19 PM CDT) Color UA Yellow Straw, Yellow, Colorless, Light Yellow [facility] Clarity UA Clear Clear [facility] Specific [place] UA 1.011 1.001 - 1.030 [facility] pH UA 5.0 5.0 - 8.0 [facility] Protein UA 30(A) <=20 mg/dL [facility] Glucose UA Negative Negative mg/dL [facility] Ketone UA Negative Negative mg/dL [facility] Bilirubin UA Negative Negative mg/dL [facility] Blood UA Negative Negative [facility] Nitrite UA Negative Negative [facility] Leukocyte Esterase Negative Negative [facility] Urobilinogen UA <2.0 <2.0 mg/dL [facility] RBC UA 2 0 - 8 /HPF [facility] WBC UA 2 0 - 2 /HPF [facility] Squamous Epithelial Cells UA <1 0 - 1 /HPF [facility] Mucus UA Moderate(A) None /LPF [facility] Urine specimen (specimen) 02/22/2017 11:19 PM CDT 02/22/2017 11:22 PM CDT Erasmo Tejeda MD LAB - URINALYSIS ORD ERABLES Performing Organization Address City/[facility]/ZIP Co de Phone Number [address] [phone] * (ABNORMAL) DRUG ABUSE PANEL 10-20+ETHANOL URINE NO CONFIRM (02/22/2017 11:19 PM CDT) Amphetamines Screen Urine Negative Negative : < 1000 ng/mL [facility] Barbiturates Screen Urine Negative Negative : < 200 ng/mL [facility] Benzodiazepine Screen Urine Positive(A) Negative : < 200 ng/mL [facility] Comment: Positive urine benzodiazepine screening results should be confirmed by another generally accepted non-immunological method such as gas chromatography or mass spectrometry. ? Opiates Urine Negative Negative : < 300 ng/mL [facility] Cocaine Metabolites Urine Negative Negative : < 300 ng/mL [facility] Phencyclidine Screen Urine Negative Negative : < 25 ng/ml [facility] Cannabinoids Screen Urine Negative Negative : <50 ng/mL [facility] Methadone Screen Urine Negative Negative : < 300 ng/mL [facility] Urine specimen (specimen) URINE / Unknown 02/22/2017 11:19 PM CDT 02/22/2017 11:22 PM CDT Narrative [facility] - 02/22/2017 11:40 PM CDT The Urine Toxicology Screening Panel does not screen for Propoxyphene, Meprobamate, Carisoprodol, Trazodone, [id number] medications and/or volatiles (Acetone, Isopropanol, Methanol or Ethylene Glycol). Ethanol, Salicylate, Acetaminophen, Tricyclic Antidepressants and several therapeutic drugs may be individually assayed in serum or plasma specimen. Toxicology testing by the [facility] is an aid to medical diagnosis and treatment of patients. No documented chain of custody was maintained. Results are intended to be used for clinical purposes only. ? Erasmo Tejeda MD LAB - URINE CHEMISTR Y ORDERABLES Performing Organization Address [facility]/ZIP Co de Phone Number [address] [phone] * ALCOHOL ETHYL BLOOD (02/22/2017 11:18 PM CDT) Interpretation Ethanol None Detected None Detected mg/dL [facility] Comment:Ethanol levels less than 10 mg/dL are resulted as None detected . Blood specimen (specimen) BLOOD SPECIMEN / Unknown 02/22/2017 11:18 PM CDT 02/22/2017 11:22 PM CDT Erasmo Tejeda MD LAB - CHEMISTRY ORDE RABLES Performing Organization Address [facility] de Phone Number [address] [phone] Care Teams Bridge Toll Collector Relationship Specialty Start Date End Date Vern Adams MD PCP - General 05/28/18
--- OUTSIDE RECORDS SUMMARY | 2024-10-19 14:23 | XMS_ITS | Encounter Summary ---
Author Organization [facility] Address [address] [place] [address] Phone Care Team Providers Care [facility] Name Role Phone Chris Perez PhD Primary Care Provider Vern Dover MD Primary Care Provider [phone] Encounter Details Date Type Department Care Team (Latest Contact Info) Description 05/28/2018 Orders Only [facility] Scanning, Provider Social History Tobacco Use Types Packs/Day Years Used Date Smoking Tobacco: Never Sex and Gender Information Value Date Recorded Sex Assigned at Not on file 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
--- OUTSIDE RECORDS SUMMARY | 2024-10-19 14:23 | XMS_ITS | Encounter Summary ---
Author Organization [facility] Healthcare Address [address] [place] [address] Care Team Providers Care Hat Parts Cutter Machine Name Role Phone Vern Adams MD Primary Care Provider [phone] Encounter Details Date Type Department Care Team (Late st Contact Info) Description 11/13/2019 Telephone [facility] Radiology [address] [place] [address] Rocio Dumont RN Social History Tobacco Use Types Packs/Day Years Used Date Smoking Tobacco: Never Smokeless Tobacco: Never Alcohol Use Standard Drinks/Week Comments Yes 0 (1 standard drink = 0.6 oz pur e alcohol) Sex and Gender Information Value Date Recorded Sex Assigned at Not on file Legal Sex Male 10:45 PM [employer] Gender Identity Not on file Sexual Orientation Not on file 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
--- OUTSIDE RECORDS SUMMARY | 2024-10-19 14:23 | XMS_ITS | CONTINUITY OF CARE DOCUMENT ---
Author Name gordon leyva Address Unknown Organization [facility] Address [address] [facility] [address] [place] [address] Phone [phone] Care Team Providers Care Final Assembler Name Role Phone Flakita ORTIZ, Slim Unavailable [phone] ROEL SWEENEY MD Unavailable [phone] ROEL SWEENEY MD Unavailable [phone] INSURANCE PROVIDERS Payer name Policy type / Coverage type [place] red green party ID [employer] OPEN ACCESS Other [id number]
--- OUTSIDE RECORDS SUMMARY | 2024-10-19 14:23 | XMS_ITS | Clinical Summary ---
Author Organization [facility] Address [address] [place] [address]. [place], [place] [id number] [place] [id number] Care Team Providers Care Accounting Tutor Name Role Phone Unavailable Primary Care Provider [...]
--- NOTE | 2024-10-19 15:27 | PC.NURSE ---
This patient, Fabio Nesbitt, was admitted to IMU Room 206-01. Patient/family oriented to hospital policies and general routines including ID bracelet, bed and alarms, visiting hours, pain management, procedures, bathroom and other care routines, personal items, smoking policy, room service/diet, and visiting hours. Information on how to activate the Rapid Response Team has been discussed. Patient/Family are encouraged to report perceived risks to care and to ask questions if they do not understand what they are told or what they should do.
[2024-10-19] MEDS: LACTATED RINGERS 1,000 ML 125 ML IV CONT ×2 (15:30→23:30)
[2024-10-19] MEDS: METOPROLOL SUCCINATE EXT REL 50 MG TABCR PO (21:04)
[2024-10-19] MEDS: MICONAZOLE NITRATE 2% CREAM 30 GM TUBE 1 APPLIC TOPICAL (21:05)
[2024-10-20] VITALS (16 sets, daily range): BP systolic 117–145; BP diastolic 63–85; PULSE 50–67; RESP 18–20; TEMP 36.3–37.1; O2SAT 90–95
[2024-10-20 05:09] LABS: Mean Corpuscular Hemoglobin 32.5 pg (26-34); Mean Platelet Volume 10.7 fl (7.4-10.4); Platelet Count Result 157 k/mm3 (150-375); Red Cell Distribution Width 14.4 % (11.5-14.5); White Blood Count 23.5 K/mm3 (4.5-10.0)
[2024-10-20 05:30] LABS: Alanine Aminotransferase 39 U/L (6-50); Albumin Level 3.3 g/dL (3.5-5.1); Alkaline Phosphatase 112 U/L (38-126); Anion Gap 8 mmol/L (4-12); Aspartate Amino Transferase 125 U/L (17-59); Blood Urea Nitrogen 35 mg/dL (9-20); Calcium 8.5 mg/dL (8.4-10.2); Carbon Dioxide 24 mmol/L (22-30); Chloride 108 mmol/L (98-107); Estimated CRCL calculation 52 ml/min; Estimated Glomerular Filt Rate 39; Glucose 78 mg/dL (65-110); Sodium 140 mmol/L (137-145)
[2024-10-20 05:46] LABS: Creatine Kinase 4243 U/L (55-170)
[2024-10-20 05:58] LABS: Schistocytes None Seen
[2024-10-20 05:59] LABS: Platelet Estimate Adequate (Adequate)
[2024-10-20] MEDS: LACTATED RINGERS 1,000 ML 125 ML IV CONT ×2 (08:45→21:46)
[2024-10-20] MEDS: METOPROLOL SUCCINATE EXT REL 50 MG TABCR PO ×2 (08:49→21:46)
[2024-10-20] MEDS: SERTRALINE HCL 50 MG TABLET PO (08:49)
[2024-10-20] MEDS: MICONAZOLE NITRATE 2% CREAM 30 GM TUBE 1 APPLIC TOPICAL ×2 (08:49→21:47)
--- NOTE | 2024-10-20 10:59 | P.PNIM_ITS ---
Progress Note: A&P Assessment and Plan (1) UTI (urinary tract infection): Qualifiers: Hematuria presence: without hematuria Urinary tract infection type: acute cystitis Qualified Code(s): N30.00 - Acute cystitis without hematuria Code(s): N39.0 - Urinary tract infection, site not specified Status: Acute Assessment and Plan: Patient presents with weakness and malodorous urine. He did not meet SIRS critera. UA is consistent with UTI. UCx collected. Rocephin started. UCx pending. Follow up on UCx results. (2) KERI (acute kidney injury): Code(s): N17.9 - Acute kidney failure, unspecified Status: Acute Assessment and Plan: Cr elevated on admission at 2.23. He has a normal baseline Cr although the last Cr was from 2020. CT abd/pelvis with contrast showing a chronic 13 cm ovoid cystic lesion in the subcutaneous fat at the right lower quadrant pannus appreciated on exam, nonobstructing bilateral nephrolithiasis and fluid in the colon consistent with nonspecific diarrhea. IV fluids with 3L bolus. UProt/Cr 0.4gm. Urine studies pre-renal. TCK 323 -> 4243. Holding ACEI and diuretics [place] related to rhabdomyolysis, meds and UTI. Did receive contrast with CT scan. Cr better today. Contineu IV fluids. (3) Rhabdomyolysis: Code(s): M62.82 - Rhabdomyolysis Status: Acute Assessment and Plan: Probably related to UTI. Influenza negative. Continue IV fluids. (4) Elevated troponin: Code(s): R77.8 - Other specified abnormalities of plasma proteins Status: Acute Assessment and Plan: Troponin elevated at 0.058 and flat. EKG showing paced rhythm. CXR showing mild discoid atelectasis at the left lung base. No other acute cardiopulmonary disease. ASA 324mg given and SL nitro PRN Started on heparin gtt but now stopped No active chest pain. [place] elevated Trop related to rhabdomyolysis (5) Paroxysmal atrial fibrillation: Code(s): I48.0 - Paroxysmal atrial fibrillation Status: Chronic Assessment and Plan: Paced rhythm. Continue metoprolol. Not on anticoagultion. (6) Hypertension: Qualifiers: Hypertension type: primary hypertension Qualified Code(s): I10 - Essential (primary) hypertension Code(s): I10 - Essential (primary) hypertension Status: Chronic Assessment and Plan: Patient's blood pressure was reviewed on 10/20 Blood pressure remains well controlled. Watch for HoTN. Amlodipine and Hydralazine held. Will continue current medications. 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 No CP or SOB. No muscle aches. No n/v. Diarrhea yesterday but not today. Exam Narrative: AF 98.6 139/74 50 18 95% ra Gen - NARD Chest - CTA bilaterally, nml RR CV - RRR S1/S2; Tele showing mostly paced rhythm Abd - Soft, obese, RLQ pannus mass. Ext - trace pedal edema Neuro - Alert and appropriate Psych - Nml mood and affect Skin - Warm and dry. Erythema with fissurinig in the groin folds c/w tinea Objective Data Vital Signs Vital Signs: Vital Signs - 24 hr 10/19/24 11:00 10/19/24 11:01 10/19/24 11:04 Temperature Pulse Rate 50 L 50 L 52 L Respiratory Rate 17 20 18 Blood Pressure 88/78 L 96/63 L Pulse Oximetry 91 91 93 Oxygen Delivery Oxygen Flow Rate 10/19/24 11:06 10/19/24 11:15 10/19/24 11:17 Temperature Pulse Rate 50 L 50 L 50 L Respiratory Rate 22 H 33 H 29 H Blood Pressure 94/62 L 89/34 L Pulse Oximetry 90 90 91 Oxygen Delivery Oxygen Flow Rate 10/19/24 11:30 10/19/24 11:57 10/19/24 12:00 Temperature Pulse Rate 50 L 50 L 51 L Respiratory Rate 23 H 32 H 19 Blood Pressure Pulse Oximetry 90 90 90 Oxygen Delivery Oxygen Flow Rate 10/19/24 12:15 10/19/24 12:30 10/19/24 12:35 Temperature Pulse Rate 50 L 50 L 50 L Respiratory Rate 23 H 30 H 32 H Blood Pressure 98/61 L Pulse Oximetry 91 90 90 Oxygen Delivery Oxygen Flow Rate 10/19/24 12:44 10/19/24 12:45 10/19/24 12:46 Temperature Pulse Rate 50 L 50 L 50 L Respiratory Rate 18 28 H 29 H Blood Pressure 98/61 L 97/58 L Pulse Oximetry 94 91 90 Oxygen Delivery Oxygen Flow Rate 10/19/24 13:00 10/19/24 13:01 10/19/24 13:15 Temperature Pulse Rate 50 L 50 L 50 L Respiratory Rate 19 20 15 Blood Pressure 112/83 Pulse Oximetry 93 92 89 L Oxygen Delivery Oxygen Flow Rate 10/19/24 13:17 10/19/24 13:30 10/19/24 13:31 Temperature Pulse Rate 50 L 50 L 50 L Respiratory Rate 22 H 20 21 H Blood Pressure 101/63 80/70 L Pulse Oximetry 89 L 90 91 Oxygen Delivery Oxygen Flow Rate 10/19/24 13:45 10/19/24 14:00 10/19/24 14:15 Temperature Pulse Rate 50 L 50 L 50 L Respiratory Rate 32 H 24 H 33 H Blood Pressure Pulse Oximetry 90 91 91 Oxygen Delivery Oxygen Flow Rate 10/19/24 14:17 10/19/24 14:22 10/19/24 14:30 Temperature Pulse Rate 50 L 50 L Respiratory Rate 26 H 17 Blood Pressure 101/66 Pulse Oximetry 95 96 95 Oxygen Delivery Nasal Cannula Oxygen Flow Rate 2 10/19/24 14:31 10/19/24 14:32 10/19/24 14:45 Temperature Pulse Rate 50 L 50 L 50 L Respiratory Rate 27 H 23 H 20 Blood Pressure 112/66 Pulse Oximetry 95 94 96 Oxygen Delivery Oxygen Flow Rate 10/19/24 14:46 10/19/24 15:32 10/19/24 16:00 Temperature 98.6 F Pulse Rate 50 L 50 L 50 L Respiratory Rate 23 H 18 18 Blood Pressure 105/64 108/61 Pulse Oximetry 95 98 98 Oxygen Delivery Nasal Cannula Oxygen Flow Rate 2 10/19/24 16:00 10/19/24 18:00 10/19/24 19:29 Temperature 99.1 F Pulse Rate 50 L 50 L 50 L Respiratory Rate 14 Blood Pressure 88/53 L Pulse Oximetry 97 Oxygen Delivery Oxygen Flow Rate 10/19/24 20:00 10/19/24 20:00 10/19/24 21:04 Temperature Pulse Rate 50 L 50 L Respiratory Rate Blood Pressure Pulse Oximetry Oxygen Delivery Room Air Oxygen Flow Rate 10/19/24 22:00 10/19/24 23:47 10/20/24 00:00 Temperature 98.9 F Pulse Rate 50 L 50 L Respiratory Rate 20 Blood Pressure 128/63 Pulse Oximetry 90 Oxygen Delivery Room Air Oxygen Flow Rate 10/20/24 00:00 10/20/24 02:00 10/20/24 04:00 Temperature Pulse Rate 50 L 50 L Respiratory Rate Blood Pressure Pulse Oximetry Oxygen Delivery Room Air Oxygen Flow Rate 10/20/24 04:00 10/20/24 04:37 10/20/24 06:00 Temperature 98.8 F Pulse Rate 50 L 50 L 50 L Respiratory Rate 20 Blood Pressure 128/63 Pulse Oximetry 90 Oxygen Delivery Oxygen Flow Rate 10/20/24 08:00 10/20/24 08:00 10/20/24 08:00 Temperature 98.6 F Pulse Rate 50 L 67 Respiratory Rate 18 Blood Pressure 139/74 Pulse Oximetry 95 Oxygen Delivery Room Air Oxygen Flow Rate 10/20/24 08:48 10/20/24 08:49 10/20/24 09:43 Temperature Pulse Rate 50 L Respiratory Rate Blood Pressure Pulse Oximetry Oxygen Delivery Room Air Room Air Oxygen Flow Rate 10/20/24 10:00 Temperature Pulse Rate 50 L Respiratory Rate Blood Pressure Pulse Oximetry Oxygen Delivery Oxygen Flow Rate Intake/Output Intake/Output: Intake & Output 10/17/24 10/18/24 10/19/24 10/20/24 23:59 23:59 23:59 23:59 Intake Total 4290 1420 Output Total 100 200 Balance 4190 1220 Meds/Results Medications: Active Medications Generic Name Dose Route Start Last Admin Trade Name Freq PRN Reason Stop Dose Admin Acetaminophen 650 mg 10/19/24 12:39 Acetaminophen 325 Mg Tablet PO Q4H PRN Mild Pain (1-3) or Fever Lactated Ringer's 1,000 mls @ 125 mls/hr 10/19/24 12:40 10/20/24 08:45 Lr - Lactated Ringers Iv IV CONT 125 mls/hr .Q8H ROCHELLE Administration Ceftriaxone Sodium 1 gm in 50 mls @ 100 mls/hr 10/20/24 09:00 10/20/24 08:45 Rocephin 1 Gm/Ns 50 Ml IVPB 100 mls/hr Q24H ROCHELLE Administration Metoprolol Succinate 50 mg 10/19/24 21:00 10/20/24 08:49 Metoprolol Succinate Ext Rel 50 Mg Tabcr PO 50 mg Q12H ROCHELLE Administration Miconazole Nitrate 1 applic 10/19/24 21:00 10/20/24 08:49 Miconazole Nitrate 2% Cream 30 Gm Tube TOPICAL 1 applic Q12HR ROCHELLE Administration Nitroglycerin 0.4 mg 10/19/24 12:53 Nitroglycerin Sl 0.4 Mg Tablet SUBLINGUAL Q5MIN PRN Chest Pain Ondansetron HCl 4 mg 10/19/24 12:39 Ondansetron Inj 4 Mg/2 Ml Vial IV PUSH Q4H PRN Nausea Polyethylene Glycol 17 gm 10/19/24 19:06 Polyethylene Glycol 3350 17 Gm Powd.Pack PO DAILY PRN Constipation Sertraline HCl 50 mg 10/20/24 09:00 10/20/24 08:49 Sertraline Hcl 50 Mg Tablet PO 50 mg DAILY ROCHELLE Administration Radiology Results: ITS Impressions Chest X-Ray 10/19/24 10:15 IMPRESSION: 1. Mild discoid atelectasis at the left lung base. No other acute cardiopulmonary disease. Abdomen/Pelvis CT 10/19/24 12:07 IMPRESSION: 1. Chronic 13 cm ovoid cystic lesion in the subcutaneous fat at the right lower quadrant pannus most likely related to prior trauma or surgery. 2. Nonobstructing bilateral nephrolithiasis. 3. Fluid in the colon consistent with nonspecific diarrhea. No other acute intra-abdominal/pelvic process. Labs Labs: Laboratory Results - last 24 hr 10/19/24 10/19/24 10/20/24 10:15 11:33 04:35 WBC 23.5 H RBC 4.00 L Hgb 13.0 L Hct 42.0 MCV 105.0 H MCH 32.5 MCHC 31.0 L RDW 14.4 Plt Count 157 MPV 10.7 H Immature Gran % (Auto) Not Reportable Neut % (Auto) Not Reportable Lymph % (Auto) Not Reportable [place] % (Auto) Not Reportable Eos % (Auto) Not Reportable Baso % (Auto) Not Reportable Lymph # (Auto) Not Reportable [place] # (Auto) Not Reportable Eos # (Auto) Not Reportable Baso # (Auto) Not Reportable Abs Immat Gran (auto) Not Reportable Absolute Neuts (auto) Not Reportable Absolute Nucleated RBC Not Reportable Nucleated RBC % Not Reportable Platelet Estimate Adequate Schistocytes None seen Sodium 140 Potassium 5.0 Chloride 108 H Carbon Dioxide 24 Anion Gap 8 BUN 35 H Creatinine 1.74 H Estim Creat Clear Calc 52 Estimated GFR 39 L Glucose 78 Calcium 8.5 Total Bilirubin 1.0 AST 125 H ALT 39 Alkaline Phosphatase 112 Total Creatine Kinase 4243 H Troponin I 0.056 H* Total Protein 6.0 L Albumin 3.3 L U Random Total Protein 68 Ur Random Sodium 28 Ur Random Urea 339 Urine Creatinine 176.7 Protein/Creat Ratio 2 0.38 H
[2024-10-21] VITALS (16 sets, daily range): BP systolic 101–154; BP diastolic 53–90; PULSE 50–71; RESP 18–24; TEMP 36.3–37.1; O2SAT 91–99
--- NOTE | 2024-10-21 00:01 | ECG_ITS ---
Test Date: 2024-10-21 00:29:26 Measurements Intervals Finger Rate: 65 P: 79 WA: 154 QRS: -66 QRSD: 188 T: 100 QT: 476 QTc: 498 Interpretive Statements ATRIAL SENSE- ELECTRONIC VENTRICULAR PACEMAKER BASELINE ARTIFACT- I, II, AVR, AVL, AVF NO FURTHER INTERPRETATION IS POSSIBLE ATYPICAL ECG Compared to ECG 10/19/2024 08:45:10 Atrial-paced complex(es) or rhythm no longer present Electronically Signed On 10-21-2024 07:16:26 HEEL BLACKER by Jl Kwan D.O.
[2024-10-21] MEDS: MELATONIN 5 MG TABLET PO ×2 (01:44→20:32)
[2024-10-21 04:58] LABS: Basophils Absolute Auto 0.1 K/mm3 (0.0-0.1); Basophils Percent Auto 0.3 % (0.2-1.2); Eosinophils Absolute Auto 0.2 K/mm3 (0-0.3); Eosinophils Percent Auto 1.4 % (0-4.4); Hematocrit 42.1 % (42.0-52.0); Immature Granulocyte Absolute 0.08 K/mm3 (0.00-0.031); Immature Granulocyte Percent A 0.5 % (0-0.5); Immature Platelet Fraction Pct 5.2 % (0.9-11.2); Lymphocytes Percent Auto 4.6 % (18.3-44.2); Mean Corpuscular HGB Conc 30.9 g/dl (32-36); Mean Corpuscular Hemoglobin 32.3 pg (26-34); Mean Corpuscular Volume 104.7 fl (80-100); Mean Platelet Volume 10.6 fl (7.4-10.4); Monocytes Absolute Auto 0.9 K/mm3 (0.1-0.6); Monocytes Percent Auto 6.1 % (2.6-8.5); Neutrophils Absolute Auto 13.2 K/mm3 (1.3-6.7); Neutrophils Percent Auto 87.1 % (45.5-73.1); Platelet Count Result 129 k/mm3 (150-375); Red Blood Count 4.02 M/mm3 (4.6-6.20); Red Cell Distribution Width 14.1 % (11.5-14.5); White Blood Count 15.1 K/mm3 (4.5-10.0)
[2024-10-21 05:11] LABS: Albumin Level 3.1 g/dL (3.5-5.1); Anion Gap 8 mmol/L (4-12); Blood Urea Nitrogen 31 mg/dL (9-20); Calcium 8.1 mg/dL (8.4-10.2); Carbon Dioxide 23 mmol/L (22-30); Chloride 109 mmol/L (98-107); Estimated CRCL calculation 74 ml/min; Estimated Glomerular Filt Rate 59; Glucose 83 mg/dL (65-110); Phosphorus 2.6 mg/dL (2.5-4.5); Potassium 4.5 mmol/L (3.4-5.0); Sodium 140 mmol/L (137-145)
[2024-10-21 05:22] LABS: Creatine Kinase 2236 U/L (55-170)
[2024-10-21] MEDS: LACTATED RINGERS 1,000 ML 125 ML IV CONT ×3 (07:15→23:42)
[2024-10-21] MEDS: MICONAZOLE NITRATE 2% CREAM 30 GM TUBE 1 APPLIC TOPICAL (09:26)
[2024-10-21] MEDS: METOPROLOL SUCCINATE EXT REL 50 MG TABCR PO ×2 (09:27→20:33)
[2024-10-21] MEDS: SERTRALINE HCL 50 MG TABLET PO (09:27)
--- NOTE | 2024-10-21 14:16 | PM.IMPN ---
Progress Note: A&P Assessment and Plan (1) UTI (urinary tract infection): Qualifiers: Hematuria presence: without hematuria Urinary tract infection type: acute cystitis Qualified Code(s): N30.00 - Acute cystitis without hematuria Code(s): N39.0 - Urinary tract infection, site not specified Status: Acute Assessment and Plan: Patient presents with weakness and malodorous urine. He did not meet SIRS criteria. UA is consistent with UTI. UCx collected. Rocephin started. UCx growing relatively singh-sensitive Proteus. Change to Levaquin (2) KERI (acute kidney injury): Code(s): N17.9 - Acute kidney failure, unspecified Status: Acute Assessment and Plan: Cr elevated on admission at 2.23. He has a normal baseline Cr although the last Cr was from 2020. CT abd/pelvis with contrast showing a chronic 13 cm ovoid cystic lesion in the subcutaneous fat at the right lower quadrant pannus appreciated on exam, nonobstructing bilateral nephrolithiasis and fluid in the colon consistent with nonspecific diarrhea. IV fluids with 3L bolus. UProt/Cr 0.4gm. Urine studies pre-renal. TCK 4243. Holding ACEI and diuretics [place] related to rhabdomyolysis, meds and/or UTI. Did receive contrast with CT scan on admission. Cr better today. Continue IV fluids. (3) Rhabdomyolysis: Code(s): M62.82 - Rhabdomyolysis Status: Acute Assessment and Plan: Probably related to UTI. Influenza negative. CK trending down. Continue IV fluids. [place]. (4) Elevated troponin: Code(s): R77.8 - Other specified abnormalities of plasma proteins Status: Acute Assessment and Plan: Troponin elevated at 0.058 and flat. EKG showing paced rhythm. CXR showing mild discoid atelectasis at the left lung base. No other acute cardiopulmonary disease. ASA 324mg given and SL nitro PRN Started on heparin gtt but now stopped No active chest pain. [place] elevated Trop related to rhabdomyolysis (5) Paroxysmal atrial fibrillation: Code(s): I48.0 - Paroxysmal atrial fibrillation Status: Chronic Assessment and Plan: Paced rhythm. Continue metoprolol. Not on anticoagultion. (6) Hypertension: Qualifiers: Hypertension type: primary hypertension Qualified Code(s): I10 - Essential (primary) hypertension Code(s): I10 - Essential (primary) hypertension Status: Chronic Assessment and Plan: Patient's blood pressure was reviewed on 10/21 Blood pressure was soft on admission but remains well controlled now. Amlodipine and Hydralazine held. Will continue to monitor. Plan DVT Prophylaxis: SCDs Code Status: Full code Subjective Date/time seen: 10/21/24 14:16 Interval history: 69yo male with PM for heart block, SWATHI intolerant of CPAP, hemorrhagic CVA with craniotomy and [employer] shunt in 2017, HTN and pAFib on anticoagulation here for weakness and malodorous urine. Slept off and on. No CP or SOB. No n/v. No diarrhea. Exam Narrative: AF 97.5 122/67 55 24 91% ra Gen - NARD Chest - CTA bilaterally, nml RR CV - RRR S1/S2; Tele showing mostly paced rhythm Abd - Soft, obese, NT Ext - no pedal edema Neuro - Alert and appropriate Psych - Nml mood and affect Skin - Warm and dry. Objective Data Vital Signs Vital Signs: Vital Signs - 24 hr 10/20/24 16:00 10/20/24 16:00 10/20/24 16:00 Temperature 97.7 F Pulse Rate 55 L 64 Respiratory Rate 18 Blood Pressure 145/78 H Pulse Oximetry 95 Oxygen Delivery Room Air 10/20/24 17:59 10/20/24 20:00 10/20/24 20:00 Temperature Pulse Rate 63 57 L Respiratory Rate Blood Pressure Pulse Oximetry Oxygen Delivery Room Air 10/20/24 20:09 10/20/24 21:46 10/20/24 22:00 Temperature 98.1 F Pulse Rate 63 50 L 58 L Respiratory Rate 18 Blood Pressure 140/85 Pulse Oximetry 91 Oxygen Delivery 10/21/24 00:00 10/21/24 00:00 10/21/24 00:42 Temperature 98.7 F Pulse Rate 64 67 Respiratory Rate 18 Blood Pressure 146/90 H Pulse Oximetry 99 Oxygen Delivery Room Air 10/21/24 02:00 10/21/24 04:00 10/21/24 04:00 Temperature Pulse Rate 59 L 54 L Respiratory Rate Blood Pressure Pulse Oximetry Oxygen Delivery Room Air 10/21/24 05:05 10/21/24 06:00 10/21/24 07:40 Temperature 97.7 F 97.4 F L Pulse Rate 64 55 L 50 L Respiratory Rate 18 20 Blood Pressure 151/89 H 101/53 L Pulse Oximetry 93 95 Oxygen Delivery 10/21/24 08:00 10/21/24 08:29 10/21/24 10:00 Temperature Pulse Rate 71 67 Respiratory Rate Blood Pressure Pulse Oximetry 92 Oxygen Delivery Room Air 10/21/24 11:57 10/21/24 12:00 Temperature 97.5 F L Pulse Rate 57 L 55 L Respiratory Rate 24 H Blood Pressure 122/67 Pulse Oximetry 91 Oxygen Delivery Intake/Output Intake/Output: Intake & Output 10/18/24 10/19/24 10/20/24 10/21/24 23:59 23:59 23:59 23:59 Intake Total 4290 3230 1790 Output Total 100 1100 Balance 4190 2130 1790 Meds/Results Medications: Active Medications Generic Name Dose Route Start Last Admin Trade Name Freq PRN Reason Stop Dose Admin Acetaminophen 650 mg 10/19/24 12:39 Acetaminophen 325 Mg Tablet PO Q4H PRN Mild Pain (1-3) or Fever Lactated Ringer's 1,000 mls @ 125 mls/hr 10/19/24 12:40 10/21/24 07:15 Lr - Lactated Ringers Iv IV CONT 125 mls/hr .Q8H ROCHELLE Administration Ceftriaxone Sodium 1 gm in 50 mls @ 100 mls/hr 10/20/24 09:00 10/21/24 09:27 Rocephin 1 Gm/Ns 50 Ml IVPB 100 mls/hr Q24H ROCHELLE Administration Melatonin 5 mg 10/21/24 01:20 10/21/24 01:44 Melatonin 5 Mg Tablet PO 5 mg HS ROCHELLE Administration Metoprolol Succinate 50 mg 10/19/24 21:00 10/21/24 09:27 Metoprolol Succinate Ext Rel 50 Mg Tabcr PO 50 mg Q12H ROCHELLE Administration Miconazole Nitrate 1 applic 10/19/24 21:00 10/21/24 09:26 Miconazole Nitrate 2% Cream 30 Gm Tube TOPICAL 1 applic Q12HR ROCHELLE Administration Nitroglycerin 0.4 mg 10/19/24 12:53 Nitroglycerin Sl 0.4 Mg Tablet SUBLINGUAL Q5MIN PRN Chest Pain Ondansetron HCl 4 mg 10/19/24 12:39 Ondansetron Inj 4 Mg/2 Ml Vial IV PUSH Q4H PRN Nausea Polyethylene Glycol 17 gm 10/19/24 19:06 Polyethylene Glycol 3350 17 Gm Powd.Pack PO DAILY PRN Constipation Sertraline HCl 50 mg 10/20/24 09:00 10/21/24 09:27 Sertraline Hcl 50 Mg Tablet PO 50 mg DAILY ROCHELLE Administration Radiology Results: ITS Impressions Chest X-Ray 10/19/24 10:15 IMPRESSION: 1. Mild discoid atelectasis at the left lung base. No other acute cardiopulmonary disease. Abdomen/Pelvis CT 10/19/24 12:07 IMPRESSION: 1. Chronic 13 cm ovoid cystic lesion in the subcutaneous fat at the right lower quadrant pannus most likely related to prior trauma or surgery. 2. Nonobstructing bilateral nephrolithiasis. 3. Fluid in the colon consistent with nonspecific diarrhea. No other acute intra-abdominal/pelvic process. Labs Labs: Laboratory Results - last 24 hr 10/21/24 04:39 WBC 15.1 H RBC 4.02 L Hgb 13.0 L Hct 42.1 MCV 104.7 H MCH 32.3 MCHC 30.9 L RDW 14.1 Plt Count 129 L MPV 10.6 H Immature Gran % (Auto) 0.5 Neut % (Auto) 87.1 H Lymph % (Auto) 4.6 L [place] % (Auto) 6.1 Eos % (Auto) 1.4 Baso % (Auto) 0.3 Lymph # (Auto) 0.70 L [place] # (Auto) 0.9 H Eos # (Auto) 0.2 Baso # (Auto) 0.1 Abs Immat Gran (auto) 0.08 H Absolute Neuts (auto) 13.2 H Absolute Nucleated RBC 0.000 Nucleated RBC % 0.0 % Immature Plt Fraction 5.2 Sodium 140 Potassium 4.5 Chloride 109 H Carbon Dioxide 23 Anion Gap 8 BUN 31 H Creatinine 1.22 Estim Creat Clear Calc 74 Estimated GFR 59 Glucose 83 Calcium 8.1 L Phosphorus 2.6 Magnesium 2.0 Total Creatine Kinase 2236 H Albumin 3.1 L
[2024-10-21] MEDS: FUROSEMIDE INJ 40 MG/4 ML VIAL 20 MG IV PUSH (15:38)
--- NOTE | 2024-10-21 21:30 | PC.NURSE ---
Report given to Courtney DON by this nurse on patient transferring to room 306-1.
--- NOTE | 2024-10-21 21:35 | PC.NURSE ---
Call placed to Bhavani regarding patient's transfer. Bhavani verbalized understanding and thanked nurse for the update.
--- NOTE | 2024-10-21 22:05 | PC.NURSE ---
This patient, Fabio Nesbitt, was transferred to [ 306-1 ] on 10/21/24 at 2155. Personal belongings sent with patient. Report given to [ Courtney DON ]. Appropriate documentation sent with patient.
[2024-10-22] VITALS (9 sets, daily range): BP systolic 112–152; BP diastolic 64–95; PULSE 50–65; RESP 16–24; TEMP 36.2–36.8; O2SAT 88–94
[2024-10-22 08:34] LABS: Basophils Percent Auto 0.3 % (0.2-1.2); Eosinophils Absolute Auto 0.2 K/mm3 (0-0.3); Eosinophils Percent Auto 2.1 % (0-4.4); Hematocrit 43.3 % (42.0-52.0); Hemoglobin 13.6 g/dL (14.0-18.0); Immature Granulocyte Absolute 0.08 K/mm3 (0.00-0.031); Immature Granulocyte Percent A 0.7 % (0-0.5); Immature Platelet Fraction Pct 5.1 % (0.9-11.2); Lymphocytes Absolute Auto 0.65 K/mm3 (0.9-3.2); Lymphocytes Percent Auto 5.8 % (18.3-44.2); Mean Corpuscular HGB Conc 31.4 g/dl (32-36); Mean Corpuscular Hemoglobin 32.2 pg (26-34); Mean Corpuscular Volume 102.6 fl (80-100); Mean Platelet Volume 10.5 fl (7.4-10.4); Monocytes Absolute Auto 0.7 K/mm3 (0.1-0.6); Monocytes Percent Auto 6.6 % (2.6-8.5); Neutrophils Absolute Auto 9.4 K/mm3 (1.3-6.7); Neutrophils Percent Auto 84.5 % (45.5-73.1); Platelet Count Result 133 k/mm3 (150-375); Red Blood Count 4.22 M/mm3 (4.6-6.20); Red Cell Distribution Width 13.8 % (11.5-14.5); White Blood Count 11.1 K/mm3 (4.5-10.0)
[2024-10-22 08:44] LABS: Albumin Level 3.3 g/dL (3.5-5.1); Anion Gap 5 mmol/L (4-12); Blood Urea Nitrogen 26 mg/dL (9-20); Calcium 8.5 mg/dL (8.4-10.2); Carbon Dioxide 31 mmol/L (22-30); Chloride 104 mmol/L (98-107); Creatine Kinase 695 U/L (55-170); Estimated CRCL calculation 81 ml/min; Estimated Glomerular Filt Rate > 60; Glucose 83 mg/dL (65-110); Phosphorus 2.4 mg/dL (2.5-4.5); Potassium 4.4 mmol/L (3.4-5.0); Sodium 140 mmol/L (137-145)
[2024-10-22] MEDS: METOPROLOL SUCCINATE EXT REL 50 MG TABCR PO (09:37)
[2024-10-22] MEDS: SERTRALINE HCL 50 MG TABLET PO (09:37)
[2024-10-22] MEDS: levoFLOXacin 750 MG TABLET PO (09:38)
[2024-10-22] MEDS: MICONAZOLE NITRATE 2% CREAM 30 GM TUBE 1 APPLIC TOPICAL ×2 (09:38→21:45)
[2024-10-22] MEDS: LACTATED RINGERS 1,000 ML 125 ML IV CONT ×2 (09:41→18:46)
--- NOTE | 2024-10-22 09:51 | WPDCDIQUERY2 ---
CDI Query Clarification Request NSTEMI was documented by ER provider, but not on progress note. Please
--- NOTE | 2024-10-22 13:45 | PM.IMPN ---
Progress Note: A&P Assessment and Plan (1) Acute respiratory failure with hypoxia: Code(s): J96.01 - Acute respiratory failure with hypoxia Status: Acute Assessment and Plan: SpO2 in the 80s per chart review on 10/19. Spoke with the RN who notes that she found the patient with the supplemental oxygen off this morning and was sating in the mid 80s. Resumed oxygen supplementation and saturations improved. Patient remains on 3L NC at this time. Denies shortness of breath and cough. - Chest XR: Mild discoid atelectasis at the left lung base. No other acute cardiopulmonary disease. - Repeat Chest XR: Airspace opacities in right perihilar region, consistent with atelectasis versus pneumonia. Cardiomegaly. - Oxygen supplementation: 3L NC, wean as tolerated, keep spo2 >90. (2) UTI (urinary tract infection): Qualifiers: Hematuria presence: without hematuria Urinary tract infection type: acute cystitis Qualified Code(s): N30.00 - Acute cystitis without hematuria Code(s): N39.0 - Urinary tract infection, site not specified Status: Acute Assessment and Plan: Patient presents with weakness and malodorous urine. He did not meet SIRS criteria. UA is consistent with UTI. UCx: Proteus mirabilis with resistance to macrobid. Rocephin started. Change to Levaquin to complete the course. (3) KERI (acute kidney injury): Code(s): N17.9 - Acute kidney failure, unspecified Status: Acute Assessment and Plan: Cr elevated on admission at 2.23. He has a normal baseline Cr although the last Cr was from 2020. BUN/Cr 26/1.[address] abd/pelvis with contrast showing a chronic 13 cm ovoid cystic lesion in the subcutaneous fat at the right lower quadrant pannus appreciated on exam, nonobstructing bilateral nephrolithiasis and fluid in the colon consistent with nonspecific diarrhea. IV fluids with 3L bolus. UProt/Cr 0.4gm. Urine studies pre-renal. TCK 4243. Holding ACEI and diuretics [place] related to rhabdomyolysis, meds and/or UTI. Did receive contrast with CT scan on admission. Continue IV fluids. Resolved. (4) Rhabdomyolysis: Code(s): M62.82 - Rhabdomyolysis Status: Acute Assessment and Plan: Probably related to UTI. Influenza negative. CK trending down. Continue IV fluids. [place]. (5) Elevated troponin: Code(s): R77.8 - Other specified abnormalities of plasma proteins Status: Acute Assessment and Plan: Troponin elevated at 0.058 and flat. EKG showing paced rhythm. CXR showing mild discoid atelectasis at the left lung base. No other acute cardiopulmonary disease. ASA 324mg given and SL nitro PRN Started on heparin gtt but now stopped No active chest pain. [place] elevated Trop related to rhabdomyolysis (6) Paroxysmal atrial fibrillation: Code(s): I48.0 - Paroxysmal atrial fibrillation Status: Chronic Assessment and Plan: Paced rhythm. Continue metoprolol. Not on anticoagultion. (7) Hypertension: Qualifiers: Hypertension type: primary hypertension Qualified Code(s): I10 - Essential (primary) hypertension Code(s): I10 - Essential (primary) hypertension Status: Chronic Assessment and Plan: Patient's blood pressure was reviewed Blood pressure was soft on admission but remains well controlled now. Amlodipine and Hydralazine held. Continue metoprolol 50 mg BID Will continue to monitor. 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 Patient is pleasant lying comfortably in bed. He remains on 3 L nasal cannula which he states was started several days ago. Spoke with the RN who notes that she found the patient with the supplemental oxygen off this morning and was sating in the mid 80s. Resumed oxygen supplementation and saturations improved. He has no complaints denying chest pain, shortness a breath, palpitations, nausea/ vomiting, and abdominal pain. Review of Systems Review of Systems: All systems reviewed & are unremarkable except as noted in HPI and below Exam Narrative: AF HR 59 RR 20 SpO2 93 3L NC BP 112/64 General: male in no acute respiratory distress who is nontoxic appearing, lying semi recumbent in bed. HEENT: Normocephalic. Atraumatic. Extraocular movement intact. Sclera clear and anicteric. No facial asymmetry. Chest: Lungs are clear but diminished to auscultation bilaterally. No wheezes or crackles. CV: Heart was regular rate and rhythm. S1/S2. No murmurs, gallops, or rubs. Abd: Abdomen was soft. Nontender. Nondistended. Positive bowel sounds. No organomegaly or masses. Ext: No clubbing, cyanosis, or edema. 2+ DP pulses bilaterally. Neuro: Patient is alert and oriented x4. Speech is clear. Objective Data Vital Signs Vital Signs: Vital Signs - 24 hr 10/21/24 14:00 10/21/24 16:00 10/21/24 16:00 Temperature 97.5 F L Pulse Rate 62 66 54 L Respiratory Rate 24 H Blood Pressure 143/77 H Pulse Oximetry 91 Oxygen Delivery 10/21/24 20:00 10/21/24 20:15 10/21/24 20:33 Temperature 97.7 F Pulse Rate 50 L 50 L Respiratory Rate 18 Blood Pressure 154/80 H Pulse Oximetry 95 Oxygen Delivery Room Air 10/22/24 05:24 10/22/24 05:34 10/22/24 08:00 Temperature 97.8 F 97.2 F L Pulse Rate 65 62 Respiratory Rate 24 H 22 H Blood Pressure 144/89 H 139/92 H Pulse Oximetry 88 L 91 92 Oxygen Delivery 10/22/24 09:37 Temperature Pulse Rate 62 Respiratory Rate Blood Pressure Pulse Oximetry Oxygen Delivery Intake/Output Intake/Output: Intake & Output 10/19/24 10/20/24 10/21/24 10/22/24 23:59 23:59 23:59 23:59 Intake Total 4290 3230 4810 1840 Output Total 100 1100 900 Balance 4190 2130 3910 1840 Meds/Results Medications: Active Medications Generic Name Dose Route Start Last Admin Trade Name Freq PRN Reason Stop Dose Admin Acetaminophen 650 mg 10/19/24 12:39 Acetaminophen 325 Mg Tablet PO Q4H PRN Mild Pain (1-3) or Fever Lactated Ringer's 1,000 mls @ 125 mls/hr 10/19/24 12:40 10/22/24 09:41 Lr - Lactated Ringers Iv IV CONT 125 mls/hr .Q8H ROCHELLE Administration Levofloxacin 750 mg 10/22/24 09:00 10/22/24 09:38 Levofloxacin 750 Mg Tablet PO 10/25/24 09:01 750 mg DAILY ROCHELLE Administration Melatonin 5 mg 10/21/24 01:20 10/21/24 20:32 Melatonin 5 Mg Tablet PO 5 mg HS ROCHELLE Administration Metoprolol Succinate 50 mg 10/19/24 21:00 10/22/24 09:37 Metoprolol Succinate Ext Rel 50 Mg Tabcr PO 50 mg Q12H ROCHELLE Administration Miconazole Nitrate 1 applic 10/19/24 21:00 10/22/24 09:38 Miconazole Nitrate 2% Cream 30 Gm Tube TOPICAL 1 applic Q12HR ROCHELLE Administration Nitroglycerin 0.4 mg 10/19/24 12:53 Nitroglycerin Sl 0.4 Mg Tablet SUBLINGUAL Q5MIN PRN Chest Pain Polyethylene Glycol 17 gm 10/19/24 19:06 Polyethylene Glycol 3350 17 Gm Powd.Pack PO DAILY PRN Constipation Sertraline HCl 50 mg 10/20/24 09:00 10/22/24 09:37 Sertraline Hcl 50 Mg Tablet PO 50 mg DAILY ROCHELLE Administration Radiology Results: ITS Impressions Chest X-Ray 10/19/24 10:15 IMPRESSION: 1. Mild discoid atelectasis at the left lung base. No other acute cardiopulmonary disease. Abdomen/Pelvis CT 10/19/24 12:07 IMPRESSION: 1. Chronic 13 cm ovoid cystic lesion in the subcutaneous fat at the right lower quadrant pannus most likely related to prior trauma or surgery. 2. Nonobstructing bilateral nephrolithiasis. 3. Fluid in the colon consistent with nonspecific diarrhea. No other acute intra-abdominal/pelvic process. Labs Labs: Laboratory Results - last 24 hr 10/22/24 08:14 WBC 11.1 H RBC 4.22 L Hgb 13.6 L Hct 43.3 MCV 102.6 H MCH 32.2 MCHC 31.4 L RDW 13.8 Plt Count 133 L MPV 10.5 H Immature Gran % (Auto) 0.7 H Neut % (Auto) 84.5 H Lymph % (Auto) 5.8 L [place] % (Auto) 6.6 Eos % (Auto) 2.1 Baso % (Auto) 0.3 Lymph # (Auto) 0.65 L [place] # (Auto) 0.7 H Eos # (Auto) 0.2 Baso # (Auto) 0.0 Abs Immat Gran (auto) 0.08 H Absolute Neuts (auto) 9.4 H Absolute Nucleated RBC 0.000 Nucleated RBC % 0.0 % Immature Plt Fraction 5.1 Sodium 140 Potassium 4.4 Chloride 104 Carbon Dioxide 31 H Anion Gap 5 BUN 26 H Creatinine 1.10 Estim Creat Clear Calc 81 Estimated GFR > 60 Glucose 83 Calcium 8.5 Phosphorus 2.4 L Total Creatine Kinase 695 H Albumin 3.3 L Quality VTE Prophylaxis VTE prophylaxis: mechanical ordered
[2024-10-23] VITALS (12 sets, daily range): BP systolic 145–170; BP diastolic 75–95; PULSE 51–88; RESP 16–20; TEMP 36.2–36.5; O2SAT 3–96
[2024-10-23 07:19] LABS: Creatine Kinase 437 U/L (55-170)
--- NOTE | 2024-10-23 08:59 | PM.IMPN ---
Progress Note: A&P Assessment and Plan (1) Acute respiratory failure with hypoxia: Code(s): J96.01 - Acute respiratory failure with hypoxia Status: Acute Assessment and Plan: SpO2 in the 80s per chart review on 10/19. Spoke with the RN who notes that she found the patient with the supplemental oxygen off this morning and was sating in the mid 80s. Resumed oxygen supplementation and saturations improved. Patient remains on 2L NC at this time. Denies shortness of breath and cough. - IS - Chest XR: Mild discoid atelectasis at the left lung base. No other acute cardiopulmonary disease. - Repeat Chest XR: Airspace opacities in right perihilar region, consistent with atelectasis versus pneumonia. Cardiomegaly. - Oxygen supplementation: 3L NC, wean as tolerated, keep spo2 >90. 10/23: Attempted to wean patient off of oxygen supplementation. He was sating well however again started to desat into the 80s on room air. Respiratory therapy performed a home O2 eval and patient is requiring 2L at rest and with exercise. (2) UTI (urinary tract infection): Qualifiers: Hematuria presence: without hematuria Urinary tract infection type: acute cystitis Qualified Code(s): N30.00 - Acute cystitis without hematuria Code(s): N39.0 - Urinary tract infection, site not specified Status: Acute Assessment and Plan: Patient presents with weakness and malodorous urine. He did not meet SIRS criteria. UA is consistent with UTI. UCx: Proteus mirabilis with resistance to macrobid. Rocephin started. Change to Levaquin to complete the course. (3) KERI (acute kidney injury): Code(s): N17.9 - Acute kidney failure, unspecified Status: Acute Assessment and Plan: Cr elevated on admission at 2.23. He has a normal baseline Cr although the last Cr was from 2020. BUN/Cr 26/1.[address] abd/pelvis with contrast showing a chronic 13 cm ovoid cystic lesion in the subcutaneous fat at the right lower quadrant pannus appreciated on exam, nonobstructing bilateral nephrolithiasis and fluid in the colon consistent with nonspecific diarrhea. IV fluids with 3L bolus. UProt/Cr 0.4gm. Urine studies pre-renal. TCK 4243. Holding ACEI and diuretics [place] related to rhabdomyolysis, meds and/or UTI. Did receive contrast with CT scan on admission. Continue IV fluids. Resolved. (4) Rhabdomyolysis: Code(s): M62.82 - Rhabdomyolysis Status: Acute Assessment and Plan: Probably related to UTI. Influenza negative. CK trending down. Continue IV fluids. [place]. (5) Elevated troponin: Code(s): R77.8 - Other specified abnormalities of plasma proteins Status: Acute Assessment and Plan: Troponin elevated at 0.058 and flat. EKG showing paced rhythm. CXR showing mild discoid atelectasis at the left lung base. No other acute cardiopulmonary disease. ASA 324mg given and SL nitro PRN Started on heparin gtt but now stopped No active chest pain. [place] elevated Trop related to rhabdomyolysis (6) Paroxysmal atrial fibrillation: Code(s): I48.0 - Paroxysmal atrial fibrillation Status: Chronic Assessment and Plan: Paced rhythm. Continue metoprolol. Not on anticoagultion. (7) Hypertension: Qualifiers: Hypertension type: primary hypertension Qualified Code(s): I10 - Essential (primary) hypertension Code(s): I10 - Essential (primary) hypertension Status: Chronic Assessment and Plan: Patient's blood pressure was reviewed Hydralazine held. Continue metoprolol 50 mg BID and amlodipine 10 mg daily Will continue to monitor. 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 Patient is pleasant lying comfortably in bed. No complaints at this time denying chest pain, shortness a breath, palpitations, nausea /vomiting, and abdominal pain. Attempt to wean patient off oxygen during assessment and he was satting between 92 - 94% on room air. Per chart review patient started to again desat later in the day requiring 2 L nasal cannula. Respiratory therapy evaluated patient for home O2 and he will require 2 L at rest and with ambulation. Review of Systems Review of Systems: All systems reviewed & are unremarkable except as noted in HPI and below Exam Narrative: AF HR 88 RR 18 SpO2 94 2L NC BP 145/75 General: male in no acute respiratory distress who is nontoxic appearing, lying semi recumbent in bed. HEENT: Normocephalic. Atraumatic. Extraocular movement intact. Sclera clear and anicteric. No facial asymmetry. Chest: Lungs are clear but diminished to auscultation bilaterally. No wheezes or crackles. CV: Heart was regular rate and rhythm. S1/S2. No murmurs, gallops, or rubs. Abd: Abdomen was soft. Nontender. Nondistended. Positive bowel sounds. No organomegaly or masses. Ext: No clubbing, cyanosis, or edema. 2+ DP pulses bilaterally. Neuro: Patient is alert. Speech is clear. Objective Data Vital Signs Vital Signs: Vital Signs - 24 hr 10/22/24 09:37 10/22/24 09:50 10/22/24 14:00 Temperature 97.4 F L Pulse Rate 62 59 L Respiratory Rate 20 Blood Pressure 112/64 Pulse Oximetry 92 93 Oxygen Delivery Nasal Cannula Oxygen Flow Rate 3 10/22/24 20:00 10/22/24 20:39 10/22/24 21:44 Temperature 98.2 F Pulse Rate 50 L 51 L Respiratory Rate 16 Blood Pressure 152/95 H Pulse Oximetry 94 94 Oxygen Delivery Nasal Cannula Oxygen Flow Rate 3 10/23/24 05:47 10/23/24 08:00 Temperature 97.2 F L 97.5 F L Pulse Rate 60 60 Respiratory Rate 20 18 Blood Pressure 170/87 H 145/75 H Pulse Oximetry 96 3 L Oxygen Delivery Oxygen Flow Rate Intake/Output Intake/Output: Intake & Output 10/20/24 10/21/24 10/22/24 10/23/24 23:59 23:59 23:59 23:59 Intake Total 3230 4810 3540 200 Output Total 1100 900 200 Balance 2130 3910 3540 0 Meds/Results Medications: Active Medications Generic Name Dose Route Start Last Admin Trade Name Freq PRN Reason Stop Dose Admin Acetaminophen 650 mg 10/19/24 12:39 Acetaminophen 325 Mg Tablet PO Q4H PRN Mild Pain (1-3) or Fever Lactated Ringer's 1,000 mls @ 125 mls/hr 10/19/24 12:40 10/22/24 21:36 Lr - Lactated Ringers Iv IV CONT Not Given .Q8H ROCHELLE Levofloxacin 750 mg 10/22/24 09:00 10/22/24 09:38 Levofloxacin 750 Mg Tablet PO 10/25/24 09:01 750 mg DAILY ROCHELLE Administration Melatonin 5 mg 10/21/24 01:20 10/22/24 21:44 Melatonin 5 Mg Tablet PO Not Given HS ROCHELLE Metoprolol Succinate 50 mg 10/19/24 21:00 10/22/24 21:44 Metoprolol Succinate Ext Rel 50 Mg Tabcr PO Not Given Q12H ROCHELLE Miconazole Nitrate 1 applic 10/19/24 21:00 10/22/24 21:45 Miconazole Nitrate 2% Cream 30 Gm Tube TOPICAL 1 applic Q12HR ROCHELLE Administration Nitroglycerin 0.4 mg 10/19/24 12:53 Nitroglycerin Sl 0.4 Mg Tablet SUBLINGUAL Q5MIN PRN Chest Pain Polyethylene Glycol 17 gm 10/19/24 19:06 Polyethylene Glycol 3350 17 Gm Powd.Pack PO DAILY PRN Constipation Sertraline HCl 50 mg 10/20/24 09:00 10/22/24 09:37 Sertraline Hcl 50 Mg Tablet PO 50 mg DAILY ROCHELLE Administration Radiology Results: ITS Impressions Abdomen/Pelvis CT 10/19/24 12:07 IMPRESSION: 1. Chronic 13 cm ovoid cystic lesion in the subcutaneous fat at the right lower quadrant pannus most likely related to prior trauma or surgery. 2. Nonobstructing bilateral nephrolithiasis. 3. Fluid in the colon consistent with nonspecific diarrhea. No other acute intra-abdominal/pelvic process. Chest X-Ray 10/22/24 14:02 IMPRESSION: 1. Airspace opacities in right perihilar region, consistent with atelectasis versus pneumonia. 2. Cardiomegaly. Labs Labs: Laboratory Results - last 24 hr 10/23/24 06:08 Total Creatine Kinase 437 H Quality VTE Prophylaxis VTE prophylaxis: mechanical ordered
[2024-10-23 09:26] LABS: Alanine Aminotransferase 44 U/L (6-50); Albumin Level 3.3 g/dL (3.5-5.1); Alkaline Phosphatase 140 U/L (38-126); Anion Gap 11 mmol/L (4-12); Aspartate Amino Transferase 69 U/L (17-59); Bilirubin,Total 1.3 mg/dL (0.2-1.3); Blood Urea Nitrogen 20 mg/dL (9-20); Calcium 8.5 mg/dL (8.4-10.2); Carbon Dioxide 29 mmol/L (22-30); Chloride 103 mmol/L (98-107); Estimated CRCL calculation 86 ml/min; Estimated Glomerular Filt Rate > 60; Glucose 69 mg/dL (65-110); Potassium 4.3 mmol/L (3.4-5.0); Sodium 143 mmol/L (137-145)
[2024-10-23] MEDS: levoFLOXacin 750 MG TABLET PO (09:32)
[2024-10-23] MEDS: SERTRALINE HCL 50 MG TABLET PO (09:33)
[2024-10-23] MEDS: METOPROLOL SUCCINATE EXT REL 50 MG TABCR PO ×2 (09:34→20:06)
[2024-10-23] MEDS: MICONAZOLE NITRATE 2% CREAM 30 GM TUBE 1 APPLIC TOPICAL ×2 (09:35→20:08)
[2024-10-23 09:44] LABS: Basophils Absolute Auto 0.1 K/mm3 (0.0-0.1); Basophils Percent Auto 0.4 % (0.2-1.2); Eosinophils Absolute Auto 0.3 K/mm3 (0-0.3); Eosinophils Percent Auto 2.8 % (0-4.4); Hematocrit 45.4 % (42.0-52.0); Hemoglobin 14.3 g/dL (14.0-18.0); Immature Granulocyte Absolute 0.12 K/mm3 (0.00-0.031); Immature Granulocyte Percent A 1.1 % (0-0.5); Lymphocytes Absolute Auto 0.91 K/mm3 (0.9-3.2); Lymphocytes Percent Auto 8.1 % (18.3-44.2); Mean Corpuscular HGB Conc 31.5 g/dl (32-36); Mean Corpuscular Hemoglobin 32.1 pg (26-34); Mean Corpuscular Volume 101.8 fl (80-100); Mean Platelet Volume 11.2 fl (7.4-10.4); Monocytes Absolute Auto 0.8 K/mm3 (0.1-0.6); Monocytes Percent Auto 7.5 % (2.6-8.5); Neutrophils Percent Auto 80.1 % (45.5-73.1); Platelet Count Result 156 k/mm3 (150-375); Red Blood Count 4.46 M/mm3 (4.6-6.20); Red Cell Distribution Width 13.6 % (11.5-14.5); White Blood Count 11.3 K/mm3 (4.5-10.0)
--- NOTE | 2024-10-23 13:02 | PCRCNOTE ---
Home O2 eval done, 2 l rest and activity. tank in room for transport home. IV resp Care DME
[2024-10-23] MEDS: MELATONIN 5 MG TABLET PO (20:06)
[2024-10-24 06:00] VITALS: BP 130/75; PULSE 50; RESP 20; TEMP 36.1; O2SAT 98
[2024-10-24 07:47] LABS: Basophils Absolute Auto 0.1 K/mm3 (0.0-0.1); Basophils Percent Auto 0.6 % (0.2-1.2); Eosinophils Absolute Auto 0.3 K/mm3 (0-0.3); Eosinophils Percent Auto 3.7 % (0-4.4); Hematocrit 43.6 % (42.0-52.0); Hemoglobin 13.9 g/dL (14.0-18.0); Immature Granulocyte Absolute 0.21 K/mm3 (0.00-0.031); Immature Granulocyte Percent A 2.4 % (0-0.5); Lymphocytes Absolute Auto 0.95 K/mm3 (0.9-3.2); Lymphocytes Percent Auto 10.7 % (18.3-44.2); Mean Corpuscular HGB Conc 31.9 g/dl (32-36); Mean Corpuscular Hemoglobin 32.4 pg (26-34); Mean Corpuscular Volume 101.6 fl (80-100); Mean Platelet Volume 10.5 fl (7.4-10.4); Monocytes Absolute Auto 1.1 K/mm3 (0.1-0.6); Monocytes Percent Auto 11.8 % (2.6-8.5); Neutrophils Absolute Auto 6.3 K/mm3 (1.3-6.7); Neutrophils Percent Auto 70.8 % (45.5-73.1); Platelet Count Result 147 k/mm3 (150-375); Red Blood Count 4.29 M/mm3 (4.6-6.20); Red Cell Distribution Width 13.5 % (11.5-14.5); White Blood Count 8.9 K/mm3 (4.5-10.0)
[2024-10-24 08:00] VITALS: O2SAT 95
[2024-10-24 08:01] LABS: Alanine Aminotransferase 38 U/L (6-50); Albumin Level 3.2 g/dL (3.5-5.1); Alkaline Phosphatase 120 U/L (38-126); Anion Gap 7 mmol/L (4-12); Aspartate Amino Transferase 45 U/L (17-59); Bilirubin,Total 1.1 mg/dL (0.2-1.3); Blood Urea Nitrogen 23 mg/dL (9-20); Calcium 8.6 mg/dL (8.4-10.2); Carbon Dioxide 32 mmol/L (22-30); Chloride 105 mmol/L (98-107); Creatine Kinase 158 U/L (55-170); Estimated CRCL calculation 78 ml/min; Estimated Glomerular Filt Rate > 60; Glucose 78 mg/dL (65-110); Potassium 4.4 mmol/L (3.4-5.0); Sodium 144 mmol/L (137-145)
[2024-10-24] MEDS: MICONAZOLE NITRATE 2% CREAM 30 GM TUBE 1 APPLIC TOPICAL (09:42)
[2024-10-24] MEDS: SERTRALINE HCL 50 MG TABLET PO (09:42)
[2024-10-24] MEDS: levoFLOXacin 750 MG TABLET PO (09:42)
[2024-10-24] MEDS: amLODIPine BESYLATE 10 MG TABLET PO (09:42)
[2024-10-24 09:43] VITALS: PULSE 50
--- NOTE | 2024-10-24 13:01 | P.DS_ITS ---
DS: Admitting Diagnosis Discharge Date 10/24/2024 Admitting Diagnosis Acute respiratory failure with hypoxia urinary tract infection acute kidney injury rhabdomyolysis elevated troponin paroxysmal AFib hypertension DS: Discharge Diagnosis Discharge Diagnosis (1) Acute respiratory failure with hypoxia: Code(s): J96.01 - Acute respiratory failure with hypoxia Status: Acute (2) UTI (urinary tract infection): Qualifiers: Hematuria presence: without hematuria Urinary tract infection type: acute cystitis Qualified Code(s): N30.00 - Acute cystitis without hematuria Code(s): N39.0 - Urinary tract infection, site not specified Status: Acute (3) KERI (acute kidney injury): Code(s): N17.9 - Acute kidney failure, unspecified Status: Acute (4) Rhabdomyolysis: Code(s): M62.82 - Rhabdomyolysis Status: Acute (5) Elevated troponin: Code(s): R77.8 - Other specified abnormalities of plasma proteins Status: Acute (6) Paroxysmal atrial fibrillation: Code(s): I48.0 - Paroxysmal atrial fibrillation Status: Chronic (7) Hypertension: Qualifiers: Hypertension type: primary hypertension Qualified Code(s): I10 - Essential (primary) hypertension Code(s): I10 - Essential (primary) hypertension Status: Chronic DS: Summary Hospital Course Reason for hospitalization: Acute respiratory failure with hypoxia urinary tract infection acute kidney injury rhabdomyolysis elevated troponin paroxysmal AFib hypertension Hospital Course: 69 y/o M presents here with weakness and malodorous urine with PMH of heart block, GERD, SWATHI intolerant of CPAP, 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 UA was concerning for infection and patient was started on antibiotics. Urine culture grew proteus mirabilis and patient was transitioned to levaquin to complete the course. Patient had an KERI and noted rhabdomyolysis likely related to UTI on admission as well which resolved with fluids. Troponin was elevated at 0.058 and flat on admission with an EKG showing paced rhythm. CXR showing mild discoid atelectasis at the left lung base. No other acute cardiopulmonary disease. Troponin likely elevated due to rhabdomyolysis as patient denied chest pain. During patients admission he had a desaturation of his oxygen on 10/19 requiring supplemental oxygen. Repeat chest XR showed airspace opacities in right perihilar region, consistent with atelectasis versus pneumo jada. Patient was asymptomatic denying shortness of breath and cough. Given an incentive spirometer. Patient remained on levaquin for the UTI. Attempted to wean patient off of oxygen supplementation. He was sating well however again started to desat into the 80s on room air though he remained asymptomatic. Respiratory therapy performed a home O2 eval and patient is requiring 2L at rest and with exercise. At time of discharge patient has no complaints denies chest pain, shortness a breath, palpitations, nausea/vomiting, and abdominal pain. patient discharged back to assisted living in a stable condition. He has completed antibiotics as prescribed follow-up with primary care provider in 1 week. Status at Discharge Functional status at discharge: uses cane/walker Time Spent with Patient Time attestation: Total time spent providing and/or coordinating discharge services: Time spent: Greater than 30 minutes Exam Narrative: AF HR 50 RR 20 SPO2 95 2L NC BP 130/75 General: male in no acute respiratory distress who is nontoxic appearing, lying semi recumbent in bed. HEENT: Normocephalic. Atraumatic. No facial asymmetry. Chest: Lungs are clear but diminished to auscultation bilaterally. No wheezes or crackles. CV: Heart was regular rate and rhythm. S1/S2. No murmurs, gallops, or rubs. Abd: Abdomen was soft. Nontender. Nondistended. Positive bowel sounds. Ext: No clubbing, cyanosis, or edema. 2+ DP pulses bilaterally. DS: Data Data Completed and Pending Completed studies during hospitalization: chest x-ray abdomen pelvis CT chest x-ray Labs on day of discharge: Labs from last 24 hours 10/24/24 10/24/24 07:20 07:19 WBC 8.9 RBC 4.29 L Hgb 13.9 L Hct 43.6 MCV 101.6 H MCH 32.4 MCHC 31.9 L RDW 13.5 Plt Count 147 L MPV 10.5 H Immature Gran % (Auto) 2.4 H Neut % (Auto) 70.8 Lymph % (Auto) 10.7 L [place] % (Auto) 11.8 H Eos % (Auto) 3.7 Baso % (Auto) 0.6 Lymph # (Auto) 0.95 [place] # (Auto) 1.1 H Eos # (Auto) 0.3 Baso # (Auto) 0.1 Abs Immat Gran (auto) 0.21 H Absolute Neuts (auto) 6.3 Absolute Nucleated RBC 0.000 Nucleated RBC % 0.0 Sodium 144 Potassium 4.4 Chloride 105 Carbon Dioxide 32 H Anion Gap 7 BUN 23 H Creatinine 1.15 Estim Creat Clear Calc 78 Estimated GFR > 60 Glucose 78 Calcium 8.6 Total Bilirubin 1.1 AST 45 ALT 38 Alkaline Phosphatase 120 Total Creatine Kinase 158 Total Protein 6.0 L Albumin 3.2 L Discharge Plan Discharge Attending physician on discharge: Oz Abdullahi Discharging Clinician: Lyndsay Zamora Anticipated Discharge Date/Time: 10/24/24 12:51 Patient Disposition: ID Nursing Home/Asst Living Activity: as tolerated Diet: as tolerated and heart healthy Discharge Instructions: Per Care Coordination, patient to discharge back to [facility] ) . Please fax discharge instructions and medication sheets to [phone]. Discharge disposition: Patient admitted to the hospital for urinary tract infection Take all medications as prescribed even if feeling better Levaquin 750 mg PO daily, course to be completed on 10/25 Attached is information on this medication Patient also developed an acute kidney injury secondary to dehydration, resolved with fluids Eat well balanced meals and stay hydrated Keep active to remain strong Avoid use of diapers or pads Good josé miguel Care every 2 hours Trend urine output Patient was hypoxic during admission and found to have atelectasis (lung collapse) on imaging Continue incentive spirometer Evaluated by respiratory therapy Patient is to continue oxygen supplementation of 2 L nasal cannula at rest and with ambulation Follow up with your PCP in regards to weaning off the oxygen Patient was noted to be in rhabdomyolysis which resolved with fluids Attached is information on this diagnosis Monitor blood pressures Take medications as prescribed Continue amlodipine 10 mg daily and metoprolol 50 mg twice a day Hold hydralazine 50 mg three times a day, resume medication per primary care provider Take caution while standing, rising, or moving Change positions slowly taking a break between each position change If you standing feel dizzy sit back down and take a break Encouraged to continue with yearly vaccinations Return to the emergency department if he developed sudden shortness of breath, chest pain, nausea, vomiting, upset stomach or intractable diarrhea Return to the emergency department if you develop fever greater than 101.5 Follow-up with the primary care physician within 1-2 weeks Thank you for [facility] for your healthcare needs Patient Instructions: Antibiotic Form, Levofloxacin (By mouth), Pain Management in Older Adults (DC), Rhabdomyolysis (DC), Using Oxygen at Home (DC), Urinary Tract Infection in Older Adults (DC) Patient Language: Congolese Stand Alone Forms: General Discharge Information Follow-up/Referrals: Gurpreet,Vern Hdz MD [Primary Care Provider] - 1 Week Discharge Medications: New levofloxacin 750 mg tablet 750 mg PO DAILY Qty: 1 0RF Continued acetaminophen 325 mg Tablet 650 mg PO TID PRN (Reason: fever or pain) amlodipine 10 mg Tablet 10 mg PO DAILY sertraline 50 mg Tablet 50 mg PO DAILY polyethylene glycol 3350 17 gram Powder In Packet 17 g PO DAILY PRN (Reason: Constipation) metoprolol succinate 50 mg tablet extended release 24 hr 50 mg PO Q12H Held hydralazine 50 mg Tablet 50 mg PO TID Hold Instructions: Resume on 12/16/24. Resume per PCP. Date of admission: 10/21/24 14:58 Primary Care Provider: Vern Vázquez Admitting Provider: Raul Salvador Attending physician on admission: Lyndsay Zamora Condition: Stable Hospitalist MIPS Heart Failure (Exclusion) Patient has history of Heart Transplant or Left Ventricular Assistive Device?: No IF YES, STOP HERE Heart Failure (Qualifier) Patient has current or prior documentation of LVEF less than or equal to 40%, or mod/servere depressed LVSF?: No IF NO, STOP HERE
[2024-10-24 15:51] VITALS: BP 169/94; PULSE 56; RESP 20; TEMP 36.2; O2SAT 97
== END 2024-10-24 16:20 | DRG 689 ==
LOC: ANHED 09:22 → ANHIMU 14:21 → ANH3MEDSUR 10-21 22:20
PROVIDERS: Student in an Organized Health Care Education/Training Program; Admitting Provider Internal Medicine; Emergency Provider Student in an Organized Health Care Education/Training Program; PCP Internal Medicine; Visit Provider Student in an Organized Health Care Education/Training Program
DX: N39.0 Urinary tract infection, site not specified (principal); J96.01 Acute respiratory failure with hypoxia; N17.9 Acute kidney failure, unspecified; M62.82 Rhabdomyolysis; J98.11 Atelectasis; E86.0 Dehydration; N20.0 Calculus of kidney; K21.9 Gastro-esophageal reflux disease without esophagitis; B96.4 Proteus (mirabilis) (morganii) as the cause of diseases classified elsewhere; G47.33 Obstructive sleep apnea (adult) (pediatric); I48.0 Paroxysmal atrial fibrillation; I10 Essential (primary) hypertension; I69.211 Memory deficit following other nontraumatic intracranial hemorrhage; Z90.49 Acquired absence of other specified parts of digestive tract; Z79.01 Long term (current) use of anticoagulants; Z98.84 Bariatric surgery status
CPT/HCPCS: 36415; 71045; 74177; 80053; 80069; 81001; 82550; 82570; 83735; 84156; 84300; 84443; 84484; 84540; 85025; 85055; 87086; 87186; 87637; 93005; 94618; 96361; 96365; 97110; 97161; 97165; 97530; 97535; 99212; 99285; A9270; G0378; G0463; J0696; J1940; J7030; J7120; Q9967

== ENCOUNTER 2024-10-25 09:52 | Inpatient (IN) | payer MEDICARE, SELFPAY ==
[2024-10-25] VITALS (9 sets, daily range): BP systolic 114–143; BP diastolic 70–84; PULSE 50–63; RESP 16–18; TEMP 36.3–36.6; O2SAT 90–95; BMI 38.8; BMI 40.8
--- NOTE | ~2024-10-25 | XR_ITS ---
EXAMINATION: XR chest 2V DATE: 10/25/2024 11:35 INDICATION: Weakness. Pneumonia. TECHNIQUE: Frontal and lateral views of the chest were obtained on 3 radiographs. COMPARISON: Chest single view 10/22/2024, CT abdomen and pelvis 10/19/2024 FINDINGS: There are small pleural effusions. There are airspace opacities in right perihilar region a nd left lower lung zone. No pneumothorax. Cardiomegaly is noted. There is a left chest wall pacer wit h leads in the right atrium and right ventricle. IMPRESSION: 1. Airspace opacities in right perihilar region and left lower lung zone with worsening on the left, consistent with atelectasis versus pneumonia. 2. Small pleural effusions. 3. Cardiomegaly. Reviewed, dictated and finalized at location A. R SHOVEL OPERATOR IMPRESSION: 1. Airspace opacities in right perihilar region and left lower lung zone with w orsening on the left, consistent with atelectasis versus pneumonia. 2. Small pleural effusions. 3. Cardiomegaly.
--- NOTE | ~2024-10-25 | CT_ITS ---
EXAMINATION: CT brain wo con DATE: 10/25/2024 11:04 INDICATION: Weakness. TECHNIQUE: Computed tomography (CT) of the head was performed without intravenous contrast. The mA wa s adjusted according to patient size. Iterative reconstruction technique was employed. The dose-lengt h product was 693.12 mGy-cm. COMPARISON: Head CT 11/16/2017 FINDINGS: There is chronic encephalomalacia in left frontal lobe subjacent to a craniotomy. There is a right occipital ventriculostomy with tip in left lateral ventricle. There is chronic encephalomalac ia in right parietal-occipital region along the catheter. There is no intracranial hemorrhage, acute infarction, or abnormal intracranial mass lesion. The ventricles are normal in size. There are likely changes of ocular lens replacement surgeries. There is mild mucosal thickening in the paranasal sinu ses. The mastoid air cells are normal. There is cerumen in right external auditory canal. IMPRESSION: 1. Chronic encephalomalacia in left frontal lobe and right parietal occipital region. 2. Normal sized ventricles with shunt in expected position. Reviewed, dictated and finalized at location A. TRAINING IMPRESSION: 1. Chronic encephalomalacia in left frontal lobe and right parietal occipital r egion. 2. Normal sized ventricles with shunt in expected position.
--- NOTE | 2024-10-25 10:09 | ECG_ITS ---
Test Date: 2024-10-25 11:09:00 Measurements Intervals [place] Rate: 59 P: 76 FL: 166 QRS: -68 QRSD: 188 T: 102 QT: 492 QTc: 488 Interpretive Statements ATRIAL SENSE- ELECTRONIC VENTRICULAR PACEMAKER NO FURTHER INTERPRETATION IS POSSIBLE ATYPICAL ECG Compared to ECG 10/21/2024 00:29:26 No significant changes Electronically Signed On 10-25-2024 13:10:50 PILER by Jl Kwan D.O.
--- OUTSIDE RECORDS SUMMARY | 2024-10-25 10:09 | XMS_ITS | Continuity of Care Document ---
Author Organization [facility] Address [address] [place] [address] Phone Care Team Providers Care Reproduction Technician Name Role Phone Gonzalez OD, Jose Unavailable Unavailable Advance Directives Directive Yes / No Effective Date File Name No Information Encounters Encounter Description Practice Location Reason(s) For Visit Diagnoses Date Provider Providers Copied on Encounter [facility], [address], [place], [place], [id number], [place] tel:[phone] [facility] No Information Dec-1 9-200 1 Gonzalez OD Jose. [address] , [address], [place], [address], [place]. tel:[phone] Family History Family Member Type Diagnosis Age At Onset No Information Payers Payer name Insurance type Covered republican ID Authoriza tion(s) No Information Social History [...]
--- OUTSIDE RECORDS SUMMARY | 2024-10-25 10:09 | XMS_ITS | Clinical Summary ---
Author Organization [facility] Address [address] [place] [address] Care Team Providers Care Knit Goods Washer Name Role Phone Unavailable Primary Care Provider [...]
--- OUTSIDE RECORDS SUMMARY | 2024-10-25 10:09 | XMS_ITS | Clinical Summary ---
Author Organization [facility] Address [address] [place] [address] Care Team Providers Care Mobile Equipment Operator Name Role Phone Vern Adams MD Primary Care Provider [phone] Source Comments [facility],non-owned Affiliates and Associated Physician Practices is amultiple site organization consisting of ambulatory clinics and hospital sitesin [place], [place], [place] and [place]. This disclosure is being madepursuant to the Care Everywhere program and may not contain all information available regarding this patient. 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) shunt status 8 Overview (05/28/2018): 05/28/18 [...] 82 02/25/2019 12:30 PM CDT Temperature 37 C (98.6 F) 02/25/2019 12:30 PM CDT Respiratory Rate 18 [...] 02/19/2019, Additional history exists COVID-19 VACCINE ( season) 2024 INFLUENZA VACCINE (#1) 2024 DEPRESSION [...] this topic Medical Devices Implanted Type Area Industrial Property Appraiser Device Identifier Shelf Expiration Date Model / [...] 7 - 26 mg/dL 02/23/2019 6:10 AM [facility] Creatinine 1.2 0.6 - 1.2 mg/dL 02/23/2019 6:10 AM [facility] Sodium 141 136 - 145 mmol/L 02/23/2019 6:10 AM [facility] Potassium 4.1 3.5 - 4.5 mmol/L 02/23/2019 6:10 AM [facility] Chloride 104 98 - 107 mmol/L 02/23/2019 6:10 AM [facility] CO2 28 22 - 29 mmol/L 02/23/2019 6:10 AM [facility] Glucose 84 70 - 115 mg/dL 02/23/2019 6:10 AM [facility] Calcium 9.6 8.4 - 10.2 mg/dL 02/23/2019 6:10 AM [facility] Anion Gap 13 8 - 18 02/23/2019 6:10 AM [facility] BUN/Creatinine Ratio 15 7 - 23 02/23/2019 6:10 AM [facility] Osmolality Calculated 293 270 - 300 mOsm/kg 02/23/2019 6:10 AM [facility] eGFR >60 >60 mL/min/1.7 3 m2 02/23/2019 6:10 AM [facility] Blood BLOOD SPECIMEN / Unknown 02/23/2019 5:38 AM CDT 02/23/2019 5:44 AM T Anam Mccord MD LAB - CHEMISTRY OR DERABLES [facility] [address] [phone] from Last 3 Months or Most Recently Relevant to Health Maintenance Advance Directives * Full Code (Latest Code Status on File) Date Activated Date Inactivated Comments 02/18/2019 8:17 PM 02/25/2019 3:51 PM * Full Code Date Activated Date Inactivated Comments 02/18/2019 7:02 AM 02/18/2019 8:17 PM Care Teams Mobile Equipment Operator Relationship Specialty Start Date End Date Vern Adams MD PCP - General 05/28/18
--- OUTSIDE RECORDS SUMMARY | 2024-10-25 10:09 | XMS_ITS | Referral Summary ---
Author Organization [facility] Address [address] [place] [address] Care Team Providers Care Hotel Superintendent Name Role Phone Vern Adams MD Primary Care Provider [phone] Source Comments [facility],non-owned Affiliates and Associated Physician Practices is amultiple site organization consisting of ambulatory clinics and hospital sitesin [place], [place], [place] and [place]. This disclosure is being madepursuant to the Care Everywhere program and may not contain all information available regarding this patient. 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) shunt status 8 Overview (05/28/2018): 05/28/18 [...] on file Medical Devices Implanted Type Area Sample Tester Grinder Device Identifier Shelf Expiration Date Model / [...] 7 - 26 mg/dL 02/23/2019 6:10 AM [facility] Creatinine 1.2 0.6 - 1.2 mg/dL 02/23/2019 6:10 AM [facility] Sodium 141 136 - 145 mmol/L 02/23/2019 6:10 AM [facility] Potassium 4.1 3.5 - 4.5 mmol/L 02/23/2019 6:10 AM [facility] Chloride 104 98 - 107 mmol/L 02/23/2019 6:10 AM [facility] CO2 28 22 - 29 mmol/L 02/23/2019 6:10 AM [facility] Glucose 84 70 - 115 mg/dL 02/23/2019 6:10 AM [facility] Calcium 9.6 8.4 - 10.2 mg/dL 02/23/2019 6:10 AM [facility] Anion Gap 13 8 - 18 02/23/2019 6:10 AM [facility] BUN/Creatinine Ratio 15 7 - 23 02/23/2019 6:10 AM [facility] Osmolality Calculated 293 270 - 300 mOsm/kg 02/23/2019 6:10 AM CDT [facility] eGFR >60 >60 mL/min/1.7 3 m2 02/23/2019 6:10 AM CDT [facility] Blood BLOOD SPECIMEN / Unknown 02/23/2019 5:38 AM CDT 02/23/2019 5:44 AM CDT Anam Mccord MD LAB - CHEMISTRY OR DERABLES [facility] [address] [phone] from Last 3 Months or Most Recently Relevant to Health Maintenance Advance Directives * Full Code (Latest Code Status on File) Date Activated Date Inactivated Comments 02/18/2019 8:17 PM 02/25/2019 3:51 PM * Full Code Date Activated Date Inactivated Comments 02/18/2019 7:02 AM 02/18/2019 8:17 PM Care Teams Hotel Superintendent Relationship Specialty Start Date End Date Vern Adams MD PCP - General 05/28/18
--- OUTSIDE RECORDS SUMMARY | 2024-10-25 10:09 | XMS_ITS | CONTINUITY OF CARE DOCUMENT ---
Author Name gordon leyva Address Unknown Organization [facility] Address [address] [place] [address] Phone [phone] Care Team Providers Care Emt Paramedic Name Role Phone Flakita ORTIZ, Slim Unavailable [phone] ROEL SWEENEY MD Unavailable [phone] ROEL SWEENEY MD Unavailable [phone] INSURANCE PROVIDERS Payer name Policy type / Coverage type [employer] party ID [employer] OPEN ACCESS Other [id number]
--- OUTSIDE RECORDS SUMMARY | 2024-10-25 10:09 | XMS_ITS | Patient Health Summary ---
Author Organization [facility] Address [address] [place] [address] Care Team Providers Care Instrumentation Instructor Name Role Phone Vern Adams MD Primary Care Provider [phone] Note from [facility],non-owned Affiliates and Associated Physician Practices is amultiple site organization consisting of ambulatory clinics and hospital sitesin [place], [place], [place] and [place]. This disclosure is being madepursuant to the Care Everywhere program and may not contain all information available regarding this patient. 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 Narrative 03/27/2019 2:30 PM CDT Exam: XR LUMBAR SPINE 2 view History: pain Comparison: 02/18/2019. Findings: There is grade 1 retrolisthesis at L1-2 and L2-3. There is grade 1 anterolisthesis at L5-S1 with L5 pars defects. There is chronic deformity of the anterior inferior endplate of L1. No acute fracture is seen. There is wplz-yf-[id number] degenerative disc and joint disease, with the [...] L1. No acute fracture is seen.There is oefm-yl-klsrbwjf degenerative disc and joint disease, with thegreatest [...] was electronically signed by RYAN HEREDIA MD on 03/27/2019 1:39 PM . Narrative 03/27/2019 1:39 PM CDT Exam: XR CERVICAL SPINE 2 view History: [...] 7 - 26 mg/dL 02/23/2019 6:10 AM [facility] Creatinine 1.2 0.6 - 1.2 mg/dL 02/23/2019 6:10 AM [facility] Sodium 141 136 - 145 mmol/L 02/23/2019 6:10 AM [facility] Potassium 4.1 3.5 - 4.5 mmol/L 02/23/2019 6:10 AM [facility] Chloride 104 98 - 107 mmol/L 02/23/2019 6:10 AM CDT [facility] CO2 28 22 - 29 mmol/L 02/23/2019 6:10 AM T [facility] Glucose 84 70 - 115 mg/dL 02/23/2019 6:10 AM T [facility] Calcium 9.6 8.4 - 10.2 mg/dL 02/23/2019 6:10 AM [facility] Anion Gap 13 8 - 18 02/23/2019 6:10 AM [facility] BUN/Creatinine Ratio 15 7 - 23 02/23/2019 6:10 AM T [facility] Osmolality Calculated 293 270 - 300 mOsm/kg 02/23/2019 6:10 AM T [facility] eGFR >60 >60 mL/min/1.7 3 m2 02/23/2019 6:10 AM [facility] Blood BLOOD SPECIMEN / Unknown 02/23/2019 5:38 AM CDT 02/23/2019 5:44 AM CDT Anam Mccord MD LAB - CHEMISTRY OR DERABLES [address] [phone] * MAGNESIUM BLOOD (02/23/2019 5:38 AM CDT) Only the most recent of48 resultswithin the time period is included. Magnesium 2.0 1.6 - 2.6 mg/dL 02/23/2019 6:10 AM T [facility] Blood BLOOD SPECIMEN / Unknown 02/23/2019 5:38 AM CDT 02/23/2019 5:44 AM CDT Anam Mccord MD LAB - CHEMISTRY OR DERABLES [address] [phone] * CBC W/O DIFFERENTIAL (02/22/2019 4:15 AM CDT) Only the most recent of5 resultswithin the time period is included. WBC 7.2 3.5 - 10.5 10 3/uL 02/22/2019 5:04 AM [facility] RBC 4.62 4.30 - 5.70 10 6/uL 02/22/2019 5:04 AM [facility] Hemoglobin 14.3 13.5 - 17.5 g/dL 02/22/2019 5:04 AM [facility] Hematocrit 43.9 39.0 - 50.0 % 02/22/2019 5:04 AM [facility] MCV 95.0 81.0 - 97.0 fL 02/22/2019 5:04 AM [facility] MCH 31.0 28.0 - 34.0 pg 02/22/2019 5:04 AM [facility] MCHC 32.6 32.0 - 36.0 g/dL 02/22/2019 5:04 AM [facility] Platelet Count 254 150 - 400 10 3/uL 02/22/2019 5:04 AM [facility] RDW-SD 47.0 36.0 - 50.0 fL 02/22/2019 5:04 AM [facility] RDW-CV 13.4 11.2 - 14.8 % 02/22/2019 5:04 AM [facility] MPV 9.9 9.3 - 12.8 fL 02/22/2019 5:04 AM [facility] nRBC Absolute 0.00 0 10 3/uL 02/22/2019 5:04 AM [facility] nRBC Auto 0.0 0 /100 WBC 02/22/2019 5:04 AM [facility] Blood BLOOD SPECIMEN / Unknown Lab Venipuncture / Unknown 02/22/2019 4:15 AM CDT 02/22/2019 4:58 AM CDT Anam Mccord MD LAB - HEMATOLOGY O RDERABLES [facility] [address] [phone] * (ABNORMAL) RENAL FUNCTION PANEL (02/22/2019 4:15 AM CDT) BUN 19 7 - 26 mg/dL 02/22/2019 5:20 AM [facility] Creatinine 1.3(H) 0.6 - 1.2 mg/dL 02/22/2019 5:20 AM [facility] Sodium 140 136 - 145 mmol/L 02/22/2019 5:20 AM [facility] Potassium 3.7 3.5 - 4.5 mmol/L 02/22/2019 5:20 AM [facility] Chloride 104 98 - 107 mmol/L 02/22/2019 5:20 AM [facility] CO2 29 22 - 29 mmol/L 02/22/2019 5:20 AM [facility] Glucose 78 70 - 115 mg/dL 02/22/2019 5:20 AM [facility] Albumin 3.0(L) 3.4 - 5.0 g/dL 02/22/2019 5:20 AM [facility] Calcium 9.1 8.4 - 10.2 mg/dL 02/22/2019 5:20 AM [facility] Phosphorus 2.8 2.3 - 4.7 mg/dL 02/22/2019 5:20 AM [facility] Anion Gap 11 8 - 18 02/22/2019 5:20 AM [facility] BUN/Creatinine Ratio 15 7 - 23 02/22/2019 5:20 AM [facility] Osmolality Calculated 291 270 - 300 mOsm/kg 02/22/2019 5:20 AM [facility] eGFR 56(L) >60 mL/min/1.7 3 m2 02/22/2019 5:20 AM [facility] Blood BLOOD SPECIMEN / Unknown Lab Venipuncture / Unknown 02/22/2019 4:15 AM CDT 02/22/2019 4:58 AM T Anam Mccord MD LAB - CHEMISTRY OR DERABLES [address] [phone] * (ABNORMAL) CBC W AUTO DIFFERENTIAL (02/19/2019 3:06 AM CDT) Only the most recent of94 resultswithin the time period is included. WBC 10.3 3.5 - 10.5 10 3/uL 02/19/2019 3:17 AM [facility] RBC 5.06 4.30 - 5.70 10 6/uL 02/19/2019 3:17 AM [facility] Hemoglobin 15.4 13.5 - 17.5 g/dL 02/19/2019 3:17 AM [facility] Hematocrit 47.0 39.0 - 50.0 % 02/19/2019 3:17 AM [facility] MCV 92.9 81.0 - 97.0 fL 02/19/2019 3:17 AM [facility] MCH 30.4 28.0 - 34.0 pg 02/19/2019 3:17 AM [facility] MCHC 32.8 32.0 - 36.0 g/dL 02/19/2019 3:17 AM [facility] Platelet Count 245 150 - 400 10 3/uL 02/19/2019 3:17 AM [facility] RDW-SD 44.2 36.0 - 50.0 fL 02/19/2019 3:17 AM [facility] RDW-CV 13.0 11.2 - 14.8 % 02/19/2019 3:17 AM [facility] MPV 9.4 9.3 - 12.8 fL 02/19/2019 3:17 AM [facility] nRBC Absolute 0.00 0 10 3/uL 02/19/2019 3:17 AM [facility] nRBC Auto 0.0 0 /100 WBC 02/19/2019 3:17 AM [facility] Neutrophils % 78.3(H) 35.0 - 70.0 % 02/19/2019 3:17 AM [facility] Lymphocytes % 10.4(L) 19.7 - 55.1 % 02/19/2019 3:17 AM [facility] Monocytes % 9.4 3.0 - 15.0 % 02/19/2019 3:17 AM [facility] Eosinophils % 1.2 0.0 - 6.0 % 02/19/2019 3:17 AM [facility] Basophil % 0.3 0.0 - 1.5 % 02/19/2019 3:17 AM T [facility] Neutrophils Absolute 8.1(H) 1.6 - 7.0 10 /uL 02/19/2019 3:17 AM T [facility] Lymphocyte Absolute 1.1 0.8 - 2.9 10 uL 02/19/2019 3:17 AM T [facility] Monocytes Absolute 0.97(H) 0.14 - 0.66 10 uL 02/19/2019 3:17 AM T [facility] Eosinophils Absolute 0.12 0.00 - 0.45 10 uL 02/19/2019 3:17 AM T [facility] Basophils Absolute 0.03 0.00 - 0.06 10 uL 02/19/2019 3:17 AM [facility] Immature Granulocytes % 0.4 0.0 - 1.0 % 02/19/2019 3:17 AM [facility] Blood BLOOD SPECIMEN / Unknown Lab Venipuncture / Unknown 02/19/2019 3:06 AM CDT 02/19/2019 3:11 AM CDT Francois Mckinnon MD LAB - HEMATOLOGY OR DERABLES [facility] [address] [phone] * CULTURE BLOOD (02/18/2019 8:54 PM CDT) Only the most recent of10 resultswithin the time period is included. Culture No growth day 5 AMINATA 02/23/2019 11:30 PM [facility] Blood PERIPHERAL BLOOD / Unknown Lab Venipuncture / Unknown 02/18/2019 8:54 PM CDT 02/18/2019 8:57 PM CDT Francois Mckinnon MD LAB - MICROBIOLOGY ORDERABLES [facility] [address] [place] [address], [facility] [phone] * VITAMIN B12 (02/18/2019 5:02 PM CDT) Only the most recent of2 resultswithin the time period is included. Vitamin B12 408 213 - 816 pg/mL 02/18/2019 7:29 PM CDT [facility] Blood BLOOD SPECIMEN / Unknown Venipuncture / Unknown 02/18/2019 5:02 PM CDT 02/18/2019 5:03 PM CDT Edgar Valdez MD LAB - CHEMISTRY ORDJennifer MOHAN [address] [phone] * CORTISOL BLOOD AM (02/18/2019 10:02 AM CDT) Cortisol AM 16.5 3.7 - 19.4 mcg/dL 02/18/2019 10:49 AM CDT [facility] Blood BLOOD SPECIMEN / Unknown Venipuncture / Unknown 02/18/2019 10:02 AM CDT 02/18/2019 10:10 AM CDT Enrico Tony MD LAB - CHEMISTRY ORD CHANDRA Performing Organization Address City/[facility]/ZIP Co de Phone Number [address] [phone] * MRI LUMBAR SPINE WO CONTRAST (02/18/2019 [...] electronically signed by MARY HUANG on 02/18/2019 10:03 AM . Narrative 02/18/2019 10:03 [...] electronically signed by MARY HUANG on 02/18/2019 10:03 AM . Narrative 02/18/2019 10:03 [...] No spinal canal or significant foraminal stenosis. IDr. MARY have personally reviewed and interpreted this examination/study. This report was electronically signed by MARY HUANG on 02/18/2019 10:03 AM . Narrative 02/18/2019 10:03 [...] over S1. Dictated by Ari Davis MD (chief radiology). Dr. Hossein Reeves M.D. have personally reviewed and interpreted this examination/study. This report was electronically signed by Hossein SANDOVAL M.D. on 02/18/2019 10:37 AM . Narrative 02/18/2019 10:37 [...] over S1. Dictated by Ari Davis MD (chief radiology). Dr. Hossein Reeves M.D. have personally reviewed and interpretedthis examination/study. This report was electronically signed by Hossein SANDOVAL M.D. on 02/18/2019 10:37 AM . Noam Puri MD DIAGNOSTIC IMAGING O RDERABLES * (ABNORMAL) URINALYSIS W/MICROSCOPIC NO CULTURE (02/18/2019 3:11 AM CDT) Only the most recent of6 resultswithin the time period is included. Color UA Yellow Straw, Yellow, Colorless 02/18/2019 3:21 AM CDT [facility] Clarity UA Clear Clear, Slt Cloudy 02/18/2019 3:21 AM T [facility] Specific [place] UA 1.011 1.005 - 1.030 02/18/2019 3:21 AM CDT [facility] pH UA 6.0 5.0 - 8.0 pH 02/18/2019 3:21 AM [facility] Protein UA 1+(A) Negative mg/dL 02/18/2019 3:21 AM [facility] Glucose UA Negative Negative mg/dL 02/18/2019 3:21 AM [facility] Ketone UA Trace(A) Negative mg/dL 02/18/2019 3:21 AM [facility] Bilirubin UA Negative Negative mg/dL 02/18/2019 3:21 AM [facility] Blood UA Negative Negative 02/18/2019 3:21 AM [facility] Nitrite UA Negative Negative 02/18/2019 3:21 AM [facility] Leukocyte Esterase Negative Negative 02/18/2019 3:21 AM [facility] Urobilinogen UA Negative Negative mg/dL 02/18/2019 3:21 AM [facility] RBC UA 0-2 None Seen, 0-2, 3-5 /HPF 02/18/2019 3:21 AM [facility] WBC UA 0-5 None Seen, 0-5 /HPF 02/18/2019 3:21 AM [facility] Bacteria UA Trace None, Trace /HPF 02/18/2019 3:21 AM [facility] Squamous Epithelial Cells UA None Seen None Seen, 0-2 /HPF 02/18/2019 3:21 AM [facility] Mucus UA 1+ None, 1+ /LPF 02/18/2019 3:21 AM [facility] Urine URINE SPECIMEN OBTAINED BY CLEAN CATCH PROCEDURE / Unknown Collection / Unknown 02/18/2019 3:11 AM CDT 02/18/2019 3:11 AM T Cinhtia Meza PA-C LAB - URINALYSIS ORDERABLES [address] [phone] * CARROL BLOOD SCREEN W/REFLEX TITER (02/18/2019 2:59 AM CDT) CARROL Negative 02/19/2019 3:09 PM CDT [facility] ([facility]) Comment: Negative <1:80 Borderline 1:80 Positive >1:80 Blood BLOOD SPECIMEN / Unknown Venipuncture / Unknown 02/18/2019 2:59 AM CDT 02/18/2019 2:59 AM CDT Narrative [facility] ([facility]) - 02/19/2019 3:09 PM CDT Performed at: [facility] [address] [place], [place] [id number] [employer] Teacher: Wolfgang Hallman PhD, Phone: [phone] Enrico Tony MD LAB - CHEMISTRY ORD CHANDRA [facility] ([facility]) [address] [place] [address] * (ABNORMAL) C-REACTIVE PROTEIN (02/18/2019 2:36 AM CDT) C-Reactive Protein 2.9(H) <=0.5 mg/dL 02/18/2019 2:56 AM CDT [facility] Blood BLOOD SPECIMEN / Unknown 02/18/2019 2:36 AM CDT 02/18/2019 2:39 AM CDT David Gonsalez MD LAB - CHEMISTRY RAMON MOHAN [address] [phone] * (ABNORMAL) ERYTHROCYTE SEDIMENTATION RATE (02/18/2019 2:36 AM CDT) Erythrocyte Sedimentation Rate Westergren 21(H) 0 - 20 MM/HR 02/18/2019 2:46 AM CDT [facility] Blood BLOOD SPECIMEN / Unknown 02/18/2019 2:36 AM CDT 02/18/2019 2:39 AM CDT David Gonsalez MD LAB - HEMATOLOGY ORD CHANDRA [address] [phone] * T4 FREE (02/18/2019 2:36 AM CDT) T4 Free 1.0 0.7 - 1.5 ng/dL 02/18/2019 3:55 AM CDT [facility] Blood BLOOD SPECIMEN / Unknown 02/18/2019 2:36 AM CDT 02/18/2019 2:39 AM CDT Enrico Tony MD LAB - CHEMISTRY ORD ERABLES [facility] [address] [place] [address], [facility] [phone] * CT HEAD WO CONTRAST (02/18/2019 12:05 [...] abnormality. Report dictated by Fede Aguirre MD (chief radiology). I, Dr. MARY HUANG have personally reviewed and interpreted this examination/study. This report was electronically signed by MARY HUANG on 02/18/2019 9:11 AM . Narrative 02/18/2019 9:11 [...] abnormality. Report dictated by Fede Aguirre MD (chief radiology). I, Dr. MARY HUANG have personally reviewed and interpreted this examination/study. This report was electronically signed by MARY HUANG on 02/18/2019 9:11 AM. Cinthia Meza PA-C CT ORDERABLES * CK BLOOD (02/17/2019 9:20 PM CDT) Pathologist [facility] CK Total 70 30 - 200 Units/L 02/18/2019 3:08 AM [facility] Blood BLOOD SPECIMEN / Unknown Venipuncture / Unknown 02/17/2019 9:20 PM CDT 02/18/2019 2:55 AM CDT Enrico Tony MD LAB - CHEMISTRY ORD ERABLES [facility] [address] [place] [address] * (ABNORMAL) COMPREHENSIVE METABOLIC PANEL (02/17/2019 9:15 PM CDT) Only the most recent of4 resultswithin the time period is included. Pathologist [facility] BUN 29(H) 7 - 26 mg/dL 02/17/2019 9:43 PM [facility] Creatinine 1.5(H) 0.6 - 1.2 mg/dL 02/17/2019 9:43 PM [facility] Sodium 138 136 - 145 mmol/L 02/17/2019 9:43 PM [facility] Potassium 3.7 3.5 - 4.5 mmol/L 02/17/2019 9:43 PM [facility] Chloride 101 98 - 107 mmol/L 02/17/2019 9:43 PM [facility] CO2 24 22 - 29 mmol/L 02/17/2019 9:43 PM [facility] Glucose 84 70 - 115 mg/dL 02/17/2019 9:43 PM [facility] Calcium 8.8 8.4 - 10.2 mg/dL 02/17/2019 9:43 PM [facility] Protein Total 5.9(L) 6.0 - 8.3 g/dL 02/17/2019 9:43 PM [facility] Albumin 3.1(L) 3.4 - 5.0 g/dL 02/17/2019 9:43 PM [facility] Bilirubin Total 0.7 0.2 - 1.2 mg/dL 02/17/2019 9:43 PM [facility] Alkaline Phosphatase 158(H) 40 - 150 Units/L 02/17/2019 9:43 PM [facility] ALT 8 0 - 55 Units/L 02/17/2019 9:43 PM [facility] AST 12 5 - 34 Units/L 02/17/2019 9:43 PM [facility] Anion Gap 17 8 - 18 02/17/2019 9:43 PM [facility] BUN/Creatinine Ratio 19 7 - 23 02/17/2019 9:43 PM [facility] Osmolality Calculated 291 270 - 300 mOsm/kg 02/17/2019 9:43 PM [facility] Albumin/Globulin Ratio 1.1 1.1 - 2.3 02/17/2019 9:43 PM [facility] eGFR 48(L) >60 mL/min/1.7 3 m2 02/17/2019 9:43 PM [facility] Blood BLOOD SPECIMEN / Unknown 02/17/2019 9:15 PM CDT 02/17/2019 9:20 PM CDT Cinthia Meza PA-C LAB - CHEMISTRY ORDERABLES [address] [phone] * TSH (02/17/2019 9:15 PM CDT) Only the most recent of2 resultswithin the time period is included. TSH 1.661 0.350 - 4.940 uIU/mL 02/18/2019 3:36 AM [facility] Blood BLOOD SPECIMEN / Unknown 02/17/2019 9:15 PM CDT 02/17/2019 9:20 PM CDT Enrico Tony MD LAB - CHEMISTRY ORD ERABLES [address] [phone] * XR SHUNT SERIES (02/17/2019 8:02 PM [...] SANDOVAL M.D. on 02/18/2019 9:26 AM . Narrative 02/18/2019 9:26 [...] PA-C DIAGNOSTIC IMAGI NG ORDERABLES * PTT [facility] (11/18/2017 5:16 AM [employer] HELPER) Only the most recent of2 resultswithin the time period is included. APTT 36.5 23.0 - 38.4 Seconds [facility] Comment:Suggested therapeuti c range for full dose I.V. heparin therapy for venous thromboembolism is 66.0-91.0 seconds. Blood specimen (specimen) BLOOD SPECIMEN / Unknown 11/18/2017 5:16 AM [employer] 11/18/2017 5:35 AM [employer] HELPER Narrative [facility] - 11/18/2017 5:48 AM [employer] HEL[employer] Is patient on Heparin, Argatroban or Dabigatran?->N Jarad Gabriel MD LAB - COAGULATION ORDERABLES Performing Organization Address [facility] de Phone Number [address] [phone] * (ABNORMAL) PT-INR [facility] (11/18/2017 5:16 AM [employer] HELPER) Only the most recent of8 resultswithin the time period is included. PT 19.3(H) 12.1 - 14.8 Seconds [facility] INR 1.6 See Comment [facility] Comment: Suggested therapeutic range for low-intensity coumadin therapy for venous thromboembolism prophylaxis is an INR of 2.0-3.0. For high risk patients (Mitral Valve Prosthesis, Atrial Fibrillation, history of TIA/stroke), suggested prophylactic therapeutic range is an INR of 2.5-3.5. Blood specimen (specimen) BLOOD SPECIMEN / Unknown 11/18/2017 5:16 AM [employer] 11/18/2017 5:35 AM [employer] HELPER Narrative [facility] - 11/18/2017 5:48 AM [employer] HELPER Is patient on Heparin, Argatroban or Dabigatran?->N Jarad Gabriel MD LAB - COAGULATION ORDERABLES Performing Organization Address [facility] Co de Phone Number [address] [phone] * CT CERVICAL SPINE WO CONTRAST (11/17/2017 2:24 AM [employer] HEL[employer]) Anatomical Region Laterality Modality Spine Other Impressions 11/17/2017 1:40 PM [employer] IMPRESSION: 1. No evidence of acute fracture in the cervical spine. I, Dr. HARSHIL VASQUES M.D. have personally reviewed and interpreted this examination/study. This report was electronically signed by HARSHIL VASQUES M.D. on 11/17/2017 1:40 PM . Narrative 11/17/2017 1:40 PM [employer] EXAMINATION: Computed tomography (CT) of the cervical [...] degenerative disc disease at C5-6 and C6-7. Tqza-tm-ykudsrmk central canal stenosis is noted at these [...] moderate degenerative disc disease at C5-6 and C6-7.Paqo-sy-ddkziwsv central canal stenosis is noted at these [...] of acute fracture in the cervical spine. Dr. HARSHIL Reeves M.D. have personally reviewed and interpreted thisexamination/study. This report was electronically signed by HARSHIL VASQUES M.D. on 11/17/20171:40 PM . Lyssa Eckert MD CT ORDERABLES * CULTURE URINE (11/17/2017 1:58 AM [employer]) Only the most recent of4 resultswithin the time period is included. Culture Urine No growth (<1,000 CFU/mL) [facility] Urine specimen (specimen) URINE / Unknown 11/17/2017 1:58 AM [employer] HEL[employer] 11/17/2017 2:04 AM [employer] HELPER Narrative [facility] - 11/18/2017 7:20 AM [employer] HEL[employer] Specimen Type->Urine Resulting Lab: [facility] [address] [place] [address] PH: [phone] Lyssa Eckert MD LAB - MICROBIOLOGY O RDERABLES [address] [phone] * XR FEMUR LEFT 2VW (11/17/2017 1:05 AM [employer]KER HELPER) Anatomical Region Laterality Modality Lower Extremity Other Impressions 11/17/2017 10:47 AM [employer] IMPRESSION: No acute femoral fracture identified. Dictated by Tg Hidalgo MD (chief radiology). This report was approved by Tg Hidalgo M.D. on 11/17/2017 9:[address] FABIOLA Reeves MD have personally reviewed and interpreted this examination/study. This report was electronically signed by Dr. FABIOLA WHITEHEAD MD on 11/17/2017 10:47 AM . Narrative 11/17/2017 10:47 AM [employer] EXAMINATION: XR FEMUR LEFT 2+ VW HISTORY: [...] fracture identified. Dictated by Tg Hidalgo MD (chief radiology). This report was approved by Tg Hidalgo M.D. on 11/17/2017 9:[address] FABIOLA Reeves MD have personally reviewed and interpreted thisexamination/study. This report was electronically signed by Dr. FABIOLA WHITEHEAD MD on 11/17/201710:47 AM . Lyssa Eckert MD DIAGNOSTIC IMAGING O RDERABLES * XR KNEE LEFT 3VW (11/17/2017 1:04 AM [employer] HEL[employer]) Anatomical Region Laterality Modality Lower Extremity Other Impressions 11/17/2017 10:47 AM [employer] IMPRESSION: No acute fracture or dislocation identified. Joint effusion. Dictated by Tg Hidalgo MD (chief radiology). This report was approved by Tg Hidalgo M.D. on 11/17/2017 9:[address] FABIOLA Reeves MD have personally reviewed and interpreted this examination/study. This report was electronically signed by Dr. FABIOLA WHITEHEAD MD on 11/17/2017 10:47 AM . Narrative 11/17/2017 10:47 AM [employer] EXAMINATION: PX KNEE LEFT 3 VW HISTORY: [...] Joint effusion. Dictated by Tg Hidalgo MD (chief radiology). This report was approved by Tg Hidalgo M.D. on 11/17/2017 9:53 AM . I, . Dr. FABIOLA WHITEHEAD MD have personally reviewed and interpreted thisexamination/study. This report was electronically signed by Dr. FABIOLA WHITEHEAD MD on 11/17/201710:47 AM . Lyssa Eckert MD DIAGNOSTIC IMAGING O RDERABLES * CULTURE CSF+GRAM STAIN (11/17/2017 12:22 AM [employer]) Only the most recent of25 resultswithin the time period is included. Pathologist [facility] Culture CSF No Growth [facility] Gram Stain No Organism Seen [facility] Spinal fluid (substance) CEREBROSPINAL FLUID SPECIMEN / Unknown 11/17/2017 12:22 AM [employer] HELPER 11/17/2017 12:36 AM [employer] Narrative [facility] - 11/24/2017 3:40 AM [employer] Specimen Type->Cerebrospinal Fluid Resulting Lab: [facility] [address] [place] [address] PH: [phone] Lyssa Eckert MD LAB - MICROBIOLOGY O RDERABLES [address] [phone] * (ABNORMAL) CELL COUNT CSF (11/17/2017 12:21 AM [employer] HEL[employer]) Only the most recent of25 resultswithin the time period is included. Color Fluid Colorless Colorless, Straw [facility] Clarity Fluid Clear Clear [facility] Volume Fluid 2.0 mL [facility] WBC Fluid 1 0 - 5 /uL [facility] RBC Fluid 1(H) 0 /uL [facility] Xanthochromia Fluid Negative Negative [facility] Differential Manual Differential to follow. [facility] Spinal fluid (substance) CEREBROSPINAL FLUID SPECIMEN / Unknown 11/17/2017 12:21 AM CARAMEL CANDY MAKER HELPER 11/17/2017 12:36 AM CARAMEL CANDY MAKER HELPER Lyssa Eckert MD LAB - BODY FLUID ORD ERABLES Performing Organization Address City/[facility]/[place] [address], [facility] [phone] * DIFFERENTIAL MANUAL FLUID (11/17/2017 12:21 AM CARAMEL CANDY MAKER HELPER) Only the most recent of25 resultswithin the time period is included. Lymphocytes % Fluid 40 - 80 % [facility] Comment:No cells seen Spinal fluid (substance) CEREBROSPINAL FLUID SPECIMEN / Unknown 11/17/2017 12:21 AM CARAMEL CANDY MAKER HELPER 11/17/2017 12:36 AM CARAMEL CANDY MAKER HELPER Narrative [facility] - 11/17/2017 2:51 AM CARAMEL CANDY MAKER HELPER No cells seen Lyssa Eckert MD LAB - BODY FLUID ORD ERABLES Performing Organization Address [facility] [place] [address], [facility] [phone] * (ABNORMAL) PROTEIN CSF (11/17/2017 12:21 AM CARAMEL CANDY MAKER HELPER) Only the most recent of25 resultswithin the time period is included. Protein CSF 10(L) 15 - 45 mg/dL [facility] Spinal fluid (substance) CEREBROSPINAL FLUID SPECIMEN / Unknown 11/17/2017 12:21 AM CARAMEL CANDY MAKER HELPER 11/17/2017 12:35 AM CARAMEL CANDY MAKER HELPER Lyssa Eckert MD LAB - BODY FLUID ORD ERABLES Performing Organization Address City/[facility]/[place] [address], [facility] [phone] * GLUCOSE CSF (11/17/2017 12:21 AM CARAMEL CANDY MAKER HELPER) Only the most recent of25 resultswithin the time period is included. Glucose CSF 66 40 - 70 mg/dL [facility] Spinal fluid (substance) CEREBROSPINAL FLUID SPECIMEN / Unknown 11/17/2017 12:21 AM CARAMEL CANDY MAKER HELPER 11/17/2017 12:35 AM CARAMEL CANDY MAKER HELPER Lyssa Eckert MD LAB - BODY FLUID ORD ERABLES Performing Organization Address [facility] Co de Phone Number [address] [phone] * CELL COUNT W DIFF CSF (11/17/2017 12:21 AM CARAMEL CANDY MAKER HELPER) Only the most recent of25 resultswithin the time period is included. Spinal fluid (substance) CEREBROSPINAL FLUID SPECIMEN / Unknown 11/17/2017 12:21 AM CARAMEL CANDY MAKER HELPER Narrative [facility] - 11/17/2017 2:51 AM CARAMEL CANDY MAKER HELPER The following orders were created for panel order Spinal fluid cell count. Procedure Abnormality Status --------- ------ SPINAL FLUID CELL COUNT[[id number]] Abnormal Final result MANUAL DIFFERENTIAL FLUID[[id number]] Final result Please view results for these tests on the individual orders. Lyssa Eckert MD LAB - BODY FLUID ORD ERABLES Performing Organization Address [facility] Co de Phone Number [facility] [address] * TROPONIN I (11/17/2017 12:11 AM CARAMEL CANDY MAKER HELPER) Only the most recent of11 resultswithin the time period is included. Troponin I 0.029 <0.032 ng/mL [facility] Blood specimen (specimen) BLOOD SPECIMEN / Unknown 11/17/2017 12:11 AM CARAMEL CANDY MAKER HELPER 11/17/2017 12:15 AM CARAMEL CANDY MAKER HELPER Lyssa Eckert MD LAB - CHEMISTRY ORDE KIMBERLEE Performing Organization Address [facility] Co de Phone Number [address] [phone] * CK + CKMB PANEL (11/17/2017 12:11 AM CARAMEL CANDY MAKER HELPER) Only the most recent of7 resultswithin the time period is included. CK Total 62 30 - 200 Units/L [facility] CK-MB 1.2 0.0 - 6.6 ng/mL [facility] Blood specimen (specimen) BLOOD SPECIMEN / Unknown 11/17/2017 12:11 AM CARAMEL CANDY MAKER HELPER 11/17/2017 12:15 AM CARAMEL CANDY MAKER HELPER Lyssa Eckert MD LAB - CHEMISTRY ORDE RABLES [address] [phone] * EKG 12-LEAD (11/16/2017 12:00 AM CARAMEL CANDY MAKER HELPER) Only the most recent of10 resultswithin the time period is included. EKG [facility] Comment: Exam Date/Time: Nov 16 2017 23:56:46 Test Reason : Blood Pressure : / mmHG Vent. Rate : 079 BPM Atrial Rate : 234 BPM P-R Int : 000 ms QRS Dur : 132 ms QT Int : 422 ms P-R-T Axes : -57 001 010 degrees QTc Int : 483 ms Atrial flutter with variable A-V block Right bundle branch block Abnormal ECG When compared with ECG of 31-MAR-2017 19:27, Minimal criteria for Inferior infarct are no longer Present , axis has changed Confirmed by MD Germain, Kendal ([id number]), acquisition editor Yaw Montoya ([id number]) on 11/21/2017 2:14:05 PM Referred By: REFERRING NO Confirmed By:Kendal Groves MD 11/16/2017 Lyssa Eckert MD ECG ORDERABLES [facility] * PHOSPHORUS BLOOD (04/09/2017 4:06 AM CDT) Only the most recent of45 resultswithin the time period is included. Phosphorus 3.1 2.3 - 4.7 mg/dL [facility] Blood specimen (specimen) BLOOD SPECIMEN / Unknown 04/09/2017 4:06 AM CDT 04/09/2017 4:18 AM CDT Chris Beauchamp MD LAB - CHEMISTRY RAMON MOHAN [facility] [address] [phone] * GLUCOSE ACCUCHECK (04/08/2017 4:14 PM CDT) Only the most recent of14 resultswithin the time period is included. Glucose, Fingerstick 110 70-115mg/d L mg/dL [facility] Comment:Scraper Tender: JJ OLSON 04/08/2017 4:14 PM CDT Chris Beauchamp MD LAB - CHEMISTRY RAMON MOHAN Performing Organization Address City/[facility]/ZIP Co de Phone Number [facility] ([facility]) * (ABNORMAL) DIFFERENTIAL MANUAL (04/08/2017 3:34 AM CDT) Only the most recent of26 resultswithin the time period is included. WBC (corrected for NRBC) 11.5 10 3/uL [facility] Total Cell Count 100 [facility] Neutrophils Absolute Manual 9.89(H) 1.60 - 7.00 10 3/uL [facility] Comment:(BANDS+SEGS) x WBC = NEUT # (ANC) Lymphocyte Absolute Manual 1.15 0.80 - 2.90 10 3/uL [facility] Monocytes Absolute Manual 0.23 0.14 - 0.66 10 3/uL [facility] Eosinophils Absolute Manual 0.23(H) 0.00 - 0.22 10 3/uL [facility] Band % Manual 6 0 - 10 % [facility] Neutrophil % Manual 80(H) 30 - 60 % [facility] Lymphocyte % Manual 10(L) 20 - 45 % [facility] Monocytes % Manual 2 2 - 10 % [facility] Eosinophils % Manual 2 1 - 6 % [facility] Platelet Estimate Adequate Adequate [facility] Anisocytosis Few(A) None [facility] Poikilocytes Few(A) None [facility] Macrocytosis Rare(A) None [facility] Polychromasia Rare(A) None [facility] Blood specimen (specimen) BLOOD SPECIMEN / Unknown 04/08/2017 3:34 AM CDT 04/08/2017 3:55 AM CDT Chris Beauchamp MD LAB - HEMATOLOGY ORD ERABLES [facility] [address] [place] [address] * XR THORACIC SPINE 1VW (04/05/2017 9:31 PM CDT) Anatomical Region Laterality Modality Spine Other Impressions 04/06/2017 3:37 PM CDT IMPRESSION: Exam limited by lack of lateral view due to patient positioning Upper thoracic levoscoliosis. Dictated by Santi Tompkins DO (chief radiology). I, Dr. FABIOLA MOCTEZUMA M.D. have personally reviewed and interpreted this examination/study. This report was electronically signed by FABIOLA MOCTEZUMA M.D. on 04/06/2017 3:37 PM . Narrative 04/06/2017 3:37 [...] thoracic levoscoliosis. Dictated by Santi Tompkins DO (chief radiology). Dr. FABIOLA Reeves M.D. have personally reviewed and interpreted thisexamination/study. This report was electronically signed by FABIOLA MOCTEZUMA M.D. on04/06/2017 3:37 PM . Chris Beauchamp MD DIAGNOSTIC IMAGING O RDERABLES * FL SWALLOWING FUNCTION STUDY (04/03/2017 2:30 PM CDT) Anatomical Region Laterality Modality Chest Other Impressions 04/03/2017 3:54 PM CDT IMPRESSION: Fluoroscopic assistance was provided for a procedure performed by Speech Therapy. Please see the separate report by Speech Therapy for further details. Fluoroscopy Time: 260 seconds. Dictated by Wilfredo Stewart MD (Resident). This report was approved by Wilfredo Stewart Dr on 04/03/2017 3:[address] GLO Reeves M.D. have personally reviewed and interpreted this examination/study. This report was electronically signed by GLO OSEGUERA M.D. on 04/03/2017 3:54 PM . Narrative 04/03/2017 3:54 [...] included. Albumin 1.8(L) 3.4 - 5.0 g/dL [facility] Blood specimen (specimen) BLOOD SPECIMEN / Unknown 04/03/2017 8:01 AM CDT 04/03/2017 8:16 AM CDT Chris Beauchamp MD LAB - CHEMISTRY RAMON MOHAN Performing Organization Address City/[facility]/ZIP Co de Phone Number [address] [phone] * (ABNORMAL) T3 TOTAL (04/01/2017 8:35 PM CDT) Pathologist [facility] T3 Total 36(L) 58 - 159 ng/dL [facility] Blood specimen (specimen) BLOOD SPECIMEN / Unknown 04/01/2017 8:35 PM CDT 04/01/2017 9:06 PM CDT Chris Beauchamp MD LAB - CHEMISTRY RAMON MOHAN Performing Organization Address [facility] [place] [address], [facility] [phone] * (ABNORMAL) T4 TOTAL (04/01/2017 8:03 AM CDT) Pathologist [facility] T4 Total 4.8(L) 4.9 - 11.7 mcg/dL [facility] Blood specimen (specimen) BLOOD SPECIMEN / Unknown 04/01/2017 8:03 AM CDT 04/01/2017 8:08 AM CDT Chrsi Beauchamp MD LAB - CHEMISTRY RAMON MOHAN Performing Organization Address [facility] [place] [address], [facility] [phone] * (ABNORMAL) BLOOD GASES ART (03/31/2017 12:47 PM CDT) Only the most recent of7 resultswithin the time period is included. pH Arterial 7.42 7.35 - 7.45 [facility] pCO2 Arterial 42 35 - 45 mmHg [facility] pO2 Arterial 145(H) 71 - 95 mmHg [facility] HCO3 Arterial 26.4(H) 22.0 - 26.0 mmol/L [facility] TCO2 Arterial 27.7 25.0 - 29.0 mmol/L [facility] Base Excess Arterial 1.7 -2.0 - 2.0 mmol/L [facility] Hemoglobin Arterial 11.0(L) 13.5 - 17.5 g/dL [facility] Oxyhemoglobin Arterial 97.4 95.0 - 100.0 % [facility] Carboxyhemoglobin 0.5 0.0 - 3.0 % [facility] Methemoglobin 0.3 0.0 - 2.0 % [facility] FI O2 Arterial 28.0 % [facility] Blood specimen (specimen) BLOOD SPECIMEN / Unknown 03/31/2017 12:47 PM CDT 03/31/2017 12:52 PM CDT Chris Beauchamp MD LAB - BLOOD GASES OR DERABLES [address] [phone] * XR CHEST 1VW PORTABLE (03/31/2017 12:36 [...] is unchanged. Dictated by Kendal Carrington M.D. (Window Shade Cutter [employer] Mounter) This report was approved by Kendal Carrington M.D. on 04/01/2017 9:[address] FABIOLA Reeves MD have personally reviewed and interpreted this examination/study. This report was electronically signed by Dr. FABIOLA WHITEHEAD MD on 04/01/2017 9:42 AM . Narrative 04/01/2017 9:42 [...] is unchanged. Dictated by Kendal Carrington M.D. ([employer]) This report was approved by Kendal Carrington M.D. on 04/01/2017 9:[address] FABIOLA Reeves MD have personally reviewed and interpreted thisexamination/study. This report was electronically signed by Dr. FABIOLA WHITEHEAD MD on04/01/2017 9:42 AM . Chris Beauchamp MD DIAGNOSTIC IMAGING O RDERABLES * VANCOMYCIN LEVEL TROUGH (03/31/2017 12:50 AM CDT) Only the most recent of8 resultswithin the time period is included. Vancomycin Trough 17.6 10.0 - 20.0 mcg/mL [facility] Blood specimen (specimen) BLOOD SPECIMEN / Unknown 03/31/2017 12:50 AM CDT 03/31/2017 12:55 AM CDT Chris Beauchamp MD LAB - CHEMISTRY RAMON MOHAN Performing Organization Address [facility] Co de Phone Number [address] [phone] * TYPE + SCREEN PANEL (03/30/2017 12:26 AM CDT) Only the most recent of2 resultswithin the time period is included. Typem O POS [facility] Antibody Screen NEG [facility] Blood specimen (specimen) 03/30/2017 12:26 AM CDT 03/30/2017 12:35 AM CDT Chris Beauchamp MD LAB - BLOOD BANK TIMOTHY ARTIS Performing Organization Address [facility] Co de Phone Number [facility] [address] [place] [address] * VANCOMYCIN LEVEL RANDOM (03/29/2017 8:11 AM CDT) Vancomycin Random 20.6 Therapeutic Ranges not established for random specimens mcg/mL [facility] Blood specimen (specimen) BLOOD SPECIMEN / Unknown 03/29/2017 8:11 AM CDT 03/29/2017 8:17 AM CDT Narrative Authorizing Provider Result Alcides Beauchamp MD LAB - CHEMISTRY RAMON MOHAN Performing Organization Address [facility] Co de Phone Number [address] [phone] * (ABNORMAL) OSMOLALITY BLOOD (03/27/2017 11:53 PM CDT) Only the most recent of3 resultswithin the time period is included. Osmolality 337(H) 270 - 300 mOsm/kg [facility] Blood specimen (specimen) BLOOD SPECIMEN / Unknown 03/27/2017 11:53 PM CDT 03/27/2017 11:53 PM CDT Chris Beauchamp MD LAB - CHEMISTRY ORDE RABLES Performing Organization Address [facility]/ZIP Co de Phone Number [address] [phone] * SODIUM URINE RANDOM (03/27/2017 10:56 PM CDT) Sodium Urine 71 Not Established mmol/L [facility] Urine specimen (specimen) URINE / Unknown 03/27/2017 10:56 PM CDT 03/27/2017 10:56 PM CDT Chris Beauchamp MD LAB - URINE CHEMISTR Y ORDERABLES Performing Organization Address [facility] Co de Phone Number [address] [phone] * OSMOLALITY URINE (03/27/2017 10:56 PM CDT) Only the most recent of2 resultswithin the time period is included. Osmolality Urine 504 500 - 800 mOsm/kg [facility] Urine specimen (specimen) URINE / Unknown 03/27/2017 10:56 PM CDT 03/27/2017 10:56 PM CDT Chris Beauchamp MD LAB - URINE CHEMISTR Y ORDERABLES Performing Organization Address [facility] Co de Phone Number [address] [phone] * XR ABDOMEN KUB PORTABLE (03/27/2017 2:23 AM CDT) Only the most recent of10 resultswithin the time period is included. Anatomical Region Laterality Modality Other Impressions 03/27/2017 12:38 PM CDT Impression: A feeding tube has been retracted with the tip in the third portion of the duodenum. Reported dictated by Giulia Dyson MD (residential therapist). I, Dr. GLO OSEGUERA M.D. have personally reviewed and interpreted this examination/study. This report was electronically signed by GLO OSEGUERA M.D. on 03/27/2017 12:38 PM . Narrative 03/27/2017 12:38 PM CDT Portable abdomen, one view History: Tube placement Procedure Note Glo Oseguera MD - 12/14/2017 Portable abdomen, one view History: Tube placement IMPRESSION Impression: A feeding tube has been retracted with the tip in the thirdportion of the duodenum. Reported dictated by Giulia Dyson MD (residential therapist). I, Dr. GLO OSEGUERA M.D. have personally reviewed and interpreted thisexamination/study. This report was electronically signed by GLO OSEGUERA M.D. on 03/27/201712:38 PM . Chris Beauchamp MD DIAGNOSTIC IMAGING O OG * CULTURE SPUTUM+GRAM STAIN (03/26/2017 6:18 PM CDT) Only the most recent of4 resultswithin the time period is included. Gram Stain Many Epithelial Cells [facility] Gram Stain Moderate Polymorphonuclear Cells [facility] Gram Stain Few Gram positive cocci in pairs [facility] Gram Stain Many Gram Positive bacilli [facility] Sputum specimen (specimen) SPUTUM / Unknown 03/26/2017 6:18 PM CDT 03/26/2017 6:23 PM CDT Narrative [facility] - 03/26/2017 9:05 PM CDT [...] Chris Beauchamp MD LAB - MICROBIOLOGY O OG [address] [phone] * IR PERC G TUBE PLACEMENT (03/26/2017 9:11 AM CDT) Anatomical Region Laterality Modality Abdomen Other Impressions 03/28/2017 4:18 PM CDT IMPRESSION: Air insufflation of the stomach through the nasojejunal tube revealed that stomach is not accessible for percutaneous gastrostomy catheter placement. No percutaneous gastrostomy catheter was placed. This report was electronically signed by DENNY TALAMANTES M.D. on 03/28/2017 4:18 PM . Narrative 03/28/2017 4:18 [...] CDT) Folate 12.4 7.0 - 31.4 ng/mL [facility] Blood specimen (specimen) BLOOD SPECIMEN / Unknown 03/24/2017 4:35 AM CDT 03/24/2017 4:51 AM CDT Chris Beauchamp MD LAB - CHEMISTRY RAMON MOHAN [facility] Organization Address City/State/ZIP Co de Phone Number [address] [phone] * PATHOLOGY TISSUE (03/23/2017 6:12 PM CDT) Pathologist [facility] Surgical Pathology Tissue ACCESSION No: [id number] CLINICAL HISTORY: Malnutrition; distal esophageal nodule. FINAL DIAGNOSIS: STOMACH, BIOPSY (A): - REACTIVE/CHEMICAL GASTROPATHY - NO ACTIVE INFLAMMATION OR H. PYLORI ORGANISMS (ROUTINE H&E EXAMINATION) DISTAL ESOPHAGUS, NODULE, BIOPSY (B): - SQUAMOCOLUMNAR MUCOSA WITH MILD CHRONIC INFLAMMATION - MILD FOVEOLAR HYPERPLASIA - NO INTESTINAL METAPLASIA GROSS DESCRIPTION: The specimen is received in formalin in two containers, each labeled with Fabio Nesbitt. Specimen A is additionally labeled gastric biopsies , and consists of two mcguire tissue fragments, each measuring 0.3 cm in greatest dimension. The tissue is submitted entirely in A1. Specimen B is additionally labeled distal esophageal nodule , and consists of three mcguire-white tissue fragments measuring from 0.2 to 0.3 cm, in greatest dimension. The tissue is submitted entirely in B1. NW/met MICROSCOPIC DESCRIPTION: Microscopic examination substantiates the final diagnosis. The performance characteristics of all immunohistochemical and indirect immunofluorescence stains (if any) cited in this report were determined by the Histopathology Laboratory of [facility]. Some of these tests were developed by our own laboratory and have not been cleared or approved by the US Food and Drug Administration. The FDA does not require this test to go through premarket FDA review. These tests are used for clinical purposes. They should not be regarded as investigational or for research. This laboratory is certified under the Clinical Laboratory Improvement Amendments (CLIA) as qualified to perform high complexity clinical laboratory testing. This case has been personally reviewed and interpreted by the attending (teaching) pathologist. Final Diagnosis performed by Park Pat MD. 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 110 (L) nare EGD W/BIOPSY - Path A: Gastric biopsies Path B: Distal esophageal nodule biopsies Gastric sleeve history. POST-OP DIAGNOSIS: * No post-op diagnosis entered * Specimen A->Gastric random gastric biopsies Specimen B->Esophagus GEJ nodule Chris Beauchamp MD LAB - PATHOLOGY/CYTO LOGY ORDERABLES [facility] ([place]) * CT [...] electronically signed by HARSHIL VASQUES M.D. on 03/19/2017 11:20 AM . Narrative 03/19/2017 11:20 [...] Whole Blood 5.0 3.5 - 5.5 mmol/L [facility] Blood specimen (specimen) BLOOD SPECIMEN / Unknown 03/16/2017 1:38 PM CDT 03/16/2017 1:41 PM CDT Chris Beauchamp MD LAB - CHEMISTRY RAMON MOHAN [address] [phone] * CT CHEST ABDOMEN PELVIS W CONT (03/09/2017 5:18 PM CDT) Anatomical Region Laterality Modality Chest, Abdomen, Pelvis Other Impressions 03/10/2017 7:18 AM CDT IMPRESSION: 1. Bilateral lower lobe predominant groundglass opacities and consolidation likely represent aspiration/pneumonia. 2. Small bowel loops in close proximity to the overlying skin of the lower anterior midline abdomen. No obstruction. Report dictated by Yasmani Eng MD (chief radiology). I, Dr. ELGIN HIGUERA M.D. have personally reviewed and interpreted this examination/study. This report was electronically signed by ELGIN HIGUERA M.D. on 03/10/2017 7:18 AM . Narrative 03/10/2017 7:18 [...] obstruction. Report dictated by Yasmani Eng MD (chief radiology). I, Dr. ELGIN HIGUERA M.D. have personally reviewed and interpreted thisexamination/study. This report was electronically signed by ELGIN HIGUERA M.D. on03/10/2017 7:18 AM . Chris Beauchamp MD CT ORDERABLES * ECHO W DOPPLER AND COLOR FLOW (03/09/2017 12:00 AM CDT) Anatomical Region Laterality Modality Other 03/09/2017 Chris Beauchamp MD ECHOCARDIOGRAPHY RAD IANT * (ABNORMAL) SODIUM BLOOD (03/05/2017 8:20 PM CDT) Sodium 162(HH) 136 - 145 mmol/L [facility] Comment:Critical value(s) gonzalez ve been verified and called to and read back by Rolando Gross RN at 2052 on 03/05/2017. Blood specimen (specimen) BLOOD SPECIMEN / Unknown 03/05/2017 8:20 PM CDT 03/05/2017 8:28 PM CDT Chris Beauchamp MD LAB - CHEMISTRY RAMON MOHAN [facility] [address] [place] [address] * (ABNORMAL) HEPATIC FUNCTION PANEL (02/27/2017 11:24 PM CDT) Protein Total 5.4(L) 6.0 - 8.3 g/dL [facility] Albumin 2.4(L) 3.4 - 5.0 g/dL [facility] Bilirubin Total 1.3(H) 0.2 - 1.2 mg/dL [facility] Bilirubin Conjugated 0.7(H) 0.0 - 0.5 mg/dL [facility] Bilirubin Unconjugated 0.6 Unconjugated Bilirubin is a calculated value: Reference ranges have not been established. mg/dL [facility] Alkaline Phosphatase 99 40 - 150 Units/L [facility] ALT 21 0 - 55 Units/L [facility] AST 21 5 - 34 Units/L [facility] Albumin/Globulin Ratio 0.8(L) 1.1 - 2.3 [facility] Blood specimen (specimen) BLOOD SPECIMEN / Unknown 02/27/2017 11:24 PM CDT 02/27/2017 11:39 PM CDT Chris Beauchamp MD LAB - CHEMISTRY RAMON MOHAN [facility] Organization Address City/State/ZIP Co de Phone Number [address] [phone] * (ABNORMAL) BLOOD GASES ART COMPLETE [facility] OR (02/25/2017 1:58 PM CDT) pH Arterial 7.40 7.35 - 7.45 [facility] pCO2 Arterial 38 35 - 45 mmHg [facility] pO2 Arterial 93 71 - 95 mmHg [facility] HCO3 Arterial 23.0 22.0 - 26.0 mmol/L [facility] TCO2 Arterial 24.1(L) 25.0 - 29.0 mmol/L [facility] Base Excess Arterial -1.5 -2.0 - 2.0 mmol/L [facility] Hemoglobin Arterial 14.2 13.5 - 17.5 g/dL [facility] Oxyhemoglobin Arterial 96.6 95.0 - 100.0 % [facility] Carboxyhemoglobin 0.0 0.0 - 3.0 % [facility] Methemoglobin 0.2 0.0 - 2.0 % [facility] FI O2 Arterial 60.0 % [facility] Ionized Calcium Whole Blood 1.21 mmol/L [facility] Adjusted Ionized Calcium 1.21 1.19 - 1.34 mmol/L [facility] Sodium Whole Blood 146(H) 135 - 145 mmol/L [facility] Potassium Whole Blood 3.7 3.5 - 5.5 mmol/L [facility] Chloride Whole Blood 118(H) 101 - 111 mmol/L [facility] Glucose Whole Blood 112(H) 70 - 110 mg/dL [facility] [facility] Lactic Acid Whole Blood 1.7 0.5 - 3.4 mmol/L [facility] Blood specimen (specimen) 02/25/2017 1:58 PM CDT 02/25/2017 1:58 PM CDT Chris Beauchamp MD LAB - BLOOD GASES OR DERABLES [address] [phone] * MANUAL DIFFERENTIAL REVIEWED (02/23/2017 3:48 PM CDT) Manual Differential Reviewed DIFFERENTIAL REVIEW - CONFIRMED DIFFERENTIAL REVIEW - CONFIRMED [facility] Spinal fluid (substance) CEREBROSPINAL FLUID SPECIMEN / Unknown 02/23/2017 3:48 PM CDT 02/23/2017 3:52 PM CDT Nicole Manzano PA-C LAB - HEMATOLO GY ORDERABLES [address] [phone] * CT ANGIO BRAIN (02/23/2017 12:29 PM [...] electronically signed by MARIJA AU M.D. on 02/23/2017 1:46 PM . Narrative 02/23/2017 1:46 [...] G-Clot Strength 9.2 4.5 - 11.0 d/sc [facility] Interpretation TEG See Comment [facility] React-Time 3.2(L) 5.0 - 10.0 MIN [facility] K-Time 1.4 1.0 - 3.0 MIN [facility] Angle A-BB 70.7 53.0 - 72.0 Degrees [facility] MA (CK) BB 64.9 50.0 - 70.0 mm [facility] LY30 0.3 0.0 - 8.0 % [facility] CI-Coagulation Index 2.9 -3.0 - 3.0 [facility] MA-ADP 19.5 Reference Range: None mm [facility] MA AA-BB 16.8 Reference Range: None mm [facility] % ADP Inhibition 91.2 Reference Range:None % [facility] % AA Inhibition 96.6 Reference Range: None % [facility] Blood specimen (specimen) BLOOD SPECIMEN / Unknown 02/23/2017 3:48 AM CDT 02/23/2017 4:00 AM CDT Narrative [facility] - 02/23/2017 6:33 AM CDT SEE BELOW TEG Kaolin Sample Type Interpretation TEG Value Hemostasis State R < than 4 min: Enzymatic Hypercoagulability R 11-14 min: Low Clotting Factors R > than 14 min: Very low clotting factors MA 46-54 mm: Low Platelet function MA 41-45 mm: Very low platelet function MA 40 mm or less: Extremely low platelet function MA > 73 mm: Platelet hypercoagulability R < 4 min and Enzymatic and platelet hypercoagulability MA > 73 mm: Angle < 45 deg: Low fibrinogen level LY30 at 7.5% or >, Primary Fibrinolysis CI < than 1.0: LY30 at 7.5% or >, Secondary fibrinolysis CI > than 3.0: LY30 < 7.5%, Prothrombotic state CI > 3.0: Chris Beauchamp MD LAB - BLOOD BANK ORD ERABLES [facility] [address] [place], [place] [id number] [place] [address] * HEMOGLOBIN A1C (02/23/2017 3:43 AM CDT) Hemoglobin A1c 5.0 4.4 - 6.3 % [facility] Estimated Average Glucose 97 mg/dL [facility] Comment: HbA1c Interpretation: Treatment target values recommended by ADA and other clinical organizations should be used to evaluate metabolic control in patients. Treatment Target Values: Normal : < 5.7% Pre-diabetes: 5.7-6.4% Diabetes: Equal to or greater than 6.5% Reference: [place] [employer] Standards of Care in Diabetes -2014 In patients 70 years and older consider HbA1c target range of 7.0-7.5% Reference: Diabetes Mellitus in Older People: Position Statement on behalf of the International Association of Gerontology and Geriatrics (IAGG), the Diabetes Working [employer] Party for Older People (EDWPOP), and the International Task Force of Experts in Diabetes. Anant Harper, et al. J [place] [employer]. 2012 Test results diagnostic [...] CDT Erasmo Tejeda MD LAB - CHEMISTRY ORDJennifer MOHAN Performing Organization Address [facility] Co de Phone Number [address] [phone] * (ABNORMAL) URINALYSIS REFLEX TO MICROSCOPIC NO CULTURE (02/22/2017 11:19 PM CDT) Color UA Yellow Straw, Yellow, Colorless, Light Yellow [facility] Clarity UA Clear Clear [facility] Specific [place] UA 1.011 1.001 - 1.030 [facility] pH UA 5.0 5.0 - 8.0 [facility] Protein UA 30(A) <=20 mg/dL [facility] Glucose UA Negative Negative mg/dL [facility] Ketone UA Negative Negative mg/dL [facility] Bilirubin UA Negative Negative mg/dL [facility] Blood UA Negative Negative [facility] Nitrite UA Negative Negative [facility] Leukocyte Esterase Negative Negative [facility] Urobilinogen UA <2.0 <2.0 mg/dL [facility] RBC UA 2 0 - 8 /HPF [facility] WBC UA 2 0 - 2 /HPF [facility] Squamous Epithelial Cells UA <1 0 - 1 /HPF [facility] Mucus UA Moderate(A) None /LPF [facility] Urine specimen (specimen) 02/22/2017 11:19 PM CDT 02/22/2017 11:22 PM CDT Erasmo Tejeda MD LAB - URINALYSIS ORD ERABLES Performing Organization Address [facility]/State/ZIP Co de Phone Number [address] [phone] * (ABNORMAL) DRUG ABUSE PANEL 10-20+ETHANOL URINE NO CONFIRM (02/22/2017 11:19 PM CDT) Amphetamines Screen Urine Negative Negative : < 1000 ng/mL [facility] Barbiturates Screen Urine Negative Negative : < 200 ng/mL [facility] Benzodiazepine Screen Urine Positive(A) Negative : < 200 ng/mL [facility] Comment: Positive urine benzodiazepine screening results should be confirmed by another generally accepted non-immunological method such as gas chromatography or mass spectrometry. Opiates Urine Negative Negative : < 300 ng/mL [facility] Cocaine Metabolites Urine Negative Negative : < 300 ng/mL [facility] Phencyclidine Screen Urine Negative Negative : < 25 ng/ml [facility] Cannabinoids Screen Urine Negative Negative : <50 ng/mL [facility] Methadone Screen Urine Negative Negative : < 300 ng/mL [facility] Urine specimen (specimen) URINE / Unknown 02/22/2017 11:19 PM CDT 02/22/2017 11:22 PM CDT Narrative [facility] - 02/22/2017 11:40 PM CDT The Urine Toxicology Screening Panel does not screen for Propoxyphene, Meprobamate, Carisoprodol, Trazodone, [id number] medications and/or volatiles (Acetone, Isopropanol, Methanol or Ethylene Glycol). Ethanol, Salicylate, Acetaminophen, Tricyclic Antidepressants and several therapeutic drugs may be individually assayed in serum or plasma specimen. Toxicology testing by the [facility] is an aid to medical diagnosis and treatment of patients. No documented chain of custody was maintained. Results are intended to be used for clinical purposes only. Erasmo Tejeda MD LAB - URINE CHEMISTR Y ORDERABLES [address] [phone] * ALCOHOL ETHYL BLOOD (02/22/2017 11:18 PM CDT) Interpretation Ethanol None Detected None Detected mg/dL [facility] Comment:Ethanol levels less than 10 mg/dL are resulted as None detected . Blood specimen (specimen) BLOOD SPECIMEN / Unknown 02/22/2017 11:18 PM CDT 02/22/2017 11:22 PM CDT Erasmo Tejeda MD LAB - CHEMISTRY ORDE RABNKECHI Performing Organization Address City/[facility]/ZIP Co de Phone Number [address] [phone] Care Teams Instrumentation Instructor Relationship Specialty Start Date End Date Konzen, Vern L, MD PCP - General 05/28/18
--- NOTE | 2024-10-25 10:15 | ED_ITS ---
HPI - Weakness General Chief complaint: Weakness Stated complaint: weakness Time Seen by Provider: 10/25/24 10:05 History of Present Illness HPI Narrative: 69-year-old male presenting to the emergency department for repeat evaluation. He was just released from the hospital after brief stay for acute kidney injury, rhabdomyolysis, urinary tract infection and hypoxia. Patient was treated with a course of Levaquin after culture directed antibiosis. He completed his therapy was discharged to his retirement yesterday. He states he feels generally weak and is unable to get out of his bed and walk around. He states his legs are weak symmetrically and just give out on him and or shaking. Denies any pain anywhere, denies any symptoms in the upper extremities. They are symmetric symptoms the bilateral lower extremities without any sensory deficits. No history of stroke. His a history of paroxysmal AFib, hypertension, previous intracranial hemorrhage status post craniotomy and [employer] shunt. He is otherwise well-appearing now is only complaint is the weakness in his legs. Patient was sent here for potential rehabilitation evaluation. Related Data Home Medications ?Medication ?Instructions ?Recorded ?Confirmed ?Last Taken ?Type acetaminophen 325 mg tablet 650 mg PO TID PRN fever or pain 03/01/21 10/19/24 Unknown History amlodipine 10 mg tablet 10 mg PO DAILY 03/01/21 10/19/24 Unknown History hydralazine 50 mg tablet 50 mg PO TID 03/01/21 10/19/24 Unknown History polyethylene glycol 3350 17 gram 17 g PO DAILY PRN Constipation 03/01/21 10/19/24 Unknown History oral powder packet sertraline 50 mg tablet 50 mg PO DAILY 03/01/21 10/19/24 Unknown History metoprolol succinate 50 mg 50 mg PO Q12H 10/19/24 10/19/24 Unknown History tablet,extended release 24 hr Allergies Allergy/AdvReac Type Severity Reaction Status Date / Time morphine AdvReac Hallucinati Verified 10/25/24 10:03 ng Review of Systems 2 Review of Systems: As reviewed above in HPI [facility] Past Medical History Medical History Dementia Short-term memory loss As result of previous intracranial hemorrhage. Heart block Depression History of diverticulitis Gastroesophageal reflux disease Obstructive sleep apnea Intolerant to CPAP. Closed left ankle fracture Lateral malleolus and talar body - nondisplaced Nephrolithiasis Hypertension Paroxysmal atrial fibrillation Previously on apixaban History of stroke Records from [place] show he had a intraparenchymal hemorrhage status post left craniotomy and [employer] shunt in 2017; may have been on apixaban at the time Surgical History Surgical History History of colon resection Secondary to diverticulitis. History of cholecystectomy History of gastric bypass Gastric sleeve procedure. History of ventriculoperitoneal shunting Family History Family History Other Cerebrovascular accident Hypertension Social History Social History Social History: Surrogate decision maker: Bhavani Jhagiovany, friend. Ambulates with cane/ walking stick Code status: Full code per CT documentation. He would not want to be on life support for any length of time, however. Smoking status: Never smoker Second hand tobacco smoke exposure: No Alcohol intake: former Drinks per week: 3 Substance use: never Substance use type: does not use Do You Feel Safe in your Home?: Yes Lack of Transportation: No Lack of Food: Never True Current Housing: I Have Housing Concerned About Future Housing: No Difficulty Paying Gas/Electric Bills: No Difficulty Paying for Meds: No Currently Unemployed: No Education: High School Diploma/GED Difficulty w/ Childcare or Family Care: No Living arrangements: retirement Additional living arrangements comments: Resides at [facility] Additional occupation/education comments: Retired [employer]. 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 Mucous membranes moist. NECK: Supple. CHEST: [Clear to auscultation. No respiratory distress.] HEART: [Regular rate and rhythm]. No murmur heard. [Normal peripheral pulses.] ABDOMEN: [Soft, nondistended], [nontender], [No rigidity or guarding] EXTREMITIES: EHL and FHL 5/5 strength, proximal muscles with 5/5 strength in the both arms and legs. Is able to lift his legs off of the stretcher symmetrically although appear shaking and feeling weak to the patient. SKIN: Warm, dry, no rash. NEURO: Alert and oriented [x3.] Strength 5/5 in the extensors and flexors of the distal lower extremities, seems to have 4-5 strength in the proximal hip flexors symmetric bilaterally. No sensory changes. PSYCH: [Normal mood and affect.] Course Vital Signs Vital signs: Vital Signs Temperature 36.6 C 10/25/24 09:55 Pulse Rate 58 L 10/25/24 09:55 Respiratory Rate 16 10/25/24 09:55 Blood Pressure 114/70 10/25/24 09:55 Pulse Oximetry 95 10/25/24 09:55 Oxygen Delivery Room Air 10/25/24 09:55 Temperature 36.6 C 10/25/24 09:55 Pulse Rate 58 L 10/25/24 09:55 Respiratory Rate 16 10/25/24 09:55 Blood Pressure 114/70 10/25/24 09:55 Pulse Oximetry 95 10/25/24 09:55 Oxygen Delivery Room Air 10/25/24 09:55 MDM - Weakness MDM Narrative Medical decision making narrative: 69-year-old male that was just discharged from the hospital after a brief hospital visits including treatment for acute kidney injury, rhabdomyolysis, hypertension. He had urinary tract infection and a potential pneumonia versus atelectasis. He did require oxygen briefly during his admission. He was to [facility] and completed antibiotic course. She was discharged to his facility yesterday and returns today with generalized weakness in his legs. He states he is not able to ambulate or get around. He is able to start moving his bilateral lower extremities but they are shaking and feel weak to him. Distally is 5/5 strength in major muscle groups and there is no unilateral symptoms or any subjective sensory changes either. No falls or injury but he does have a history of intracranial hemorrhage previously. Patient likely has deconditioning from his recent illnesses and hospital stay versus rhabdomyolysis and muscle breakdown. Will also obtain CT head to make sure there is no intracranial process going on in addition to repeat laboratory assessments. He was given a fluid bolus here. Patient will likely require readmission the hospital given his weakness and need for PT, OT, possible rehab placement. Workup shows a slight leukocytosis 11.8 which is higher than his level yesterday 0.9. Normal hemoglobin, normal platelet level. His BUN and creatinine did rise as well from yesterday and now at 1.37, compared to 1.15 yesterday. Electrolytes largely unremarkable, normal glucose. CPK also fátima slightly to 178. Normal LFTs. Negative COVID flu and RSV swabs. CT of the head shows no acute intracranial process. Chronic encephalomalacia and normal appearing ventricles. Awaiting urinalysis and x-ray I spoke to the md do resident urgent care who saw the patient yesterday and we went over plan of care together, patient did previously not qualify for rehab given that he passed ambulation trials and was not weak yesterday however given his acute deconditioning, rebounding renal function and CPK I believe he needs hydration and re-evaluation with physical therapy after treatment. Patient has what appears to be a worsening multifocal pneumonia is x-ray despite his Levaquin previously. We started him on communicative ridge including Rocephin and doxycycline. He is saturating well on room air, comfortable appearing in the stretcher. I spoke to the hospitalist team currently being covered by the midlevel provider Joyce. She was accepted the patient to a medical-surgical bed at this time for continued treatment. Patient was made aware of this plan. Medical Records Attestation: I reviewed the patient's medical records. Lab Data Attestation: I reviewed the patient's lab results. 10/25/24 10:15 10/25/24 10:15 Labs: Lab Results 10/25/24 10/25/24 Range/Units 10:15 10:24 WBC 11.8 H (4.5-10.0) K/mm3 RBC 4.30 L (4.6-6.20) M/mm3 Hgb 13.9 L (14.0-18.0) g/dL Hct 43.3 (42.0-52.0) % MCV 100.7 H (80-100) fl MCH 32.3 (26-34) pg MCHC 32.1 (32-36) g/dl RDW 13.9 (11.5-14.5) % Plt Count 196 (150-375) k/mm3 MPV 10.4 (7.4-10.4) fl Immature Gran % (Auto) 2.3 H (0-0.5) % Neut % (Auto) 73.8 H (45.5-73.1) % Lymph % (Auto) 9.0 L (18.3-44.2) % [place] % (Auto) 11.6 H (2.6-8.5) % Eos % (Auto) 2.8 (0-4.4) % Baso % (Auto) 0.5 (0.2-1.2) % Lymph # (Auto) 1.06 (0.9-3.2) K/mm3 [place] # (Auto) 1.4 H (0.1-0.6) K/mm3 Eos # (Auto) 0.3 (0-0.3) K/mm3 Baso # (Auto) 0.1 (0.0-0.1) K/mm3 Abs Immat Gran (auto) 0.27 H (0.00-0.031) K/mm3 Absolute Neuts (auto) 8.7 H (1.3-6.7) K/mm3 Absolute Nucleated RBC 0.000 (0.0-0.012) K/mm3 Nucleated RBC % 0.0 (0.0-0.2) % Sodium 144 (137-145) mmol/L Potassium 3.5 (3.4-5.0) mmol/L Chloride 111 H (98-107) mmol/L Carbon Dioxide 26 (22-30) mmol/L Anion Gap 7 (4-12) mmol/L BUN 27 H (9-20) mg/dL Creatinine 1.37 H (0.7-1.3) mg/dL Estim Creat Clear Calc 64 ml/min Estimated GFR 52 L (59 - ) Glucose 81 (65-110) mg/dL Calcium 8.5 (8.4-10.2) mg/dL Total Bilirubin 1.0 (0.2-1.3) mg/dL AST 33 (17-59) U/L ALT 31 (6-50) U/L Alkaline Phosphatase 112 (38-126) U/L Total Creatine Kinase 178 H (55-170) U/L Total Protein 6.0 L (6.3-8.2) g/dL Albumin 3.2 L (3.5-5.1) g/dL Influenza A (RT-PCR) Negative (Negative) Influenza B (RT-PCR) Negative (Negative) RSV (RT-PCR) Negative (Negative) SARS-CoV-2 RNA (RT-PCR) Negative (Negative) Imaging Data Attestation: I personally reviewed and interpreted this imaging study as follows: My impression: Impressions Head CT 10/25/24 11:07 IMPRESSION: 1. Chronic encephalomalacia in left frontal lobe and right parietal occipital region. 2. Normal sized ventricles with shunt in expected position. Chest X-Ray 10/25/24 11:38 IMPRESSION: 1. Airspace opacities in right perihilar region and left lower lung zone with worsening on the left, consistent with atelectasis versus pneumonia. 2. Small pleural effusions. 3. Cardiomegaly. ECG Data EKG #1: Attestation: I personally reviewed and interpreted this ECG as follows: ECG completion date: 10/25/24 ECG completion time: 11:09 Prior ECG tracings: available for review Interpretation: Ventricular paced rhythm with a left bundle branch block but no signs of Sgarbossa criteria, no ST segment elevations, depressions or inversions. No signs of ectopy. Compared to previous EKG from several days ago there is no acute interval change. HI interval of 166, QTC interval 488, rate of 59. Overall ventricular paced rhythm, no signs of ischemia. Discharge Plan Discharge Clinical Impression: Multifocal pneumonia, KERI (acute kidney injury), Increased CPK level, Generalized muscle weakness Patient Disposition: Still a Patient Condition: Stable Patient Language: Czech Prescriptions: No Action acetaminophen 325 mg Tablet 650 mg PO TID PRN (Reason: fever or pain) amlodipine 10 mg Tablet 10 mg PO DAILY hydralazine 50 mg Tablet 50 mg PO TID sertraline 50 mg Tablet 50 mg PO DAILY polyethylene glycol 3350 17 gram Powder In Packet 17 g PO DAILY PRN (Reason: Constipation) metoprolol succinate 50 mg tablet extended release 24 hr 50 mg PO Q12H levofloxacin 750 mg tablet 750 mg PO DAILY Qty: 1 0RF Follow-up/Referrals: Angie,Vern Hdz MD [Primary Care Provider] - Time of Disposition: 12:14
[2024-10-25 10:21] LABS: Basophils Absolute Auto 0.1 K/mm3 (0.0-0.1); Basophils Percent Auto 0.5 % (0.2-1.2); Eosinophils Absolute Auto 0.3 K/mm3 (0-0.3); Eosinophils Percent Auto 2.8 % (0-4.4); Hematocrit 43.3 % (42.0-52.0); Hemoglobin 13.9 g/dL (14.0-18.0); Immature Granulocyte Absolute 0.27 K/mm3 (0.00-0.031); Immature Granulocyte Percent A 2.3 % (0-0.5); Lymphocytes Absolute Auto 1.06 K/mm3 (0.9-3.2); Mean Corpuscular HGB Conc 32.1 g/dl (32-36); Mean Corpuscular Hemoglobin 32.3 pg (26-34); Mean Corpuscular Volume 100.7 fl (80-100); Mean Platelet Volume 10.4 fl (7.4-10.4); Monocytes Absolute Auto 1.4 K/mm3 (0.1-0.6); Monocytes Percent Auto 11.6 % (2.6-8.5); Neutrophils Absolute Auto 8.7 K/mm3 (1.3-6.7); Neutrophils Percent Auto 73.8 % (45.5-73.1); Platelet Count Result 196 k/mm3 (150-375); Red Cell Distribution Width 13.9 % (11.5-14.5); White Blood Count 11.8 K/mm3 (4.5-10.0)
[2024-10-25 10:34] LABS: Alanine Aminotransferase 31 U/L (6-50); Albumin Level 3.2 g/dL (3.5-5.1); Alkaline Phosphatase 112 U/L (38-126); Anion Gap 7 mmol/L (4-12); Aspartate Amino Transferase 33 U/L (17-59); Blood Urea Nitrogen 27 mg/dL (9-20); Calcium 8.5 mg/dL (8.4-10.2); Carbon Dioxide 26 mmol/L (22-30); Chloride 111 mmol/L (98-107); Creatine Kinase 178 U/L (55-170); Estimated CRCL calculation 64 ml/min; Estimated Glomerular Filt Rate 52; Glucose 81 mg/dL (65-110); Potassium 3.5 mmol/L (3.4-5.0); Sodium 144 mmol/L (137-145)
[2024-10-25 11:05] LABS: Influenza A QL RT-PCR Negative (Negative); Influenza B QL RT-PCR Negative (Negative); RSV RNA, RT-PCR Negative (Negative); SARS-CoV-2 RNA PCR Negative (Negative)
--- NOTE | 2024-10-25 12:23 | PM.IMHP ---
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 No radiological workup was specific for PNA, but suggested instead PNA vs. Atelectasis. He was discharged to his SNF and once there has been increasingly weak and tremulous, unable to ambulate or bear any weight on his legs due to a bilateral weakness and no focal deficits. He was brought back to the hospital for delineation of possible need for rehab. Workup in the ER was performed and is notable for ABCs 11.8, mild bump in renal function with Cr/BUN at 1.37/27 w/historical baseline being 1.1/20s, and CPK being 178. CT head was performed given his previous history of ICH CT demonstrates a chronic encephalomalacia left frontal lobe and right parietal occipital region. Size ventricles with shunt expected position. Chest x-ray was performed and demonstrates airspace opacities in the right perihilar region and left lower lung zone with worsening on the left, consistent with atelectasis versus pneumonia. There are small pleural effusions present cardiomegaly. EKG showing a V-paced rhythm at 59 bpm. No ectopy or ischemia otherwise. Given patient's mild elevation in WBCs without left shift, concerning chest x-ray for potential pneumonia and increased weakness patient will be admitted to the hospital in the current setting with antibiotics of doxycycline and Rocephin started as well as supportive therapy for weakness and potential rhabdomyolysis. PT and OT will be consulted for evaluations for consideration for possible acute rehab. Review of Systems Review of Systems: All systems reviewed & are unremarkable except as noted in HPI and below PMFSH Past Medical History Medical History (Updated 10/25/24 @ 12:39 by Cinthia Ramirez APN-Clarice) Pneumonia Weakness Dementia Short-term memory loss As result of previous intracranial hemorrhage. Heart block Depression History of diverticulitis Gastroesophageal reflux disease Obstructive sleep apnea Intolerant to CPAP. 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 History of cholecystectomy History of gastric bypass Gastric sleeve procedure. History of ventriculoperitoneal shunting Family History Family History Other Cerebrovascular accident Hypertension Social History Social History Social History: Surrogate decision maker: Bhavani Holley, friend. Ambulates with cane/ walking stick Code status: Full code per [place] documentation. He would not want to be on life support for any length of time, however. Smoking status: Never smoker Second hand tobacco smoke exposure: No Alcohol intake: former Drinks per week: 3 Substance use: never Substance use type: does not use Do You Feel Safe in your Home?: Yes Lack of Transportation: No Lack of Food: Never True Current Housing: I Have Housing Concerned About Future Housing: No Difficulty Paying Gas/Electric Bills: No Difficulty Paying for Meds: No Currently Unemployed: No Education: High School Diploma/GED Difficulty w/ Childcare or Family Care: No Living arrangements: halfway Additional living arrangements comments: Resides at [facility] Additional occupation/education comments: Retired [employer]. 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 Spiritual care concerns: No Meds Home Medications and Allergies Home Medications ?Medication ?Instructions ?Recorded ?Confirmed ?Type acetaminophen 325 mg tablet 650 mg PO TID PRN fever or pain 03/01/21 10/19/24 History amlodipine 10 mg tablet 10 mg PO DAILY 03/01/21 10/19/24 History hydralazine 50 mg tablet 50 mg PO TID 03/01/21 10/19/24 History polyethylene glycol 3350 17 gram 17 g PO DAILY PRN Constipation 03/01/21 10/19/24 History oral powder packet sertraline 50 mg tablet 50 mg PO DAILY 03/01/21 10/19/24 History metoprolol succinate 50 mg 50 mg PO Q12H 10/19/24 10/19/24 History tablet,extended release 24 hr levofloxacin 750 mg tablet 750 mg PO DAILY #1 tablet 10/24/24 Rx Allergies Allergy/AdvReac Type Severity Reaction Status Date / Time morphine AdvReac Hallucinati Verified 10/25/24 10:03 ng Vital Signs Vital Signs - 24 hr 10/25/24 09:55 Temperature 98 F Pulse Rate 58 L Respiratory Rate 16 Blood Pressure 114/70 Pulse Oximetry 95 Oxygen Delivery Room Air Exam Const: General: comfortable and no acute distress Other: Elderly male pt lying supine at this time in no acute distress. Appears older than documented age. Eyes: General: appearance normal, both eyes and all related structures Neck: Neck: supple and no JVD Other: Full PROM present of the neck. Resp: Effort & Inspection: normal respiratory effort Auscultation: diminished lung sounds (Clear but decreased bilateral bases.) Cardio: Rate: regular rate Rhythm: regular rhythm (Paced) Heart sounds: no gallops, no murmurs and no rubs GI: GI Palp: Yes Soft to palpation and No Tenderness to palpation present (GI) Auscultation: normal bowel sounds Skin: General skin exam: normal color, no rashes or lesions noted and no erythema Lesions: no lesions noted Rashes: no rashes noted Wounds: no wounds Neuro: Speech: normal speech Motor exam (neuro): Abnormal motor strength present (generalized, non-focal weakness in BLE. ) Sensory Exam: normal sensation Other: No focal deficits present. Extrem: General: normal to inspection, no edema and no pedal edema Psych: Mental Status: mental status grossly normal Affect: normal affect H&P: Results Labs Labs: Short CBC 10/25/24 Range/Units 10:15 WBC 11.8 H (4.5-10.0) K/mm3 Hgb 13.9 L (14.0-18.0) g/dL Hct 43.3 (42.0-52.0) % Plt Count 196 (150-375) k/mm3 BMP 10/25/24 10:15 Sodium 144 Potassium 3.5 Chloride 111 H Carbon Dioxide 26 BUN 27 H Creatinine 1.37 H Glucose 81 Calcium 8.5 Cardiac Enzymes 10/25/24 Range/Units 10:15 Total Creatine Kinase 178 H (55-170) U/L Liver Function 10/25/24 Range/Units 10:15 Total Bilirubin 1.0 (0.2-1.3) mg/dL AST 33 (17-59) U/L ALT 31 (6-50) U/L Alkaline Phosphatase 112 (38-126) U/L Albumin 3.2 L (3.5-5.1) g/dL ECG Interpretation: V-paced 59 bpm. Assessment and Plan Assessment and plan (1) Weakness: Code(s): R53.1 - Weakness Status: Acute Assessment and Plan: PT and OT evaluations for assess and treat. Appreciate recommendations for appropriatability for ANGELICA Fall Precautions Monitor and trend labs and VS. Gentle IV hydration Check TSH in AM (2) Pneumonia: Code(s): J18.9 - Pneumonia, unspecified organism Status: Acute Assessment and Plan: Continue Doxy and Rocephin. Trend labs and VS. Incentive Spirometry LR bolus in ER and NS at 100 ml/hr to follow. Supplemental oxygen Supportive therapy. Duoneb Q6 hrs Albuterol neb Q4 hrs prn dyspnea/wheezing/SOB (3) Elevated CPK: Code(s): R74.8 - Abnormal levels of other serum enzymes Status: Acute Assessment and Plan: Elevated CPK at 178 Hydration with NS at 100 ml/hr No overt KERI at this point. CR/BUN 1.37/27. Trend labs and VS. (4) Paroxysmal atrial fibrillation: Code(s): I48.0 - Paroxysmal atrial fibrillation Status: Chronic Assessment and Plan: SCD's ordered in setting of no pharmacological anticoagulation given hx of ICH and s/p craniotomy on Eliquis. EKG showing current paced rhythm. (5) Hypertension: Qualifiers: Hypertension type: primary hypertension Qualified Code(s): I10 - Essential (primary) hypertension Code(s): I10 - Essential (primary) hypertension Status: Chronic Assessment and Plan: Resume Home meds as appropriate after they have been confirmed. Trend VS including BP. Plan Full Code Heart Healthy Diet SCD's - No pharmacological given hx of ICH and s/p craniotomy Quality VTE Prophylaxis VTE prophylaxis: mechanical ordered Hospitalist MIPS Advance Care Plan I have confirmed that the patient's Advanced Care Plan is present, code status is documented, or surrogate decision maker is listed in patient medical record.: Yes Medication Reconciliation I have utilized all available resources to obtain, update and review the patients current medications (includes all prescriptions, OTC, herbals, cannabis, and nutritional supplements).: Yes
[2024-10-25] MEDS: cefTRIAXone 2 GM/NS 100 ML 2 GM/100 ML BAG IVPB (12:40)
[2024-10-25 13:07] LABS: Add Urine Microscopic? YES; Appearance Urine Clear (Clear); Bacteria Urine None Seen /hpf; Bilirubin Urine Negative (Negative); Blood Urine Negative (Negative); Color Urine Yellow (Yellow); Glucose Urine UA Negative (Negative); Ketones Urine Negative (Negative); Leukocyte Esterase Ur Negative LEU/UL (Negative); Nitrate Urine Negative (Negative); Non Pathogenic Casts 0-2; Protein Urine 1+ mg/dL (Negative); RBC Urine 0-2 /hpf (0-2); Specific Grav Ur 1.013 (1.001-1.035); Squamous Epithelial Cell Urine None Seen /hpf (Few); WBC Urine 0-5 /hpf (0-3); pH Urine 6.5 (5.0-9.0)
[2024-10-25] MEDS: LACTATED RINGERS 1,000 ML 999 ML IV CONT (13:24)
--- NOTE | 2024-10-25 13:32 | PC.NURSE ---
Pt. states update can be given to Maxine CLAY. Update provided at this time by this RN. All questions answered.
--- NOTE | 2024-10-25 13:43 | ADMGEN ---
This patient, Fabio Nesbitt, was admitted to Medical Room 345-. Patient/family oriented to hospital policies and general routines including ID bracelet, bed and alarms, visiting hours, pain management, procedures, bathroom and other care routines, personal items, smoking policy, room service/diet, and visiting hours. Information on how to activate the Rapid Response Team has been discussed. Patient/Family are encouraged to report perceived risks to care and to ask questions if they do not understand what they are told or what they should do.
[2024-10-25] MEDS: SODIUM CHLORIDE 0.9% IV 1,000 ML 100 ML IV CONT (14:17)
[2024-10-25] MEDS: DOXYCYCLINE 100 MG/NS 100 ML 100 MG/100 ML BAG IVPB (14:18)
[2024-10-25] MEDS: IPRATROPIUM 0.5 MG/ALBUTEROL SULFATE 2.5 MG AMPUL.NEB 3 ML INHALATION ×2 (14:58→20:51)
[2024-10-26] VITALS (11 sets, daily range): BP systolic 132–146; BP diastolic 81–93; PULSE 55–96; RESP 16–20; TEMP 36.4–37.1; O2SAT 93–96
[2024-10-26] MEDS: SODIUM CHLORIDE 0.9% IV 1,000 ML 100 ML IV CONT (01:15)
[2024-10-26] MEDS: IPRATROPIUM 0.5 MG/ALBUTEROL SULFATE 2.5 MG AMPUL.NEB 3 ML INHALATION ×4 (02:37→20:20)
[2024-10-26 05:38] LABS: Basophils Absolute Auto 0.1 K/mm3 (0.0-0.1); Basophils Percent Auto 0.5 % (0.2-1.2); Eosinophils Absolute Auto 0.3 K/mm3 (0-0.3); Eosinophils Percent Auto 2.8 % (0-4.4); Hematocrit 47.5 % (42.0-52.0); Hemoglobin 14.9 g/dL (14.0-18.0); Immature Granulocyte Absolute 0.26 K/mm3 (0.00-0.031); Immature Granulocyte Percent A 2.4 % (0-0.5); Lymphocytes Absolute Auto 1.14 K/mm3 (0.9-3.2); Lymphocytes Percent Auto 10.4 % (18.3-44.2); Mean Corpuscular HGB Conc 31.4 g/dl (32-36); Mean Corpuscular Volume 101.9 fl (80-100); Mean Platelet Volume 9.7 fl (7.4-10.4); Monocytes Percent Auto 8.7 % (2.6-8.5); Neutrophils Absolute Auto 8.3 K/mm3 (1.3-6.7); Neutrophils Percent Auto 75.2 % (45.5-73.1); Platelet Count Result 184 k/mm3 (150-375); Red Blood Count 4.66 M/mm3 (4.6-6.20); Red Cell Distribution Width 14.1 % (11.5-14.5)
[2024-10-26 05:47] LABS: Alanine Aminotransferase 29 U/L (6-50); Albumin Level 3.3 g/dL (3.5-5.1); Alkaline Phosphatase 125 U/L (38-126); Anion Gap 9 mmol/L (4-12); Aspartate Amino Transferase 31 U/L (17-59); Bilirubin,Total 0.9 mg/dL (0.2-1.3); Blood Urea Nitrogen 17 mg/dL (9-20); Calcium 8.2 mg/dL (8.4-10.2); Carbon Dioxide 30 mmol/L (22-30); Chloride 107 mmol/L (98-107); Creatine Kinase 105 U/L (55-170); Estimated CRCL calculation 91 ml/min; Estimated Glomerular Filt Rate > 60; Glucose 83 mg/dL (65-110); Magnesium 1.8 mg/dL (1.6-2.3); Potassium 3.4 mmol/L (3.4-5.0); Sodium 146 mmol/L (137-145)
--- NOTE | 2024-10-26 10:07 | P.PNIM_ITS ---
Progress Note: A&P Assessment and Plan (1) Hypertension: Qualifiers: Hypertension type: primary hypertension Qualified Code(s): I10 - Essential (primary) hypertension Code(s): I10 - Essential (primary) hypertension Status: Chronic (2) Non-ST elevation ID (NSTEMI): Code(s): I21.4 - Non-ST elevation (NSTEMI) myocardial infarction Status: Acute (3) Elevated troponin: Code(s): R77.8 - Other specified abnormalities of plasma proteins Status: Acute (4) Paroxysmal atrial fibrillation: Code(s): I48.0 - Paroxysmal atrial fibrillation Status: Chronic (5) Bradycardia: Code(s): R00.1 - Bradycardia, unspecified Status: Acute (6) Second degree AV block, Mobitz type II: Code(s): I44.1 - Atrioventricular block, second degree Status: Acute (7) RBBB (right bundle branch block with left anterior fascicular block): Code(s): I45.2 - Bifascicular block Status: Acute (8) KERI (acute kidney injury): Code(s): N17.9 - Acute kidney failure, unspecified Status: Acute (9) KERI (acute kidney injury): Code(s): N17.9 - Acute kidney failure, unspecified Status: Acute (10) Acute respiratory failure with hypoxia: Code(s): J96.01 - Acute respiratory failure with hypoxia Status: Acute Plan 69 male patient with past medical history paroxysmal atrial fibrillation, heart block, GERD sleep apnea CPAP, 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 No radiological workup was specific for PNA, but suggested instead PNA vs. Atelectasis. He was discharged to his SNF and once there has been increasingly weak and tremulous, unable to ambulate or bear any weight on his legs due to a bilateral weakness and no focal deficits. He was brought back to the hospital for delineation of possible need for rehab. Weakness: Code(s): R53.1 - Weakness Status: Acute Assessment and Plan: Patient is unable to stand up without assistance, continue PT OT Consult coronary care unit nurse for assisting placement, patient came from assisted living facility Patient has physical deconditioning due to comorbidity, morbid obesity, exacerbated bed acute issues (2) Pneumonia: Code(s): J18.9 - Pneumonia, unspecified organism Status: Acute Assessment and Plan: * Continue Doxy and Rocephin. * Trend labs and VS. * Incentive Spirometry * LR bolus in ER and NS at 100 ml/hr to follow. * Supplemental oxygen * Supportive therapy. * Duoneb Q6 hrs * Albuterol neb Q4 hrs prn dyspnea/wheezing/SOB dc iv fluid (3) Elevated CPK: Code(s): R74.8 - Abnormal levels of other serum enzymes Status: Acute Assessment and Plan: * Elevated CPK at 178 * Hydration with NS at 100 ml/hr * No overt KERI at this point. CR/BUN 1.37/27. * Trend labs and VS. DC IV fluid (4) Paroxysmal atrial fibrillation: Code(s): I48.0 - Paroxysmal atrial fibrillation Status: Chronic Assessment and Plan: * SCD's ordered in setting of no pharmacological anticoagulation given hx of ICH and s/p craniotomy on Eliquis. * EKG showing current paced rhythm. * (5) Hypertension: Qualifiers: Hypertension type: primary hypertension Qualified Code(s): I10 - Essential (primary) hypertension Code(s): I10 - Essential (primary) hypertension Status: Chronic Assessment and Plan: * Resume Home meds as appropriate after they have been confirmed. * Trend VS including BP. Plan Full Code Heart Healthy Diet SCD's - No pharmacological given hx of ICH and s/p craniotomy Patient needs to be discharged back to rehab Subjective Date/time seen: 10/26/24 10:07 Interval history: Patient is afebrile, blood pressure stable, dyspnea improving. Patient has a general weakness, can not stand up from tolerate without assistance. Patient has cough with scant phlegm. Patient denies nausea vomiting diarrhea Exam Narrative: GENERAL: Pleasant, in no acute distress. Well-nourished. - EYES: EOMI. Anicteric. - HENT: Moist mucous membranes. Surgica l wound is dry and clean - LUNGS: Clear to auscultation bilateral ly, no wheezing, rhonchi, or rales. - CARDIOVASCULAR: Regular rate and rhyth m. No murmur. No JVD. - ABDOMEN: Soft, non-tender and non-dist ended. No palpable masses. - EXTREMITIES: No edema. Peripheral puls es 2+. Non-tender. - NEUROLOGIC: No focal neurological defi cits. CN II-XII grossly intact. - PSYCHIATRIC: Awake, Alert and oriented x 3. Appropriate mood and affect. - SKIN: No rashes or lesions. Warm. - LYMPH: No cervical lymphadenopathy. Objective Data Vital Signs Vital Signs: Vital Signs - 24 hr 10/25/24 12:53 10/25/24 14:00 10/25/24 14:27 Temperature 97.6 F Pulse Rate 60 61 Respiratory Rate 16 18 Blood Pressure 141/84 H 143/82 H Pulse Oximetry 95 94 93 Oxygen Delivery Room Air 10/25/24 14:58 10/25/24 15:03 10/25/24 20:00 Temperature Pulse Rate 63 Respiratory Rate 16 Blood Pressure Pulse Oximetry 90 Oxygen Delivery Room Air Room Air 10/25/24 20:43 10/25/24 20:52 10/25/24 20:58 Temperature 97.4 F L Pulse Rate 50 L 52 L 57 L Respiratory Rate 18 16 16 Blood Pressure 137/84 Pulse Oximetry 93 Oxygen Delivery 10/26/24 02:39 10/26/24 05:34 10/26/24 08:41 Temperature 97.6 F Pulse Rate 58 L 96 Respiratory Rate 16 18 Blood Pressure 132/89 Pulse Oximetry 94 93 Oxygen Delivery Room Air 10/26/24 08:41 10/26/24 08:59 Temperature Pulse Rate 55 L 58 L Respiratory Rate 16 16 Blood Pressure Pulse Oximetry Oxygen Delivery Intake/Output Intake/Output: Intake & Output 10/23/24 10/24/24 10/25/24 10/26/24 23:59 23:59 23:59 23:59 Intake Total 980 1150 Output Total 650 1200 Balance 330 -50 Meds/Results Medications: Active Medications Generic Name Dose Route Start Last Admin Trade Name Freq PRN Reason Stop Dose Admin Albuterol 2.5 mg 10/25/24 13:34 Albuterol Sulfate Neb 2.5 Mg/3 Ml Inh INHALATION Q4HRT PRN Shortness Of Breath Albuterol/Ipratropium 3 ml 10/25/24 14:00 10/26/24 08:41 Ipratropium 0.5 Mg/Albuterol Sulfate 2.5 Mg Ampul.Neb 3 Ml INHALATION 3 ml Q6HRT ROCHELLE Administration Sodium Chloride 1,000 mls @ 100 mls/hr 10/25/24 12:45 10/26/24 01:15 Normal Saline Iv IV CONT 100 mls/hr .Q10H ROCHELLE Administration Ceftriaxone Sodium 1 gm in 50 mls @ 100 mls/hr 10/26/24 12:00 Rocephin 1 Gm/Ns 50 Ml IVPB Q24H ROCHELLE Radiology Results: ITS Impressions Head CT 10/25/24 11:07 IMPRESSION: 1. Chronic encephalomalacia in left frontal lobe and right parietal occipital region. 2. Normal sized ventricles with shunt in expected position. Chest X-Ray 10/25/24 11:38 IMPRESSION: 1. Airspace opacities in right perihilar region and left lower lung zone with worsening on the left, consistent with atelectasis versus pneumonia. 2. Small pleural effusions. 3. Cardiomegaly. Labs Labs: Laboratory Results - last 24 hr 10/25/24 10/25/24 10/25/24 10:15 10:24 12:52 WBC 11.8 H RBC 4.30 L Hgb 13.9 L Hct 43.3 MCV 100.7 H MCH 32.3 MCHC 32.1 RDW 13.9 Plt Count 196 MPV 10.4 Immature Gran % (Auto) 2.3 H Neut % (Auto) 73.8 H Lymph % (Auto) 9.0 L Morrill % (Auto) 11.6 H Eos % (Auto) 2.8 Baso % (Auto) 0.5 Lymph # (Auto) 1.06 Morrill # (Auto) 1.4 H Eos # (Auto) 0.3 Baso # (Auto) 0.1 Abs Immat Gran (auto) 0.27 H Absolute Neuts (auto) 8.7 H Absolute Nucleated RBC 0.000 Nucleated RBC % 0.0 Sodium 144 Potassium 3.5 Chloride 111 H Carbon Dioxide 26 Anion Gap 7 BUN 27 H Creatinine 1.37 H Estim Creat Clear Calc 64 Estimated GFR 52 L Glucose 81 Calcium 8.5 Magnesium Total Bilirubin 1.0 AST 33 ALT 31 Alkaline Phosphatase 112 Total Creatine Kinase 178 H Total Protein 6.0 L Albumin 3.2 L TSH (Reflex) Urine Color Yellow Urine Appearance Clear Urine pH 6.5 Ur Specific Mcintosh 1.013 Urine Protein 1+ H Urine Glucose (UA) Negative Urine Ketones Negative Ur Blood (Man) Negative Urine Nitrate Negative Urine Bilirubin Negative Urine Urobilinogen 1.0 Leukocyte Esterase Rfl Negative Urine RBC 0-2 Urine WBC 0-5 Ur Squamous Epith Cells None seen Urine Bacteria None seen Urine Casts 0-2 Influenza A (RT-PCR) Negative Influenza B (RT-PCR) Negative RSV (RT-PCR) Negative SARS-CoV-2 RNA (RT-PCR) Negative 10/26/24 05:26 WBC 11.0 H RBC 4.66 Hgb 14.9 Hct 47.5 MCV 101.9 H MCH 32.0 MCHC 31.4 L RDW 14.1 Plt Count 184 MPV 9.7 Immature Gran % (Auto) 2.4 H Neut % (Auto) 75.2 H Lymph % (Auto) 10.4 L Morrill % (Auto) 8.7 H Eos % (Auto) 2.8 Baso % (Auto) 0.5 Lymph # (Auto) 1.14 Morrill # (Auto) 1.0 H Eos # (Auto) 0.3 Baso # (Auto) 0.1 Abs Immat Gran (auto) 0.26 H Absolute Neuts (auto) 8.3 H Absolute Nucleated RBC 0.000 Nucleated RBC % 0.0 Sodium 146 H Potassium 3.4 Chloride 107 Carbon Dioxide 30 Anion Gap 9 BUN 17 D Creatinine 0.96 Estim Creat Clear Calc 91 Estimated GFR > 60 Glucose 83 Calcium 8.2 L Magnesium 1.8 Total Bilirubin 0.9 AST 31 ALT 29 Alkaline Phosphatase 125 Total Creatine Kinase 105 Total Protein 6.0 L Albumin 3.3 L TSH (Reflex) 2.460 Urine Color Urine Appearance Urine pH Ur Specific Mcintosh Urine Protein Urine Glucose (UA) Urine Ketones Ur Blood (Man) Urine Nitrate Urine Bilirubin Urine Urobilinogen Leukocyte Esterase Rfl Urine RBC Urine WBC Ur Squamous Epith Cells Urine Bacteria Urine Casts Influenza A (RT-PCR) Influenza B (RT-PCR) RSV (RT-PCR) SARS-CoV-2 RNA (RT-PCR)
--- NOTE | 2024-10-26 16:28 | PCOTNOTE ---
Notified by RN to assist staff with functional transfer out of chair. Pt was observed to be sitting up in chair and having increase difficulty with nursing to stand up due to pt's hips and body habitus. Per nursing, roddy stedy and roddy plus were attempted with no success. Therapist and STUNT DOUBLE assisted to place maxi move sling behind pt and with weight shifting to get straps underneath legs. With extended time, pt was able to be transferred using maxi move to bed. Nursing was advised to have pt use recliner for appropriate positioning and to increase pt's comfort level.
[2024-10-27] VITALS (12 sets, daily range): BP systolic 137–161; BP diastolic 84–93; PULSE 51–91; RESP 18–20; TEMP 36.3–36.9; O2SAT 93–98
[2024-10-27] MEDS: IPRATROPIUM 0.5 MG/ALBUTEROL SULFATE 2.5 MG AMPUL.NEB 3 ML INHALATION ×4 (03:09→20:11)
[2024-10-27 06:03] LABS: Basophils Percent Auto 0.4 % (0.2-1.2); Eosinophils Absolute Auto 0.4 K/mm3 (0-0.3); Eosinophils Percent Auto 4.4 % (0-4.4); Hematocrit 43.8 % (42.0-52.0); Hemoglobin 14.1 g/dL (14.0-18.0); Immature Granulocyte Absolute 0.16 K/mm3 (0.00-0.031); Immature Granulocyte Percent A 1.7 % (0-0.5); Lymphocytes Absolute Auto 0.98 K/mm3 (0.9-3.2); Lymphocytes Percent Auto 10.5 % (18.3-44.2); Mean Corpuscular HGB Conc 32.2 g/dl (32-36); Mean Corpuscular Hemoglobin 32.4 pg (26-34); Mean Corpuscular Volume 100.7 fl (80-100); Mean Platelet Volume 9.9 fl (7.4-10.4); Monocytes Absolute Auto 0.9 K/mm3 (0.1-0.6); Monocytes Percent Auto 10.1 % (2.6-8.5); Neutrophils Absolute Auto 6.8 K/mm3 (1.3-6.7); Neutrophils Percent Auto 72.9 % (45.5-73.1); Platelet Count Result 180 k/mm3 (150-375); Red Blood Count 4.35 M/mm3 (4.6-6.20); Red Cell Distribution Width 14.4 % (11.5-14.5); White Blood Count 9.3 K/mm3 (4.5-10.0)
[2024-10-27 06:23] LABS: Alanine Aminotransferase 24 U/L (6-50); Alkaline Phosphatase 119 U/L (38-126); Anion Gap 7 mmol/L (4-12); Aspartate Amino Transferase 25 U/L (17-59); Bilirubin,Total 1.1 mg/dL (0.2-1.3); Blood Urea Nitrogen 14 mg/dL (9-20); Calcium 8.4 mg/dL (8.4-10.2); Carbon Dioxide 29 mmol/L (22-30); Chloride 107 mmol/L (98-107); Creatine Kinase 84 U/L (55-170); Estimated CRCL calculation 91 ml/min; Estimated Glomerular Filt Rate > 60; Glucose 84 mg/dL (65-110); Magnesium 1.8 mg/dL (1.6-2.3); Potassium 3.5 mmol/L (3.4-5.0); Sodium 143 mmol/L (137-145)
--- NOTE | 2024-10-27 09:48 | PM.IMPN ---
Progress Note: A&P Assessment and Plan (1) Hypertension: Qualifiers: Hypertension type: primary hypertension Qualified Code(s): I10 - Essential (primary) hypertension Code(s): I10 - Essential (primary) hypertension Status: Chronic (2) Non-ST elevation [place] (NSTEMI): Code(s): I21.4 - Non-ST elevation (NSTEMI) myocardial infarction Status: Acute (3) Elevated troponin: Code(s): R77.8 - Other specified abnormalities of plasma proteins Status: Acute (4) Paroxysmal atrial fibrillation: Code(s): I48.0 - Paroxysmal atrial fibrillation Status: Chronic (5) Bradycardia: Code(s): R00.1 - Bradycardia, unspecified Status: Acute (6) Second degree AV block, Mobitz type II: Code(s): I44.1 - Atrioventricular block, second degree Status: Acute (7) RBBB (right bundle branch block with left anterior fascicular block): Code(s): I45.2 - Bifascicular block Status: Acute (8) KERI (acute kidney injury): Code(s): N17.9 - Acute kidney failure, unspecified Status: Acute (9) Acute respiratory failure with hypoxia: Code(s): J96.01 - Acute respiratory failure with hypoxia Status: Acute Plan 69 male patient with past medical history paroxysmal atrial fibrillation, heart block, GERD sleep apnea CPAP, short-term loss secondary to previous intracranial hemorrhage who is status post craniotomy 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 No radiological workup was specific for PNA, but suggested instead PNA vs. Atelectasis. He was discharged to his SNF and once there has been increasingly weak and tremulous, unable to ambulate or bear any weight on his legs due to a bilateral weakness and no focal deficits. He was brought back to the hospital for delineation of possible need for rehab. Weakness: Code(s): R53.1 - Weakness Status: Acute Assessment and Plan: Patient is unable to stand up without assistance, continue PT OT Consult child care centre director for assisting placement, patient came from assisted living facility Patient has physical deconditioning due to comorbidity, morbid obesity, exacerbated bed acute issues (2) Pneumonia: Code(s): J18.9 - Pneumonia, unspecified organism Status: Acute Assessment and Plan: Continue Doxy and Rocephin. Continue O2 therapy p.r.n., nebulizer p.r.n. (3) Elevated CPK: Code(s): R74.8 - Abnormal levels of other serum enzymes Status: Acute Assessment and Plan: Elevated CPK at 178 DC IV fluid (4) Paroxysmal atrial fibrillation: Code(s): I48.0 - Paroxysmal atrial fibrillation Status: Chronic Assessment and Plan: no pharmacological anticoagulation given hx of ICH and s/p craniotomy on Eliquis. EKG showing current paced rhythm. (5) Hypertension: Qualifiers: Hypertension type: primary hypertension Qualified Code(s): I10 - Essential (primary) hypertension Code(s): I10 - Essential (primary) hypertension Status: Chronic Assessment and Plan: Resume Home meds as appropriate after they have been confirmed. Trend VS including BP. Plan Full Code Heart Healthy Diet SCD's - No pharmacological given hx of ICH and s/p craniotomy Patient needs to be discharged back to rehab Subjective Date/time seen: 10/27/24 09:48 Interval history: Patient is afebrile, blood pressure stable, dyspnea improving. Patient still has general weakness, but improving. Patient is able to stand up by himself today. Patient has cough with scant phlegm. Patient denies nausea vomiting diarrhea. Patient is afebrile, blood pressure stable, Exam Narrative: GENERAL: Pleasant, in no acute distress. Well-nourished. - EYES: EOMI. Anicteric. - HENT: Moist mucous membranes. Surgical wound is dry and clean - LUNGS: Clear to auscultation bilaterally, no wheezing, rhonchi, or rales. - CARDIOVASCULAR: Regular rate and rhythm. No murmur. No JVD. - ABDOMEN: Soft, non-tender and non-distended. No palpable masses. - EXTREMITIES: No edema. Peripheral pulses 2+. Non-tender. - NEUROLOGIC: No focal neurological deficits. CN II-XII grossly intact. - PSYCHIATRIC: Awake, Alert and oriented x 3. Appropriate mood and affect. - SKIN: No rashes or lesions. Warm. - LYMPH: No cervical lymphadenopathy. Objective Data Vital Signs Vital Signs: Vital Signs - 24 hr 10/26/24 11:30 10/26/24 11:58 10/26/24 15:12 Temperature Pulse Rate 62 Respiratory Rate 16 Blood Pressure Pulse Oximetry Oxygen Delivery Room Air Room Air 10/26/24 15:23 10/26/24 15:27 10/26/24 20:00 Temperature 98.7 F Pulse Rate 60 59 L Respiratory Rate 16 18 Blood Pressure 146/93 H Pulse Oximetry 96 Oxygen Delivery Room Air 10/26/24 20:20 10/26/24 20:30 10/26/24 20:54 Temperature 98.4 F Pulse Rate 61 62 56 L Respiratory Rate 20 18 18 Blood Pressure 133/81 Pulse Oximetry 96 Oxygen Delivery 10/27/24 03:11 10/27/24 03:21 10/27/24 06:00 Temperature 98.4 F Pulse Rate 89 91 54 L Respiratory Rate 18 18 18 Blood Pressure 138/84 Pulse Oximetry 96 Oxygen Delivery 10/27/24 07:45 10/27/24 07:45 10/27/24 07:58 Temperature Pulse Rate 80 83 Respiratory Rate 18 18 Blood Pressure Pulse Oximetry 93 Oxygen Delivery Room Air Intake/Output Intake/Output: Intake & Output 10/24/24 10/25/24 10/26/24 10/27/24 23:59 23:59 23:59 23:59 Intake Total 980 2370 200 Output Total 650 1650 Balance 330 720 200 Meds/Results Medications: Active Medications Generic Name Dose Route Start Last Admin Trade Name Freq PRN Reason Stop Dose Admin Albuterol 2.5 mg 10/25/24 13:34 Albuterol Sulfate Neb 2.5 Mg/3 Ml Inh INHALATION Q4HRT PRN Shortness Of Breath Albuterol/Ipratropium 3 ml 10/25/24 14:00 10/27/24 07:45 Ipratropium 0.5 Mg/Albuterol Sulfate 2.5 Mg Ampul.Neb 3 Ml INHALATION 3 ml Q6HRT ROCHELLE Administration Ceftriaxone Sodium 1 gm in 50 mls @ 100 mls/hr 10/26/24 12:00 10/26/24 12:10 Rocephin 1 Gm/Ns 50 Ml IVPB 100 mls/hr Q24H ROCHELLE Administration Radiology Results: ITS Impressions Head CT 10/25/24 11:07 IMPRESSION: 1. Chronic encephalomalacia in left frontal lobe and right parietal occipital region. 2. Normal sized ventricles with shunt in expected position. Chest X-Ray 10/25/24 11:38 IMPRESSION: 1. Airspace opacities in right perihilar region and left lower lung zone with worsening on the left, consistent with atelectasis versus pneumonia. 2. Small pleural effusions. 3. Cardiomegaly. Labs Labs: Laboratory Results - last 24 hr 10/27/24 05:38 WBC 9.3 RBC 4.35 L Hgb 14.1 Hct 43.8 MCV 100.7 H MCH 32.4 MCHC 32.2 RDW 14.4 Plt Count 180 MPV 9.9 Immature Gran % (Auto) 1.7 H Neut % (Auto) 72.9 Lymph % (Auto) 10.5 L [place] % (Auto) 10.1 H Eos % (Auto) 4.4 Baso % (Auto) 0.4 Lymph # (Auto) 0.98 [place] # (Auto) 0.9 H Eos # (Auto) 0.4 H Baso # (Auto) 0.0 Abs Immat Gran (auto) 0.16 H Absolute Neuts (auto) 6.8 H Absolute Nucleated RBC 0.000 Nucleated RBC % 0.0 Sodium 143 Potassium 3.5 Chloride 107 Carbon Dioxide 29 Anion Gap 7 BUN 14 Creatinine 0.96 Estim Creat Clear Calc 91 Estimated GFR > 60 Glucose 84 Calcium 8.4 Magnesium 1.8 Total Bilirubin 1.1 AST 25 ALT 24 Alkaline Phosphatase 119 Total Creatine Kinase 84 Total Protein 6.0 L Albumin 3.0 L
[2024-10-28] VITALS (11 sets, daily range): BP systolic 134–138; BP diastolic 57–85; PULSE 59–89; RESP 16–20; TEMP 36.1–37.1; O2SAT 92–99
[2024-10-28] MEDS: IPRATROPIUM 0.5 MG/ALBUTEROL SULFATE 2.5 MG AMPUL.NEB 3 ML INHALATION ×4 (02:21→21:32)
[2024-10-28 07:18] LABS: Basophils Percent Auto 0.4 % (0.2-1.2); Eosinophils Absolute Auto 0.4 K/mm3 (0-0.3); Eosinophils Percent Auto 4.2 % (0-4.4); Hematocrit 44.3 % (42.0-52.0); Hemoglobin 14.1 g/dL (14.0-18.0); Immature Granulocyte Absolute 0.12 K/mm3 (0.00-0.031); Immature Granulocyte Percent A 1.3 % (0-0.5); Lymphocytes Absolute Auto 1.09 K/mm3 (0.9-3.2); Mean Corpuscular HGB Conc 31.8 g/dl (32-36); Mean Corpuscular Hemoglobin 31.9 pg (26-34); Mean Corpuscular Volume 100.2 fl (80-100); Mean Platelet Volume 9.8 fl (7.4-10.4); Monocytes Absolute Auto 0.9 K/mm3 (0.1-0.6); Monocytes Percent Auto 10.4 % (2.6-8.5); Neutrophils Absolute Auto 6.5 K/mm3 (1.3-6.7); Neutrophils Percent Auto 71.7 % (45.5-73.1); Platelet Count Result 184 k/mm3 (150-375); Red Blood Count 4.42 M/mm3 (4.6-6.20); Red Cell Distribution Width 14.2 % (11.5-14.5); White Blood Count 9.1 K/mm3 (4.5-10.0)
[2024-10-28 07:34] LABS: Alanine Aminotransferase 21 U/L (6-50); Albumin Level 3.1 g/dL (3.5-5.1); Alkaline Phosphatase 116 U/L (38-126); Anion Gap 3 mmol/L (4-12); Aspartate Amino Transferase 22 U/L (17-59); Bilirubin,Total 1.2 mg/dL (0.2-1.3); Blood Urea Nitrogen 17 mg/dL (9-20); Calcium 8.5 mg/dL (8.4-10.2); Carbon Dioxide 33 mmol/L (22-30); Chloride 104 mmol/L (98-107); Creatine Kinase 54 U/L (55-170); Estimated CRCL calculation 86 ml/min; Estimated Glomerular Filt Rate > 60; Glucose 83 mg/dL (65-110); Potassium 4.2 mmol/L (3.4-5.0); Sodium 140 mmol/L (137-145)
--- NOTE | 2024-10-28 12:58 | P.PNIM_ITS ---
Progress Note: A&P Assessment and Plan (1) Hypertension: Qualifiers: Hypertension type: primary hypertension Qualified Code(s): I10 - Essential (primary) hypertension Code(s): I10 - Essential (primary) hypertension Status: Chronic (2) Non-ST elevation [place] (NSTEMI): Code(s): I21.4 - Non-ST elevation (NSTEMI) myocardial infarction Status: Acute (3) Elevated troponin: Code(s): R77.8 - Other specified abnormalities of plasma proteins Status: Acute (4) Paroxysmal atrial fibrillation: Code(s): I48.0 - Paroxysmal atrial fibrillation Status: Chronic (5) Bradycardia: Code(s): R00.1 - Bradycardia, unspecified Status: Acute (6) Second degree AV block, Mobitz type II: Code(s): I44.1 - Atrioventricular block, second degree Status: Acute (7) RBBB (right bundle branch block with left anterior fascicular block): Code(s): I45.2 - Bifascicular block Status: Acute (8) KERI (acute kidney injury): Code(s): N17.9 - Acute kidney failure, unspecified Status: Acute (9) Acute respiratory failure with hypoxia: Code(s): J96.01 - Acute respiratory failure with hypoxia Status: Acute Plan 69 male patient with past medical history paroxysmal atrial fibrillation, heart block, GERD sleep apnea CPAP, 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 No radiological workup was specific for PNA, but suggested instead PNA vs. Atelectasis. He was discharged to his SNF and once there has been increasingly weak and tremulous, unable to ambulate or bear any weight on his legs due to a bilateral weakness and no focal deficits. He was brought back to the hospital for delineation of possible need for rehab. Weakness: Code(s): R53.1 - Weakness Status: Acute Assessment and Plan: Patient is unable to stand up without assistance, continue PT OT Consult child day care provider for assisting placement, patient came from assisted living facility Patient has physical deconditioning due to comorbidity, morbid obesity, exacerbated bed acute issues (2) Pneumonia: Code(s): J18.9 - Pneumonia, unspecified organism Status: Acute Assessment and Plan: Continue Doxy and Rocephin. Continue O2 therapy p.r.n., nebulizer p.r.n. change to cefdinir and doxy p.o. today (3) Elevated CPK: Code(s): R74.8 - Abnormal levels of other serum enzymes Status: Acute Assessment and Plan: Elevated CPK at 178 DC IV fluid (4) Paroxysmal atrial fibrillation: Code(s): I48.0 - Paroxysmal atrial fibrillation Status: Chronic Assessment and Plan: no pharmacological anticoagulation given hx of ICH and s/p craniotomy on Eliquis. EKG showing current paced rhythm. (5) Hypertension: Qualifiers: Hypertension type: primary hypertension Qualified Code(s): I10 - Essential (primary) hypertension Code(s): I10 - Essential (primary) hypertension Status: Chronic Assessment and Plan: * Resume Home meds as appropriate after they have been confirmed. * Trend VS including BP. Plan Full Code Heart Healthy Diet SCD's - No pharmacological given hx of ICH and s/p craniotomy Patient needs to be discharged back to rehab Subjective Date/time seen: 10/28/24 12:58 Interval history: Patient is afebrile, blood pressure stable, dyspnea improving. Patient still has general weakness, but improving. Patient is able to stand up by himself today. Patient has cough with scant phlegm. Patient denies nausea vomiting diarrhea. Patient is afebrile, blood pressure stable, Exam Narrative: GENERAL: Pleasant, in no acute distress. Well-nourished. - EYES: EOMI. Anicteric. - HENT: Moist mucous membranes. Surgica l wound is dry and clean - LUNGS: Clear to auscultation bilateral ly, no wheezing, rhonchi, or rales. - CARDIOVASCULAR: Regular rate and rhyth m. No murmur. No JVD. - ABDOMEN: Soft, non-tender and non-dist ended. No palpable masses. - EXTREMITIES: No edema. Peripheral puls es 2+. Non-tender. - NEUROLOGIC: No focal neurological defi cits. CN II-XII grossly intact. - PSYCHIATRIC: Awake, Alert and oriented x 3. Appropriate mood and affect. - SKIN: No rashes or lesions. Warm. - LYMPH: No cervical lymphadenopathy. Objective Data Vital Signs Vital Signs: Vital Signs - 24 hr 10/27/24 13:57 10/27/24 14:00 10/27/24 14:10 Temperature 98.2 F Pulse Rate 52 L 88 51 L Respiratory Rate 18 18 18 Blood Pressure 137/90 Pulse Oximetry 96 Oxygen Delivery Fraction of Inspired Oxygen 10/27/24 20:00 10/27/24 20:11 10/27/24 20:11 Temperature Pulse Rate 55 L Respiratory Rate 18 Blood Pressure Pulse Oximetry 94 Oxygen Delivery Room Air Room Air Fraction of Inspired Oxygen 21 10/27/24 20:23 10/27/24 22:15 10/28/24 02:21 Temperature 97.3 F L Pulse Rate 56 L 86 82 Respiratory Rate 18 20 16 Blood Pressure 161/93 H Pulse Oximetry 98 Oxygen Delivery Fraction of Inspired Oxygen 10/28/24 02:31 10/28/24 06:00 10/28/24 07:20 Temperature 97.4 F L Pulse Rate 84 76 73 Respiratory Rate 16 16 20 Blood Pressure 138/85 Pulse Oximetry 95 92 Oxygen Delivery Room Air Fraction of Inspired Oxygen 10/28/24 07:20 10/28/24 07:27 10/28/24 08:00 Temperature Pulse Rate 73 73 Respiratory Rate 20 20 Blood Pressure Pulse Oximetry Oxygen Delivery Room Air Fraction of Inspired Oxygen Intake/Output Intake/Output: Intake & Output 10/25/24 10/26/24 10/27/24 10/28/24 23:59 23:59 23:59 23:59 Intake Total 980 2420 1520 836 Output Total 650 1650 200 Balance 237 151 0770 636 Meds/Results Medications: Active Medications Generic Name Dose Route Start Last Admin Trade Name Freq PRN Reason Stop Dose Admin Albuterol 2.5 mg 10/25/24 13:34 Albuterol Sulfate Neb 2.5 Mg/3 Ml Inh INHALATION Q4HRT PRN Shortness Of Breath Albuterol/Ipratropium 3 ml 10/25/24 14:00 10/28/24 07:19 Ipratropium 0.5 Mg/Albuterol Sulfate 2.5 Mg Ampul.Neb 3 Ml INHALATION 3 ml Q6HRT ROCHELLE Administration Ceftriaxone Sodium 1 gm in 50 mls @ 100 mls/hr 10/26/24 12:00 10/28/24 11:31 Rocephin 1 Gm/Ns 50 Ml IVPB 100 mls/hr Q24H ROCHELLE Administration Radiology Results: ITS Impressions Head CT 10/25/24 11:07 IMPRESSION: 1. Chronic encephalomalacia in left frontal lobe and right parietal occipital region. 2. Normal sized ventricles with shunt in expected position. Chest X-Ray 10/25/24 11:38 IMPRESSION: 1. Airspace opacities in right perihilar region and left lower lung zone with worsening on the left, consistent with atelectasis versus pneumonia. 2. Small pleural effusions. 3. Cardiomegaly. Labs Labs: Laboratory Results - last 24 hr 10/28/24 06:46 WBC 9.1 RBC 4.42 L Hgb 14.1 Hct 44.3 MCV 100.2 H MCH 31.9 MCHC 31.8 L RDW 14.2 Plt Count 184 MPV 9.8 Immature Gran % (Auto) 1.3 H Neut % (Auto) 71.7 Lymph % (Auto) 12.0 L [place] % (Auto) 10.4 H Eos % (Auto) 4.2 Baso % (Auto) 0.4 Lymph # (Auto) 1.09 [place] # (Auto) 0.9 H Eos # (Auto) 0.4 H Baso # (Auto) 0.0 Abs Immat Gran (auto) 0.12 H Absolute Neuts (auto) 6.5 Absolute Nucleated RBC 0.000 Nucleated RBC % 0.0 Sodium 140 Potassium 4.2 Chloride 104 Carbon Dioxide 33 H Anion Gap 3 L BUN 17 Creatinine 1.03 Estim Creat Clear Calc 86 Estimated GFR > 60 Glucose 83 Calcium 8.5 Magnesium 2.0 Total Bilirubin 1.2 AST 22 ALT 21 Alkaline Phosphatase 116 Total Creatine Kinase 54 L Total Protein 6.0 L Albumin 3.1 L
[2024-10-28] MEDS: CEFDINIR 300 MG CAPSULE PO (20:03)
[2024-10-28] MEDS: DOXYCYCLINE HYCLATE 100 MG TABLET PO (20:03)
[2024-10-29] VITALS (9 sets, daily range): BP systolic 113–123; BP diastolic 60–99; PULSE 50–93; RESP 18–20; TEMP 36–36.8; O2SAT 93–97
[2024-10-29] MEDS: IPRATROPIUM 0.5 MG/ALBUTEROL SULFATE 2.5 MG AMPUL.NEB 3 ML INHALATION ×3 (02:55→13:57)
[2024-10-29 06:42] LABS: Basophils Percent Auto 0.4 % (0.2-1.2); Eosinophils Absolute Auto 0.3 K/mm3 (0-0.3); Eosinophils Percent Auto 2.9 % (0-4.4); Hematocrit 44.5 % (42.0-52.0); Hemoglobin 13.9 g/dL (14.0-18.0); Immature Granulocyte Absolute 0.11 K/mm3 (0.00-0.031); Lymphocytes Absolute Auto 1.01 K/mm3 (0.9-3.2); Mean Corpuscular HGB Conc 31.2 g/dl (32-36); Mean Corpuscular Hemoglobin 31.7 pg (26-34); Mean Corpuscular Volume 101.6 fl (80-100); Mean Platelet Volume 9.8 fl (7.4-10.4); Monocytes Percent Auto 8.7 % (2.6-8.5); Neutrophils Absolute Auto 8.8 K/mm3 (1.3-6.7); Platelet Count Result 188 k/mm3 (150-375); Red Blood Count 4.38 M/mm3 (4.6-6.20); Red Cell Distribution Width 14.2 % (11.5-14.5); White Blood Count 11.3 K/mm3 (4.5-10.0)
[2024-10-29 06:54] LABS: Alanine Aminotransferase 20 U/L (6-50); Albumin Level 3.1 g/dL (3.5-5.1); Alkaline Phosphatase 114 U/L (38-126); Anion Gap 8 mmol/L (4-12); Aspartate Amino Transferase 23 U/L (17-59); Bilirubin,Total 1.1 mg/dL (0.2-1.3); Blood Urea Nitrogen 23 mg/dL (9-20); Calcium 8.7 mg/dL (8.4-10.2); Carbon Dioxide 31 mmol/L (22-30); Chloride 103 mmol/L (98-107); Creatine Kinase 50 U/L (55-170); Estimated CRCL calculation 82 ml/min; Estimated Glomerular Filt Rate > 60; Glucose 82 mg/dL (65-110); Potassium 4.1 mmol/L (3.4-5.0); Sodium 142 mmol/L (137-145)
--- NOTE | 2024-10-29 08:26 | P.PNIM_ITS ---
Progress Note: A&P Assessment and Plan (1) Hypertension: Qualifiers: Hypertension type: primary hypertension Qualified Code(s): I10 - Essential (primary) hypertension Code(s): I10 - Essential (primary) hypertension Status: Chronic (2) Non-ST elevation [place] (NSTEMI): Code(s): I21.4 - Non-ST elevation (NSTEMI) myocardial infarction Status: Acute (3) Elevated troponin: Code(s): R77.8 - Other specified abnormalities of plasma proteins Status: Acute (4) Paroxysmal atrial fibrillation: Code(s): I48.0 - Paroxysmal atrial fibrillation Status: Chronic (5) Bradycardia: Code(s): R00.1 - Bradycardia, unspecified Status: Acute (6) Second degree AV block, Mobitz type II: Code(s): I44.1 - Atrioventricular block, second degree Status: Acute (7) RBBB (right bundle branch block with left anterior fascicular block): Code(s): I45.2 - Bifascicular block Status: Acute (8) KERI (acute kidney injury): Code(s): N17.9 - Acute kidney failure, unspecified Status: Acute (9) Acute respiratory failure with hypoxia: Code(s): J96.01 - Acute respiratory failure with hypoxia Status: Acute Plan 69 male patient with past medical history paroxysmal atrial fibrillation, heart block, GERD sleep apnea CPAP, short-term loss secondary to previous intracranial hemorrhage who is 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 No radiological workup was specific for PNA, but suggested instead PNA vs. Atelectasis. He was discharged to his SNF and once there has been increasingly weak and tremulous, unable to ambulate or bear any weight on his legs due to a bilateral weakness and no focal deficits. He was brought back to the hospital for delineation of possible need for rehab. Weakness: Code(s): R53.1 - Weakness Status: Acute Assessment and Plan: Patient is unable to stand up without assistance, continue PT OT Consult home care companion for assisting placement, patient came from assisted living facility Patient has physical deconditioning due to comorbidity, morbid obesity, exacerbated bed acute issues (2) Pneumonia: Code(s): J18.9 - Pneumonia, unspecified organism Status: Acute Assessment and Plan: Continue Doxy and Rocephin. Continue O2 therapy p.r.n., nebulizer p.r.n. change to cefdinir and doxy p.o. today (3) Elevated CPK: Code(s): R74.8 - Abnormal levels of other serum enzymes Status: Acute Assessment and Plan: Elevated CPK at 178 DC IV fluid (4) Paroxysmal atrial fibrillation: Code(s): I48.0 - Paroxysmal atrial fibrillation Status: Chronic Assessment and Plan: no pharmacological anticoagulation given hx of ICH and s/p craniotomy on Eliquis. EKG showing current paced rhythm. (5) Hypertension: Qualifiers: Hypertension type: primary hypertension Qualified Code(s): I10 - Essential (primary) hypertension Code(s): I10 - Essential (primary) hypertension Status: Chronic Assessment and Plan: * Resume Home meds as appropriate after they have been confirmed. * Trend VS including BP. Plan Full Code Heart Healthy Diet SCD's - No pharmacological given hx of ICH and s/p craniotomy Patient needs to be discharged back to rehab Subjective Date/time seen: 10/29/24 08:26 Interval history: Patient continue to improve, still has general weakness, has difficulty with ambulation. Patient afebrile blood pressure stable, Exam Narrative: GENERAL: Pleasant, in no acute distress. Well-nourished. - EYES: EOMI. Anicteric. - HENT: Moist mucous membranes. Surgica l wound is dry and clean - LUNGS: Clear to auscultation bilateral ly, no wheezing, rhonchi, or rales. - CARDIOVASCULAR: Regular rate and rhyth m. No murmur. No JVD. - ABDOMEN: Soft, non-tender and non-dist ended. No palpable masses. - EXTREMITIES: No edema. Peripheral puls es 2+. Non-tender. - NEUROLOGIC: No focal neurological defi cits. CN II-XII grossly intact. - PSYCHIATRIC: Awake, Alert and oriented x 3. Appropriate mood and affect. - SKIN: No rashes or lesions. Warm. - LYMPH: No cervical lymphadenopathy. Objective Data Vital Signs Vital Signs: Vital Signs - 24 hr 10/28/24 13:51 10/28/24 13:51 10/28/24 14:00 Temperature 96.9 F L Pulse Rate 74 74 89 Respiratory Rate 20 20 20 Blood Pressure 134/72 Pulse Oximetry 96 97 Oxygen Delivery Room Air 10/28/24 14:02 10/28/24 20:00 10/28/24 20:04 Temperature 98.8 F Pulse Rate 89 59 L Respiratory Rate 20 17 Blood Pressure 138/57 L Pulse Oximetry 99 Oxygen Delivery Room Air 10/28/24 21:34 10/28/24 21:40 10/29/24 02:55 Temperature Pulse Rate 80 88 84 Respiratory Rate 18 18 18 Blood Pressure Pulse Oximetry Oxygen Delivery 10/29/24 03:01 10/29/24 05:03 Temperature 98.3 F Pulse Rate 90 93 Respiratory Rate 18 20 Blood Pressure 120/99 H Pulse Oximetry 96 Oxygen Delivery Intake/Output Intake/Output: Intake & Output 10/26/24 10/27/24 10/28/24 10/29/24 23:59 23:59 23:59 23:59 Intake Total 2420 1520 2726 550 Output Total 1650 800 Balance 770 1520 1926 550 Meds/Results Medications: Active Medications Generic Name Dose Route Start Last Admin Trade Name Freq PRN Reason Stop Dose Admin Albuterol 2.5 mg 10/25/24 13:34 Albuterol Sulfate Neb 2.5 Mg/3 Ml Inh INHALATION Q4HRT PRN Shortness Of Breath Albuterol/Ipratropium 3 ml 10/25/24 14:00 10/29/24 02:55 Ipratropium 0.5 Mg/Albuterol Sulfate 2.5 Mg Ampul.Neb 3 Ml INHALATION 3 ml Q6HRT ROCHELLE Administration Cefdinir 300 mg 10/28/24 21:00 10/28/24 20:03 Cefdinir 300 Mg Capsule PO 300 mg Q12HR ROCHELLE Administration Doxycycline Hyclate 100 mg 10/28/24 21:00 10/28/24 20:03 Doxycycline Hyclate 100 Mg Tablet PO 100 mg Q12HR ROCHELLE Administration Radiology Results: ITS Impressions Head CT 10/25/24 11:07 IMPRESSION: 1. Chronic encephalomalacia in left frontal lobe and right parietal occipital region. 2. Normal sized ventricles with shunt in expected position. Chest X-Ray 10/25/24 11:38 IMPRESSION: 1. Airspace opacities in right perihilar region and left lower lung zone with worsening on the left, consistent with atelectasis versus pneumonia. 2. Small pleural effusions. 3. Cardiomegaly. Labs Labs: Laboratory Results - last 24 hr 10/29/24 06:10 WBC 11.3 H RBC 4.38 L Hgb 13.9 L Hct 44.5 MCV 101.6 H MCH 31.7 MCHC 31.2 L RDW 14.2 Plt Count 188 MPV 9.8 Immature Gran % (Auto) 1.0 H Neut % (Auto) 78.0 H Lymph % (Auto) 9.0 L [place] % (Auto) 8.7 H Eos % (Auto) 2.9 Baso % (Auto) 0.4 Lymph # (Auto) 1.01 [place] # (Auto) 1.0 H Eos # (Auto) 0.3 Baso # (Auto) 0.0 Abs Immat Gran (auto) 0.11 H Absolute Neuts (auto) 8.8 H Absolute Nucleated RBC 0.000 Nucleated RBC % 0.0 Sodium 142 Potassium 4.1 Chloride 103 Carbon Dioxide 31 H Anion Gap 8 BUN 23 H Creatinine 1.08 Estim Creat Clear Calc 82 Estimated GFR > 60 Glucose 82 Calcium 8.7 Magnesium 2.0 Total Bilirubin 1.1 AST 23 ALT 20 Alkaline Phosphatase 114 Total Creatine Kinase 50 L Total Protein 6.0 L Albumin 3.1 L
[2024-10-29] MEDS: METOPROLOL SUCCINATE EXT REL 50 MG TABCR PO ×2 (09:09→20:48)
[2024-10-29] MEDS: amLODIPine BESYLATE 10 MG TABLET PO (09:09)
[2024-10-29] MEDS: SERTRALINE HCL 50 MG TABLET PO (09:11)
[2024-10-29] MEDS: DOXYCYCLINE HYCLATE 100 MG TABLET PO ×2 (09:11→20:48)
[2024-10-29] MEDS: CEFDINIR 300 MG CAPSULE PO ×2 (09:11→20:48)
[2024-10-30 05:07] VITALS: BP 116/56; PULSE 51; RESP 18; TEMP 36.4; O2SAT 95
[2024-10-30 08:56] VITALS: BP 112/83; PULSE 54; O2SAT 93
[2024-10-30 08:57] VITALS: PULSE 54
[2024-10-30] MEDS: DOXYCYCLINE HYCLATE 100 MG TABLET PO ×2 (08:57→20:51)
[2024-10-30] MEDS: amLODIPine BESYLATE 10 MG TABLET PO (08:57)
[2024-10-30] MEDS: METOPROLOL SUCCINATE EXT REL 50 MG TABCR PO (08:57)
[2024-10-30] MEDS: SERTRALINE HCL 50 MG TABLET PO (08:57)
[2024-10-30] MEDS: CEFDINIR 300 MG CAPSULE PO ×2 (08:57→20:51)
[2024-10-30 14:00] VITALS: BP 97/59; PULSE 50; RESP 18; TEMP 36.6; O2SAT 98
--- NOTE | 2024-10-30 17:09 | PM.IMPN ---
Progress Note: A&P Assessment and Plan (1) Hypertension: Qualifiers: Hypertension type: primary hypertension Qualified Code(s): I10 - Essential (primary) hypertension Code(s): I10 - Essential (primary) hypertension Status: Chronic (2) Non-ST elevation [place] (NSTEMI): Code(s): I21.4 - Non-ST elevation (NSTEMI) myocardial infarction Status: Acute (3) Elevated troponin: Code(s): R77.8 - Other specified abnormalities of plasma proteins Status: Acute (4) Paroxysmal atrial fibrillation: Code(s): I48.0 - Paroxysmal atrial fibrillation Status: Chronic (5) Bradycardia: Code(s): R00.1 - Bradycardia, unspecified Status: Acute (6) Second degree AV block, Mobitz type II: Code(s): I44.1 - Atrioventricular block, second degree Status: Acute (7) RBBB (right bundle branch block with left anterior fascicular block): Code(s): I45.2 - Bifascicular block Status: Acute (8) KERI (acute kidney injury): Code(s): N17.9 - Acute kidney failure, unspecified Status: Acute (9) Acute respiratory failure with hypoxia: Code(s): J96.01 - Acute respiratory failure with hypoxia Status: Acute Plan 69 male patient with past medical history paroxysmal atrial fibrillation, heart block, GERD sleep apnea CPAP, short-term loss secondary to previous intracranial hemorrhage who is status 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 No radiological workup was specific for PNA, but suggested instead PNA vs. Atelectasis. He was discharged to his SNF and once there has been increasingly weak and tremulous, unable to ambulate or bear any weight on his legs due to a bilateral weakness and no focal deficits. He was brought back to the hospital for delineation of possible need for rehab. Weakness: Code(s): R53.1 - Weakness Status: Acute Assessment and Plan: Patient is unable to stand up without assistance, continue PT OT Consult patient care assistant for assisting placement, patient came from assisted living facility Patient has physical deconditioning due to comorbidity, morbid obesity, exacerbated bed acute issues (2) Pneumonia: Code(s): J18.9 - Pneumonia, unspecified organism Status: Acute Assessment and Plan: Continue Doxy and Rocephin. Continue O2 therapy p.r.n., nebulizer p.r.n. change to cefdinir and doxy p.o. today (3) Elevated CPK: Code(s): R74.8 - Abnormal levels of other serum enzymes Status: Acute Assessment and Plan: Elevated CPK at 178 DC IV fluid (4) Paroxysmal atrial fibrillation: Code(s): I48.0 - Paroxysmal atrial fibrillation Status: Chronic Assessment and Plan: no pharmacological anticoagulation given hx of ICH and s/p craniotomy on Eliquis. EKG showing current paced rhythm. (5) Hypertension: Qualifiers: Hypertension type: primary hypertension Qualified Code(s): I10 - Essential (primary) hypertension Code(s): I10 - Essential (primary) hypertension Status: Chronic Assessment and Plan: Resume Home meds as appropriate after they have been confirmed. Trend VS including BP. hold norvasc Plan Full Code Heart Healthy Diet SCD's - No pharmacological given hx of ICH and s/p craniotomy Patient needs to be discharged back to rehab Subjective Date/time seen: 10/30/24 17:09 Interval history: I saw examined patient. Patient feels better, strength is recovering. has difficulty with ambulation. Patient afebrile blood pressure stable, on the lower side Exam Narrative: GENERAL: Pleasant, in no acute distress. Well-nourished. - EYES: EOMI. Anicteric. - HENT: Moist mucous membranes. Surgical wound is dry and clean - LUNGS: Clear to auscultation bilaterally, no wheezing, rhonchi, or rales. - CARDIOVASCULAR: Regular rate and rhythm. No murmur. No JVD. - ABDOMEN: Soft, non-tender and non-distended. No palpable masses. - EXTREMITIES: No edema. Peripheral pulses 2+. Non-tender. - NEUROLOGIC: No focal neurological deficits. CN II-XII grossly intact. - PSYCHIATRIC: Awake, Alert and oriented x 3. Appropriate mood and affect. - SKIN: No rashes or lesions. Warm. - LYMPH: No cervical lymphadenopathy. Objective Data Vital Signs Vital Signs: Vital Signs - 24 hr 10/29/24 20:00 10/29/24 20:25 10/30/24 05:07 Temperature 98.1 F 97.6 F Pulse Rate 50 L 51 L Respiratory Rate 18 18 Blood Pressure 123/69 116/56 L Pulse Oximetry 97 95 Oxygen Delivery Room Air 10/30/24 08:00 10/30/24 08:56 10/30/24 08:57 Temperature Pulse Rate 54 L 54 L Respiratory Rate Blood Pressure 112/83 Pulse Oximetry 93 Oxygen Delivery Room Air 10/30/24 14:00 Temperature 98 F Pulse Rate 50 L Respiratory Rate 18 Blood Pressure 97/59 L Pulse Oximetry 98 Oxygen Delivery Intake/Output Intake/Output: Intake & Output 10/27/24 10/28/24 10/29/24 10/30/24 23:59 23:59 23:59 23:59 Intake Total 1520 2726 1460 400 Output Total 800 300 300 Balance 1520 1926 1160 100 Meds/Results Medications: Active Medications Generic Name Dose Route Start Last Admin Trade Name Freq PRN Reason Stop Dose Admin Acetaminophen 650 mg 10/29/24 08:27 Acetaminophen 325 Mg Tablet PO TID PRN fever or pain Albuterol 2.5 mg 10/25/24 13:34 Albuterol Sulfate Neb 2.5 Mg/3 Ml Inh INHALATION Q4HRT PRN Shortness Of Breath Amlodipine Besylate 10 mg 10/29/24 09:00 10/30/24 08:57 Amlodipine Besylate 10 Mg Tablet PO 10 mg DAILY ROCHELLE Administration Cefdinir 300 mg 10/28/24 21:00 10/30/24 08:57 Cefdinir 300 Mg Capsule PO 300 mg Q12HR ROCHELLE Administration Doxycycline Hyclate 100 mg 10/28/24 21:00 10/30/24 08:57 Doxycycline Hyclate 100 Mg Tablet PO 100 mg Q12HR ROCHELLE Administration Metoprolol Succinate 50 mg 10/29/24 09:00 10/30/24 08:57 Metoprolol Succinate Ext Rel 50 Mg Tabcr PO 50 mg Q12HR ROCHELLE Administration Polyethylene Glycol 17 gm 10/29/24 08:27 Polyethylene Glycol 3350 17 Gm Powd.Pack PO DAILY PRN Constipation Sertraline HCl 50 mg 10/29/24 09:00 10/30/24 08:57 Sertraline Hcl 50 Mg Tablet PO 50 mg DAILY ROCHELLE Administration Radiology Results: ITS Impressions Head CT 10/25/24 11:07 IMPRESSION: 1. Chronic encephalomalacia in left frontal lobe and right parietal occipital region. 2. Normal sized ventricles with shunt in expected position. Chest X-Ray 10/25/24 11:38 IMPRESSION: 1. Airspace opacities in right perihilar region and left lower lung zone with worsening on the left, consistent with atelectasis versus pneumonia. 2. Small pleural effusions. 3. Cardiomegaly.
[2024-10-30 20:52] VITALS: PULSE 50
[2024-10-30 22:00] VITALS: BP 104/61; PULSE 50; RESP 18; TEMP 36.5; O2SAT 96
[2024-10-31 05:28] VITALS: BP 128/80; PULSE 78; RESP 18; TEMP 36.9; O2SAT 92
--- NOTE | 2024-10-31 08:20 | PCNWS ---
Weekly nutritional screen. Patient is tolerating current diet with adequate intake. No weight loss reported. No nutritional needs at this time.
[2024-10-31 09:29] VITALS: PULSE 78
[2024-10-31] MEDS: METOPROLOL SUCCINATE EXT REL 50 MG TABCR PO (09:29)
[2024-10-31] MEDS: SERTRALINE HCL 50 MG TABLET PO (09:29)
[2024-10-31] MEDS: CEFDINIR 300 MG CAPSULE PO ×2 (09:29→20:32)
[2024-10-31] MEDS: DOXYCYCLINE HYCLATE 100 MG TABLET PO ×2 (09:30→20:32)
--- NOTE | 2024-10-31 12:44 | P.PNIM_ITS ---
Progress Note: A&P Assessment and Plan (1) Hypertension: Qualifiers: Hypertension type: primary hypertension Qualified Code(s): I10 - Essential (primary) hypertension Code(s): I10 - Essential (primary) hypertension Status: Chronic (2) Non-ST elevation CT (NSTEMI): Code(s): I21.4 - Non-ST elevation (NSTEMI) myocardial infarction Status: Acute (3) Elevated troponin: Code(s): R77.8 - Other specified abnormalities of plasma proteins Status: Acute (4) Paroxysmal atrial fibrillation: Code(s): I48.0 - Paroxysmal atrial fibrillation Status: Chronic (5) Bradycardia: Code(s): R00.1 - Bradycardia, unspecified Status: Acute (6) Second degree AV block, Mobitz type II: Code(s): I44.1 - Atrioventricular block, second degree Status: Acute (7) RBBB (right bundle branch block with left anterior fascicular block): Code(s): I45.2 - Bifascicular block Status: Acute (8) KERI (acute kidney injury): Code(s): N17.9 - Acute kidney failure, unspecified Status: Acute (9) Acute respiratory failure with hypoxia: Code(s): J96.01 - Acute respiratory failure with hypoxia Status: Acute Plan 69 male patient with past medical history paroxysmal atrial fibrillation, heart block, GERD sleep apnea CPAP, 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 No radiological workup was specific for PNA, but suggested instead PNA vs. Atelectasis. He was discharged to his SNF and once there has been increasingly weak and tremulous, unable to ambulate or bear any weight on his legs due to a bilateral weakness and no focal deficits. He was brought back to the hospital for delineation of possible need for rehab. Weakness: Code(s): R53.1 - Weakness Status: Acute Assessment and Plan: Patient is unable to stand up without assistance, continue PT OT Consult child care education coordinator for assisting placement, patient came from assisted living facility Patient has physical deconditioning due to comorbidity, morbid obesity, exacerbated bed acute issues (2) Pneumonia: Code(s): J18.9 - Pneumonia, unspecified organism Status: Acute Assessment and Plan: Continue Doxy and Rocephin. Continue O2 therapy p.r.n., nebulizer p.r.n. change to cefdinir and doxy p.o. today (3) Elevated CPK: Code(s): R74.8 - Abnormal levels of other serum enzymes Status: Acute Assessment and Plan: Elevated CPK at 178 DC IV fluid (4) Paroxysmal atrial fibrillation: Code(s): I48.0 - Paroxysmal atrial fibrillation Status: Chronic Assessment and Plan: no pharmacological anticoagulation given hx of ICH and s/p craniotomy on Eliquis. EKG showing current paced rhythm. (5) Hypertension: Qualifiers: Hypertension type: primary hypertension Qualified Code(s): I10 - Essential (primary) hypertension Code(s): I10 - Essential (primary) hypertension Status: Chronic Assessment and Plan: Resume Home meds as appropriate after they have been confirmed. Trend VS including BP. hold norvasc Plan Full Code Heart Healthy Diet SCD's - No pharmacological given hx of ICH and s/p craniotomy Patient needs to be discharged back to rehab Subjective Date/time seen: 10/31/24 12:44 Interval history: I saw examined patient. Patient feels better, strength is recovering. still has difficulty with ambulation. Patient afebrile blood pressure stable, on the lower side. Patient denies chest pain shortness breast abdomen pain nausea vomiting diarrhea dysuria. Exam Narrative: GENERAL: Pleasant, in no acute distress. Well-nourished. - EYES: EOMI. Anicteric. - HENT: Moist mucous membranes. Surgica l wound is dry and clean - LUNGS: Clear to auscultation bilateral ly, no wheezing, rhonchi, or rales. - CARDIOVASCULAR: Regular rate and rhyth m. No murmur. No JVD. - ABDOMEN: Soft, non-tender and non-dist ended. No palpable masses. - EXTREMITIES: No edema. Peripheral puls es 2+. Non-tender. - NEUROLOGIC: No focal neurological defi cits. CN II-XII grossly intact. - PSYCHIATRIC: Awake, Alert and oriented x 3. Appropriate mood and affect. - SKIN: No rashes or lesions. Warm. - LYMPH: No cervical lymphadenopathy. Objective Data Vital Signs Vital Signs: Vital Signs - 24 hr 10/30/24 14:00 10/30/24 20:52 10/30/24 22:00 Temperature 98 F 97.7 F Pulse Rate 50 L 50 L 50 L Respiratory Rate 18 18 Blood Pressure 97/59 L 104/61 Pulse Oximetry 98 96 Oxygen Delivery 10/31/24 05:28 10/31/24 08:00 10/31/24 09:29 Temperature 98.4 F Pulse Rate 78 78 Respiratory Rate 18 Blood Pressure 128/80 Pulse Oximetry 92 Oxygen Delivery Room Air Intake/Output Intake/Output: Intake & Output 10/28/24 10/29/24 10/30/24 10/31/24 23:59 23:59 23:59 23:59 Intake Total 2726 1460 990 340 Output Total 800 300 300 Balance 1926 1160 690 340 Meds/Results Medications: Active Medications Generic Name Dose Route Start Last Admin Trade Name Freq PRN Reason Stop Dose Admin Acetaminophen 650 mg 10/29/24 08:27 Acetaminophen 325 Mg Tablet PO TID PRN fever or pain Albuterol 2.5 mg 10/25/24 13:34 Albuterol Sulfate Neb 2.5 Mg/3 Ml Inh INHALATION Q4HRT PRN Shortness Of Breath Cefdinir 300 mg 10/28/24 21:00 10/31/24 09:29 Cefdinir 300 Mg Capsule PO 300 mg Q12HR ROCHELLE Administration Doxycycline Hyclate 100 mg 10/28/24 21:00 10/31/24 09:30 Doxycycline Hyclate 100 Mg Tablet PO 100 mg Q12HR ROCHELLE Administration Metoprolol Succinate 50 mg 10/29/24 09:00 10/31/24 09:29 Metoprolol Succinate Ext Rel 50 Mg Tabcr PO 50 mg Q12HR ROCHELLE Administration Polyethylene Glycol 17 gm 10/29/24 08:27 Polyethylene Glycol 3350 17 Gm Powd.Pack PO DAILY PRN Constipation Sertraline HCl 50 mg 10/29/24 09:00 10/31/24 09:29 Sertraline Hcl 50 Mg Tablet PO 50 mg DAILY ROCHELLE Administration Radiology Results: ITS Impressions Head CT 10/25/24 11:07 IMPRESSION: 1. Chronic encephalomalacia in left frontal lobe and right parietal occipital region. 2. Normal sized ventricles with shunt in expected position. Chest X-Ray 10/25/24 11:38 IMPRESSION: 1. Airspace opacities in right perihilar region and left lower lung zone with worsening on the left, consistent with atelectasis versus pneumonia. 2. Small pleural effusions. 3. Cardiomegaly.
[2024-10-31 14:00] VITALS: BP 105/67; PULSE 78; RESP 18; TEMP 36.8; O2SAT 97
[2024-10-31 20:00] VITALS: BP 137/80; PULSE 51; RESP 18; TEMP 36.4; O2SAT 100
[2024-10-31 20:34] VITALS: PULSE 48
[2024-11-01 06:32] VITALS: BP 105/61; PULSE 52; RESP 16; TEMP 36.8; O2SAT 94
[2024-11-01] MEDS: DOXYCYCLINE HYCLATE 100 MG TABLET PO ×2 (09:11→21:16)
[2024-11-01 09:12] VITALS: PULSE 60
[2024-11-01] MEDS: SERTRALINE HCL 50 MG TABLET PO (09:12)
[2024-11-01] MEDS: METOPROLOL SUCCINATE EXT REL 50 MG TABCR PO (09:12)
[2024-11-01] MEDS: CEFDINIR 300 MG CAPSULE PO ×2 (09:12→21:16)
[2024-11-01] MEDS: ACETAMINOPHEN 325 MG TABLET 650 MG PO (09:15)
--- NOTE | 2024-11-01 10:04 | P.PNIM_ITS ---
Progress Note: A&P Assessment and Plan (1) Hypertension: Qualifiers: Hypertension type: primary hypertension Qualified Code(s): I10 - Essential (primary) hypertension Code(s): I10 - Essential (primary) hypertension Status: Chronic (2) Non-ST elevation [place] (NSTEMI): Code(s): I21.4 - Non-ST elevation (NSTEMI) myocardial infarction Status: Acute (3) Elevated troponin: Code(s): R77.8 - Other specified abnormalities of plasma proteins Status: Acute (4) Paroxysmal atrial fibrillation: Code(s): I48.0 - Paroxysmal atrial fibrillation Status: Chronic (5) Bradycardia: Code(s): R00.1 - Bradycardia, unspecified Status: Acute (6) Second degree AV block, Mobitz type II: Code(s): I44.1 - Atrioventricular block, second degree Status: Acute (7) RBBB (right bundle branch block with left anterior fascicular block): Code(s): I45.2 - Bifascicular block Status: Acute (8) KERI (acute kidney injury): Code(s): N17.9 - Acute kidney failure, unspecified Status: Acute (9) Acute respiratory failure with hypoxia: Code(s): J96.01 - Acute respiratory failure with hypoxia Status: Acute Plan 69 male patient with past medical history paroxysmal atrial fibrillation, heart block, GERD sleep apnea CPAP, short-term loss secondary to previous intracranial hemorrhage who is status post craniotomy 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 No radiological workup was specific for PNA, but suggested instead PNA vs. Atelectasis. He was discharged to his SNF and once there has been increasingly weak and tremulous, unable to ambulate or bear any weight on his legs due to a bilateral weakness and no focal deficits. He was brought back to the hospital for delineation of possible need for rehab. Weakness: Code(s): R53.1 - Weakness Status: Acute Assessment and Plan: Patient is unable to stand up without assistance, continue PT OT Consult director day care center for assisting placement, patient came from assisted living facility Patient has physical deconditioning due to comorbidity, morbid obesity, exacerbated bed acute issues (2) Pneumonia: Code(s): J18.9 - Pneumonia, unspecified organism Status: Acute Assessment and Plan: Continue Doxy and Rocephin. Continue O2 therapy p.r.n., nebulizer p.r.n. change to cefdinir and doxy p.o. 10/28 (3) Elevated CPK: Code(s): R74.8 - Abnormal levels of other serum enzymes Status: Acute Assessment and Plan: Elevated CPK at 178 DC IV fluid (4) Paroxysmal atrial fibrillation: Code(s): I48.0 - Paroxysmal atrial fibrillation Status: Chronic Assessment and Plan: no pharmacological anticoagulation given hx of ICH and s/p craniotomy on Eliquis. EKG showing current paced rhythm. Discontinue metoprolol, patient has bradycardia Follow-up EKG (5) Hypertension: Qualifiers: Hypertension type: primary hypertension Qualified Code(s): I10 - Essential (primary) hypertension Code(s): I10 - Essential (primary) hypertension Status: Chronic Assessment and Plan: Resume Home meds as appropriate after they have been confirmed. Trend VS including BP. hold norvas Plan Full Code Heart Healthy Diet SCD's - No pharmacological given hx of ICH and s/p craniotomy Patient needs to be discharged back to rehab Subjective Date/time seen: 11/01/24 10:04 Interval history: I saw examined patient. Patient feels better, strength is recovering. No new issue even. Patient afebrile blood pressure stable, on the lower side. Patient denies chest pain shortness breast abdomen pain nausea vomiting diarrhea dysuria. Blood pressure soft and heart rate low Exam Narrative: GENERAL: Pleasant, in no acute distress. Well-nourished. - EYES: EOMI. Anicteric. - HENT: Moist mucous membranes. Surgica l wound is dry and clean - LUNGS: Clear to auscultation bilateral ly, no wheezing, rhonchi, or rales. - CARDIOVASCULAR: Regular rate and rhyth m. No murmur. No JVD. - ABDOMEN: Soft, non-tender and non-dist ended. No palpable masses. - EXTREMITIES: No edema. Peripheral puls es 2+. Non-tender. - NEUROLOGIC: No focal neurological defi cits. CN II-XII grossly intact. - PSYCHIATRIC: Awake, Alert and oriented x 3. Appropriate mood and affect. - SKIN: No rashes or lesions. Warm. - LYMPH: No cervical lymphadenopathy. Objective Data Vital Signs Vital Signs: Vital Signs - 24 hr 10/31/24 14:00 10/31/24 20:00 10/31/24 20:00 Temperature 98.2 F 97.6 F Pulse Rate 78 51 L Respiratory Rate 18 18 Blood Pressure 105/67 137/80 Pulse Oximetry 97 100 Oxygen Delivery Room Air 10/31/24 20:34 11/01/24 06:32 11/01/24 09:12 Temperature 98.3 F Pulse Rate 48 L 52 L 60 Respiratory Rate 16 Blood Pressure 105/61 Pulse Oximetry 94 Oxygen Delivery Intake/Output Intake/Output: Intake & Output 10/29/24 10/30/24 10/31/24 11/01/24 23:59 23:59 23:59 23:59 Intake Total 6433 757 7582 240 Output Total 300 300 200 Balance 3853 474 0101 40 Meds/Results Medications: Active Medications Generic Name Dose Route Start Last Admin Trade Name Freq PRN Reason Stop Dose Admin Acetaminophen 650 mg 10/29/24 08:27 11/01/24 09:15 Acetaminophen 325 Mg Tablet PO 650 mg TID PRN Administration fever or pain Albuterol 2.5 mg 10/25/24 13:34 Albuterol Sulfate Neb 2.5 Mg/3 Ml Inh INHALATION Q4HRT PRN Shortness Of Breath Cefdinir 300 mg 10/28/24 21:00 11/01/24 09:12 Cefdinir 300 Mg Capsule PO 300 mg Q12HR ROCHELLE Administration Doxycycline Hyclate 100 mg 10/28/24 21:00 11/01/24 09:11 Doxycycline Hyclate 100 Mg Tablet PO 100 mg Q12HR ROCHELLE Administration Metoprolol Succinate 50 mg 10/29/24 09:00 11/01/24 09:12 Metoprolol Succinate Ext Rel 50 Mg Tabcr PO 50 mg Q12HR ROCHELLE Administration Polyethylene Glycol 17 gm 10/29/24 08:27 Polyethylene Glycol 3350 17 Gm Powd.Pack PO DAILY PRN Constipation Sertraline HCl 50 mg 10/29/24 09:00 11/01/24 09:12 Sertraline Hcl 50 Mg Tablet PO 50 mg DAILY ROCHELLE Administration Radiology Results: ITS Impressions Head CT 10/25/24 11:07 IMPRESSION: 1. Chronic encephalomalacia in left frontal lobe and right parietal occipital region. 2. Normal sized ventricles with shunt in expected position. Chest X-Ray 10/25/24 11:38 IMPRESSION: 1. Airspace opacities in right perihilar region and left lower lung zone with worsening on the left, consistent with atelectasis versus pneumonia. 2. Small pleural effusions. 3. Cardiomegaly.
[2024-11-01 13:50] VITALS: BP 95/52; PULSE 53; RESP 17; TEMP 36.1; O2SAT 94
[2024-11-01 21:04] VITALS: BP 117/64; PULSE 50; RESP 18; TEMP 36.4; O2SAT 95
[2024-11-02 06:00] VITALS: BP 117/61; PULSE 51; RESP 16; TEMP 36.1; O2SAT 98
[2024-11-02] MEDS: CEFDINIR 300 MG CAPSULE PO (08:46)
[2024-11-02] MEDS: SERTRALINE HCL 50 MG TABLET PO (08:46)
[2024-11-02] MEDS: DOXYCYCLINE HYCLATE 100 MG TABLET PO (08:46)
--- NOTE | 2024-11-02 09:22 | PM.IMPN ---
Progress Note: A&P Assessment and Plan (1) Hypertension: Qualifiers: Hypertension type: primary hypertension Qualified Code(s): I10 - Essential (primary) hypertension Code(s): I10 - Essential (primary) hypertension Status: Chronic (2) Non-ST elevation MS (NSTEMI): Code(s): I21.4 - Non-ST elevation (NSTEMI) myocardial infarction Status: Acute (3) Elevated troponin: Code(s): R77.8 - Other specified abnormalities of plasma proteins Status: Acute (4) Paroxysmal atrial fibrillation: Code(s): I48.0 - Paroxysmal atrial fibrillation Status: Chronic (5) Bradycardia: Code(s): R00.1 - Bradycardia, unspecified Status: Acute (6) Second degree AV block, Mobitz type II: Code(s): I44.1 - Atrioventricular block, second degree Status: Acute (7) RBBB (right bundle branch block with left anterior fascicular block): Code(s): I45.2 - Bifascicular block Status: Acute (8) KERI (acute kidney injury): Code(s): N17.9 - Acute kidney failure, unspecified Status: Acute (9) Acute respiratory failure with hypoxia: Code(s): J96.01 - Acute respiratory failure with hypoxia Status: Acute Plan 69 male patient with past medical history paroxysmal atrial fibrillation, heart block, GERD sleep apnea CPAP, short-term loss secondary to previous intracranial hemorrhage who is status post 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 No radiological workup was specific for PNA, but suggested instead PNA vs. Atelectasis. He was discharged to his SNF and once there has been increasingly weak and tremulous, unable to ambulate or bear any weight on his legs due to a bilateral weakness and no focal deficits. He was brought back to the hospital for delineation of possible need for rehab. Weakness: Code(s): R53.1 - Weakness Status: Acute Assessment and Plan: Patient is unable to stand up without assistance, continue PT OT Consult animal care attendant for assisting placement, patient came from assisted living facility Patient has physical deconditioning due to comorbidity, morbid obesity, exacerbated bed acute issues (2) Pneumonia: Code(s): J18.9 - Pneumonia, unspecified organism Status: Acute Assessment and Plan: Continue Doxy and Rocephin. Continue O2 therapy p.r.n., nebulizer p.r.n. change to cefdinir and doxy p.o. 10/28- 11/02 (3) Elevated CPK: Code(s): R74.8 - Abnormal levels of other serum enzymes Status: Acute Assessment and Plan: Elevated CPK at 178 DC IV fluid (4) Paroxysmal atrial fibrillation: Code(s): I48.0 - Paroxysmal atrial fibrillation Status: Chronic Assessment and Plan: no pharmacological anticoagulation given hx of ICH and s/p craniotomy on Eliquis. EKG showing current paced rhythm. Discontinue metoprolol, patient has bradycardia Follow-up EKG (5) Hypertension: Qualifiers: Hypertension type: primary hypertension Qualified Code(s): I10 - Essential (primary) hypertension Code(s): I10 - Essential (primary) hypertension Status: Chronic Assessment and Plan: Resume Home meds as appropriate after they have been confirmed. Trend VS including BP. hold norvasc Plan Full Code Heart Healthy Diet SCD's - No pharmacological given hx of ICH and s/p craniotomy Patient needs to be discharged back to rehab Subjective Date/time seen: 11/02/24 09:22 Interval history: I saw examined patient. Patient feels better, strength is recovering. Patient afebrile blood pressure stable, on the lower side. Patient denies chest pain shortness breast abdomen pain nausea vomiting diarrhea dysuria. Blood pressure soft and heart rate low Exam Narrative: GENERAL: Pleasant, in no acute distress. Well-nourished. - EYES: EOMI. Anicteric. - HENT: Moist mucous membranes. Surgical wound is dry and clean - LUNGS: Clear to auscultation bilaterally, no wheezing, rhonchi, or rales. - CARDIOVASCULAR: Regular rate and rhythm. No murmur. No JVD. - ABDOMEN: Soft, non-tender and non-distended. No palpable masses. - EXTREMITIES: No edema. Peripheral pulses 2+. Non-tender. - NEUROLOGIC: No focal neurological deficits. CN II-XII grossly intact. General weakness - PSYCHIATRIC: Awake, Alert and oriented x 3. Appropriate mood and affect. - SKIN: No rashes or lesions. Warm. - LYMPH: No cervical lymphadenopathy. Objective Data Vital Signs Vital Signs: Vital Signs - 24 hr 11/01/24 13:50 11/01/24 21:04 11/01/24 21:16 Temperature 97.0 F L 97.6 F Pulse Rate 53 L 50 L Respiratory Rate 17 18 Blood Pressure 95/52 L 117/64 Pulse Oximetry 94 95 Oxygen Delivery Room Air 11/02/24 06:00 Temperature 97 F L Pulse Rate 51 L Respiratory Rate 16 Blood Pressure 117/61 Pulse Oximetry 98 Oxygen Delivery Intake/Output Intake/Output: Intake & Output 10/30/24 10/31/24 11/01/24 11/02/24 23:59 23:59 23:59 23:59 Intake Total 990 1180 970 240 Output Total 300 200 Balance 690 1180 770 240 Meds/Results Medications: Active Medications Generic Name Dose Route Start Last Admin Trade Name Freq PRN Reason Stop Dose Admin Acetaminophen 650 mg 10/29/24 08:27 11/01/24 09:15 Acetaminophen 325 Mg Tablet PO 650 mg TID PRN Administration fever or pain Albuterol 2.5 mg 10/25/24 13:34 Albuterol Sulfate Neb 2.5 Mg/3 Ml Inh INHALATION Q4HRT PRN Shortness Of Breath Cefdinir 300 mg 10/28/24 21:00 11/02/24 08:46 Cefdinir 300 Mg Capsule PO 300 mg Q12HR ROCHELLE Administration Doxycycline Hyclate 100 mg 10/28/24 21:00 11/02/24 08:46 Doxycycline Hyclate 100 Mg Tablet PO 100 mg Q12HR ROCHELLE Administration Metoprolol Succinate 50 mg 10/29/24 09:00 11/01/24 09:12 Metoprolol Succinate Ext Rel 50 Mg Tabcr PO 50 mg Q12HR ROCHELLE Administration Polyethylene Glycol 17 gm 10/29/24 08:27 Polyethylene Glycol 3350 17 Gm Powd.Pack PO DAILY PRN Constipation Sertraline HCl 50 mg 10/29/24 09:00 11/02/24 08:46 Sertraline Hcl 50 Mg Tablet PO 50 mg DAILY ROCHELLE Administration Radiology Results: ITS Impressions Head CT 10/25/24 11:07 IMPRESSION: 1. Chronic encephalomalacia in left frontal lobe and right parietal occipital region. 2. Normal sized ventricles with shunt in expected position. Chest X-Ray 10/25/24 11:38 IMPRESSION: 1. Airspace opacities in right perihilar region and left lower lung zone with worsening on the left, consistent with atelectasis versus pneumonia. 2. Small pleural effusions. 3. Cardiomegaly.
[2024-11-02 10:07] LABS: Hematocrit 47.6 % (42.0-52.0); Hemoglobin 15.1 g/dL (14.0-18.0); Mean Corpuscular HGB Conc 31.7 g/dl (32-36); Mean Corpuscular Hemoglobin 32.5 pg (26-34); Mean Corpuscular Volume 102.4 fl (80-100); Mean Platelet Volume 9.9 fl (7.4-10.4); Platelet Count Result 306 k/mm3 (150-375); Red Blood Count 4.65 M/mm3 (4.6-6.20); Red Cell Distribution Width 14.1 % (11.5-14.5); White Blood Count 7.8 K/mm3 (4.5-10.0)
[2024-11-02 10:17] LABS: Anion Gap 6 mmol/L (4-12); Blood Urea Nitrogen 24 mg/dL (9-20); Calcium 9.3 mg/dL (8.4-10.2); Carbon Dioxide 33 mmol/L (22-30); Chloride 104 mmol/L (98-107); Estimated CRCL calculation 74 ml/min; Estimated Glomerular Filt Rate 60; Glucose 125 mg/dL (65-110); Potassium 4.5 mmol/L (3.4-5.0); Sodium 143 mmol/L (137-145)
[2024-11-02 14:00] VITALS: BP 148/66; PULSE 79; RESP 19; TEMP 36.6; O2SAT 99
[2024-11-02 22:00] VITALS: BP 120/76; PULSE 49; RESP 16; TEMP 37.2; O2SAT 99
[2024-11-03 05:46] VITALS: BP 116/80; PULSE 54; RESP 20; TEMP 36.1; O2SAT 98
[2024-11-03] MEDS: SERTRALINE HCL 50 MG TABLET PO (09:12)
--- NOTE | 2024-11-03 09:42 | P.PNIM_ITS ---
Progress Note: A&P Assessment and Plan (1) Hypertension: Qualifiers: Hypertension type: primary hypertension Qualified Code(s): I10 - Essential (primary) hypertension Code(s): I10 - Essential (primary) hypertension Status: Chronic (2) Non-ST elevation ME (NSTEMI): Code(s): I21.4 - Non-ST elevation (NSTEMI) myocardial infarction Status: Acute (3) Elevated troponin: Code(s): R77.8 - Other specified abnormalities of plasma proteins Status: Acute (4) Paroxysmal atrial fibrillation: Code(s): I48.0 - Paroxysmal atrial fibrillation Status: Chronic (5) Bradycardia: Code(s): R00.1 - Bradycardia, unspecified Status: Acute (6) Second degree AV block, Mobitz type II: Code(s): I44.1 - Atrioventricular block, second degree Status: Acute (7) RBBB (right bundle branch block with left anterior fascicular block): Code(s): I45.2 - Bifascicular block Status: Acute (8) KERI (acute kidney injury): Code(s): N17.9 - Acute kidney failure, unspecified Status: Acute (9) Acute respiratory failure with hypoxia: Code(s): J96.01 - Acute respiratory failure with hypoxia Status: Acute Plan 69 male patient with past medical history paroxysmal atrial fibrillation, heart block, GERD sleep apnea CPAP, 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 No radiological workup was specific for PNA, but suggested instead PNA vs. Atelectasis. He was discharged to his SNF and once there has been increasingly weak and tremulous, unable to ambulate or bear any weight on his legs due to a bilateral weakness and no focal deficits. He was brought back to the hospital for delineation of possible need for rehab. Weakness: Code(s): R53.1 - Weakness Status: Acute Assessment and Plan: Patient is unable to stand up without assistance, continue PT OT Consult customer care voice consultant for assisting placement, patient came from assisted living facility Patient has physical deconditioning due to comorbidity, morbid obesity, exacerbated bed acute issues (2) Pneumonia: Code(s): J18.9 - Pneumonia, unspecified organism Status: Acute Assessment and Plan: Continue Doxy and Rocephin. Continue O2 therapy p.r.n., nebulizer p.r.n. change to cefdinir and doxy p.o. 10/28- 11/02 (3) Elevated CPK: Code(s): R74.8 - Abnormal levels of other serum enzymes Status: Acute Assessment and Plan: Elevated CPK at 178 DC IV fluid (4) Paroxysmal atrial fibrillation: Code(s): I48.0 - Paroxysmal atrial fibrillation Status: Chronic Assessment and Plan: no pharmacological anticoagulation given hx of ICH and s/p craniotomy on Eliquis. EKG showing current paced rhythm. Discontinue metoprolol, patient has bradycardia Follow-up EKG: pacing rhythm 59 Resume metoprolol when blood pressure and heart rate pump above (5) Hypertension: Qualifiers: Hypertension type: primary hypertension Qualified Code(s): I10 - Essential (primary) hypertension Code(s): I10 - Essential (primary) hypertension Status: Chronic Assessment and Plan: Continue hold Norvasc and hydralazine Blood pressure on the lower side, but stable Plan Full Code Heart Healthy Diet SCD's - No pharmacological given hx of ICH and s/p craniotomy Patient needs to be discharged back to rehab Subjective Date/time seen: 11/03/24 09:42 Interval history: Patient afebrile blood pressure stable, no new issue even over the night Exam Narrative: GENERAL: Pleasant, in no acute distress. Well-nourished. - EYES: EOMI. Anicteric. - HENT: Moist mucous membranes. Surgica l wound is dry and clean - LUNGS: Clear to auscultation bilateral ly, no wheezing, rhonchi, or rales. - CARDIOVASCULAR: Regular rate and rhyth m. No murmur. No JVD. - ABDOMEN: Soft, non-tender and non-dist ended. No palpable masses. - EXTREMITIES: No edema. Peripheral puls es 2+. Non-tender. - NEUROLOGIC: No focal neurological defi cits. CN II-XII grossly intact. General weakness - PSYCHIATRIC: Awake, Alert and oriented x 3. Appropriate mood and affect. - SKIN: No rashes or lesions. Warm. - LYMPH: No cervical lymphadenopathy. Objective Data Vital Signs Vital Signs: Vital Signs - 24 hr 11/02/24 14:00 11/02/24 20:00 11/02/24 22:00 Temperature 97.9 F 98.9 F Pulse Rate 79 49 L Respiratory Rate 19 16 Blood Pressure 148/66 H 120/76 Pulse Oximetry 99 99 Oxygen Delivery Room Air 11/03/24 05:46 11/03/24 09:15 Temperature 97.0 F L Pulse Rate 54 L Respiratory Rate 20 Blood Pressure 116/80 Pulse Oximetry 98 Oxygen Delivery Room Air Intake/Output Intake/Output: Intake & Output 10/31/24 11/01/24 11/02/24 11/03/24 23:59 23:59 23:59 23:59 Intake Total 5624 382 6001 400 Output Total 200 0 Balance 1459 451 2934 400 Meds/Results Medications: Active Medications Generic Name Dose Route Start Last Admin Trade Name Freq PRN Reason Stop Dose Admin Acetaminophen 650 mg 10/29/24 08:27 11/01/24 09:15 Acetaminophen 325 Mg Tablet PO 650 mg TID PRN Administration fever or pain Albuterol 2.5 mg 10/25/24 13:34 Albuterol Sulfate Neb 2.5 Mg/3 Ml Inh INHALATION Q4HRT PRN Shortness Of Breath Metoprolol Succinate 50 mg 10/29/24 09:00 11/01/24 09:12 Metoprolol Succinate Ext Rel 50 Mg Tabcr PO 50 mg Q12HR ROCHELLE Administration Polyethylene Glycol 17 gm 10/29/24 08:27 Polyethylene Glycol 3350 17 Gm Powd.Pack PO DAILY PRN Constipation Sertraline HCl 50 mg 10/29/24 09:00 11/03/24 09:12 Sertraline Hcl 50 Mg Tablet PO 50 mg DAILY ROCHELLE Administration Radiology Results: ITS Impressions Head CT 10/25/24 11:07 IMPRESSION: 1. Chronic encephalomalacia in left frontal lobe and right parietal occipital region. 2. Normal sized ventricles with shunt in expected position. Chest X-Ray 10/25/24 11:38 IMPRESSION: 1. Airspace opacities in right perihilar region and left lower lung zone with worsening on the left, consistent with atelectasis versus pneumonia. 2. Small pleural effusions. 3. Cardiomegaly. Labs Labs: Laboratory Results - last 24 hr 11/02/24 10:01 WBC 7.8 RBC 4.65 Hgb 15.1 Hct 47.6 MCV 102.4 H MCH 32.5 MCHC 31.7 L RDW 14.1 Plt Count 306 D MPV 9.9 Sodium 143 Potassium 4.5 Chloride 104 Carbon Dioxide 33 H Anion Gap 6 BUN 24 H Creatinine 1.21 Estim Creat Clear Calc 74 Estimated GFR 60 Glucose 125 H Calcium 9.3
--- NOTE | 2024-11-03 09:42 | P.DS_ITS ---
DS: Admitting Diagnosis Discharge Date 11/03/24 Admitting Diagnosis (1) Hypertension: Qualifiers: Hypertension type: primary hypertension Qualified Code(s): I10 - Essential (primary) hypertension Code(s): I10 - Essential (primary) hypertension Status: Chronic (2) Non-ST elevation [place] (NSTEMI): Code(s): I21.4 - Non-ST elevation (NSTEMI) myocardial infarction Status: Acute (3) Elevated troponin: Code(s): R77.8 - Other specified abnormalities of plasma proteins Status: Acute (4) Paroxysmal atrial fibrillation: Code(s): I48.0 - Paroxysmal atrial fibrillation Status: Chronic (5) Bradycardia: Code(s): R00.1 - Bradycardia, unspecified Status: Acute (6) Second degree AV block, Mobitz type II: Code(s): I44.1 - Atrioventricular block, second degree Status: Acute (7) RBBB (right bundle branch block with left anterior fascicular block): Code(s): I45.2 - Bifascicular block Status: Acute (8) KERI (acute kidney injury): Code(s): N17.9 - Acute kidney failure, unspecified Status: Acute (9) Acute respiratory failure with hypoxia: Code(s): J96.01 - Acute respiratory failure with hypoxia Status: Acute DS: Discharge Diagnosis Discharge Diagnosis (1) Hypertension: Qualifiers: Hypertension type: primary hypertension Qualified Code(s): I10 - Essential (primary) hypertension Code(s): I10 - Essential (primary) hypertension Status: Chronic (2) Non-ST elevation MO (NSTEMI): Code(s): I21.4 - Non-ST elevation (NSTEMI) myocardial infarction Status: Acute (3) Elevated troponin: Code(s): R77.8 - Other specified abnormalities of plasma proteins Status: Acute (4) Paroxysmal atrial fibrillation: Code(s): I48.0 - Paroxysmal atrial fibrillation Status: Chronic (5) Bradycardia: Code(s): R00.1 - Bradycardia, unspecified Status: Acute (6) Second degree AV block, Mobitz type II: Code(s): I44.1 - Atrioventricular block, second degree Status: Acute (7) RBBB (right bundle branch block with left anterior fascicular block): Code(s): I45.2 - Bifascicular block Status: Acute (8) KERI (acute kidney injury): Code(s): N17.9 - Acute kidney failure, unspecified Status: Acute (9) Acute respiratory failure with hypoxia: Code(s): J96.01 - Acute respiratory failure with hypoxia Status: Acute DS: Summary Hospital Course Hospital Course: 69 male patient with past medical history paroxysmal atrial fibrillation, heart block, GERD sleep apnea CPAP, short-term loss secondary to previous intracranial hemorrhage who is status 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 No radiological workup was specific for PNA, but suggested instead PNA vs. Atelectasis. He was discharged to his SNF and once there has been increasingly weak and tremulous, unable to ambulate or bear any weight on his legs due to a bilateral weakness and no focal deficits. He was brought back to the hospital for delineation of possible need for rehab. The following med issues have been addressed during hospitalization Weakness: Code(s): R53.1 - Weakness Status: Acute Assessment and Plan: Patient is unable to stand up without assistance, continue PT OT Consult medicare contact specialist for assisting placement, patient came from assisted living facility Patient has physical deconditioning due to comorbidity, morbid obesity, exacerbated bed acute issues Pneumonia: Code(s): J18.9 - Pneumonia, unspecified organism Status: Acute Assessment and Plan: Continue Doxy and Rocephin. Continue O2 therapy p.r.n., nebulizer p.r.n. change to cefdinir and doxy p.o. 10/28- 11/02 Elevated CPK: Code(s): R74.8 - Abnormal levels of other serum enzymes Status: Acute Assessment and Plan: Elevated CPK at 178 DC IV fluid Paroxysmal atrial fibrillation: Code(s): I48.0 - Paroxysmal atrial fibrillation Status: Chronic Assessment and Plan: no pharmacological anticoagulation given hx of ICH and s/p craniotomy on Eliquis. EKG showing current paced rhythm. Discontinue metoprolol, patient has bradycardia Follow-up EKG: pacing rhythm 59 Resume metoprolol when blood pressure and heart rate pump above Hypertension: Qualifiers: Hypertension type: primary hypertension Qualified Code(s): I10 - Essential (primary) hypertension Code(s): I10 - Essential (primary) hypertension Status: Chronic Assessment and Plan: Continue hold Norvasc and hydralazine Blood pressure on the lower side, but stable Patient needs to be discharged back to rehab Time Spent with Patient Time attestation: Total time spent providing and/or coordinating discharge services: Exam Narrative: GENERAL: Pleasant, in no acute distress. Well-nourished. - EYES: EOMI. Anicteric. - HENT: Moist mucous membranes. Surgica l wound is dry and clean - LUNGS: Clear to auscultation bilateral ly, no wheezing, rhonchi, or rales. - CARDIOVASCULAR: Regular rate and rhyth m. No murmur. No JVD. - ABDOMEN: Soft, non-tender and non-dist ended. No palpable masses. - EXTREMITIES: No edema. Peripheral puls es 2+. Non-tender. - NEUROLOGIC: No focal neurological defi cits. CN II-XII grossly intact. General weakness - PSYCHIATRIC: Awake, Alert and oriented x 3. Appropriate mood and affect. - SKIN: No rashes or lesions. Warm. - LYMPH: No cervical lymphadenopathy. DS: Data Data Completed and Pending Labs on day of discharge: Labs from last 24 hours 11/02/24 10:01 WBC 7.8 RBC 4.65 Hgb 15.1 Hct 47.6 MCV 102.4 H MCH 32.5 MCHC 31.7 L RDW 14.1 Plt Count 306 D MPV 9.9 Sodium 143 Potassium 4.5 Chloride 104 Carbon Dioxide 33 H Anion Gap 6 BUN 24 H Creatinine 1.21 Estim Creat Clear Calc 74 Estimated GFR 60 Glucose 125 H Calcium 9.3 Discharge Plan Discharge Attending physician on discharge: Nena Cleary Discharging Clinician: Nena Cleary Anticipated Discharge Date/Time: 11/03/24 09:43 Patient Disposition: SNF Activity: as tolerated Diet: as tolerated and heart healthy Patient Language: Wolof Stand Alone Forms: General Discharge Information Follow-up/Referrals: Angie,Vern Hdz MD [Primary Care Provider] - (Patient needs to see primary care doctor in 1 week) Discharge Medications: Continued acetaminophen 325 mg Tablet 650 mg PO TID PRN (Reason: fever or pain) sertraline 50 mg Tablet 50 mg PO DAILY polyethylene glycol 3350 17 gram Powder In Packet 17 g PO DAILY PRN (Reason: Constipation) Discontinued amlodipine 10 mg Tablet 10 mg PO DAILY hydralazine 50 mg Tablet 50 mg PO TID metoprolol succinate 50 mg tablet extended release 24 hr 50 mg PO Q12H levofloxacin 750 mg tablet 750 mg PO DAILY Qty: 1 0RF Date of admission: 10/25/24 12:11 Primary Care Provider: Angie,Vern Hdz Admitting Provider: Oz Abdullahi Attending physician on admission: Oz Abdullahi Condition: Stable
[2024-11-03 12:22] LABS: SARS-CoV-2 RNA PCR Negative (Negative)
== END 2024-11-03 12:07 | DRG 194 ==
LOC: ANHED 12:14 → ANH3MED 12:27
PROVIDERS: Nurse Practitioner Adult Health; Admitting Provider Internal Medicine; Emergency Provider Student in an Organized Health Care Education/Training Program; PCP Internal Medicine; Visit Provider Hospitalist
DX: J18.9 Pneumonia, unspecified organism (principal); I45.2 Bifascicular block; N17.9 Acute kidney failure, unspecified; Z68.41 Body mass index [BMI] 40.0-44.9, adult; J98.11 Atelectasis; I44.1 Atrioventricular block, second degree; R74.8 Abnormal levels of other serum enzymes; I48.0 Paroxysmal atrial fibrillation; I10 Essential (primary) hypertension; F03.90 Unspecified dementia, unspecified severity, without behavioral disturbance, psychotic disturbance, mood disturbance, and anxiety; G47.33 Obstructive sleep apnea (adult) (pediatric); Z20.822 Contact with and (suspected) exposure to COVID-19; K21.9 Gastro-esophageal reflux disease without esophagitis; I69.211 Memory deficit following other nontraumatic intracranial hemorrhage; Z98.84 Bariatric surgery status; Z90.49 Acquired absence of other specified parts of digestive tract; E66.01 Morbid (severe) obesity due to excess calories
CPT/HCPCS: 36415; 70450; 71046; 80048; 80053; 81001; 82550; 83735; 84443; 85025; 85027; 87635; 87637; 93005; 94640; 96361; 96374; 97110; 97116; 97161; 97165; 97530; 97535; 99285; A9270; J0696; J7030; J7120